=== PATIENT | female | born 1935 | race Two or more races ===

== ENCOUNTER 2016-05-09 22:18 | Inpatient (IN) | payer MEDICARE, BC ==
--- NOTE | 2016-05-09 22:52 | ED ---
General Adult HPI - General Source: patient, RN notes reviewed Mode of arrival: ambulatory Limitations: no limitations <Alex Pemberton - Last Filed: 05/10/16 00:20> <gY Echols - Last Filed: 05/10/16 01:10> - General Chief complaint: Fall Stated complaint: Weakness/Fall Time Seen by Provider: 05/09/16 22:45 - History of Present Illness Initial comments: Patient is 80-year-old female who presents emergency room today by EMS, the chief complaint of a fall that occurred approximately 2-3 hours ago. Patient does admit that she was laying in bed when the phone rang. States tried to get to it she fell out of the bed. States she was unable to get herself up. She states she was down on the ground she believes for a few hours. She states she was finally able to get to the phone to call her son who called EMS. Patient admits that she's been having increased weakness this past week. She does admit to cough and congestion. Patient states it's just generalized weakness. She denies any loss conscious. She does admit that she hit her face does have some pain over her nose. Patient denies any other complaints at this time. Patient denies any recent fever, chills, shortness of breath, chest pain, back pain, abdominal pain, nausea or vomiting, numbness or tingling, dysuria or hematuria, constipation or diarrhea, headaches or visual changes, or any other complaints. (Alex Pemberton) - Related Data Home Medications Medication Instructions Recorded Confirmed Aspirin 81 mg PO DAILY 05/09/16 05/09/16 Hydrochlorothiazide [Hydrodiuril] 25 mg PO DAILY 05/09/16 05/09/16 Lansoprazole 30 mg PO DAILY 05/09/16 05/09/16 Levothyroxine Sodium [Synthroid] 100 mcg PO DAILY 05/09/16 05/09/16 Mesalamine [Lialda] 1.2 gm PO DAILY 05/09/16 05/09/16 Metoprolol Tartrate [Lopressor] 25 mg PO BID 05/09/16 05/09/16 Multivitamins, Thera [Multivitamin] 1 tab PO DAILY 05/09/16 05/09/16 Pravastatin Sodium [Pravachol] 40 mg PO DAILY 05/09/16 05/09/16 Vit C/E/Zn/Coppr/Lutein/Zeaxan 1 cap PO BID 05/09/16 05/09/16 [Preservision Areds 2 Softgel] Zolpidem [Ambien] 10 mg PO HS PRN 05/09/16 05/09/16 amLODIPine [Norvasc] 5 mg PO DAILY 05/09/16 05/09/16 Allergies Allergy/AdvReac Type Severity Reaction Status Date / Time codeine Allergy Unknown Verified 05/09/16 23:16 gabapentin [From Neurontin] Allergy Unknown Verified 05/09/16 23:16 ibuprofen [From Motrin] Allergy Unknown Verified 05/09/16 23:16 Iodinated Contrast Media - Allergy Unknown Verified 05/09/16 23:16 Oral and omeprazole [From Prilosec] Allergy Unknown Verified 05/09/16 23:16 Sulfa (Sulfonamide Allergy Unknown Verified 05/09/16 23:16 Antibiotics) Review of Systems ROS Other: All systems not noted in ROS Statement are negative. <Alex Pemberton - Last Filed: 05/10/16 00:20> ROS Other: All systems not noted in ROS Statement are negative. <Yg Echols - Last Filed: 05/10/16 01:10> ROS Statement: Those systems with pertinent positive or pertinent negative responses have been documented in the HPI. Past Medical History Past Medical History: Hyperlipidemia, Hypertension, Myocardial Infarction (ID) Additional Past Surgical History / Comment(s): Cardiac stent Past Psychological History: No Psychological Hx Reported Smoking Status: Former smoker Past Alcohol Use History: None Reported Past Drug Use History: None Reported <Alex Pemberton - Last Filed: 05/10/16 00:20> General Exam Limitations: no limitations <Alex Pemberton - Last Filed: 05/10/16 00:20> <Yg Echols - Last Filed: 05/10/16 01:10> - General Exam Comments Initial Comments: General: The patient is awake and alert, in no distress, and does not appear acutely ill. Eye: Pupils are equal, round and reactive to light, extra-ocular movements are intact. No nystagmus. There is normal conjunctiva bilaterally. No signs of icterus. Ears, nose, mouth and throat: There are moist mucous membranes and no oral lesions. Mild abrasion over the bridge of the nose. Mild tenderness locally. No tenderness to the superior or inferior orbital bones bilaterally. Neck: The neck is supple, there is no tenderness or JVD. Cardiovascular: There is a regular rate and rhythm. No murmur, rub or gallop is appreciated. Respiratory: Lungs are clear to auscultation, respirations are non-labored, breath sounds are equal. No wheezes, stridor, rales, or rhonchi. Gastrointestinal: Soft, non-distended, non-tender abdomen without masses or organomegaly noted. There is no rebound or guarding present. No CVA tenderness. Bowel sounds are unremarkable. Musculoskeletal: No appearance of cervical, thoracic, lumbar spine. No step- offs forms appreciate. No tenderness on palpation to the cervical and thoracic , lumbar spine. Normal ROM, no tenderness. Strength 5/5. Sensation intact. Pulses equal bilaterally 2+. Neurological: A&O x 3. CN II-XII intact, There are no obvious motor or sensory deficits. Coordination appears grossly intact. Speech is normal. Skin: Skin is warm and dry and no rashes or lesions are noted. Psychiatric: Cooperative, appropriate mood & affect, normal judgment. (Alex Pemberton) Course <Alex Pemberton - Last Filed: 05/10/16 00:20> <Yg Echols - Last Filed: 05/10/16 01:10> Vital Signs 05/09/16 05/10/16 22:43 00:35 Temperature 98.8 F Pulse Rate 104 H 82 Respiratory 20 18 Rate Blood Pressure 131/60 117/69 O2 Sat by Pulse 96 97 Oximetry - Reevaluation(s) Reevaluation #1: 05/10/16 00:11 Patient reexamined at this time is slightly nauseated come back from CT. Patient will be given nausea medication. Labs been reviewed does show elevated troponin at 0.2. Patient's CT of the head and facial bones currently pending. EKG shows no acute ST change. Heparin held at this time until CT results. Case discussed and signed out to attending Dr. Echols at this time. (Alex Pemberton) EKG Findings - EKG Comments: EKG Findings:: EKG performed at 2322: A 12-lead EKG was performed and interpreted by me as showing the following: Rate is 98, and rhythm is normal sinus. There are normal QRS complexes and normal R-wave progression. ST segments have no elevation or depression, and IA segments appear normal. <Alex Pemberton - Last Filed: 05/10/16 00:20> Medical Decision Making - Lab Data Result diagrams: 05/09/16 23:15 05/09/16 23:15 <Alex Pemberton - Last Filed: 05/10/16 00:20> - Lab Data Result diagrams: 05/09/16 23:15 05/09/16 23:15 <Yg Echols - Last Filed: 05/10/16 01:10> - Medical Decision Making Medical decision-making. The patient is 80 years old phone rang she tried to get to the phone fell out of bed. Laid on the floor for approximately one hour. Earlier in the day the patient reports she had really severe low back pain denies any sweats or nausea at that time. She managed to get hold of phone call her son and the EMS picked her up and brought her in. Patient reports she's not been able to eat or drink much for the last several days. Feels extremely weak. Hard to get out of bed. Patient past history includes an ID. Years ago she also reports recently being diagnosed with adrenal carcinoma. She states she has had a CAT scan of the chest does not know that anything has been found there though today's x-ray is suspicious for a mass in the upper part of the right lower lobe.. The patient's EKG shows inferior Q waves. Patient does have a history of an ID. Her labs show CK normal at 63 but the MBs elevated 3.5 troponin elevated 0.206. Chest x-ray as noted above includes masslike density in the right lower lobe. The patient's white count is 13.9 hemoglobin 11 hematocrit of 45. BUN 13 with a creatinine 0.7 with a GFR greater than 60. Potassium 4.0. CT the brain and cervical spine were done and reviewed by stat read. The findings are generalized atrophy and patchy periventricular white matter hypodensity most commonly seen in the chronic small vessel ischemic bases. No hemorrhage. Impression is no acute findings atrophy and presumed chronic small vessel ischemic changes. The patient's CT of the cervical spine was done and reviewed by radiologist at stat read. Final impression is no acute fracture or listhesis. Multilevel degenerative changes. . As reported by stat read. Clinically the patient does not have a headache or neck pain. The patient be admitted to Dr. Mosqueda. She'll be started on heparin. Patient denies any bleeding though she has had a history of ulcerative colitis and occasionally sees a small amount of blood in the mucousy stool. But nothing significant lately. Cardiology consultation will also be requested. Dr. Echols (Yg Echols) - Lab Data Lab Results 05/09/16 05/09/16 05/09/16 Range/Units 23:15 23:15 23:15 WBC 13.7 H (3.8-10.6) k/uL RBC 4.20 (3.80-5.40) m/uL Hgb 11.3 L (11.4-16.0) gm/dL Hct 34.5 (34.0-46.0) % MCV 82.2 D (80.0-100.0) fL MCH 26.8 (25.0-35.0) pg MCHC 32.6 (31.0-37.0) g/dL RDW 13.5 (11.5-15.5) % Plt Count 278 (150-450) k/uL Neutrophils % 92 % Lymphocytes % 4 % Monocytes % 2 % Eosinophils % 1 % Basophils % 0 % Neutrophils # 12.5 H (1.3-7.7) k/uL Lymphocytes # 0.6 L (1.0-4.8) k/uL Monocytes # 0.3 (0-1.0) k/uL Eosinophils # 0.1 (0-0.7) k/uL Basophils # 0.0 (0-0.2) k/uL PT (9.0-12.0) sec INR (<1.1) APTT (22.0-30.0) sec Sodium 135 L (137-145) mmol/L Potassium 4.0 (3.5-5.1) mmol/L Chloride 99 (98-107) mmol/L Carbon Dioxide 22 (22-30) mmol/L Anion Gap 14 mmol/L BUN 13 (7-17) mg/dL Creatinine 0.70 (0.52-1.04) mg/dL Est GFR (MDRD) Af Amer >60 (>60 ml/min/1.73 sqM) Est GFR (MDRD) Non-Af >60 (>60 ml/min/1.73 sqM) Glucose 137 H (74-99) mg/dL Calcium 9.0 (8.4-10.2) mg/dL Magnesium 1.7 (1.6-2.3) mg/dL Total Bilirubin 0.4 (0.2-1.3) mg/dL AST 22 (14-36) U/L ALT 27 (9-52) U/L Alkaline Phosphatase 111 (38-126) U/L Total Creatine Kinase 63 (30-135) U/L CK-MB (CK-2) 3.5 H* (0.0-2.4) ng/mL CK-MB (CK-2) Rel Index 5.6 Troponin I 0.206 H* (0.000-0.034) ng/mL Total Protein 7.6 (6.3-8.2) g/dL Albumin 3.6 (3.5-5.0) g/dL 05/09/16 Range/Units 23:15 WBC (3.8-10.6) k/uL RBC (3.80-5.40) m/uL Hgb (11.4-16.0) gm/dL Hct (34.0-46.0) % MCV (80.0-100.0) fL MCH (25.0-35.0) pg MCHC (31.0-37.0) g/dL RDW (11.5-15.5) % Plt Count (150-450) k/uL Neutrophils % % Lymphocytes % % Monocytes % % Eosinophils % % Basophils % % Neutrophils # (1.3-7.7) k/uL Lymphocytes # (1.0-4.8) k/uL Monocytes # (0-1.0) k/uL Eosinophils # (0-0.7) k/uL Basophils # (0-0.2) k/uL PT 12.1 H (9.0-12.0) sec INR 1.2 (<1.1) APTT 24.5 (22.0-30.0) sec Sodium (137-145) mmol/L Potassium (3.5-5.1) mmol/L Chloride (98-107) mmol/L Carbon Dioxide (22-30) mmol/L Anion Gap mmol/L BUN (7-17) mg/dL Creatinine (0.52-1.04) mg/dL Est GFR (MDRD) Af Amer (>60 ml/min/1.73 sqM) Est GFR (MDRD) Non-Af (>60 ml/min/1.73 sqM) Glucose (74-99) mg/dL Calcium (8.4-10.2) mg/dL Magnesium (1.6-2.3) mg/dL Total Bilirubin (0.2-1.3) mg/dL AST (14-36) U/L ALT (9-52) U/L Alkaline Phosphatase (38-126) U/L Total Creatine Kinase (30-135) U/L CK-MB (CK-2) (0.0-2.4) ng/mL CK-MB (CK-2) Rel Index Troponin I (0.000-0.034) ng/mL Total Protein (6.3-8.2) g/dL Albumin (3.5-5.0) g/dL Disposition <Alex Pemberton - Last Filed: 05/10/16 00:20> <Yg Echols - Last Filed: 05/10/16 01:10> Clinical Impression: Elevated troponin I level, Fall Disposition: ADMITTED IP TO THIS HOSP Condition: Stable
[2016-05-09 23:21] LABS: Basophils % (A) 0 %; CH 26.8; CHCM 32.7; Eosinophils # (A) 0.1 k/uL (0-0.7); Eosinophils % (A) 1 %; HCT 34.5 % (34.0-46.0); HDW 2.64; HGB 11.3 gm/dL (11.4-16.0); Luc % (Auto) 1; Lymphocytes # (A) 0.6 k/uL (1.0-4.8); Lymphocytes % (A) 4 %; MCH 26.8 pg (25.0-35.0); MCHC 32.6 g/dL (31.0-37.0); Mean Platelet Volume 6.6; Monocytes # (A) 0.3 k/uL (0-1.0); Monocytes % (A) 2 %; Neutrophils # (A) 12.5 k/uL (1.3-7.7); Neutrophils % (A) 92 %; RDW 13.5 % (11.5-15.5); WBC 13.7 k/uL (3.8-10.6); WBC (Perox) 12.76
[2016-05-09 23:25] LABS: MCV 82.2 fL (80.0-100.0)
[2016-05-09 23:33] LABS: INR 1.2 (<1.1); Partial Thromboplastin Time 24.5 sec (22.0-30.0); Prothrombin Time 12.1 sec (9.0-12.0)
[2016-05-09 23:34] LABS: ALT 27 U/L (9-52); AST 22 U/L (14-36); Alkaline Phosphatase 111 U/L (38-126); Anion Gap 14 mmol/L; Blood Urea Nitrogen 13 mg/dL (7-17); Carbon Dioxide 22 mmol/L (22-30); Chloride 99 mmol/L (98-107); Glucose 137 mg/dL (74-99); Magnesium 1.7 mg/dL (1.6-2.3); Non-African American GFR(MDRD) >60 (>60 ml/min/1.73 sqM); Sodium 135 mmol/L (137-145); Total Bilirubin 0.4 mg/dL (0.2-1.3); Total Protein 7.6 g/dL (6.3-8.2)
[2016-05-09 23:57] LABS: Creatine Kinase MB 3.5 ng/mL (0.0-2.4); Troponin I 0.206 ng/mL (0.000-0.034)
--- NOTE | 2016-05-10 00:05 | XR ---
EXAMINATION TYPE: XR chest 2V DATE OF EXAM: 05/10/2016 12:00 AM COMPARISON: NONE HISTORY: Chest pain TECHNIQUE: Frontal and lateral views of the chest are obtained. FINDINGS: Heart is normal. There is increased density over the right pulmonary hilum that could rela te to a 3 cm mass posterior to the right pulmonary hilum on the lateral view. The other lung jim a re clear. Costophrenic angles are clear. Thoracic aorta is atheromatous. IMPRESSION: Possible masslike density in the superior segment of the right lower lobe posterior to t he right pulmonary hilum. Follow-up is recommended. If there are no old exams then CT scan is probabl y necessary.
[2016-05-10] MEDS ORDERED: ONDANSETRON 4 MG/2 ML VIAL IVP STA (00:10)
[2016-05-10] MEDS ORDERED: ACETAMINOPHEN TAB 325 MG TAB PO PRN (01:10)
[2016-05-10] MEDS ORDERED: NALOXONE 0.4 MG/ML 1 ML VIAL IV PRN (01:10)
[2016-05-10] MEDS: SODIUM CHLORIDE 0.9% 1,000 ML IV SCH ×2 (01:56→11:48)
[2016-05-10] MEDS: HEPARIN SODIUM,PORCINE/D5W PMX 25,000 UNIT in DEXTROSE/WATER 1 500ML.BAG IV SCH (01:57)
[2016-05-10 02:34] LABS: Glucose,Whole Blood 126 mg/dL (75-99)
[2016-05-10 05:42] LABS: CH 26.2; CHCM 30.7; HCT 34.7 % (34.0-46.0); HGB 10.9 gm/dL (11.4-16.0); Hypochromasia Moderate; MCHC 31.4 g/dL (31.0-37.0); MCV 85.8 fL (80.0-100.0); Mean Platelet Volume 6.6; RBC 4.04 m/uL (3.80-5.40); RDW 13.7 % (11.5-15.5); WBC 12.8 k/uL (3.8-10.6)
[2016-05-10 05:47] LABS: Anion Gap 10 mmol/L; Blood Urea Nitrogen 11 mg/dL (7-17); Calcium 8.8 mg/dL (8.4-10.2); Carbon Dioxide 25 mmol/L (22-30); Chloride 101 mmol/L (98-107); Glucose 104 mg/dL (74-99); Non-African American GFR(MDRD) >60 (>60 ml/min/1.73 sqM); Potassium 3.5 mmol/L (3.5-5.1); Sodium 136 mmol/L (137-145)
[2016-05-10] MEDS ORDERED: Potassium Replacement Protocol 1 EACH MISC MISCELLANE PRN (06:02)
[2016-05-10 06:12] LABS: Appearance,Urine Cloudy (Clear); Bacteria,Urine Moderate /hpf; Bilirubin,Urine Negative (Negative); Glucose,Urine (UA) Negative (Negative); Ketones,Urine Negative (Negative); Leukocyte Esterase,Urine Moderate (Negative); Mucus,Urine Rare /hpf; Nitrite,Urine Negative (Negative); PH, Urine 5.5 (5.0-8.0); Particle Count 110145; Protein,Urine Trace (Negative); RBC,Urine 5 /hpf (0-5); Squamous Epithelial Cell,Urine 1 /hpf (0-4); UA Billing (MACRO vs. MICRO) MICRO; Urobilinogen,Urine <2.0 mg/dL (<2.0); WBC,Urine 75 /hpf (0-5)
[2016-05-10 06:15] LABS: Creatine Kinase MB 9.2 ng/mL (0.0-2.4)
[2016-05-10 06:16] LABS: Troponin I 0.892 ng/mL (0.000-0.034)
[2016-05-10] MEDS: MAGNESIUM SULFATE-D5W PMX 1 GM in DEXTROSE/WATER 1 100ML.BAG IVPB SCH ×2 (07:09→09:43)
[2016-05-10] MEDS: POTASSIUM CHLORIDE ER 20 MEQ TAB.ER PO SCH ×2 (07:10→09:43)
[2016-05-10] MEDS: METOPROLOL TARTRATE 25 MG TAB PO SCH ×2 (09:43→20:55)
[2016-05-10] MEDS: PANTOPRAZOLE 40 MG/10 ML VIAL IV SCH (09:43)
[2016-05-10] MEDS ORDERED: RX INFO: IV CONTRAST WAS GIVEN 1 EACH MISC MISCELLANE PRN (11:08)
[2016-05-10] MEDS: AZITHROMYCIN 500 MG in SODIUM CHLORIDE 0.9% 250 ML IVPB SCH (11:47)
[2016-05-10] MEDS: methylPREDNISolone SOD SUCCI 125 MG/2 ML VIAL IV SCH ×2 (11:48→17:53)
[2016-05-10 11:57] LABS: Creatine Kinase MB 7.1 ng/mL (0.0-2.4); Troponin I 0.676 ng/mL (0.000-0.034)
--- NOTE | 2016-05-10 12:15 | ECHOF ---
Referral Reason:cad MEASUREMENTS -------- HEIGHT: 165.1 cm WEIGHT: 74.4 kg BP: 118/59 RVIDd: 3.0 cm (< 3.3) IVSd: 0.9 cm (0.6 - 1.1) LVIDd: 3.9 cm (3.9 - 5.3) LVPWd: 0.9 cm (0.6 - 1.1) IVSs: 1.5 cm LVIDs: 2.7 cm LVPWs: 1.3 cm LA Diam: 3.5 cm (2.7 - 3.8) LAESV Index (A-L): 22.66 ml/m Ao Diam: 3.2 cm (2.0 - 3.7) AV Cusp: 1.9 cm (1.5 - 2.6) LA Diam: 2.7 cm (2.7 - 3.8) MV EXCURSION: 13.189 mm (> 18.000) MV EF SLOPE: 54 mm/s (70 - 150) EPSS: 0.3 cm MV E Soto: 0.99 m/s MV DecT: 237 ms MV A Soto: 0.91 m/s MV E/A Ratio: 1.09 RAP: 5.00 mmHg RVSP: 39.13 mmHg FINDINGS -------- Sinus rhythm with extra systolic beats. This was a technically good study. Left ventricular wall thickness is normal. Overall left ventricular systolic function is normal with, an EF between 55 - 60 %. The right ventricle is normal in size. Normal LA size by volume 22+/-6 ml/m2. The right atrium is normal in size. Aortic valve is trileaflet and is mildly thickened. The mitral valve leaflets are mildly thickened. Mild mitral annular calcification present. There is trace mitral regurgitation. Mild tricuspid regurgitation present. There is mild pulmonary hypertension. The right ventricular systolic pressure, as measured by Doppler, is 39.13mmHg. Pulmonic valve appears structurally normal. The aortic root size is normal. Normal inferior vena cava with normal inspiratory collapse consistent with estimated right atrial pressure of 5 mmHg. Echo free space may represent effusion or a pericardial fat pad. CONCLUSIONS -------- 1. Sinus rhythm with extra systolic beats. 2. Mild mitral annular calcification present. 3. There is trace mitral regurgitation. 4. Mild tricuspid regurgitation present. 5. There is mild pulmonary hypertension. 6. The right ventricular systolic pressure, as measured by Doppler, is 39.13mmHg. 7. Pulmonic valve appears structurally normal. 8. The aortic root size is normal. 9. Echo free space may represent effusion or a pericardial fat pad. 10. This was a technically good study. 11. Left ventricular wall thickness is normal. 12. Overall left ventricular systolic function is normal with, an EF between 55 - 60 %. 13. The right ventricle is normal in size. 14. Normal LA size by volume 22+/-6 ml/m2. 15. The right atrium is normal in size. 16. Aortic valve is trileaflet and is mildly thickened. 17. The mitral valve leaflets are mildly thickened. SEAMING INSPECTOR: Lico Vitale RDCS
[2016-05-10 12:22] LABS: Glucose,Whole Blood 109 mg/dL (75-99)
--- NOTE | 2016-05-10 13:21 | CONS ---
DATE OF CONSULTATION: Mrs. Ortez is a 80 and year-old female who presented with severe weakness. The patient has been followed in [place] by the cardiology group, has a history of coronary artery disease and stenting in 2005. For the last few weeks he has been complaining of progressive fatigue. Yesterday he fell and was quite weak and could not stand up. She denies any change in her breathing. She denies any clear chest discomfort, although sometimes she gets some tightness in the upper chest. She has chronic dyspnea on exertion. No significant peripheral edema. No PND or orthopnea. She denies any palpitation or syncope. She apparently has been complaining of abdominal discomfort. Underwent extensive work-up in [place] by Dr. Araiza in the gastroenterology department and was diagnosed with possible malignant adrenal mass and was referred to [facility] to undergo surgical intervention but she has not seen the surgeon yet. She denies any recent cardiac abnormalities. She has been seen by her tattoo and body artist about a month ago. Her coronary risk factors are remarkable for smoking up to 10 days ago. She is hyperlipidemic, nondiabetic. She is hypertensive. Her medications include: 1. Aspirin. 2. Hydrochlorothiazide 25 mg daily. 3. Prevacid. 4. Levothyroxine. 5. Lialda. 6. Metoprolol tartrate 25 mg twice a day. 7. Pravastatin at 40 mg daily. 8. Zolpidem. 9. Norvasc 5 mg daily. 10. Preservision. REVIEW OF SYSTEMS: RESPIRATORY SYSTEM: She has no recent wheezing or cough, although she has dyspnea on exertion and chronic tobacco use. GI system: She had the abdominal discomfort. She has some bleeding with her stool according to her, mucousy. system: No dysuria or hematuria. Nervous system: No history of stroke or seizure. PHYSICAL EXAMINATION: A 80-year-old female, alert, in no apparent distress. Blood pressure running in the one teens with the heart rate in the 70s. HEAD: Normocephalic. EYES: Sclerae anicteric. NECK: Good upstroke. No bruit. LUNGS: With decreased air exchange and scattered wheezes bilaterally. HEART: Regular rate rhythm. S1, S2, no S3, with systolic murmur heard at the base. No diastolic murmur. No rub. ABDOMEN: Soft, nontender, positive bowel sounds. No organomegaly. EXTREMITIES: No edema. Intact distal pulses. Lab data revealed a white blood cells 13.7 and 12.8. Hemoglobin of 10.9. Her BUN and creatinine 11 and 0.7. Potassium 3.5. Her troponin 0.206 and 0.892. Her chest x-ray revealed possible masslike density in the superior segment of the right lower lobe. Her EKG shows sinus mechanism, normal axis and intervals, ( ) evidence to suggest myocardial infarction. IMPRESSION: 1. Fall with generalized weakness of unclear etiology. 2. Elevation of troponin with no evidence of chest discomfort. Her symptoms suggest acute coronary syndrome, the findings could represent a type II event. 3. History of an adrenal mass that is malignant. 4. Prior history of coronary artery disease. 5. History of hypertension. 6. History of chronic tobacco use. 7. Hyperlipidemia. 8. Abnormal chest x-ray with lung mass. RECOMMENDATIONS: At this time, I will continue heparin for another 24 hours. I will restart her on the beta israel as well aspirin and the statin. I will obtain echocardiogram with Doppler and will try to obtain the prior cardiac work-up that was done in [place]. We will obtain the input of Dr. Snyder regarding her chest x-ray and depending on this testing, further recommendations will be made. Thank you for this consult. We will follow with you.
--- NOTE | 2016-05-10 14:17 | CT ---
EXAM: CT Maxillofacial Without Intravenous Contrast. CLINICAL HISTORY: Reason: Pain TECHNIQUE: Axial computed tomography images of the face without intravenous contrast. Coronal reformats. CTDI is 30.60 mGy and DLP is 612.00 mGy-cm COMPARISON: No relevant prior studies available. FINDINGS: Bones: No acute displaced facial bone fracture is seen. Subtle lucency through the right and left lateral nasal hughes more likely representing normal sutures rather than nondisplaced fracture or fractures. Extracranial soft tissues: Unremarkable. Sinuses: Minimal scattered ethmoid air cell mucosal thickening. No air-fluid levels. Orbits: Of incidental note is absence of the lens bilaterally. IMPRESSION: No acute displaced fracture is seen, as above, and which could be correlated clinically with physical exam findings and site of symptomatology.
--- NOTE | 2016-05-10 14:18 | CT ---
EXAM: CT Head Without Intravenous Contrast. CLINICAL HISTORY: Reason: Pain TECHNIQUE: Axial computed tomography images of the head/brain without intravenous contrast. CTDI is 57.4 mGy and DLP is 995.50 mGy-cm COMPARISON: No relevant prior studies available. FINDINGS: Brain: There is generalized atrophy with patchy periventricular white matter hypodensity most commonly seen on a chronic small vessel ischemic basis. No hemorrhage. Ventricles: Unremarkable. No ventriculomegaly. Bones: No acute fracture. Sinuses: Minimal scattered mucosal thickening seen within a few bilateral ethmoid air cells. Mastoid air cells: Unremarkable as visualized. No mastoid effusion. IMPRESSION: No acute findings. Atrophy and presumed chronic small vessel ischemic changes. EXAM: CT Cervical Spine Without Intravenous Contrast. CLINICAL HISTORY: Reason: Pain TECHNIQUE: Axial computed tomography images of the cervical spine without intravenous contrast. CTDI is 17.60 mGy and DLP is 372.00 mGy-cm COMPARISON: No relevant prior studies available. FINDINGS: Vertebrae: Unremarkable. No acute fracture. Discs/spinal canal/neural foramina: Multilevel degenerative changes, resulting in a component of central canal and bilateral foraminal stenosis from C3-4 through C6-7. Soft tissues: Unremarkable. Vasculature: Scattered atherosclerotic calcification throughout. Lung apices: Biapical lung pleural parenchymal opacities favoring scarring. IMPRESSION: 1. No acute fracture or listhesis. 2. Multilevel degenerative changes. 3. Clinical clearance of the cervical spine is still recommended.
[2016-05-10] MEDS ORDERED: IPRATROPIUM 0.5 MG/2.5 ML NEBU INHALATION PRN (17:38)
[2016-05-10 17:40] LABS: Glucose,Whole Blood 135 mg/dL (75-99)
[2016-05-10] MEDS ORDERED: FAMOTIDINE 20 MG/2 ML VIAL IV ONE (17:45)
[2016-05-10] MEDS ORDERED: diphenhydrAMINE 50 MG/ML 1 ML VIAL IVP ONE (17:45)
--- NOTE | 2016-05-10 18:30 | P.CNPUL ---
History of Present Illness Consult date: 05/10/16 Reason for consult: abnormal CXR/CT Chief complaint: Abnormal chest x-ray History of present illness: This patient is being seen in the presence of Dr. Snyder in the intensive care unit. 80-year-old female patient who came into the emergency department yesterday after falling and staying on the ground for a total of 3-4 hours. Apparently the patient was feeling weak as she was having some increased cough and chest congestion and some shortness of breath along with generalized weakness. The patient tried to get out of her bed and she fell out and she was unable to get herself back up. She remained on the floor for a few hours and ultimately she got to her son who called EMS and the patient was taken to the hospital. No loss of consciousness. No focal neurological deficits. No nausea vomiting or diarrhea. She is known to have chronic ulcerative colitis and currently her symptoms of ulcerative colitis a currently inactive. She also denied having any chest pain. No headaches. No neck stiffness. No reported fever or chills. The patient tells me that during a recent evaluation with her harness fitter, she was found to have an adrenal lesion/mass and cancer was suspected and she was supposed to have a further workup which never got done. She has a chest x-ray that shows some infrahilar fullness on the right and I think she would deserve a CAT scan of the chest to characterized this abnormalities further. There is some minor nonspecific troponin leak for which the patient will be seeing cardiology. She is hemodynamically stable at this point. No chills. No fever. No signs of septicemia. No other significant events overnight. Review of Systems Further review of system was done and the positive findings are almost above history of present illness Past Medical History Past Medical History: Hyperlipidemia, Hypertension, Myocardial Infarction (AR) Additional Past Medical History / Comment(s): ulcerative colitis, adrenal mass under investigation, CAD previous stent of RCA, HTN, hyperlipidemia, EF 70% , hypothyroidism Last Myocardial Infarction Date:: 2005 History of Any Multi-Drug Resistant Organisms: None Reported Past Surgical History: Adenoidectomy, Bladder Surgery, Cholecystectomy, Hysterectomy, Tonsillectomy Additional Past Surgical History / Comment(s): Cardiac stent Additional Past Anesthesia/Blood Transfusion Reaction / Comment(s): muscle weakness post biopsy Past Psychological History: No Psychological Hx Reported Smoking Status: Former smoker Past Alcohol Use History: None Reported Past Drug Use History: None Reported - Past Family History Mother Family Medical History: Cancer, Myocardial Infarction (AR) Medications and Allergies Home Medications Medication Instructions Recorded Confirmed Type Aspirin 81 mg PO DAILY 05/09/16 05/09/16 History Hydrochlorothiazide [Hydrodiuril] 25 mg PO DAILY 05/09/16 05/09/16 History Lansoprazole 30 mg PO DAILY 05/09/16 05/09/16 History Levothyroxine Sodium [Synthroid] 100 mcg PO DAILY 05/09/16 05/09/16 History Mesalamine [Lialda] 1.2 gm PO DAILY 05/09/16 05/09/16 History Metoprolol Tartrate [Lopressor] 25 mg PO BID 05/09/16 05/09/16 History Multivitamins, Thera [Multivitamin] 1 tab PO DAILY 05/09/16 05/09/16 History Pravastatin Sodium [Pravachol] 40 mg PO DAILY 05/09/16 05/09/16 History Vit C/E/Zn/Coppr/Lutein/Zeaxan 1 cap PO BID 05/09/16 05/09/16 History [Preservision Areds 2 Softgel] Zolpidem [Ambien] 10 mg PO HS PRN 05/09/16 05/09/16 History amLODIPine [Norvasc] 5 mg PO DAILY 05/09/16 05/09/16 History Allergies Allergy/AdvReac Type Severity Reaction Status Date / Time codeine Allergy Unknown Verified 05/09/16 23:16 gabapentin [From Neurontin] Allergy Unknown Verified 05/09/16 23:16 ibuprofen [From Motrin] Allergy Unknown Verified 05/09/16 23:16 Iodinated Contrast Media - Allergy Unknown Verified 05/09/16 23:16 Oral and omeprazole [From Prilosec] Allergy Unknown Verified 05/09/16 23:16 Sulfa (Sulfonamide Allergy Unknown Verified 05/09/16 23:16 Antibiotics) Physical Exam Vitals: Vital Signs Temp Pulse Pulse Resp BP BP Pulse Ox 05/10/16 17:00 85 22 135/61 92 L 05/10/16 16:00 98.9 F 75 22 135/61 93 L 05/10/16 15:00 77 05/10/16 14:00 81 22 05/10/16 13:00 74 18 112/53 05/10/16 12:00 71 73 25 H 112/53 94 L 05/10/16 11:00 62 23 92 L 05/10/16 10:00 69 20 118/59 93 L 05/10/16 09:00 98.1 F 82 22 118/59 92 L 05/10/16 08:00 68 18 104/63 92 L 05/10/16 07:00 90 34 H 104/63 90 L 05/10/16 06:00 73 46 H 95/42 93 L 05/10/16 05:00 87 29 H 95/42 90 L 05/10/16 04:00 98.4 F 69 73 40 H 119/58 95/42 94 L 05/10/16 03:00 73 21 119/58 95 05/10/16 02:39 98.4 F 71 27 H 119/58 95 05/10/16 02:30 89 25 H 88 L 05/10/16 02:01 97.9 F 78 18 108/54 93 L Intake and Output 05/10/16 05/10/16 05/10/16 06:59 14:59 22:59 Intake Total 600 1359.302 158.193 Balance 600 1359.302 158.193 Intake: IV 600 800 Sodium Chloride 0.9% 1, 600 800 000 ml @ 100 mls/hr IV . Q10H [facility] Rx#:[id number] Intake, IV Titration 559.302 158.193 Amount Azithromycin 500 mg In 250 Sodium Chloride 0.9% 250 ml @ 125 mls/hr IVPB DAILY [facility] Rx#:[id number] Heparin Sodium,Porcine/ 159.302 158.193 D5w Pmx 25,000 unit In Dextrose/Water 1 500ml. bag @ 12 UNITS/KG/HR 17. 41 mls/hr IV .Q24H [facility] Rx #:[id number] Magnesium Sulfate-D5w Pmx 100 1 gm In Dextrose/Water 1 100ml.bag @ 100 mls/hr IVPB Q1H [facility] Rx#: [id number] cefTRIAXone 1,000 mg In 50 Sodium Chloride 0.9% 50 ml @ 100 mls/hr IVPB Q24HR [facility] Rx#:[id number] Other: Voiding Method Bedside Commode Bedside Commode # Voids 1 3 Weight 74.5 kg 74.5 kg Patient Weight 05/11/16 06:59 Weight 74.5 kg Head exam was generally normal. There was no scleral icterus or corneal arcus. Mucous membranes were moist.Neck was supple and without jugular venous distension, thyromegaly, or carotid bruits. Carotids were easily palpable bilaterally. There was no adenopathy. Lungs are diminished breath sounds along with some scattered expiratory wheezes heard bilaterally.Cardiac exam revealed the PMI to be normally situated and sized. The rhythm was regular and no extrasystoles were noted during several minutes of auscultation. The first and second heart sounds were normal and physiologic splitting of the second heart sound was noted. There were no murmurs, rubs, clicks, or gallops.Abdominal exam revealed normal bowel sounds. The abdomen was soft, non-tender, and without masses, organomegaly, or appreciable enlargement of the abdominal aorta.Examination of the extremities revealed easily palpable radial, femoral and pedal pulses. There was no cyanosis, clubbing or edema. Results - Laboratory Findings CBC and BMP: 05/10/16 05:28 05/10/16 05:28 PT/INR, D-dimer PT 12.1 sec (9.0-12.0) H 05/09/16 23:15 INR 1.2 (<1.1) 05/09/16 23:15 Abnormal lab findings: Abnormal Labs 05/10/16 05/10/16 05/10/16 02:28 05:28 05:28 WBC 12.8 H Hgb 10.9 L APTT Sodium Glucose POC Glucose (mg/dL) 126 H CK-MB (CK-2) 9.2 H* Troponin I 0.892 H* TSH Urine Appearance Urine Protein Ur Leukocyte Esterase Urine WBC Urine WBC Clumps Urine Bacteria Urine Mucus 05/10/16 05/10/16 05/10/16 05:28 05:28 05:48 WBC Hgb APTT Sodium 136 L Glucose 104 H POC Glucose (mg/dL) CK-MB (CK-2) Troponin I TSH 0.164 L Urine Appearance Cloudy H Urine Protein Trace H Ur Leukocyte Esterase Moderate H Urine WBC 75 H Urine WBC Clumps Rare H Urine Bacteria Moderate H Urine Mucus Rare H 05/10/16 05/10/16 05/10/16 08:42 10:41 12:17 WBC Hgb APTT 31.8 H Sodium Glucose POC Glucose (mg/dL) 109 H CK-MB (CK-2) 7.1 H* Troponin I 0.676 H* TSH Urine Appearance Urine Protein Ur Leukocyte Esterase Urine WBC Urine WBC Clumps Urine Bacteria Urine Mucus 05/10/16 05/10/16 17:01 17:38 WBC Hgb APTT 35.0 H Sodium Glucose POC Glucose (mg/dL) 135 H CK-MB (CK-2) Troponin I TSH Urine Appearance Urine Protein Ur Leukocyte Esterase Urine WBC Urine WBC Clumps Urine Bacteria Urine Mucus - Diagnostic Findings Chest x-ray: image reviewed Assessment and Plan Plan: Assessment 1 generalized weakness/fall in setting of a suspected upper respiratory tract infection, and an abnormal chest x-ray that showing right infrahilar fullness/ lesion. CAT scan of the chest will be needed for further investigation and there is a concern of malignancy specially the patient was recently told to have an adrenal lesion. 2 nonspecific troponin leak, awaiting cardiac consultation 3 questionable adrenal lesion, currently under investigation 4 ulcerative colitis 5 coronary artery disease with previous history of insertion of coronary stents 6 hypertension 7 smoking 8 hyperlipidemia 9 suspected urinary tract infection Plan Continue IV fluids. We'll cover this patient with a combination of Rocephin and Zithromax. This will give the patient adequate respiratory coverage and Rocephin will also cover this patient for any potential urine checked infection. Would proceed with a CAT scan of the chest with contrast. The patient is ALLERGIC to contrast and the patient will be given IV Solu-Medrol and this will be followed up by CAT scan of the chest for further characterization of the right lung abnormalities. The patient is stable. She can be moved to selective unit for further monitoring.
[2016-05-10 20:48] LABS: Glucose,Whole Blood 208 mg/dL (75-99)
[2016-05-10] MEDS: ZOLPIDEM 5 MG TAB PO SCH (20:55)
[2016-05-10] MEDS: INSULIN LISPRO (humaLOG) 300 UNIT/3 ML VIAL SQ SCH (20:55)
[2016-05-11] MEDS: HEPARIN SODIUM,PORCINE/D5W PMX 25,000 UNIT in DEXTROSE/WATER 1 500ML.BAG IV SCH ×2 (00:07→22:52)
[2016-05-11] MEDS: methylPREDNISolone SOD SUCCI 125 MG/2 ML VIAL IV SCH ×5 (00:30→23:02)
[2016-05-11 02:13] LABS: Hemoglobin A1C 5.7 % (4.2-6.1)
[2016-05-11] MEDS: SODIUM CHLORIDE 0.9% 1,000 ML IV SCH (05:38)
[2016-05-11] MEDS ORDERED: IV VANCOMYCIN PER PHARMACY 1 EACH MISC MISCELLANE PRN (06:04)
[2016-05-11 06:28] LABS: Glucose,Whole Blood 156 mg/dL (75-99)
[2016-05-11 06:31] LABS: Basophils % (A) 0 %; CH 26.2; Eosinophils % (A) 0 %; HCT 32.8 % (34.0-46.0); HDW 2.68; HGB 10.2 gm/dL (11.4-16.0); Hypochromasia Slight; Luc # (Auto) 0.04; Luc % (Auto) 0; Lymphocytes # (A) 0.8 k/uL (1.0-4.8); Lymphocytes % (A) 5 %; MCH 26.4 pg (25.0-35.0); MCHC 31.1 g/dL (31.0-37.0); MCV 84.9 fL (80.0-100.0); Mean Platelet Volume 6.4; Monocytes # (A) 0.2 k/uL (0-1.0); Monocytes % (A) 1 %; Neutrophils # (A) 14.7 k/uL (1.3-7.7); Neutrophils % (A) 94 %; RBC 3.86 m/uL (3.80-5.40); RDW 13.6 % (11.5-15.5); WBC 15.7 k/uL (3.8-10.6); WBC (Perox) 16.03
[2016-05-11] MEDS: INSULIN LISPRO (humaLOG) 300 UNIT/3 ML VIAL SQ SCH ×4 (06:50→21:21)
[2016-05-11] MEDS: LEVOTHYROXINE 100 MCG TAB PO SCH (06:50)
[2016-05-11 06:53] LABS: Anion Gap 11 mmol/L; Blood Urea Nitrogen 14 mg/dL (7-17); Calcium 8.4 mg/dL (8.4-10.2); Carbon Dioxide 23 mmol/L (22-30); Chloride 105 mmol/L (98-107); Glucose 152 mg/dL (74-99); Non-African American GFR(MDRD) >60 (>60 ml/min/1.73 sqM); Potassium 4.3 mmol/L (3.5-5.1); Sodium 139 mmol/L (137-145)
--- NOTE | 2016-05-11 07:34 | HP ---
DATE OF ADMISSION: CHIEF COMPLAINT: Generalized weakness, found on the floor, status post fall. HISTORY OF PRESENT ILLNESS: Ms. Ortez is a 80-year-old female with known history of hypertension, hyperlipidemia, history of coronary artery disease, status post stent placement to RCA and recent incidental finding of adrenal mass, currently under workup came to the hospital with generalized weakness. Patient apparently was lying in the bed when the phone rang. She tried to get it and she fell out of the bed. She was unable to get herself up and she was down on the floor where her son found her on the floor and called EMS. Patient apparently has been having generalized weakness for the past one week and patient has been having cough and congestion for the past one week and generalized weakness is getting worse. Otherwise, patient denied any loss of consciousness. No headache or dizziness, lightheadedness. No chest pain. No short of breath. No fever. No chills. No sick contacts at home. Patient was found to have a slightly elevated troponin level and chest x-ray showed right hilar fullness and Pulmonary has been consulted and CT of the chest was ordered for further evaluation. Otherwise, patient currently is chest pain free. Cardiology and Pulmonary are following this patient. Her UA showed cloudy with moderate leukocyte esterase and 75 WBCs with clumps. Patient was started on antibiotics in the form of ceftriaxone. REVIEW OF SYSTEMS: CONSTITUTIONAL: No fever. No chills. Patient does have generalized weakness and malaise. RESPIRATORY: No cough or sputum production. No short of breath. CARDIOVASCULAR: No chest pain or short of breath. No leg swelling. ABDOMEN: No nausea or vomiting, abdominal pain. No diarrhea. GENITOURINARY: No dysuria or hematuria. ENDOCRINE: Negative. PSYCHIATRIC: Negative. SKIN: Negative. MUSCULOSKELETAL: Negative. All other 14-point review of systems negative except as above. PAST MEDICAL HISTORY: Hypertension, hyperlipidemia, history of CT, ulcerative colitis, adrenal mass under investigation, coronary artery disease with previous history of stent to RCA, hypertension, hyperlipidemia, hypothyroidism. PAST SURGICAL HISTORY: Adenoidectomy, bladder surgery, cholecystectomy, hysterectomy, tonsillectomy, cardiac stent placement. No psychosocial history. SOCIAL HISTORY: Patient is a former smoker. Currently denies any smoking. Denied any alcohol. Denied IVDU. FAMILY HISTORY: Mother had cancer and CT. Home medication include: 1. Aspirin. 2. Hydrochlorothiazide. 3. Lansoprazole. 4. Levothyroxine. 5. Mesalamine. 6. Metoprolol. 7. Multivitamins. 8. Pravastatin. 9. PreserVision Areds 2 softgels. 10. Zolpidem. 11. Amlodipine. ALLERGIES: CODEINE, GABAPENTIN, IBUPROFEN, IODINATED CONTRAST, OMEPRAZOLE and SULFA. PHYSICAL EXAMINATION: A 80-year-old female lying in the bed. Awake, alert, oriented x3. She appears to be in no apparent distress. VITALS: Blood pressure is 119/58, pulse is 69, respirations 20 to 25 on admission, pulse ox 96% on room air on admission, currently saturating at 97% on 6 L of nasal cannula. HEENT: Atraumatic, normocephalic. Neck is supple. No JVD. CVS EXAM: S1, S2 heard. No murmurs, no gallop. LUNGS: Patient does have decreased breath sounds bilaterally basally. No wheezing noted. ABDOMEN: Soft, nontender. Bowel sounds are present. Obese. RESEARCH/PROGRAM DIRECTOR: Awake, alert, oriented x3. No focal neurologic deficits. EXTREMITIES: No edema. Pulses palpable bilaterally. No clubbing or cyanosis. PSYCHIATRIC: Cooperative. LABORATORY DATA: WBC 13.7, hemoglobin 11.3, platelets 278. INR 1.2. Sodium 135, potassium 4.0, chloride 99, bicarb is 22, BUN 13, creatinine 0.7. Blood sugar is 137. Troponin 0.206 and 0.892. TSH is 0.164. Free T4 within normal limits at 1.46. Creatine kinase is 63 on admission. Chest x-ray possible mass-like density in the superior segment of the right lower lobe posterior to the right pulmonary hilum. Follow up recommended. CT of the face, no acute displaced fracture is seen. CT of the head and C-spine, no acute findings. Atrophy and presumed chronic small vessel ischemic changes. EKG normal sinus rhythm. IMPRESSION: 1. Generalized weakness and fall, possible infectious etiology with suspected urinary tract infection and chest x-ray showing right hilar fullness. Patient will be continued on antibiotics in the form of ceftriaxone and azithromycin and CT of the chest was ordered for further investigation. Pulmonary has seen the patient. 2. Troponin leak, unlikely acute coronary syndrome. A 2-D echo was ordered. 3. Recent diagnosis of adrenal mass, workup in progress as per the patient. 4. Hypertension. 5. Hyperlipidemia. 6. History of coronary artery disease, status post stent placement to RCA in the past. 7. Previous history of smoking. 8. History of ulcerative colitis, currently asymptomatic. DISCUSSION AND PLAN: Patient will be continued on antibiotics and will continue with gentle hydration. Follow up on CT thorax and I am getting medical records from ( ) Hospital. Otherwise, the patient currently denied any chest pain. Will continue the oxygen therapy and further recommendations based on the clinical course.
[2016-05-11 12:01] LABS: Glucose,Whole Blood 151 mg/dL (75-99)
[2016-05-11] MEDS: VANCOMYCIN 1,500 MG in SODIUM CHLORIDE 0.9% 250 ML IVPB SCH ×2 (12:04→23:02)
[2016-05-11] MEDS: BALSALAZIDE DISODIUM 750 MG CAPSULE PO SCH ×3 (12:05→21:21)
[2016-05-11] MEDS: ASPIRIN 81 MG CHEW PO SCH (12:05)
[2016-05-11] MEDS: PRAVASTATIN SODIUM 40 MG TAB PO SCH (12:06)
[2016-05-11] MEDS: METOPROLOL TARTRATE 25 MG TAB PO SCH ×2 (12:06→21:21)
--- NOTE | 2016-05-11 13:01 | CDI ---
In responding to this query, please exercise your independent professional judgment. The [facility] Coding Staff and Clinical Documentation Specialists appreciate your assistance in clarifying documentation, maintaining compliance with coding guidelines, accurately documenting patients condition and capturing severity of illness. The fact that a question is asked does not imply that any particular answer is desired or expected. Communication forms are a method of clarifying documentation and are not made part of the Legal Health Record. Thank you in advance for your clarification. Last Revision, January 2015 Rohit Sapp [address] [place] [address] Documentation Clarification Form Date: 05/11/2016 12:47:00 PM From: Charisma Laguna RN, CCDS Admit Date: 05/10/2016 1:10:00 AM Patient Name: Gabby Ortez Visit Number: [id number] Dr. Alana Weber History/Risk Factors: HTN, Hyperlipidemia, CAD w stent to RCA Clinical Indicators: 05/11 H&P: "Generalized weakness and fall, possible infectious etiology with suspected urinary tract infection." WBC: 13.7/12.8/15.7 Left Shift: 12.5/14.7 Lactic acid: 0.7 Blood cultures: gram + cocci in groups Vitals signs on admission: Temp 98.8, hr 104, RR 20-40, B/P 131/60, spo2 96% ra down to 88% Treatment: Antibiotics: 1gm Rocephin IVPB x1, IV Vanco 1500 mg IVPB Q 16 hrs, Zithromax 500mg IVPB QD IV: 0.9%NS @ 100 cc/hr In your professional opinion, can you please clarify if these findings signify one of the following conditions, whether the condition is POA, and cause, if known? Sepsis Severe Sepsis Septic Shock Unable to determine Other, please specify * Identify the (suspected) organism * Link or clarify if there is associated (due to/with): - Organ failure - Shock SIRS Criteria: 2 or more of the following may indicate SIRS Temperature < 96.8F(36C) or > 101.0F (38C) Heart Rate > 90 bpm Respiratory Rate > 20 breaths/min or PaCO2 < 32 mmHg White Blood Cell Count > 12,000 or < 4,000 cells/mm3 or > 10% bands Please document in your progress notes and discharge summary in order to capture severity of illness and risk of mortality. Include clinical findings that support your diagnosis. FYI: Press F11 to launch patient chart. Place X here if this finding has no clinical significance, is not applicable or if you are not able to provide any additional documentation. MTDD
[2016-05-11] MEDS: IPRATROPIUM-ALBUTEROL 3 ML NEB INHALATION PRN ×3 (13:12→23:52)
--- NOTE | 2016-05-11 13:23 | CT ---
EXAMINATION TYPE: CT chest w con DATE OF EXAM: 05/10/2016 6:55 PM COMPARISON: NONE HISTORY: Cough and wheezing. CT DLP: 724 mGycm Automated exposure control for dose reduction was used. CONTRAST: 100 cc of Omnipaque 300. FINDINGS: There is a 4.5 cm well-circumscribed mass in the right suprahilar region with a mean Hounsf ield value of 29 Hounsfield units.. There is atelectatic change at the right lung base. There is a 12 mm nodule in the superior segment of the right lower lobe, as seen on image 24. There are underlying changes of emphysema. There is debris within the right lower lobe bronchus. There is no significant axillary, internal mammary, mediastinal or hilar adenopathy. There is no pleu ral or pericardial fluid. The heart is not enlarged. Visualized portions of the upper abdomen are unremarkable. There is mild hypertrophic spondylosis within the spine. IMPRESSION: 1. 4.5 cm circumscribed mass in the right suprahilar region partially occluding the right lower lobe bronchus. 2. 12 mm nodule in the superior segment right lower lobe. 3. Atelectatic change at the right lung base. 4. Mild hypertrophic spondylosis within the spine. RECOMMENDATION: Bronchoscopy.
--- NOTE | 2016-05-11 15:04 | P.PN ---
Subjective Principal diagnosis: Weakness This is a 80-year-old female patient who presented to the hospital initially with symptoms of weakness. Patient has a known history of coronary artery disease with prior stent placement in 2005, hyperlipidemia, hypertension, prior history of smoking, she presented to the hospital with symptoms of progressive fatigue. Patient did have an extensive workup done in [place] and was diagnosed with possible malignant adrenal mass. was noted here to have abnormal troponin values. Chest x-ray revealed a possible masslike density in the superior segment of the right lower lobe. CT of the chest was performed which revealed a 4.5 cm mass in the right suprahilar region. 12 mm nodule in the superior segment of the right lower lobe. Echocardiogram with Doppler study was performed which revealed an ejection fraction of 55-60%. The pressure 106/ 60 with a heart rate in the 60s. White blood cell count 15.7, hemoglobin 10.2, potassium 4.3, BUN 14, creatinine 0.7. Patient feels well today, it was explained to the patient, that the troponin abnormality may be adjusted with acute coronary syndrome knowing what the patient's past medical history is. However we wait for the input from a pulmonology at this time continue maximal medical therapy. Objective - Vital Signs Vital signs: Vital Signs Temp 97.1 F L 05/11/16 12:00 Pulse 66 05/11/16 13:23 Resp 18 05/11/16 12:00 BP 106/52 05/11/16 12:00 Pulse Ox 96 05/11/16 12:00 Intake & Output 05/10/16 05/11/16 05/11/16 18:59 06:59 18:59 Intake Total 6860.749 2389.548 298 Balance 6381.109 1264.548 298 Weight 74.5 kg 75.7 kg Intake: IV 800 1000 Heparin Sodium,Porcine/ 200 D5w Pmx 25,000 unit In Dextrose/Water 1 500ml. bag @ 12 UNITS/KG/HR 17. 41 mls/hr IV .Q24H [facility] Rx #:[id number] Sodium Chloride 0.9% 1, 800 800 000 ml @ 100 mls/hr IV . Q10H [facility]EL Rx#:[id number] Intake, IV Titration 717.495 329.548 Amount Azithromycin 500 mg In 250 Sodium Chloride 0.9% 250 ml @ 125 mls/hr IVPB DAILY [facility]AC[facility]EL Rx#:[id number] Heparin Sodium,Porcine/ 317.495 329.548 D5w Pmx 25,000 unit In Dextrose/Water 1 500ml. bag @ 12 UNITS/KG/HR 17. 41 mls/hr IV .Q24H [facility] Rx #:[id number] Magnesium Sulfate-D5w Pmx 100 1 gm In Dextrose/Water 1 100ml.bag @ 100 mls/hr IVPB Q1H JAC[facility]EL Rx#: [id number] cefTRIAXone 1,000 mg In 50 Sodium Chloride 0.9% 50 ml @ 100 mls/hr IVPB Q24HR [facility]AC[facility]EL Rx#:[id number] Oral 250 298 Other: Voiding Method Bedside Commode Toilet Toilet # Voids 3 2 - Exam PHYSICAL EXAMINATION: HEENT: [Head is atraumatic, normocephalic. Pupils equal, round. Neck is supple. There is no elevated jugular venous pressure.] HEART EXAMINATION: Heart S1 and S2 systolic murmur is heard. CHEST EXAMINATION: Lungs reveal fine expiratory wheezing. ABDOMEN: [ Soft, nontender. Bowel sounds are heard. No organomegaly noted]. EXTREMITIES:[ 2+ peripheral pulses with no evidence of peripheral edema and no calf tenderness noted]. NEUROLOGIC [patient is awake, alert and oriented -3.] . - Labs CBC & Chem 7: 05/11/16 05:54 05/11/16 05:54 Labs: Abnormal Lab Results - Last 24 Hours (Table) 05/10/16 05/10/16 05/10/16 Range/Units 17:01 17:38 20:35 WBC (3.8-10.6) k/uL Hgb (11.4-16.0) gm/dL Hct (34.0-46.0) % Neutrophils # (1.3-7.7) k/uL Lymphocytes # (1.0-4.8) k/uL APTT 35.0 H (22.0-30.0) sec Glucose (74-99) mg/dL POC Glucose (mg/dL) 135 H 208 H (75-99) mg/dL 05/10/16 05/11/16 05/11/16 Range/Units 23:52 05:54 05:54 WBC 15.7 H (3.8-10.6) k/uL Hgb 10.2 L (11.4-16.0) gm/dL Hct 32.8 L (34.0-46.0) % Neutrophils # 14.7 H (1.3-7.7) k/uL Lymphocytes # 0.8 L (1.0-4.8) k/uL APTT 63.7 H (22.0-30.0) sec Glucose 152 H (74-99) mg/dL POC Glucose (mg/dL) (75-99) mg/dL 05/11/16 05/11/16 05/11/16 Range/Units 05:54 06:13 11:50 WBC (3.8-10.6) k/uL Hgb (11.4-16.0) gm/dL Hct (34.0-46.0) % Neutrophils # (1.3-7.7) k/uL Lymphocytes # (1.0-4.8) k/uL APTT 90.3 H (22.0-30.0) sec Glucose (74-99) mg/dL POC Glucose (mg/dL) 156 H 151 H (75-99) mg/dL Microbiology - Last 24 Hours (Table) 05/10/16 10:53 Blood Culture Gram Stain - Preliminary Blood 05/10/16 10:53 Blood Culture - Preliminary Blood 05/10/16 05:48 Urine Culture - Preliminary Urine,Voided Assessment and Plan (1) Adrenal mass Status: Acute (2) CAD (coronary artery disease) Status: Acute (3) HTN (hypertension) Status: Acute (4) Nicotine dependence Status: Acute (5) Hyperlipemia Status: Acute (6) Elevated troponin I level Status: Acute (7) Fall Status: Acute Plan: From cardiology's perspective, we will continue current medical therapy. Await input from pulmonary regarding a lung mass. We'll continue to follow. DNP note has been reviewed, I agree with a documented findings and plan of care. Patient was seen and examined.
[2016-05-11] MEDS: AZITHROMYCIN 500 MG in SODIUM CHLORIDE 0.9% 250 ML IVPB SCH (16:31)
--- NOTE | 2016-05-11 16:35 | P.PN ---
Subjective 80-year-old female patient who came into the emergency department yesterday after falling and staying on the ground for a total of 3-4 hours. Apparently the patient was feeling weak as she was having some increased cough and chest congestion and some shortness of breath along with generalized weakness. The patient tried to get out of her bed and she fell out and she was unable to get herself back up. She remained on the floor for a few hours and ultimately she got to her son who called EMS and the patient was taken to the hospital. No loss of consciousness. No focal neurological deficits. No nausea vomiting or diarrhea. She is known to have chronic ulcerative colitis and currently her symptoms of ulcerative colitis a currently inactive. She also denied having any chest pain. No headaches. No neck stiffness. No reported fever or chills. The patient tells me that during a recent evaluation with her naturopathic doctor, she was found to have an adrenal lesion/mass and cancer was suspected and she was supposed to have a further workup which never got done. She has a chest x-ray that shows some infrahilar fullness on the right and I think she would deserve a CAT scan of the chest to characterized this abnormalities further. There is some minor nonspecific troponin leak for which the patient will be seeing cardiology. She is hemodynamically stable at this point. No chills. No fever. No signs of septicemia. No other significant events overnight. On 05/11/2016 the patient is being seen in follow-up. Noted the patient was initially was evaluated at the intensive care unit and she was transferred to a medical floor. The patient is resting comfortably in bed. She is less short of breath. She still seeing prokinetics and systemic steroids. CAT scan of the chest was completed and there is a mass measuring 4.5 cm in the right suprahilar region partially occluding the right upper lobe bronchus and there is 12 mm nodule in the posterior superior segment of the right lower lobe and atelectasis in the right lung base. The adrenal glands were also prominent. No significant axillary mediastinal or hilar lymphadenopathy. This findings are very suspicious for underlying malignancy. I discussed these findings with the patient and her son and they're interested in proceeding with a bronchoscopy to establish a tissue diagnosis. Objective - Vital Signs Vital signs: Vital Signs Temp 97.1 F L 05/11/16 12:00 Pulse 66 05/11/16 13:23 Resp 18 05/11/16 12:00 BP 106/52 05/11/16 12:00 Pulse Ox 96 05/11/16 12:00 Intake & Output 05/10/16 05/11/16 05/11/16 18:59 06:59 18:59 Intake Total 1842.803 6296.548 298 Balance 4120.256 9211.548 298 Weight 74.5 kg 75.7 kg Intake: IV 800 1000 Heparin Sodium,Porcine/ 200 D5w Pmx 25,000 unit In Dextrose/Water 1 500ml. bag @ 12 UNITS/KG/HR 17. 41 mls/hr IV .Q24H [facility] Rx #:[id number] Sodium Chloride 0.9% 1, 800 800 000 ml @ 100 mls/hr IV . Q10H [facility] Rx#:[id number] Intake, IV Titration 717.495 329.548 Amount Azithromycin 500 mg In 250 Sodium Chloride 0.9% 250 ml @ 125 mls/hr IVPB DAILY [facility] Rx#:[id number] Heparin Sodium,Porcine/ 317.495 329.548 D5w Pmx 25,000 unit In Dextrose/Water 1 500ml. bag @ 12 UNITS/KG/HR 17. 41 mls/hr IV .Q24H [facility] Rx #:[id number] Magnesium Sulfate-D5w Pmx 100 1 gm In Dextrose/Water 1 100ml.bag @ 100 mls/hr IVPB Q1H [facility] Rx#: [id number] cefTRIAXone 1,000 mg In 50 Sodium Chloride 0.9% 50 ml @ 100 mls/hr IVPB Q24HR [facility] Rx#:[id number] Oral 250 298 Other: Voiding Method Bedside Commode Toilet Toilet # Voids 3 2 - Exam Head exam was generally normal. There was no scleral icterus or corneal arcus. Mucous membranes were moist.Neck was supple and without jugular venous distension, thyromegaly, or carotid bruits. Carotids were easily palpable bilaterally. There was no adenopathy. Lungs are diminished breath sounds along with some scattered expiratory wheezes heard bilaterally.Cardiac exam revealed the PMI to be normally situated and sized. The rhythm was regular and no extrasystoles were noted during several minutes of auscultation. The first and second heart sounds were normal and physiologic splitting of the second heart sound was noted. There were no murmurs, rubs, clicks, or gallops.Abdominal exam revealed normal bowel sounds. The abdomen was soft, non-tender, and without masses, organomegaly, or appreciable enlargement of the abdominal aorta.Examination of the extremities revealed easily palpable radial, femoral and pedal pulses. There was no cyanosis, clubbing or edema. - Labs CBC & Chem 7: 05/11/16 05:54 05/11/16 05:54 Labs: Abnormal Lab Results - Last 24 Hours (Table) 05/10/16 05/10/16 05/10/16 Range/Units 17:01 17:38 20:35 WBC (3.8-10.6) k/uL Hgb (11.4-16.0) gm/dL Hct (34.0-46.0) % Neutrophils # (1.3-7.7) k/uL Lymphocytes # (1.0-4.8) k/uL APTT 35.0 H (22.0-30.0) sec Glucose (74-99) mg/dL POC Glucose (mg/dL) 135 H 208 H (75-99) mg/dL 05/10/16 05/11/16 05/11/16 Range/Units 23:52 05:54 05:54 WBC 15.7 H (3.8-10.6) k/uL Hgb 10.2 L (11.4-16.0) gm/dL Hct 32.8 L (34.0-46.0) % Neutrophils # 14.7 H (1.3-7.7) k/uL Lymphocytes # 0.8 L (1.0-4.8) k/uL APTT 63.7 H (22.0-30.0) sec Glucose 152 H (74-99) mg/dL POC Glucose (mg/dL) (75-99) mg/dL 05/11/16 05/11/16 05/11/16 Range/Units 05:54 06:13 11:50 WBC (3.8-10.6) k/uL Hgb (11.4-16.0) gm/dL Hct (34.0-46.0) % Neutrophils # (1.3-7.7) k/uL Lymphocytes # (1.0-4.8) k/uL APTT 90.3 H (22.0-30.0) sec Glucose (74-99) mg/dL POC Glucose (mg/dL) 156 H 151 H (75-99) mg/dL Microbiology - Last 24 Hours (Table) 05/10/16 05:48 Urine Culture - Final Urine,Voided 05/10/16 10:53 Blood Culture Gram Stain - Preliminary Blood 05/10/16 10:53 Blood Culture - Preliminary Blood Assessment and Plan Plan: Assessment 1 right upper lobe mass with some limited mediastinal lymphadenopathy involving the precarinal and subcarinal area.. 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 The patient will need a bronchoscopy to establish a tissue diagnosis. 2 nonspecific troponin leak, awaiting cardiac consultation 3 acute shortness of breath with some bronchospasm and wheezing. rule out underlying tracheal bronchitis. 4 ulcerative colitis 5 coronary artery disease with previous history of insertion of coronary stents 6 hypertension 7 smoking 8 hyperlipidemia 9 suspected urinary tract infection 10 gram-positive cocci in the blood, likely contaminant and awaiting final microbiology. plan continue the bronchodilators. Continue to systemic steroids. discussed the findings with the patient and her son. They are interested in tissue diagnosis with a biopsy and a bronchoscopy. This will be set within next 24-48 hours depending on the patient's clinical progress.
[2016-05-11 17:00] LABS: Glucose,Whole Blood 133 mg/dL (75-99)
[2016-05-11 21:20] LABS: Glucose,Whole Blood 162 mg/dL (75-99)
[2016-05-11] MEDS: ZOLPIDEM 5 MG TAB PO SCH (21:21)
[2016-05-12 06:11] LABS: CHCM 30.8; HCT 31.1 % (34.0-46.0); HDW 2.79; HGB 9.9 gm/dL (11.4-16.0); Hypochromasia Moderate; MCH 27.2 pg (25.0-35.0); Mean Platelet Volume 6.7; RBC 3.66 m/uL (3.80-5.40); RDW 13.8 % (11.5-15.5)
[2016-05-12 06:18] LABS: WBC 30.4 k/uL (3.8-10.6)
[2016-05-12 06:19] LABS: Glucose,Whole Blood 144 mg/dL (75-99)
[2016-05-12 06:28] LABS: Anion Gap 11 mmol/L; Blood Urea Nitrogen 19 mg/dL (7-17); Calcium 8.7 mg/dL (8.4-10.2); Carbon Dioxide 24 mmol/L (22-30); Chloride 106 mmol/L (98-107); Glucose 139 mg/dL (74-99); Magnesium 2.2 mg/dL (1.6-2.3); Non-African American GFR(MDRD) >60 (>60 ml/min/1.73 sqM); Potassium 4.2 mmol/L (3.5-5.1); Sodium 141 mmol/L (137-145)
[2016-05-12] MEDS: methylPREDNISolone SOD SUCCI 125 MG/2 ML VIAL IV SCH ×2 (06:31→11:45)
[2016-05-12] MEDS: INSULIN LISPRO (humaLOG) 300 UNIT/3 ML VIAL SQ SCH ×4 (06:32→21:00)
[2016-05-12] MEDS: BALSALAZIDE DISODIUM 750 MG CAPSULE PO SCH ×3 (08:08→21:07)
[2016-05-12] MEDS: AZITHROMYCIN 500 MG in SODIUM CHLORIDE 0.9% 250 ML IVPB SCH (08:08)
[2016-05-12] MEDS: LEVOTHYROXINE 100 MCG TAB PO SCH (08:08)
[2016-05-12] MEDS: PANTOPRAZOLE 40 MG TABLET PO SCH (08:08)
[2016-05-12] MEDS: IPRATROPIUM-ALBUTEROL 3 ML NEB INHALATION PRN ×4 (08:22→21:37)
--- NOTE | 2016-05-12 09:10 | PN ---
DATE OF SERVICE: 05/11/2016 Mr. Ortez is a 80-year-old female with known history of hypertension, hyperlipidemia, coronary artery disease with stent placement and recent incidental finding of adrenal mass currently being worked up, admitted to the hospital with complaints of generalized weakness. Patient was found to have troponin leak as well. Otherwise, currently being worked up for lung mass and pulmonary is planning for bronchoscopy and biopsy. Currently, patient denied any complaints of chest pain or shortness of breath. No nausea, vomiting, or abdominal pain. No acute overnight issues. CURRENT MEDICATIONS: Reviewed. PHYSICAL EXAMINATION: A 80-year-old male lying in the bed comfortably, awake, alert, oriented x3, appears to be in no apparent distress. VITALS: Blood pressure is 146/62, pulse is 100, respirations 24, temperature afebrile. Pulse ox 92% on 4-L nasal cannula. HEENT: Atraumatic, normocephalic. Neck is supple. No JVD. CVS: S1, S2 heard. No murmurs. LUNGS: Diminished breath sounds basally. End expiratory wheezing positive bilaterally, nonlabored breathing. ABDOMEN: Soft, nontender. Bowel sounds are present. 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 No focal deficit. EXTREMITIES: No edema. Pulses palpable bilaterally. No clubbing or cyanosis. PSYCHIATRIC: Cooperative. LABORATORY DATA: WBC 15.7, hemoglobin 10.2, platelets 265. Sodium 139, potassium 4.3, chloride 105, bicarb is 23, BUN 14, creatinine 0.7, blood sugar is 152. IMPRESSION: 1. Generalized weakness and fall. Suspected etiologies of pneumonia and also urinary tract infection. Currently on antibiotics in the form ceftriaxone and Azithromycin. 2. Right upper lobe mass with mediastinal lymphadenopathy being worked up for possible biopsy. 3. Troponin leak, possible not cardiology related. 4. History of ulcerative colitis. 5. Recent diagnosis of adrenal mass. Work-up in progress as an outpatient. 6. Hypertension. 7. Hyperlipidemia. 8. History of coronary artery disease and stent placement. 9. Previous history of smoking. DISCUSSION AND PLAN: Patient will be continued on current antibiotics and breathing treatments and follow closely. Pulmonary is planning for biopsy of lung and bronchoscopy. Further recommendations based on the clinical course.
[2016-05-12 11:46] LABS: Glucose,Whole Blood 164 mg/dL (75-99)
[2016-05-12] MEDS ORDERED: IV FLUID CONTINUATION 1,000 ML IV ONE (12:48)
[2016-05-12 14:02] VITALS: BMI 28.0
[2016-05-12] MEDS ORDERED: MIDAZOLAM 2 MG/2 ML VIAL ONE (14:14)
[2016-05-12] MEDS ORDERED: LIDOCAINE 1% INJ 10MG/ML (20 ML MDV) ONE (14:14)
[2016-05-12] MEDS ORDERED: fentaNYL (PF) 50 MCG/ML 2 ML AMP ONE (14:14)
[2016-05-12] MEDS ORDERED: PHENYLEPHRINE-0.9% NACL SYG 1 MG/10 ML SYRINGE ONE (14:14)
[2016-05-12] MEDS ORDERED: PROPOFOL 10 MG/ML 20 ML VIAL IV ONE (14:14)
[2016-05-12] MEDS ORDERED: SUCCINYLCHOLINE CHLORIDE 100 MG/5 ML SYR IV ONE (14:14)
--- NOTE | 2016-05-12 14:47 | P.PN ---
Subjective Principal diagnosis: Weakness This is a 80-year-old female patient who presented to the hospital initially with symptoms of weakness. Patient has a known history of coronary artery disease with prior stent placement in 2005, hyperlipidemia, hypertension, prior history of smoking, she presented to the hospital with symptoms of progressive fatigue. Patient did have an extensive workup done in [place] and was diagnosed with possible malignant adrenal mass. Patient was noted here to have abnormal troponin values. Chest x-ray revealed a possible masslike density in the superior segment of the right lower lobe. CT of the chest was performed which revealed a 4.5 cm mass in the right suprahilar region. 12 mm nodule in the superior segment of the right lower lobe highly suspicious for lung CA. Echocardiogram with Doppler study was performed which revealed an ejection fraction of 55-60%. Patient overall is feeling much better today. We will continue with current therapy. Objective - Vital Signs Vital signs: Vital Signs Temp 98.4 F 05/12/16 12:45 Pulse 93 05/12/16 12:45 Resp 16 05/12/16 12:45 BP 139/65 05/12/16 12:45 Pulse Ox 92 L 05/12/16 12:45 Intake & Output 05/11/16 05/12/16 05/12/16 18:59 06:59 18:59 Intake Total 298 1200 100 Output Total 0 Balance 298 1200 100 Weight 76.6 kg 76.6 kg Intake: IV 200 100 0.9 @20 200 Intake, IV Titration 250 Amount Vancomycin 1,500 mg In 250 Sodium Chloride 0.9% 250 ml @ 125 mls/hr IVPB Q16H [facility] Rx#:[id number] Oral 298 750 Output: Emesis 0 Other: Voiding Method Toilet Toilet Toilet # Voids 1 1 - Exam PHYSICAL EXAMINATION: HEENT: [Head is atraumatic, normocephalic. Pupils equal, round. Neck is supple. There is no elevated jugular venous pressure.] HEART EXAMINATION: Heart S1 and S2 systolic murmur is heard. CHEST EXAMINATION: Lungs reveal fine expiratory wheezing. ABDOMEN: [ Soft, nontender. Bowel sounds are heard. No organomegaly noted]. EXTREMITIES:[ 2+ peripheral pulses with no evidence of peripheral edema and no calf tenderness noted]. NEUROLOGIC [patient is awake, alert and oriented -3.] . - Labs CBC & Chem 7: 05/12/16 05:51 05/12/16 05:51 Labs: Abnormal Lab Results - Last 24 Hours (Table) 05/11/16 05/11/16 05/12/16 Range/Units 16:43 21:18 05:51 WBC 30.4 H* (3.8-10.6) k/uL RBC 3.66 L (3.80-5.40) m/uL Hgb 9.9 L (11.4-16.0) gm/dL Hct 31.1 L (34.0-46.0) % BUN (7-17) mg/dL Glucose (74-99) mg/dL POC Glucose (mg/dL) 133 H 162 H (75-99) mg/dL 05/12/16 05/12/16 05/12/16 Range/Units 05:51 06:14 11:44 WBC (3.8-10.6) k/uL RBC (3.80-5.40) m/uL Hgb (11.4-16.0) gm/dL Hct (34.0-46.0) % BUN 19 H (7-17) mg/dL Glucose 139 H (74-99) mg/dL POC Glucose (mg/dL) 144 H 164 H (75-99) mg/dL Microbiology - Last 24 Hours (Table) 05/10/16 10:53 Blood Culture Gram Stain - Preliminary Blood Blood Culture - Preliminary Coagulase Negative Staph 05/10/16 05:48 Urine Culture - Final Urine,Voided Assessment and Plan (1) Adrenal mass Status: Acute (2) CAD (coronary artery disease) Status: Acute (3) HTN (hypertension) Status: Acute (4) Nicotine dependence Status: Acute (5) Hyperlipemia Status: Acute (6) Elevated troponin I level Status: Acute (7) Fall Status: Acute Plan: From cardiology's perspective, we will continue current medical therapy. We will follow the patient with you now on an as-needed basis only, please don't hesitate to call with any questions. DNP note has been reviewed, I agree with a documented findings and plan of care. Patient was seen and examined.
[2016-05-12] MEDS ORDERED: LACTATED RINGERS 1,000 ML IV ONE (14:49)
--- NOTE | 2016-05-12 14:56 | P.PN ---
Subjective 80-year-old female patient who came into the emergency department yesterday after falling and staying on the ground for a total of 3-4 hours. Apparently the patient was feeling weak as she was having some increased cough and chest congestion and some shortness of breath along with generalized weakness. The patient tried to get out of her bed and she fell out and she was unable to get herself back up. She remained on the floor for a few hours and ultimately she got to her son who called EMS and the patient was taken to the hospital. No loss of consciousness. No focal neurological deficits. No nausea vomiting or diarrhea. She is known to have chronic ulcerative colitis and currently her symptoms of ulcerative colitis a currently inactive. She also denied having any chest pain. No headaches. No neck stiffness. No reported fever or chills. The patient tells me that during a recent evaluation with her bilingual sales representative, she was found to have an adrenal lesion/mass and cancer was suspected and she was supposed to have a further workup which never got done. She has a chest x-ray that shows some infrahilar fullness on the right and I think she would deserve a CAT scan of the chest to characterized this abnormalities further. There is some minor nonspecific troponin leak for which the patient will be seeing cardiology. She is hemodynamically stable at this point. No chills. No fever. No signs of septicemia. No other significant events overnight. On 05/11/2016 the patient is being seen in follow-up. Noted the patient was initially was evaluated at the intensive care unit and she was transferred to a medical floor. The patient is resting comfortably in bed. She is less short of breath. She still seeing prokinetics and systemic steroids. CAT scan of the chest was completed and there is a mass measuring 4.5 cm in the right suprahilar region partially occluding the right upper lobe bronchus and there is 12 mm nodule in the posterior superior segment of the right lower lobe and atelectasis in the right lung base. The adrenal glands were also prominent. No significant axillary mediastinal or hilar lymphadenopathy. This findings are very suspicious for underlying malignancy. I discussed these findings with the patient and her son and they're interested in proceeding with a bronchoscopy to establish a tissue diagnosis. On 05/12/2016 the patient is seen in follow-up. The patient is calm and comfortable. She is less focused spastic and wheezy. We are prepared to take this patient to the operating room for a bronchoscopy and hopefully will establish a tissue diagnosis is regarding her lung mass. The patient has no specific complaints otherwise for now. No hemoptysis. No chest pain. No change in mental status. No other complaints otherwise. Objective - Vital Signs Vital signs: Vital Signs Temp 98.4 F 05/12/16 12:45 Pulse 93 05/12/16 12:45 Resp 16 05/12/16 12:45 BP 139/65 05/12/16 12:45 Pulse Ox 92 L 05/12/16 12:45 Intake & Output 05/11/16 05/12/16 05/12/16 18:59 06:59 18:59 Intake Total 298 1200 500 Output Total 0 Balance 298 1200 500 Weight 76.6 kg 76.6 kg Intake: IV 200 500 0.9 @20 200 Intake, IV Titration 250 Amount Vancomycin 1,500 mg In 250 Sodium Chloride 0.9% 250 ml @ 125 mls/hr IVPB Q16H [facility] Rx#:[id number] Oral 298 750 Output: Emesis 0 Other: Voiding Method Toilet Toilet Toilet # Voids 1 1 - Exam Head exam was generally normal. There was no scleral icterus or corneal arcus. Mucous membranes were moist.Neck was supple and without jugular venous distension, thyromegaly, or carotid bruits. Carotids were easily palpable bilaterally. There was no adenopathy. Lungs are diminished breath sounds along with some scattered expiratory wheezes heard bilaterally.Cardiac exam revealed the PMI to be normally situated and sized. The rhythm was regular and no extrasystoles were noted during several minutes of auscultation. The first and second heart sounds were normal and physiologic splitting of the second heart sound was noted. There were no murmurs, rubs, clicks, or gallops.Abdominal exam revealed normal bowel sounds. The abdomen was soft, non-tender, and without masses, organomegaly, or appreciable enlargement of the abdominal aorta.Examination of the extremities revealed easily palpable radial, femoral and pedal pulses. There was no cyanosis, clubbing or edema. - Labs CBC & Chem 7: 05/12/16 05:51 05/12/16 05:51 Labs: Abnormal Lab Results - Last 24 Hours (Table) 05/11/16 05/11/16 05/12/16 Range/Units 16:43 21:18 05:51 WBC 30.4 H* (3.8-10.6) k/uL RBC 3.66 L (3.80-5.40) m/uL Hgb 9.9 L (11.4-16.0) gm/dL Hct 31.1 L (34.0-46.0) % BUN (7-17) mg/dL Glucose (74-99) mg/dL POC Glucose (mg/dL) 133 H 162 H (75-99) mg/dL 05/12/16 05/12/16 05/12/16 Range/Units 05:51 06:14 11:44 WBC (3.8-10.6) k/uL RBC (3.80-5.40) m/uL Hgb (11.4-16.0) gm/dL Hct (34.0-46.0) % BUN 19 H (7-17) mg/dL Glucose 139 H (74-99) mg/dL POC Glucose (mg/dL) 144 H 164 H (75-99) mg/dL Microbiology - Last 24 Hours (Table) 05/10/16 10:53 Blood Culture Gram Stain - Preliminary Blood Blood Culture - Preliminary Coagulase Negative Staph 05/10/16 05:48 Urine Culture - Final Urine,Voided Assessment and Plan Plan: Assessment 1 right upper lobe mass with some limited mediastinal lymphadenopathy involving the precarinal and subcarinal area.. 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 The patient will need a bronchoscopy to establish a tissue diagnosis. On 05/12/2016, the patient is scheduled to undergo a bronchoscopy and operating room. This will be done while the patient's airways quite acute and the patient being oxygenated and ventilated adequately. The patient is agreeable to the procedure and this will be done this afternoon. 2 nonspecific troponin leak, awaiting cardiac consultation 3 acute shortness of breath with some bronchospasm and wheezing. rule out underlying tracheal bronchitis. 4 ulcerative colitis 5 coronary artery disease with previous history of insertion of coronary stents 6 hypertension 7 smoking 8 hyperlipidemia 9 suspected urinary tract infection 10 gram-positive cocci in the blood, likely contaminant and awaiting final microbiology. 11 leukocytosis, rule out a postobstructive pneumonia involving the right lung. plan continue the bronchodilators. We will discontinue the IV Solu-Medrol. The patient a prednisone burst taper. We will take the patient to the operating room for a bronchoscopy and this will hopefully establish a tissue diagnosis. Monitor the white count. Start the patient on IV Zosyn as a broad-spectrum antibiotic coverage, covering for a postobstructive pneumonia.
--- NOTE | 2016-05-12 15:04 | P.PCN ---
Date of Procedure: 05/12/16 Preoperative Diagnosis: Lung mass Postoperative Diagnosis: lung mass Procedure(s) Performed: Bronchoscopy, transbronchial needle aspirate, endobronchial biopsy, endobronchial washings Anesthesia: EMILIEA Surgeon: Rae Snyder Real Estate Instructor #1: Erika Cespedes Estimated Blood Loss (ml): 0 Pathology: other Condition: stable Disposition: floor Indications for Procedure: Lung mass Operative Findings: This procedure was done in the operating room. The patient has a fairly large size the right upper lobe mass with mediastinal lymphadenopathy. The procedure was planned to be done and the operating room based on the patient's multiple medical problems and comorbidities and we thought it would be safer to undergo this procedure while the patient is adequately secured in terms of her airway and adequately oxygenated and ventilated. The patient was placed under general anesthesia. The patient was intubated and attached to mechanical ventilator. The intubation process and the general anesthesia was offered by the anesthesia department. After the patient was adequately anesthetized, a flexible bronchoscope was inserted to the tracheal tube into his advanced into the lower trachea. The tip of the tick tube was seen around 3 cm above the lizz. Airway inspection was performed. The distal trachea was within normal limits. Lizz was sharp in the midline. The right mainstem bronchus was widely patent however following the uptake of the right upper lobe bronchus, the right bronchus intermedius was visualized and it was completely plugged by a large cloudy, creamy mucous plug. Examination of the left side of the lung included the left main stem bronchus. Upper left lower lobe bronchus and all of these airways were patent and within normal limits. At this point, the bronchoscope was moved to the main trachea and transbronchial needle aspirate of the precarinal lymph node was done using a 19- gauge cytology needle. A total of 3 passes were obtained. Following that, the bronchoscope was moved to the bronchus intermedius where the mucous plug was irrigated with saline and it was suctioned out completely. The underlying airway was inspected. The bronchus intermedius was significantly narrowed. 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 The distal bronchus intermedius was also narrowed and it included endobronchial tumor circumferentially. The orifice of the right middle lobe was visualized. At this point, and the bronchial biopsies of the tumor within the bronchus centimeters was done. Multiple biopsies were obtained. Endobronchial washings of the mass was also done where the mass was irrigated with saline, a total of 80 mL, and the fluid was aspirated. During the suctioning process, fragments of tumor was also cut loose and they were taken out and sent for pathologic evaluation. A transbronchial needle aspirate of the endobronchial mass was also done. This concluded the biopsying procedure and following that therapy care was suctioning was done and the tumor was reinspected it was not showing any signs of bleeding. The bronchoscope was removed and the patient was let to anesthesia for extubation.
[2016-05-12] MEDS: PIPERACILLIN-TAZOBACTAM 3.375 GM in DEXTROSE/WATER 1 50ML.BAG IVPB SCH ×2 (16:31→23:25)
[2016-05-12] MEDS: ASPIRIN 81 MG CHEW PO SCH (16:31)
[2016-05-12] MEDS: METOPROLOL TARTRATE 25 MG TAB PO SCH ×2 (16:32→21:06)
[2016-05-12] MEDS: PRAVASTATIN SODIUM 40 MG TAB PO SCH (16:32)
[2016-05-12 16:37] LABS: Glucose,Whole Blood 121 mg/dL (75-99)
--- NOTE | 2016-05-12 16:37 | P.PN ---
Subjective 40-year-old female was admitted to the hospital with generalized weakness. Patient currently has lost over 30 pounds unintentionally in the recent times. Patient apparently does have a history of a pulmonary nodule in 2006. Patient given the Hospital computed tomography scan of the chest was done and was noted to have a lung nodule and possibly postobstructive pneumonia. Patient was noted to have elevated white count and generalized weakness patient was hypoxic on initial admission. Patient is seen today status post lung biopsy done by the regulatory law specialist. Patient was also noted to have bacteremia in 1 bottle of gram-positive cocci. CAT scan initially showed 4.5 cm mass in the right suprahilar region occluding the right upper bronchus. There is some adrenal gland involvement as well. Objective - Vital Signs Vital signs: Vital Signs Temp 97.4 F L 05/12/16 14:59 Pulse 92 05/12/16 16:23 Resp 16 05/12/16 15:44 BP 133/61 05/12/16 15:44 Pulse Ox 96 05/12/16 15:44 Intake & Output 05/11/16 05/12/16 05/12/16 18:59 06:59 18:59 Intake Total 298 1200 520 Output Total 0 Balance 298 1200 520 Weight 76.6 kg 76.6 kg Intake: IV 200 520 0.9 @20 200 Intake, IV Titration 250 Amount Vancomycin 1,500 mg In 250 Sodium Chloride 0.9% 250 ml @ 125 mls/hr IVPB Q[facility]H [facility] Rx#:[id number] Oral 298 750 Output: Emesis 0 Other: Voiding Method Toilet Toilet Toilet # Voids 1 1 - Exam Physical exam Gen. appearance oriented 3 in no distress Neck is supple no JVD Lungs diminished breath sounds,diffuse wheezing Heart S1-S2 heard regular rate and rhythm no murmurs appreciated Abdomen is soft nontender no organomegaly bowel sounds are intact Neurologically cranial nerves II-12 grossly intact no focal motor or sensory deficits noted Skin no abnormalities appreciated - Labs CBC & Chem 7: 05/12/16 05:51 05/12/16 05:51 Labs: Abnormal Lab Results - Last 24 Hours (Table) 05/11/16 05/11/16 05/12/16 Range/Units 16:43 21:18 05:51 WBC 30.4 H* (3.8-10.6) k/uL RBC 3.66 L (3.80-5.40) m/uL Hgb 9.9 L (11.4-16.0) gm/dL Hct 31.1 L (34.0-46.0) % BUN (7-17) mg/dL Glucose (74-99) mg/dL POC Glucose (mg/dL) 133 H 162 H (75-99) mg/dL 05/12/16 05/12/16 05/12/16 Range/Units 05:51 06:14 11:44 WBC (3.8-10.6) k/uL RBC (3.80-5.40) m/uL Hgb (11.4-16.0) gm/dL Hct (34.0-46.0) % BUN 19 H (7-17) mg/dL Glucose 139 H (74-99) mg/dL POC Glucose (mg/dL) 144 H 164 H (75-99) mg/dL Microbiology - Last 24 Hours (Table) 05/10/16 10:53 Blood Culture Gram Stain - Preliminary Blood Blood Culture - Preliminary Coagulase Negative Staph 05/10/16 05:48 Urine Culture - Final Urine,Voided Assessment and Plan Plan: Right upper lobe mass status post biopsy #2. Obstructive pneumonia #3 acute hypoxic respiratory failure #4 history of ulcerative colitis per graph #5 CAD #6 hypertension. #7 ongoing tobacco use #8 Dyslipidemia #9 bacteremia with gram-positive cocci #10 sepsis Plan Continue breathing treatments, steroids. Taper off oxygen as tolerated. Continue IV Zosyn. Await biopsy results. Repeat blood cultures in the a.m.
[2016-05-12] MEDS: PANTOPRAZOLE 40 MG/10 ML VIAL IV SCH (19:56)
[2016-05-12 20:54] LABS: Glucose,Whole Blood 129 mg/dL (75-99)
[2016-05-12] MEDS: methylPREDNISolone SOD SUCCI 40 MG/ML 1 ML VIAL IV SCH (21:06)
[2016-05-12] MEDS: ZOLPIDEM 5 MG TAB PO SCH (22:03)
[2016-05-13] MEDS ORDERED: HEPARIN SODIUM,PORCINE 5,000 UNIT/ML 1 ML VIAL IV ONE (02:22)
[2016-05-13] MEDS ORDERED: DILTIAZEM 125 MG in SODIUM CHLORIDE 0.9% 100 ML IV SCH (02:30)
[2016-05-13] MEDS: HEPARIN SODIUM,PORCINE/D5W PMX 25,000 UNIT in DEXTROSE/WATER 1 500ML.BAG IV SCH (02:38)
[2016-05-13 02:54] LABS: INR 1.1 (<1.1); Prothrombin Time 11.3 sec (9.0-12.0)
[2016-05-13 02:56] LABS: Basophils % (A) 0 %; CH 26.2; CHCM 31.2; Eosinophils % (A) 0 %; HCT 35.5 % (34.0-46.0); HDW 2.73; Hypochromasia Slight; Luc # (Auto) 0.11; Luc % (Auto) 0; Lymphocytes # (A) 0.8 k/uL (1.0-4.8); Lymphocytes % (A) 3 %; MCH 26.1 pg (25.0-35.0); MCHC 30.9 g/dL (31.0-37.0); MCV 84.4 fL (80.0-100.0); Mean Platelet Volume 6.7; Monocytes # (A) 0.6 k/uL (0-1.0); Monocytes % (A) 2 %; Neutrophils # (A) 27.7 k/uL (1.3-7.7); Neutrophils % (A) 95 %; RBC 4.21 m/uL (3.80-5.40); RDW 13.8 % (11.5-15.5); WBC (Perox) 31.44
[2016-05-13 03:04] LABS: WBC 29.2 k/uL (3.8-10.6)
[2016-05-13] MEDS: LEVOTHYROXINE 100 MCG TAB PO SCH (06:07)
[2016-05-13] MEDS: PANTOPRAZOLE 40 MG TABLET PO SCH (06:07)
[2016-05-13] MEDS: METOPROLOL TARTRATE 25 MG TAB PO SCH (06:07)
[2016-05-13] MEDS: INSULIN LISPRO (humaLOG) 300 UNIT/3 ML VIAL SQ SCH ×4 (06:10→21:19)
[2016-05-13 06:12] LABS: Glucose,Whole Blood 124 mg/dL (75-99)
[2016-05-13] MEDS: IPRATROPIUM-ALBUTEROL 3 ML NEB INHALATION PRN ×3 (07:50→20:20)
[2016-05-13] MEDS: PRAVASTATIN SODIUM 40 MG TAB PO SCH (08:44)
[2016-05-13] MEDS: BALSALAZIDE DISODIUM 750 MG CAPSULE PO SCH ×3 (08:44→21:31)
[2016-05-13] MEDS: ASPIRIN 81 MG CHEW PO SCH (08:45)
[2016-05-13] MEDS: methylPREDNISolone SOD SUCCI 40 MG/ML 1 ML VIAL IV SCH ×2 (08:45→21:18)
--- NOTE | 2016-05-13 09:13 | XR ---
EXAMINATION TYPE: XR chest 1V DATE OF EXAM: 05/13/2016 9:07 AM COMPARISON: 05/09/2016 HISTORY: 80-year-old female with pneumonia and lung mass TECHNIQUE: Single frontal view of the chest is obtained. FINDINGS: Heart is normal size. Atherosclerotic calcifications within the aorta. Redemonstrated rounded right h ilar mass. Mild diffuse interstitial prominence. No new area of consolidation. IMPRESSION: Stable exam with chronic changes and right hilar mass. Subtle postobstructive pneumonitis is not excl uded.
[2016-05-13] MEDS: PIPERACILLIN-TAZOBACTAM 3.375 GM in DEXTROSE/WATER 1 50ML.BAG IVPB SCH ×3 (09:30→22:44)
[2016-05-13] MEDS ORDERED: METOPROLOL TARTRATE 25 MG TAB PO ONE (10:15)
[2016-05-13] MEDS: HEPARIN SODIUM,PORCINE 5,000 UNIT/ML 1 ML VIAL IV PRN ×2 (10:57→17:30)
[2016-05-13 11:51] LABS: Glucose,Whole Blood 103 mg/dL (75-99)
--- NOTE | 2016-05-13 13:41 | PN ---
Mrs. Ortez is a 80-year-old female who has a history of CAD, history of adrenal mass and a lung mass, underwent bronchoscopy and biopsy yesterday by Dr. Snyder. During the night had episode of atrial fibrillation, she is back in sinus mechanism. She did not feel the palpitations. She continued to be dyspneic. She has no chest pain. She denies any dizziness. No syncope. She was started on IV Cardizem in addition to that she is on IV heparin, metoprolol tartrate 25 mg twice a day, pravastatin 40 mg daily and aspirin once a day. PHYSICAL EXAMINATION: Blood pressure 134/60 with a heart rate in the 80s. LUNGS: Mild decrease in breath sounds. No wheezes. HEART: Regular rate rhythm. S1, S2, no S3, no rub with systolic murmur. ABDOMEN: Soft, nontender. EXTREMITIES: No significant edema. Lab data revealed hemoglobin of 11, white blood cell of 29.2. INR 1.1. IMPRESSION: 1. Paroxysmal atrial fibrillation. 2. History of coronary artery disease. 3. Lung mass, status post bronchoscopy and biopsy, probably malignancy. 4. Hypertension. 5. Hyperlipidemia. RECOMMENDATIONS: I will continue on the IV heparin for now. I will increase the dose of her beta israel and stop her Cardizem. Follow her rhythm. Will check with Pulmonary if it is okay to start chronic anticoagulation. We will await the results of her bronchoscopy and biopsy.
[2016-05-13] MEDS: BENZONATATE 100 MG CAP PO SCH ×2 (14:43→21:18)
--- NOTE | 2016-05-13 15:24 | P.PN ---
Subjective 80-year-old female patient who came into the emergency department yesterday after falling and staying on the ground for a total of 3-4 hours. Apparently the patient was feeling weak as she was having some increased cough and chest congestion and some shortness of breath along with generalized weakness. The patient tried to get out of her bed and she fell out and she was unable to get herself back up. She remained on the floor for a few hours and ultimately she got to her son who called EMS and the patient was taken to the hospital. No loss of consciousness. No focal neurological deficits. No nausea vomiting or diarrhea. She is known to have chronic ulcerative colitis and currently her symptoms of ulcerative colitis a currently inactive. She also denied having any chest pain. No headaches. No neck stiffness. No reported fever or chills. The patient tells me that during a recent evaluation with her emd special education teacher, she was found to have an adrenal lesion/mass and cancer was suspected and she was supposed to have a further workup which never got done. She has a chest x-ray that shows some infrahilar fullness on the right and I think she would deserve a CAT scan of the chest to characterized this abnormalities further. There is some minor nonspecific troponin leak for which the patient will be seeing cardiology. She is hemodynamically stable at this point. No chills. No fever. No signs of septicemia. No other significant events overnight. On 05/11/2016 the patient is being seen in follow-up. Noted the patient was initially was evaluated at the intensive care unit and she was transferred to a medical floor. The patient is resting comfortably in bed. She is less short of breath. She still seeing prokinetics and systemic steroids. CAT scan of the chest was completed and there is a mass measuring 4.5 cm in the right suprahilar region partially occluding the right upper lobe bronchus and there is 12 mm nodule in the posterior superior segment of the right lower lobe and atelectasis in the right lung base. The adrenal glands were also prominent. No significant axillary mediastinal or hilar lymphadenopathy. This findings are very suspicious for underlying malignancy. I discussed these findings with the patient and her son and they're interested in proceeding with a bronchoscopy to establish a tissue diagnosis. On 05/12/2016 the patient is seen in follow-up. The patient is calm and comfortable. She is less focused spastic and wheezy. We are prepared to take this patient to the operating room for a bronchoscopy and hopefully will establish a tissue diagnosis is regarding her lung mass. The patient has no specific complaints otherwise for now. No hemoptysis. No chest pain. No change in mental status. No other complaints otherwise. On 05/13/2016, the patient underwent a bronchoscopy. Please refer to the bronchoscopy note for further details. 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 Therapeutic airway suctioning was done. The tumor itself was biopsied aggressively and during administration I was able to dislodge large fragments of tumor achieving some patency to the lower lobe and the right middle lobe. The patient is not having any hemoptysis. Her white cell count is remaining elevated and there is a suspicion for a postobstructive pneumonia. The patient is also receiving IV Zosyn for a postobstructive pneumonia. Her Solu-Medrol has been tapered. Her COPD remains active and the patient is still having some limited amount of bronchospasm wheezing. Overnight she had a run of paroxysmal atrial fibrillation and current rhythm is back to sinus. She was placed on IV heparin. There are no plans to put this patient on long-term anticoagulation at least for now. Objective - Vital Signs Vital signs: Vital Signs Temp 97.9 F 05/13/16 11:37 Pulse 88 05/13/16 11:37 Resp 18 05/13/16 11:37 BP 146/70 05/13/16 11:37 Pulse Ox 96 05/13/16 11:37 Intake & Output 05/12/16 05/13/16 05/13/16 18:59 06:59 18:59 Intake Total 289 460 6742.167 Output Total 575 301 Balance 520 111 876.167 Weight 76.6 kg 76.2 kg Intake: IV 520 386 344 0.9 @20 320 160 Diltiazem 125 mg In 30 Sodium Chloride 0.9% 100 ml @ 10 MG/HR 10 mls/hr IV .[id number] [facility] Rx#: [id number] Heparin Sodium,Porcine/ 36 D5w Pmx 25,000 unit In Dextrose/Water 1 500ml. bag @ 12 UNITS/KG/HR 17. 41 mls/hr IV .Q24H [facility] Rx #:[id number] Heparin Sodium,Porcine/ 184 D5w Pmx 25,000 unit In Dextrose/Water 1 500ml. bag @ 12 UNITS/KG/HR 18. 38 mls/hr IV .Q24H [facility] Rx #:[id number] Intake, IV Titration 153.167 Amount Heparin Sodium,Porcine/ 153.167 D5w Pmx 25,000 unit In Dextrose/Water 1 500ml. bag @ 12 UNITS/KG/HR 18. 38 mls/hr IV .Q24H [facility] Rx #:[id number] Oral 300 680 Output: Urine 575 300 Stool 1 Other: Voiding Method Toilet Toilet # Voids 3 1 1 - Exam Head exam was generally normal. There was no scleral icterus or corneal arcus. Mucous membranes were moist.Neck was supple and without jugular venous distension, thyromegaly, or carotid bruits. Carotids were easily palpable bilaterally. There was no adenopathy. Lungs are diminished breath sounds along with some scattered expiratory wheezes heard bilaterally.Cardiac exam revealed the PMI to be normally situated and sized. The rhythm was regular and no extrasystoles were noted during several minutes of auscultation. The first and second heart sounds were normal and physiologic splitting of the second heart sound was noted. There were no murmurs, rubs, clicks, or gallops.Abdominal exam revealed normal bowel sounds. The abdomen was soft, non-tender, and without masses, organomegaly, or appreciable enlargement of the abdominal aorta.Examination of the extremities revealed easily palpable radial, femoral and pedal pulses. There was no cyanosis, clubbing or edema. - Labs CBC & Chem 7: 05/13/16 02:34 05/12/16 05:51 Labs: Abnormal Lab Results - Last 24 Hours (Table) 05/12/16 05/12/16 05/13/16 Range/Units 16:25 20:53 02:34 WBC 29.2 H* (3.8-10.6) k/uL Hgb 11.0 L (11.4-16.0) gm/dL MCHC 30.9 L (31.0-37.0) g/dL Neutrophils # 27.7 H (1.3-7.7) k/uL Lymphocytes # 0.8 L (1.0-4.8) k/uL APTT (22.0-30.0) sec POC Glucose (mg/dL) 121 H 129 H (75-99) mg/dL 05/13/16 05/13/16 05/13/16 Range/Units 06:08 09:30 11:44 WBC (3.8-10.6) k/uL Hgb (11.4-16.0) gm/dL MCHC (31.0-37.0) g/dL Neutrophils # (1.3-7.7) k/uL Lymphocytes # (1.0-4.8) k/uL APTT 31.5 H (22.0-30.0) sec POC Glucose (mg/dL) 124 H 103 H (75-99) mg/dL Microbiology - Last 24 Hours (Table) 05/12/16 05:51 Blood Culture - Preliminary Blood No Growth after 24 hours 05/10/16 10:53 Blood Culture Gram Stain - Final Blood Blood Culture - Final Coagulase Negative Staph Assessment and Plan Plan: Assessment 1 right upper lobe mass with some limited mediastinal lymphadenopathy involving the precarinal and subcarinal area.. 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 The patient will need a bronchoscopy to establish a tissue diagnosis. On 05/12/2016, the patient is scheduled to undergo a bronchoscopy and operating room. This will be done while the patient's airways quite acute and the patient being oxygenated and ventilated adequately. The patient is agreeable to the procedure and this will be done this afternoon. On 05/13/2016, the patient underwent his bronchoscopy and she was found to have a large endobronchial tumor obstructing the bronchus intermedius. Bronchoscopic minute ventilation was done including biopsies and large fragments of tumors was aspirated achieving some degree of patency to the lower lobe and the right middle lobe. The patient is not having any hemoptysis. She potentially have a postobstructive pneumonia in the right lung and she is currently on IV Zosyn. White cell count remains elevated. 2 nonspecific troponin leak, awaiting cardiac consultation 3 acute shortness of breath with some bronchospasm and wheezing. rule out underlying tracheal bronchitis. 4 ulcerative colitis 5 coronary artery disease with previous history of insertion of coronary stents 6 hypertension 7 smoking 8 hyperlipidemia 9 suspected urinary tract infection 10 gram-positive cocci in the blood, likely contaminant , final cultures are showing coagulase-negative staph 11 leukocytosis, rule out a postobstructive pneumonia involving the right lung. 12 Paroxysmal atrial fibrillation, current rhythm is sinus and the patient is on IV heparin. Rate is controlled. No evidence of hemoptysis despite being on IV heparin. plan continue the bronchodilators. Continue the bronchodilators. Continue the steroids continued IV Zosyn. Continue supportive care. Awaiting the final path on the biopsies that were obtained yesterday. Oncology consultation. Monitor the cardiac rhythm and her current rhythm is currently sinus. The patient is on IV heparin and no plans for long-term anticoagulation based on my conversations and discussions with cardiology.
--- NOTE | 2016-05-13 16:45 | P.PN ---
Subjective 40-year-old female was admitted to the hospital with generalized weakness. Patient currently has lost over 30 pounds unintentionally in the recent times. Patient apparently does have a history of a pulmonary nodule in 2006. Patient given the Hospital computed tomography scan of the chest was done and was noted to have a lung nodule and possibly postobstructive pneumonia. Patient was noted to have elevated white count and generalized weakness patient was hypoxic on initial admission. Patient is seen today status post lung biopsy done by the ultrasound manager. Patient was also noted to have bacteremia in 1 bottle of gram-positive cocci. CAT scan initially showed 4.5 cm mass in the right suprahilar region occluding the right upper bronchus. There is some adrenal gland involvement as well. 05/13/16 No new overnight events Currently on 4 l Minimal sputum production COntinues to have cough No fevers, chills reported. Objective - Vital Signs Vital signs: Vital Signs Temp 98 F 05/13/16 15:54 Pulse 79 05/13/16 15:54 Resp 18 05/13/16 15:54 BP 150/63 05/13/16 15:54 Pulse Ox 95 05/13/16 15:54 Intake & Output 05/12/16 05/13/16 05/13/16 18:59 06:59 18:59 Intake Total 642 759 7554.167 Output Total 575 301 Balance 520 111 876.167 Weight 76.6 kg 76.2 kg Intake: IV 520 386 344 0.9 @20 320 160 Diltiazem 125 mg In 30 Sodium Chloride 0.9% 100 ml @ 10 MG/HR 10 mls/hr IV .[id number] [facility] Rx#: [id number] Heparin Sodium,Porcine/ 36 D5w Pmx 25,000 unit In Dextrose/Water 1 500ml. bag @ 12 UNITS/KG/HR 17. 41 mls/hr IV .Q24H [facility] Rx #:[id number] Heparin Sodium,Porcine/ 184 D5w Pmx 25,000 unit In Dextrose/Water 1 500ml. bag @ 12 UNITS/KG/HR 18. 38 mls/hr IV .Q24H [facility] Rx #:[id number] Intake, IV Titration 153.167 Amount Heparin Sodium,Porcine/ 153.167 D5w Pmx 25,000 unit In Dextrose/Water 1 500ml. bag @ 12 UNITS/KG/HR 18. 38 mls/hr IV .Q24H [facility] Rx #:[id number] Oral 300 680 Output: Urine 575 300 Stool 1 Other: Voiding Method Toilet Toilet # Voids 3 1 1 - Exam Physical exam Gen. appearance oriented 3 in no distress Neck is supple no JVD Lungs diminished breath sounds,diffuse wheezing Heart S1-S2 heard regular rate and rhythm no murmurs appreciated Abdomen is soft nontender no organomegaly bowel sounds are intact Neurologically cranial nerves II-12 grossly intact no focal motor or sensory deficits noted Skin no abnormalities appreciated - Labs CBC & Chem 7: 05/13/16 02:34 05/12/16 05:51 Labs: Abnormal Lab Results - Last 24 Hours (Table) 05/12/16 05/13/16 05/13/16 Range/Units 20:53 02:34 06:08 WBC 29.2 H* (3.8-10.6) k/uL Hgb 11.0 L (11.4-16.0) gm/dL MCHC 30.9 L (31.0-37.0) g/dL Neutrophils # 27.7 H (1.3-7.7) k/uL Lymphocytes # 0.8 L (1.0-4.8) k/uL APTT (22.0-30.0) sec POC Glucose (mg/dL) 129 H 124 H (75-99) mg/dL 05/13/16 05/13/16 Range/Units 09:30 11:44 WBC (3.8-10.6) k/uL Hgb (11.4-16.0) gm/dL MCHC (31.0-37.0) g/dL Neutrophils # (1.3-7.7) k/uL Lymphocytes # (1.0-4.8) k/uL APTT 31.5 H (22.0-30.0) sec POC Glucose (mg/dL) 103 H (75-99) mg/dL Microbiology - Last 24 Hours (Table) 05/12/16 05:51 Blood Culture - Preliminary Blood No Growth after 24 hours 05/10/16 10:53 Blood Culture Gram Stain - Final Blood Blood Culture - Final Coagulase Negative Staph Assessment and Plan Plan: Right upper lobe mass status post biopsy #2. Post Obstructive pneumonia #3 acute hypoxic respiratory failure #4 history of ulcerative colitis per graph #5 CAD #6 hypertension. #7 ongoing tobacco use #8 Dyslipidemia #9 bacteremia with gram-positive cocci #10 sepsis Plan Prelim results noted Await final biopsy results Leukemoid reaction Continue abx steroids Breathing tx Gayatri michelle
[2016-05-13 17:06] LABS: Glucose,Whole Blood 109 mg/dL (75-99)
[2016-05-13 21:08] LABS: Glucose,Whole Blood 143 mg/dL (75-99)
[2016-05-13] MEDS: ZOLPIDEM 5 MG TAB PO SCH (21:17)
[2016-05-13] MEDS: METOPROLOL TARTRATE 50 MG TAB PO SCH (21:18)
[2016-05-14] MEDS: HEPARIN SODIUM,PORCINE/D5W PMX 25,000 UNIT in DEXTROSE/WATER 1 500ML.BAG IV SCH (01:12)
[2016-05-14] MEDS: METOPROLOL TARTRATE 50 MG TAB PO SCH ×2 (05:10→21:10)
[2016-05-14 06:04] LABS: Glucose,Whole Blood 144 mg/dL (75-99)
[2016-05-14 06:30] LABS: ALT 41 U/L (9-52); AST 22 U/L (14-36); Alkaline Phosphatase 92 U/L (38-126); Anion Gap 12 mmol/L; Blood Urea Nitrogen 20 mg/dL (7-17); Calcium 8.7 mg/dL (8.4-10.2); Carbon Dioxide 26 mmol/L (22-30); Chloride 101 mmol/L (98-107); Glucose 152 mg/dL (74-99); Non-African American GFR(MDRD) >60 (>60 ml/min/1.73 sqM); Potassium 4.4 mmol/L (3.5-5.1); Sodium 139 mmol/L (137-145); Total Bilirubin 0.5 mg/dL (0.2-1.3); Total Protein 6.7 g/dL (6.3-8.2)
[2016-05-14] MEDS ORDERED: DILTIAZEM 125 MG in SODIUM CHLORIDE 0.9% 100 ML IV SCH (06:45)
[2016-05-14 06:46] LABS: Basophils % (A) 0 %; CH 26.1; CHCM 30.9; Eosinophils # (A) 0.1 k/uL (0-0.7); Eosinophils % (A) 0 %; HCT 36.3 % (34.0-46.0); HDW 2.65; HGB 11.4 gm/dL (11.4-16.0); Hypochromasia Moderate; Luc # (Auto) 0.13; Luc % (Auto) 1; Lymphocytes % (A) 4 %; MCH 26.6 pg (25.0-35.0); MCHC 31.3 g/dL (31.0-37.0); Monocytes # (A) 0.5 k/uL (0-1.0); Monocytes % (A) 2 %; Neutrophils # (A) 21.5 k/uL (1.3-7.7); Neutrophils % (A) 93 %; RBC 4.28 m/uL (3.80-5.40); RDW 13.8 % (11.5-15.5); WBC 23.1 k/uL (3.8-10.6); WBC (Perox) 23.64
[2016-05-14] MEDS: LEVOTHYROXINE 100 MCG TAB PO SCH (06:50)
[2016-05-14] MEDS: PANTOPRAZOLE 40 MG TABLET PO SCH (06:51)
[2016-05-14] MEDS: INSULIN LISPRO (humaLOG) 300 UNIT/3 ML VIAL SQ SCH ×4 (06:51→21:11)
--- NOTE | 2016-05-14 07:37 | XR ---
EXAMINATION TYPE: XR chest 1V portable DATE OF EXAM: 05/14/2016 7:24 AM Comparison: 05/13/2016 Clinical History: 80-year-old female difficulty in breathing, shortness of breath Findings: Heart is normal size. Mild elongation of the thoracic aorta. There is some increasing peripheral left lower lung density and redemonstrated right hilar mass. Impression: Known right hilar mass but with new patchy atelectasis or early pneumonia at the peripheral left base .
[2016-05-14] MEDS: ASPIRIN 81 MG CHEW PO SCH (08:00)
[2016-05-14] MEDS: PRAVASTATIN SODIUM 40 MG TAB PO SCH (08:00)
[2016-05-14] MEDS: BALSALAZIDE DISODIUM 750 MG CAPSULE PO SCH ×3 (08:00→21:10)
[2016-05-14] MEDS: BENZONATATE 100 MG CAP PO SCH ×3 (08:00→22:11)
[2016-05-14] MEDS: methylPREDNISolone SOD SUCCI 40 MG/ML 1 ML VIAL IV SCH ×2 (08:00→21:11)
[2016-05-14] MEDS: PIPERACILLIN-TAZOBACTAM 3.375 GM in DEXTROSE/WATER 1 50ML.BAG IVPB SCH ×3 (08:01→22:36)
[2016-05-14] MEDS: IPRATROPIUM-ALBUTEROL 3 ML NEB INHALATION PRN ×2 (09:36→15:43)
[2016-05-14 11:56] LABS: Glucose,Whole Blood 105 mg/dL (75-99)
[2016-05-14] MEDS ORDERED: DILTIAZEM ORAL 30 MG TAB PO SCH (13:00)
--- NOTE | 2016-05-14 15:20 | PN ---
Mrs. Ortez is a 80-year-old female who was admitted to the hospital with symptoms of progressive fatigue, cough, weakness, was noted to have an ( ) mass, underwent biopsy and results are pending. It is suggestive of malignancy. Last night, she had an episode of paroxysmal atrial fibrillation. She is back in sinus mechanism at this time. She is feeling better overall. She did not feel the palpitation. She denies any chest pain. She denies any dizziness or significant palpitation. Her left ventricular systolic function has been normal. She has continued to be on IV heparin and was started on IV Cardizem yesterday. She continues to be at this time in addition to that on metoprolol 50 mg twice a day, aspirin once a day. PHYSICAL EXAMINATION: Blood pressure 120/50 with the heart rate in the 70s. LUNGS: With improved air exchange. No wheezes. HEART: Regular rate and rhythm. S1, S2, no S3, no rub. ABDOMEN: Soft, nontender. EXTREMITIES: No edema. Lab data revealed a BUN and creatinine 20 and 0.67. Potassium 4.4. IMPRESSION: 1. 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 2. Paroxysmal atrial fibrillation. The patient had another recurrence last night. 3. Hypertension. 4. History of coronary artery disease. RECOMMENDATION: I will stop the IV heparin and the IV Cardizem. Start her on Xarelto as well as Cardizem orally in addition to beta israel. Will await the results of the biopsy and depending on that, further recommendation will be made. I have discussed those findings with the patient and her family.
[2016-05-14] MEDS: DILTIAZEM ORAL 60 MG TAB PO SCH ×2 (15:57→21:10)
[2016-05-14 16:11] LABS: Glucose,Whole Blood 103 mg/dL (75-99)
[2016-05-14] MEDS: RIVAROXABAN 10 MG TAB PO SCH (17:17)
--- NOTE | 2016-05-14 18:06 | P.PN ---
Subjective 80-year-old female patient who came into the emergency department yesterday after falling and staying on the ground for a total of 3-4 hours. Apparently the patient was feeling weak as she was having some increased cough and chest congestion and some shortness of breath along with generalized weakness. The patient tried to get out of her bed and she fell out and she was unable to get herself back up. She remained on the floor for a few hours and ultimately she got to her son who called EMS and the patient was taken to the hospital. No loss of consciousness. No focal neurological deficits. No nausea vomiting or diarrhea. She is known to have chronic ulcerative colitis and currently her symptoms of ulcerative colitis a currently inactive. She also denied having any chest pain. No headaches. No neck stiffness. No reported fever or chills. The patient tells me that during a recent evaluation with her county adviser, she was found to have an adrenal lesion/mass and cancer was suspected and she was supposed to have a further workup which never got done. She has a chest x-ray that shows some infrahilar fullness on the right and I think she would deserve a CAT scan of the chest to characterized this abnormalities further. There is some minor nonspecific troponin leak for which the patient will be seeing cardiology. She is hemodynamically stable at this point. No chills. No fever. No signs of septicemia. No other significant events overnight. On 05/11/2016 the patient is being seen in follow-up. Noted the patient was initially was evaluated at the intensive care unit and she was transferred to a medical floor. The patient is resting comfortably in bed. She is less short of breath. She still seeing prokinetics and systemic steroids. CAT scan of the chest was completed and there is a mass measuring 4.5 cm in the right suprahilar region partially occluding the right upper lobe bronchus and there is 12 mm nodule in the posterior superior segment of the right lower lobe and atelectasis in the right lung base. The adrenal glands were also prominent. No significant axillary mediastinal or hilar lymphadenopathy. This findings are very suspicious for underlying malignancy. I discussed these findings with the patient and her son and they're interested in proceeding with a bronchoscopy to establish a tissue diagnosis. On 05/12/2016 the patient is seen in follow-up. The patient is calm and comfortable. She is less focused spastic and wheezy. We are prepared to take this patient to the operating room for a bronchoscopy and hopefully will establish a tissue diagnosis is regarding her lung mass. The patient has no specific complaints otherwise for now. No hemoptysis. No chest pain. No change in mental status. No other complaints otherwise. On 05/13/2016, the patient underwent a bronchoscopy. Please refer to the bronchoscopy note for further details. 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 Therapeutic airway suctioning was done. The tumor itself was biopsied aggressively and during administration I was able to dislodge large fragments of tumor achieving some patency to the lower lobe and the right middle lobe. The patient is not having any hemoptysis. Her white cell count is remaining elevated and there is a suspicion for a postobstructive pneumonia. The patient is also receiving IV Zosyn for a postobstructive pneumonia. Her Solu-Medrol has been tapered. Her COPD remains active and the patient is still having some limited amount of bronchospasm wheezing. Overnight she had a run of paroxysmal atrial fibrillation and current rhythm is back to sinus. She was placed on IV heparin. There are no plans to put this patient on long-term anticoagulation at least for now. On 05/14/2016 I'm seeing this patient in follow-up. Clinically improved. Still on oxygen at 2 L/m nasal cannula specifically at 2 L per minute nasal cannula and his saturations up to 97%. The patient had a bronchoscopy and the results of the biopsies are still pending for now although there is a very high suspicion that the patient has an underlying lung cancer. Chest x-ray from today shows a right hilar mass. Right lower lobe pulmonary infiltrates have cleared. There is some minimal infiltration of the left lung base. The patient remains on IV Zosyn. The patient is still having paroxysmal atrial fibrillation and she was started on IV heparin and IV Cardizem and she'll be transitioned to oral Cardizem and I also discussed the case with cardiology and I'm fine is switching this patient to oral anticoagulants and stopping the IV heparin. The patient will be seen by oncology once the diagnosis of lung cancer is established. She has no other complaints otherwise for now. Objective - Vital Signs Vital signs: Vital Signs Temp 97.1 F L 05/14/16 07:51 Pulse 74 05/14/16 15:59 Resp 18 05/14/16 15:48 BP 132/63 05/14/16 15:48 Pulse Ox 97 05/14/16 15:48 Intake & Output 05/13/16 05/14/16 05/14/16 18:59 06:59 18:59 Intake Total 8590.156 5507.166 200 Output Total 301 100 Balance 1025.154 906.166 200 Weight 74.3 kg Intake: IV 344 408.32 0.9 @20 160 200 Heparin Sodium,Porcine/ 184 208.32 D5w Pmx 25,000 unit In Dextrose/Water 1 500ml. bag @ 12 UNITS/KG/HR 18. 38 mls/hr IV .Q24H [facility] Rx #:[id number] Intake, IV Titration 302.154 197.846 Amount Heparin Sodium,Porcine/ 302.154 197.846 D5w Pmx 25,000 unit In Dextrose/Water 1 500ml. bag @ 12 UNITS/KG/HR 18. 38 mls/hr IV .Q24H [facility] Rx #:[id number] Oral 680 400 200 Output: Urine 300 100 Stool 1 Other: Voiding Method Toilet # Voids 1 1 2 # Bowel Movements 1 - Exam Head exam was generally normal. There was no scleral icterus or corneal arcus. Mucous membranes were moist.Neck was supple and without jugular venous distension, thyromegaly, or carotid bruits. Carotids were easily palpable bilaterally. There was no adenopathy. Lungs are diminished breath sounds along with some scattered expiratory wheezes heard bilaterally.Cardiac exam revealed the PMI to be normally situated and sized. The rhythm was regular and no extrasystoles were noted during several minutes of auscultation. The first and second heart sounds were normal and physiologic splitting of the second heart sound was noted. There were no murmurs, rubs, clicks, or gallops.Abdominal exam revealed normal bowel sounds. The abdomen was soft, non-tender, and without masses, organomegaly, or appreciable enlargement of the abdominal aorta.Examination of the extremities revealed easily palpable radial, femoral and pedal pulses. There was no cyanosis, clubbing or edema. - Labs CBC & Chem 7: 05/14/16 05:44 05/14/16 05:44 Labs: Abnormal Lab Results - Last 24 Hours (Table) 05/13/16 05/13/16 05/14/16 Range/Units 21:06 23:49 05:44 WBC 23.1 H (3.8-10.6) k/uL Neutrophils # 21.5 H (1.3-7.7) k/uL APTT 71.2 H (22.0-30.0) sec BUN (7-17) mg/dL Glucose (74-99) mg/dL POC Glucose (mg/dL) 143 H (75-99) mg/dL Albumin (3.5-5.0) g/dL 05/14/16 05/14/16 05/14/16 Range/Units 05:44 06:02 11:53 WBC (3.8-10.6) k/uL Neutrophils # (1.3-7.7) k/uL APTT (22.0-30.0) sec BUN 20 H (7-17) mg/dL Glucose 152 H (74-99) mg/dL POC Glucose (mg/dL) 144 H 105 H (75-99) mg/dL Albumin 3.1 L (3.5-5.0) g/dL 05/14/16 Range/Units 16:09 WBC (3.8-10.6) k/uL Neutrophils # (1.3-7.7) k/uL APTT (22.0-30.0) sec BUN (7-17) mg/dL Glucose (74-99) mg/dL POC Glucose (mg/dL) 103 H (75-99) mg/dL Albumin (3.5-5.0) g/dL Microbiology - Last 24 Hours (Table) 05/12/16 05:51 Blood Culture - Preliminary Blood No Growth after 48 hours 05/12/16 17:05 Blood Culture - Preliminary Blood No Growth after 24 hours Assessment and Plan Plan: Assessment 1 right upper lobe mass with some limited mediastinal lymphadenopathy involving the precarinal and subcarinal area.. 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 The patient will need a bronchoscopy to establish a tissue diagnosis. On 05/12/2016, the patient is scheduled to undergo a bronchoscopy and operating room. This will be done while the patient's airways quite acute and the patient being oxygenated and ventilated adequately. The patient is agreeable to the procedure and this will be done this afternoon. On 05/13/2016, the patient underwent his bronchoscopy and she was found to have a large endobronchial tumor obstructing the bronchus intermedius. Bronchoscopic minute ventilation was done including biopsies and large fragments of tumors was aspirated achieving some degree of patency to the lower lobe and the right middle lobe. The patient is not having any hemoptysis. She potentially have a postobstructive pneumonia in the right lung and she is currently on IV Zosyn. White cell count remains elevated. On , the patient is improving. She is on oxygen 2 L per minute nasal cannula. He is on IV Zosyn. Chest x-ray shows improvement of the right lower lobe pulmonary infiltrate. The patient is still awaiting the final pathology results on the lung biopsy. The patient's white cell count is also improving. 2 nonspecific troponin leak, awaiting cardiac consultation 3 acute shortness of breath with some bronchospasm and wheezing, possibly secondary to an underlying component of COPD exacerbation. 4 ulcerative colitis 5 coronary artery disease with previous history of insertion of coronary stents 6 hypertension 7 smoking 8 hyperlipidemia 9 suspected urinary tract infection 10 gram-positive cocci in the blood, likely contaminant , final cultures are showing coagulase-negative staph 11 leukocytosis, rule out a postobstructive pneumonia involving the right lung. , Improving 12 Paroxysmal atrial fibrillation, current rhythm is sinus and the patient is on IV heparin. Rate is controlled. No evidence of hemoptysis despite being on IV heparin. plan Will discontinue the IV heparin switch this patient to oral anticoagulants. The patient will be started on daily Xarelto. Meanwhile, the patient is on metoprolol 50 mg by mouth twice a day for rate control and Cardizem 60 mg by mouth 3 times a day. The patient will be kept on IV Zosyn. Continued IV Solu- Medrol. COPD exacerbation is improved. White cell count is dropping. Awaiting final path on the lung biopsy. Oncology consultation is to follow 1 diagnosis established.
--- NOTE | 2016-05-14 19:06 | P.PN ---
Subjective 40-year-old female was admitted to the hospital with generalized weakness. Patient currently has lost over 30 pounds unintentionally in the recent times. Patient apparently does have a history of a pulmonary nodule in 2006. Patient given the Hospital computed tomography scan of the chest was done and was noted to have a lung nodule and possibly postobstructive pneumonia. Patient was noted to have elevated white count and generalized weakness patient was hypoxic on initial admission. Patient is seen today status post lung biopsy done by the paper goods machine operator. Patient was also noted to have bacteremia in 1 bottle of gram-positive cocci. CAT scan initially showed 4.5 cm mass in the right suprahilar region occluding the right upper bronchus. There is some adrenal gland involvement as well. 05/13/16 No new overnight events Currently on 4 l Minimal sputum production COntinues to have cough No fevers, chills reported. 04/13/16 No new overnight events On 2 l doing well cough is improved minimal sputum production Objective - Vital Signs Vital signs: Vital Signs Temp 97.1 F L 05/14/16 07:51 Pulse 74 05/14/16 15:59 Resp 18 05/14/16 15:48 BP 132/63 05/14/16 15:48 Pulse Ox 97 05/14/16 15:48 Intake & Output 05/14/16 05/14/16 05/15/16 06:59 18:59 06:59 Intake Total 1006.166 200 Output Total 100 Balance 906.166 200 Weight 74.3 kg Intake: IV 408.32 0.9 @20 200 Heparin Sodium,Porcine/ 208.32 D5w Pmx 25,000 unit In Dextrose/Water 1 500ml. bag @ 12 UNITS/KG/HR 18. 38 mls/hr IV .Q24H [facility] Rx #:[id number] Intake, IV Titration 197.846 Amount Heparin Sodium,Porcine/ 197.846 D5w Pmx 25,000 unit In Dextrose/Water 1 500ml. bag @ 12 UNITS/KG/HR 18. 38 mls/hr IV .Q24H [facility] Rx #:[id number] Oral 400 200 Output: Urine 100 Other: Voiding Method Toilet # Voids 1 2 2 # Bowel Movements 1 - Exam Physical exam Gen. appearance oriented 3 in no distress Neck is supple no JVD Lungs diminished breath sounds,diffuse wheezing Heart S1-S2 heard regular rate and rhythm no murmurs appreciated Abdomen is soft nontender no organomegaly bowel sounds are intact Neurologically cranial nerves II-12 grossly intact no focal motor or sensory deficits noted Skin no abnormalities appreciated - Labs CBC & Chem 7: 05/14/16 05:44 05/14/16 05:44 Labs: Abnormal Lab Results - Last 24 Hours (Table) 05/13/16 05/13/16 05/14/16 Range/Units 21:06 23:49 05:44 WBC 23.1 H (3.8-10.6) k/uL Neutrophils # 21.5 H (1.3-7.7) k/uL APTT 71.2 H (22.0-30.0) sec BUN (7-17) mg/dL Glucose (74-99) mg/dL POC Glucose (mg/dL) 143 H (75-99) mg/dL Albumin (3.5-5.0) g/dL 05/14/16 05/14/16 05/14/16 Range/Units 05:44 06:02 11:53 WBC (3.8-10.6) k/uL Neutrophils # (1.3-7.7) k/uL APTT (22.0-30.0) sec BUN 20 H (7-17) mg/dL Glucose 152 H (74-99) mg/dL POC Glucose (mg/dL) 144 H 105 H (75-99) mg/dL Albumin 3.1 L (3.5-5.0) g/dL 05/14/16 Range/Units 16:09 WBC (3.8-10.6) k/uL Neutrophils # (1.3-7.7) k/uL APTT (22.0-30.0) sec BUN (7-17) mg/dL Glucose (74-99) mg/dL POC Glucose (mg/dL) 103 H (75-99) mg/dL Albumin (3.5-5.0) g/dL Microbiology - Last 24 Hours (Table) 05/12/16 05:51 Blood Culture - Preliminary Blood No Growth after 48 hours 05/12/16 17:05 Blood Culture - Preliminary Blood No Growth after 24 hours Assessment and Plan Plan: Right upper lobe mass status post biopsy #2. Post Obstructive pneumonia #3 acute hypoxic respiratory failure #4 history of ulcerative colitis per graph #5 CAD #6 hypertension. #7 ongoing tobacco use #8 Dyslipidemia #9 bacteremia with gram-positive cocci, contaminant. #10 sepsis Plan Prelim results noted Titrate down o2. encourage ambulation. Await final biopsy results Leukemoid reaction Continue abx steroids Breathing tx Gayatri michelle
[2016-05-14 21:00] LABS: Glucose,Whole Blood 147 mg/dL (75-99)
[2016-05-14] MEDS: ZOLPIDEM 5 MG TAB PO SCH (21:10)
[2016-05-15 06:18] LABS: Basophils # (A) 0.1 k/uL (0-0.2); Basophils % (A) 1 %; CH 26.5; CHCM 31.1; Eosinophils % (A) 0 %; HCT 35.9 % (34.0-46.0); HDW 2.72; HGB 11.3 gm/dL (11.4-16.0); Hypochromasia Slight; Luc # (Auto) 0.21; Luc % (Auto) 1; Lymphocytes # (A) 1.2 k/uL (1.0-4.8); Lymphocytes % (A) 5 %; MCH 26.9 pg (25.0-35.0); MCHC 31.4 g/dL (31.0-37.0); MCV 85.7 fL (80.0-100.0); Mean Platelet Volume 7.4; Monocytes # (A) 0.8 k/uL (0-1.0); Monocytes % (A) 3 %; Neutrophils # (A) 22.1 k/uL (1.3-7.7); Neutrophils % (A) 90 %; RBC 4.19 m/uL (3.80-5.40); RDW 14.1 % (11.5-15.5); WBC 24.5 k/uL (3.8-10.6); WBC (Perox) 25.47
[2016-05-15 06:19] LABS: Glucose,Whole Blood 131 mg/dL (75-99)
[2016-05-15 06:30] LABS: Anion Gap 7 mmol/L; Blood Urea Nitrogen 28 mg/dL (7-17); Calcium 8.6 mg/dL (8.4-10.2); Carbon Dioxide 31 mmol/L (22-30); Chloride 100 mmol/L (98-107); Glucose 143 mg/dL (74-99); Non-African American GFR(MDRD) >60 (>60 ml/min/1.73 sqM); Potassium 4.6 mmol/L (3.5-5.1); Sodium 138 mmol/L (137-145)
[2016-05-15] MEDS: PANTOPRAZOLE 40 MG TABLET PO SCH (06:47)
[2016-05-15] MEDS: INSULIN LISPRO (humaLOG) 300 UNIT/3 ML VIAL SQ SCH ×4 (06:48→21:07)
[2016-05-15] MEDS: LEVOTHYROXINE 100 MCG TAB PO SCH (06:48)
--- NOTE | 2016-05-15 08:51 | PN ---
Mrs. Ortez is a 80-year-old female with known history of coronary artery disease, who presented with symptoms of dyspnea and fatigue, was noted to have lung mass, underwent a biopsy with a highly suspicious malignancy. She has been having episode of paroxysmal atrial fibrillation, but she has been in sinus mechanism for the last 24 hours. She is feeling much better. She denies any chest pain. She is lying supine without any dyspnea. No dizziness. No palpitation. No nausea. She continues to be on aspirin 81 mg daily, Cardizem 60 mg 3 times a day, metoprolol tartrate 50 mg twice a day, pravastatin 40 mg daily and Xarelto 20 mg daily. PHYSICAL EXAMINATION: Blood pressure 140/60 with a heart rate in 60s. LUNGS: Clear. HEART: Regular rate and rhythm. S1, S2, no S3, no rub. ABDOMEN: Soft, nontender. EXTREMITIES: No edema. Lab data revealed BUN and creatinine 28 and 0.7. Potassium 4.6. Hemoglobin 11.3, white blood cells 24.5. IMPRESSION: 1. Lung mass a highly suggestive of malignancy with a known adrenal mass. 2. Paroxysmal atrial fibrillation remains in sinus mechanism. 3. History of coronary artery disease. 4. Hyperlipidemia. 5. Hypertension. RECOMMENDATIONS: From the cardiac standpoint, we will continue present therapy. If she has further episode of atrial fibrillation, then she may be a candidate for an antiarrhythmic. Will await the results of the biopsy in the next 24 hours and depending on that, further recommendation will be made.
[2016-05-15] MEDS: BENZONATATE 100 MG CAP PO SCH ×3 (09:17→21:04)
[2016-05-15] MEDS: ASPIRIN 81 MG CHEW PO SCH (09:17)
[2016-05-15] MEDS: DILTIAZEM ORAL 60 MG TAB PO SCH ×3 (09:17→21:04)
[2016-05-15] MEDS: PRAVASTATIN SODIUM 40 MG TAB PO SCH (09:17)
[2016-05-15] MEDS: METOPROLOL TARTRATE 50 MG TAB PO SCH ×2 (09:18→21:04)
[2016-05-15] MEDS: methylPREDNISolone SOD SUCCI 40 MG/ML 1 ML VIAL IV SCH ×2 (09:18→21:06)
[2016-05-15] MEDS: BALSALAZIDE DISODIUM 750 MG CAPSULE PO SCH ×3 (09:18→21:05)
[2016-05-15] MEDS: PIPERACILLIN-TAZOBACTAM 3.375 GM in DEXTROSE/WATER 1 50ML.BAG IVPB SCH ×2 (09:19→15:43)
[2016-05-15 11:41] LABS: Glucose,Whole Blood 83 mg/dL (75-99)
[2016-05-15] MEDS: IPRATROPIUM-ALBUTEROL 3 ML NEB INHALATION PRN (15:55)
--- NOTE | 2016-05-15 16:35 | P.PN ---
Subjective 40-year-old female was admitted to the hospital with generalized weakness. Patient currently has lost over 30 pounds unintentionally in the recent times. Patient apparently does have a history of a pulmonary nodule in 2006. Patient given the Hospital computed tomography scan of the chest was done and was noted to have a lung nodule and possibly postobstructive pneumonia. Patient was noted to have elevated white count and generalized weakness patient was hypoxic on initial admission. 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 Patient was also noted to have bacteremia in 1 bottle of gram-positive cocci. CAT scan initially showed 4.5 cm mass in the right suprahilar region occluding the right upper bronchus. There is some adrenal gland involvement as well. 05/13/16 No new overnight events Currently on 4 l Minimal sputum production COntinues to have cough No fevers, chills reported. 04/13/16 No new overnight events On 2 l doing well cough is improved minimal sputum production 04/14/16 No new ovnernihgt event denies having cough, cp, nausea, Objective - Vital Signs Vital signs: Vital Signs Temp 98.4 F 05/15/16 04:00 Pulse 78 05/15/16 16:12 Resp 18 05/15/16 12:00 BP 110/51 05/15/16 12:00 Pulse Ox 96 05/15/16 12:00 Intake & Output 05/14/16 05/15/16 05/15/16 18:59 06:59 18:59 Intake Total 200 180 474 Output Total 350 Balance 200 -170 474 Weight 74.3 kg Intake: IV 180 0.9 @20 180 Oral 200 474 Output: Urine 350 Other: Voiding Method Toilet # Voids 2 1 1 # Bowel Movements 1 1 - Exam Physical exam Gen. appearance oriented 3 in no distress Neck is supple no JVD Lungs diminished breath sounds,diffuse wheezing Heart S1-S2 heard regular rate and rhythm no murmurs appreciated Abdomen is soft nontender no organomegaly bowel sounds are intact Neurologically cranial nerves II-12 grossly intact no focal motor or sensory deficits noted Skin no abnormalities appreciated - Labs CBC & Chem 7: 05/15/16 05:58 05/15/16 05:58 Labs: Abnormal Lab Results - Last 24 Hours (Table) 05/14/16 05/15/16 05/15/16 Range/Units 20:59 05:58 05:58 WBC 24.5 H (3.8-10.6) k/uL Hgb 11.3 L (11.4-16.0) gm/dL Neutrophils # 22.1 H (1.3-7.7) k/uL Carbon Dioxide 31 H (22-30) mmol/L BUN 28 H (7-17) mg/dL Glucose 143 H (74-99) mg/dL POC Glucose (mg/dL) 147 H (75-99) mg/dL 05/15/16 Range/Units 06:15 WBC (3.8-10.6) k/uL Hgb (11.4-16.0) gm/dL Neutrophils # (1.3-7.7) k/uL Carbon Dioxide (22-30) mmol/L BUN (7-17) mg/dL Glucose (74-99) mg/dL POC Glucose (mg/dL) 131 H (75-99) mg/dL Microbiology - Last 24 Hours (Table) 05/12/16 05:51 Blood Culture - Preliminary Blood No Growth after 72 hours 05/12/16 17:05 Blood Culture - Preliminary Blood No Growth after 48 hours Assessment and Plan Plan: Right upper lobe mass status post biopsy #2. Post Obstructive pneumonia #3 acute hypoxic respiratory failure #4 history of ulcerative colitis per graph #5 CAD #6 hypertension. #7 ongoing tobacco use #8 Dyslipidemia #9 bacteremia with gram-positive cocci, contaminant. #10 sepsis Plan Prelim results noted Titrate down o2. encourage ambulation. Await final biopsy results Leukemoid reaction Continue abx steroids Breathing tx Gayatri michelle
[2016-05-15 16:50] LABS: Glucose,Whole Blood 131 mg/dL (75-99)
[2016-05-15] MEDS: RIVAROXABAN 10 MG TAB PO SCH (17:38)
--- NOTE | 2016-05-15 17:43 | P.PN ---
Subjective 80-year-old female patient who came into the emergency department yesterday after falling and staying on the ground for a total of 3-4 hours. Apparently the patient was feeling weak as she was having some increased cough and chest congestion and some shortness of breath along with generalized weakness. The patient tried to get out of her bed and she fell out and she was unable to get herself back up. She remained on the floor for a few hours and ultimately she got to her son who called EMS and the patient was taken to the hospital. No loss of consciousness. No focal neurological deficits. No nausea vomiting or diarrhea. She is known to have chronic ulcerative colitis and currently her symptoms of ulcerative colitis a currently inactive. She also denied having any chest pain. No headaches. No neck stiffness. No reported fever or chills. The patient tells me that during a recent evaluation with her hat lacer, she was found to have an adrenal lesion/mass and cancer was suspected and she was supposed to have a further workup which never got done. She has a chest x-ray that shows some infrahilar fullness on the right and I think she would deserve a CAT scan of the chest to characterized this abnormalities further. There is some minor nonspecific troponin leak for which the patient will be seeing cardiology. She is hemodynamically stable at this point. No chills. No fever. No signs of septicemia. No other significant events overnight. On 05/11/2016 the patient is being seen in follow-up. Noted the patient was initially was evaluated at the intensive care unit and she was transferred to a medical floor. The patient is resting comfortably in bed. She is less short of breath. She still seeing prokinetics and systemic steroids. CAT scan of the chest was completed and there is a mass measuring 4.5 cm in the right suprahilar region partially occluding the right upper lobe bronchus and there is 12 mm nodule in the posterior superior segment of the right lower lobe and atelectasis in the right lung base. The adrenal glands were also prominent. No significant axillary mediastinal or hilar lymphadenopathy. This findings are very suspicious for underlying malignancy. I discussed these findings with the patient and her son and they're interested in proceeding with a bronchoscopy to establish a tissue diagnosis. On 05/12/2016 the patient is seen in follow-up. The patient is calm and comfortable. She is less focused spastic and wheezy. We are prepared to take this patient to the operating room for a bronchoscopy and hopefully will establish a tissue diagnosis is regarding her lung mass. The patient has no specific complaints otherwise for now. No hemoptysis. No chest pain. No change in mental status. No other complaints otherwise. On 05/13/2016, the patient underwent a bronchoscopy. Please refer to the bronchoscopy note for further details. 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 Therapeutic airway suctioning was done. The tumor itself was biopsied aggressively and during administration I was able to dislodge large fragments of tumor achieving some patency to the lower lobe and the right middle lobe. The patient is not having any hemoptysis. Her white cell count is remaining elevated and there is a suspicion for a postobstructive pneumonia. The patient is also receiving IV Zosyn for a postobstructive pneumonia. Her Solu-Medrol has been tapered. Her COPD remains active and the patient is still having some limited amount of bronchospasm wheezing. Overnight she had a run of paroxysmal atrial fibrillation and current rhythm is back to sinus. She was placed on IV heparin. There are no plans to put this patient on long-term anticoagulation at least for now. On 05/14/2016 I'm seeing this patient in follow-up. Clinically improved. Still on oxygen at 2 L/m nasal cannula specifically at 2 L per minute nasal cannula and his saturations up to 97%. The patient had a bronchoscopy and the results of the biopsies are still pending for now although there is a very high suspicion that the patient has an underlying lung cancer. Chest x-ray from today shows a right hilar mass. Right lower lobe pulmonary infiltrates have cleared. There is some minimal infiltration of the left lung base. The patient remains on IV Zosyn. The patient is still having paroxysmal atrial fibrillation and she was started on IV heparin and IV Cardizem and she'll be transitioned to oral Cardizem and I also discussed the case with cardiology and I'm fine is switching this patient to oral anticoagulants and stopping the IV heparin. The patient will be seen by oncology once the diagnosis of lung cancer is established. She has no other complaints otherwise for now. On 05/15/2016 the patient is being seen in follow-up. Condition is stable. No significant complaints for now. The patient is still on IV Zosyn. The patient has no hemoptysis pH is awaiting the final path from the lung biopsy. No nausea. No vomiting. She is on 2 L of oxygen by nasal cannula oxygen saturations up to 97%. The rhythm is also back to sinus. The white cell count remains elevated. Objective - Vital Signs Vital signs: Vital Signs Temp 98.4 F 05/15/16 04:00 Pulse 78 05/15/16 16:12 Resp 18 05/15/16 12:00 BP 110/51 05/15/16 12:00 Pulse Ox 96 05/15/16 12:00 Intake & Output 05/14/16 05/15/16 05/15/16 18:59 06:59 18:59 Intake Total 200 180 474 Output Total 350 Balance 200 -170 474 Weight 74.3 kg Intake: IV 180 0.9 @20 180 Oral 200 474 Output: Urine 350 Other: Voiding Method Toilet # Voids 2 1 1 # Bowel Movements 1 1 - Exam Head exam was generally normal. There was no scleral icterus or corneal arcus. Mucous membranes were moist.Neck was supple and without jugular venous distension, thyromegaly, or carotid bruits. Carotids were easily palpable bilaterally. There was no adenopathy. Lungs are diminished breath sounds along with some scattered expiratory wheezes heard bilaterally.Cardiac exam revealed the PMI to be normally situated and sized. The rhythm was regular and no extrasystoles were noted during several minutes of auscultation. The first and second heart sounds were normal and physiologic splitting of the second heart sound was noted. There were no murmurs, rubs, clicks, or gallops.Abdominal exam revealed normal bowel sounds. The abdomen was soft, non-tender, and without masses, organomegaly, or appreciable enlargement of the abdominal aorta.Examination of the extremities revealed easily palpable radial, femoral and pedal pulses. There was no cyanosis, clubbing or edema. - Labs CBC & Chem 7: 05/15/16 05:58 05/15/16 05:58 Labs: Abnormal Lab Results - Last 24 Hours (Table) 05/14/16 05/15/16 05/15/16 Range/Units 20:59 05:58 05:58 WBC 24.5 H (3.8-10.6) k/uL Hgb 11.3 L (11.4-16.0) gm/dL Neutrophils # 22.1 H (1.3-7.7) k/uL Carbon Dioxide 31 H (22-30) mmol/L BUN 28 H (7-17) mg/dL Glucose 143 H (74-99) mg/dL POC Glucose (mg/dL) 147 H (75-99) mg/dL 05/15/16 05/15/16 Range/Units 06:15 16:49 WBC (3.8-10.6) k/uL Hgb (11.4-16.0) gm/dL Neutrophils # (1.3-7.7) k/uL Carbon Dioxide (22-30) mmol/L BUN (7-17) mg/dL Glucose (74-99) mg/dL POC Glucose (mg/dL) 131 H 131 H (75-99) mg/dL Microbiology - Last 24 Hours (Table) 05/12/16 05:51 Blood Culture - Preliminary Blood No Growth after 72 hours 05/12/16 17:05 Blood Culture - Preliminary Blood No Growth after 48 hours Assessment and Plan Plan: Assessment 1 right upper lobe mass with some limited mediastinal lymphadenopathy involving the precarinal and subcarinal area.. 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 The patient will need a bronchoscopy to establish a tissue diagnosis. On 05/12/2016, the patient is scheduled to undergo a bronchoscopy and operating room. This will be done while the patient's airways quite acute and the patient being oxygenated and ventilated adequately. The patient is agreeable to the procedure and this will be done this afternoon. On 05/13/2016, the patient underwent his bronchoscopy and she was found to have a large endobronchial tumor obstructing the bronchus intermedius. Bronchoscopic minute ventilation was done including biopsies and large fragments of tumors was aspirated achieving some degree of patency to the lower lobe and the right middle lobe. The patient is not having any hemoptysis. She potentially have a postobstructive pneumonia in the right lung and she is currently on IV Zosyn. White cell count remains elevated. On , the patient is improving. She is on oxygen 2 L per minute nasal cannula. He is on IV Zosyn. Chest x-ray shows improvement of the right lower lobe pulmonary infiltrate. The patient is still awaiting the final pathology results on the lung biopsy. The patient's white cell count is also improving. On 05/15/2016, the patient remained on the same treatment. We should be able to wean down the FiO2 further and possibly put the patient in room air oxygen. Awaiting final pathology report from the lung biopsy. White cell count is still elevated however clinically the patient is improved. No other significant events overnight. The patient was also started on anticoagulants and the patient has not developed any hemoptysis. 2 nonspecific troponin leak, nonspecific 3 acute shortness of breath with some bronchospasm and wheezing, possibly secondary to an underlying component of COPD exacerbation, improved with bronchodilators and systemic steroids 4 ulcerative colitis 5 coronary artery disease with previous history of insertion of coronary stents 6 hypertension 7 smoking 8 hyperlipidemia 9 suspected urinary tract infection, essentially ruled out 10 gram-positive cocci in the blood, likely contaminant , final cultures are showing coagulase-negative staph 11 leukocytosis, rule out a postobstructive pneumonia involving the right lung. , Improving 12 Paroxysmal atrial fibrillation, current rhythm is sinus and the patient is on long-term anticoagulation using Xarelto plan The patient will need a oncology evaluation following the confirmation of the lung cancer. Wean off FiO2. Monitor white cell count. Continue the course of antibiotics. Discharge planning is in progress.
[2016-05-15 20:57] LABS: Glucose,Whole Blood 184 mg/dL (75-99)
[2016-05-15] MEDS: ZOLPIDEM 5 MG TAB PO SCH (21:25)
[2016-05-16] MEDS: PIPERACILLIN-TAZOBACTAM 3.375 GM in DEXTROSE/WATER 1 50ML.BAG IVPB SCH ×4 (01:11→23:50)
[2016-05-16] MEDS: LEVOTHYROXINE 100 MCG TAB PO SCH (06:42)
[2016-05-16 07:33] LABS: Glucose,Whole Blood 132 mg/dL (75-99)
[2016-05-16 09:05] LABS: Basophils # (A) 0.1 k/uL (0-0.2); Basophils % (A) 0 %; CH 26.7; Eosinophils % (A) 0 %; HDW 2.68; Hypochromasia Slight; Luc # (Auto) 0.19; Luc % (Auto) 1; Lymphocytes # (A) 1.7 k/uL (1.0-4.8); Lymphocytes % (A) 7 %; MCH 27.2 pg (25.0-35.0); MCHC 31.5 g/dL (31.0-37.0); MCV 86.3 fL (80.0-100.0); Mean Platelet Volume 7.6; Monocytes # (A) 0.5 k/uL (0-1.0); Monocytes % (A) 2 %; Neutrophils # (A) 22.5 k/uL (1.3-7.7); Neutrophils % (A) 90 %; RDW 14.5 % (11.5-15.5); WBC 24.9 k/uL (3.8-10.6); WBC (Perox) 26.05
[2016-05-16] MEDS ORDERED: RX INFO: IV CONTRAST WAS GIVEN 1 EACH MISC MISCELLANE PRN (09:21)
[2016-05-16 09:25] LABS: ALT 86 U/L (9-52); AST 87 U/L (14-36); Alkaline Phosphatase 83 U/L (38-126); Anion Gap 14 mmol/L; Blood Urea Nitrogen 35 mg/dL (7-17); Carbon Dioxide 28 mmol/L (22-30); Chloride 99 mmol/L (98-107); Glucose 139 mg/dL (74-99); Non-African American GFR(MDRD) >60 (>60 ml/min/1.73 sqM); Potassium 4.3 mmol/L (3.5-5.1); Sodium 141 mmol/L (137-145); Total Bilirubin 0.5 mg/dL (0.2-1.3); Total Protein 6.6 g/dL (6.3-8.2)
[2016-05-16] MEDS: methylPREDNISolone SOD SUCCI 40 MG/ML 1 ML VIAL IV SCH ×2 (09:31→20:51)
[2016-05-16] MEDS: METOPROLOL TARTRATE 50 MG TAB PO SCH ×2 (09:31→20:50)
[2016-05-16] MEDS: PANTOPRAZOLE 40 MG TABLET PO SCH (09:31)
[2016-05-16] MEDS: BALSALAZIDE DISODIUM 750 MG CAPSULE PO SCH ×3 (09:31→21:01)
[2016-05-16] MEDS: ASPIRIN 81 MG CHEW PO SCH (09:31)
[2016-05-16] MEDS: BENZONATATE 100 MG CAP PO SCH ×3 (09:31→21:02)
[2016-05-16] MEDS: PRAVASTATIN SODIUM 40 MG TAB PO SCH (09:31)
[2016-05-16] MEDS: DILTIAZEM ORAL 60 MG TAB PO SCH ×3 (09:31→21:02)
[2016-05-16] MEDS: INSULIN LISPRO (humaLOG) 300 UNIT/3 ML VIAL SQ SCH ×4 (09:32→21:10)
[2016-05-16] MEDS ORDERED: diphenhydrAMINE 50 MG/ML 1 ML VIAL IVP STA (10:43)
[2016-05-16] MEDS ORDERED: FAMOTIDINE 20 MG/2 ML VIAL IV STA (10:43)
[2016-05-16] MEDS ORDERED: methylPREDNISolone SOD SUCCI 125 MG/2 ML VIAL IV STA (10:43)
[2016-05-16 11:29] LABS: Glucose,Whole Blood 158 mg/dL (75-99)
[2016-05-16] MEDS: IPRATROPIUM-ALBUTEROL 3 ML NEB INHALATION PRN ×3 (12:13→19:26)
--- NOTE | 2016-05-16 13:10 | CT ---
EXAMINATION TYPE: CT brain w con DATE OF EXAM: 05/16/2016 12:42 PM COMPARISON: 05/10/2016 INDICATION: Possible mets. Abnormal Chest CT DLP: 1072.3 mGycm, Automated exposure control for dose reduction was used. CONTRAST: [address] of the brain is performed utilizing 3 mm thick sections through the posterior fossa and 3 mm thick sections through the remaining calvarium. Study is not performed within 24 hours of arrival to the hospital. No abnormal hyperdensity is present to suggest an acute intracranial hemorrhage. No mass lesion is evident. No acute infarcts are evident. Periventricular white matter hypodensity is present, likely on the bas is of chronic white matter ischemic changes findings are stable from the comparison Ventricles and sulci are appropriate for the patient age. No abnormal enhancement is evident. Paranasal sinuses and mastoid air cells within the [id number] are clear. IMPRESSIONS: 1. Atrophy with periventricular white matter changes.
--- NOTE | 2016-05-16 16:17 | P.PN ---
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 Apparently the patient was feeling weak as she was having some increased cough and chest congestion and some shortness of breath along with generalized weakness. The patient tried to get out of her bed and she fell out and she was unable to get herself back up. She remained on the floor for a few hours and ultimately she got to her son who called EMS and the patient was taken to the hospital. No loss of consciousness. No focal neurological deficits. No nausea vomiting or diarrhea. She is known to have chronic ulcerative colitis and currently her symptoms of ulcerative colitis a currently inactive. She also denied having any chest pain. No headaches. No neck stiffness. No reported fever or chills. The patient tells me that during a recent evaluation with her security consultant, she was found to have an adrenal lesion/mass and cancer was suspected and she was supposed to have a further workup which never got done. She has a chest x-ray that shows some infrahilar fullness on the right and I think she would deserve a CAT scan of the chest to characterized this abnormalities further. There is some minor nonspecific troponin leak for which the patient will be seeing cardiology. She is hemodynamically stable at this point. No chills. No fever. No signs of septicemia. No other significant events overnight. On 05/11/2016 the patient is being seen in follow-up. Noted the patient was initially was evaluated at the intensive care unit and she was transferred to a medical floor. The patient is resting comfortably in bed. She is less short of breath. She still seeing prokinetics and systemic steroids. CAT scan of the chest was completed and there is a mass measuring 4.5 cm in the right suprahilar region partially occluding the right upper lobe bronchus and there is 12 mm nodule in the posterior superior segment of the right lower lobe and atelectasis in the right lung base. The adrenal glands were also prominent. No significant axillary mediastinal or hilar lymphadenopathy. This findings are very suspicious for underlying malignancy. I discussed these findings with the patient and her son and they're interested in proceeding with a bronchoscopy to establish a tissue diagnosis. On 05/12/2016 the patient is seen in follow-up. The patient is calm and comfortable. She is less focused spastic and wheezy. We are prepared to take this patient to the operating room for a bronchoscopy and hopefully will establish a tissue diagnosis is regarding her lung mass. The patient has no specific complaints otherwise for now. No hemoptysis. No chest pain. No change in mental status. No other complaints otherwise. On 05/13/2016, the patient underwent a bronchoscopy. Please refer to the bronchoscopy note for further details. 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 Therapeutic airway suctioning was done. The tumor itself was biopsied aggressively and during administration I was able to dislodge large fragments of tumor achieving some patency to the lower lobe and the right middle lobe. The patient is not having any hemoptysis. Her white cell count is remaining elevated and there is a suspicion for a postobstructive pneumonia. The patient is also receiving IV Zosyn for a postobstructive pneumonia. Her Solu-Medrol has been tapered. Her COPD remains active and the patient is still having some limited amount of bronchospasm wheezing. Overnight she had a run of paroxysmal atrial fibrillation and current rhythm is back to sinus. She was placed on IV heparin. There are no plans to put this patient on long-term anticoagulation at least for now. On 05/14/2016 I'm seeing this patient in follow-up. Clinically improved. Still on oxygen at 2 L/m nasal cannula specifically at 2 L per minute nasal cannula and his saturations up to 97%. The patient had a bronchoscopy and the results of the biopsies are still pending for now although there is a very high suspicion that the patient has an underlying lung cancer. Chest x-ray from today shows a right hilar mass. Right lower lobe pulmonary infiltrates have cleared. There is some minimal infiltration of the left lung base. The patient remains on IV Zosyn. The patient is still having paroxysmal atrial fibrillation and she was started on IV heparin and IV Cardizem and she'll be transitioned to oral Cardizem and I also discussed the case with cardiology and I'm fine is switching this patient to oral anticoagulants and stopping the IV heparin. The patient will be seen by oncology once the diagnosis of lung cancer is established. She has no other complaints otherwise for now. On 05/15/2016 the patient is being seen in follow-up. Condition is stable. No significant complaints for now. The patient is still on IV Zosyn. The patient has no hemoptysis pH is awaiting the final path from the lung biopsy. No nausea. No vomiting. She is on 2 L of oxygen by nasal cannula oxygen saturations up to 97%. The rhythm is also back to sinus. The white cell count remains elevated. On 05/16/2016, patient is doing relatively well, she is asymptomatic. No cough no wheezing no shortness of breath no chest pain and no hemoptysis. Pathology report from her lung biopsy is still not available and pending. Objective - Vital Signs Vital signs: Vital Signs Temp 97 F L 05/16/16 07:00 Pulse 76 05/16/16 12:21 Resp 16 05/16/16 08:00 BP 149/79 05/16/16 07:00 Pulse Ox 92 L 05/16/16 07:00 Intake & Output 05/15/16 05/16/16 05/16/16 18:59 06:59 18:59 Intake Total 711 1000 Balance 711 1000 Weight 76.5 kg Intake: Oral 711 1000 Other: # Voids 1 2 2 # Bowel Movements 1 0 2 - Exam Physical Exam: Revealed a 80-year-old in no distress HEENT:[Neck is supple.] [No neck masses.] [No thyromegaly.] [No JVD.] Chest: [Initially breath sounds at the bases no crackles or rhonchi or wheezes] Cardiac Exam: [Normal S1 and S2, no S3 gallop, no murmur.] Abdomen: [Soft, nontender, no megaly, no rebound, no guarding, normal bowel sounds.] Extremities: [No clubbing, no edema, no cyanosis.] Neurological Exam: [No focal neurologic deficit.] - Labs CBC & Chem 7: 05/16/16 08:03 05/16/16 08:03 Labs: Abnormal Lab Results - Last 24 Hours (Table) 05/15/16 05/15/16 05/16/16 Range/Units 16:49 20:54 07:12 WBC (3.8-10.6) k/uL Neutrophils # (1.3-7.7) k/uL BUN (7-17) mg/dL Glucose (74-99) mg/dL POC Glucose (mg/dL) 131 H 184 H 132 H (75-99) mg/dL AST (14-36) U/L ALT (9-52) U/L Albumin (3.5-5.0) g/dL 05/16/16 05/16/16 05/16/16 Range/Units 08:03 08:03 11:22 WBC 24.9 H (3.8-10.6) k/uL Neutrophils # 22.5 H (1.3-7.7) k/uL BUN 35 H (7-17) mg/dL Glucose 139 H (74-99) mg/dL POC Glucose (mg/dL) 158 H (75-99) mg/dL AST 87 H (14-36) U/L ALT 86 H (9-52) U/L Albumin 3.1 L (3.5-5.0) g/dL Microbiology - Last 24 Hours (Table) 05/12/16 05:51 Blood Culture - Preliminary Blood No Growth after 96 hours 05/12/16 17:05 Blood Culture - Preliminary Blood No Growth after 72 hours Assessment and Plan Plan: 1 right upper lobe mass with some limited mediastinal lymphadenopathy involving the precarinal and subcarinal area.. 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 The patient will need a bronchoscopy to establish a tissue diagnosis. On 05/12/2016, the patient is scheduled to undergo a bronchoscopy and operating room. This will be done while the patient's airways quite acute and the patient being oxygenated and ventilated adequately. The patient is agreeable to the procedure and this will be done this afternoon. On 05/13/2016, the patient underwent his bronchoscopy and she was found to have a large endobronchial tumor obstructing the bronchus intermedius. Bronchoscopic minute ventilation was done including biopsies and large fragments of tumors was aspirated achieving some degree of patency to the lower lobe and the right middle lobe. The patient is not having any hemoptysis. She potentially have a postobstructive pneumonia in the right lung and she is currently on IV Zosyn. White cell count remains elevated. On , the patient is improving. She is on oxygen 2 L per minute nasal cannula. He is on IV Zosyn. Chest x-ray shows improvement of the right lower lobe pulmonary infiltrate. The patient is still awaiting the final pathology results on the lung biopsy. The patient's white cell count is also improving. On 05/15/2016, the patient remained on the same treatment. We should be able to wean down the FiO2 further and possibly put the patient in room air oxygen. Awaiting final pathology report from the lung biopsy. White cell count is still elevated however clinically the patient is improved. No other significant events overnight. The patient was also started on anticoagulants and the patient has not developed any hemoptysis. On 05/16/2016, were still awaiting the biopsy report on her lung and wind diesel report. We'll discuss this with the patient once that is available. Clinically the patient is doing well, and not much to be added to her treatment at this point. 2 nonspecific troponin leak, nonspecific 3 acute shortness of breath with some bronchospasm and wheezing, possibly secondary to an underlying component of COPD exacerbation, improved with bronchodilators and systemic steroids 4 ulcerative colitis 5 coronary artery disease with previous history of insertion of coronary stents 6 hypertension 7 smoking 8 hyperlipidemia 9 suspected urinary tract infection, essentially ruled out 10 gram-positive cocci in the blood, likely contaminant , final cultures are showing coagulase-negative staph 11 leukocytosis, rule out a postobstructive pneumonia involving the right lung. , Improving 12 Paroxysmal atrial fibrillation, current rhythm is sinus and the patient is on long-term anticoagulation using Xarelto Recommendation: Continue treatment plan, awaiting biopsy report on her lung biopsy. Time with Patient: Less than 30
[2016-05-16 16:57] LABS: Glucose,Whole Blood 283 mg/dL (75-99)
[2016-05-16] MEDS: RIVAROXABAN 10 MG TAB PO SCH (17:09)
[2016-05-16] MEDS: FLECAINIDE 50 MG TAB PO SCH ×2 (17:09→20:56)
--- NOTE | 2016-05-16 17:53 | P.PN ---
Subjective 40-year-old female was admitted to the hospital with generalized weakness. Patient currently has lost over 30 pounds unintentionally in the recent times. Patient apparently does have a history of a pulmonary nodule in 2006. Patient given the Hospital computed tomography scan of the chest was done and was noted to have a lung nodule and possibly postobstructive pneumonia. Patient was noted to have elevated white count and generalized weakness patient was hypoxic on initial admission. Patient is seen today status post lung biopsy done by the shipping technician. Patient was also noted to have bacteremia in 1 bottle of gram-positive cocci. CAT scan initially showed 4.5 cm mass in the right suprahilar region occluding the right upper bronchus. There is some adrenal gland involvement as well. 05/13/16 No new overnight events Currently on 4 l Minimal sputum production COntinues to have cough No fevers, chills reported. 05/14/16 No new overnight events On 2 l doing well cough is improved minimal sputum production 05/15/16 No new ovnernihgt event denies having cough, cp, nausea, 05/16/16 No new overnight events COugh is improved Denies fevers, chills, nausea, vomiting. Objective - Vital Signs Vital signs: Vital Signs Temp 96.9 F L 05/16/16 15:00 Pulse 72 05/16/16 16:21 Resp 18 05/16/16 15:00 BP 135/63 05/16/16 15:00 Pulse Ox 96 05/16/16 15:00 Intake & Output 05/15/16 05/16/16 05/16/16 18:59 06:59 18:59 Intake Total 711 1000 Balance 711 1000 Weight 76.5 kg Intake: Oral 711 1000 Other: # Voids 1 2 2 # Bowel Movements 1 0 2 - Exam Physical exam Gen. appearance oriented 3 in no distress Neck is supple no JVD Lungs diminished breath sounds,diffuse wheezing Heart S1-S2 heard regular rate and rhythm no murmurs appreciated Abdomen is soft nontender no organomegaly bowel sounds are intact Neurologically cranial nerves II-12 grossly intact no focal motor or sensory deficits noted Skin no abnormalities appreciated - Labs CBC & Chem 7: 05/16/16 08:03 05/16/16 08:03 Labs: Abnormal Lab Results - Last 24 Hours (Table) 05/15/16 05/16/16 05/16/16 Range/Units 20:54 07:12 08:03 WBC 24.9 H (3.8-10.6) k/uL Neutrophils # 22.5 H (1.3-7.7) k/uL BUN (7-17) mg/dL Glucose (74-99) mg/dL POC Glucose (mg/dL) 184 H 132 H (75-99) mg/dL AST (14-36) U/L ALT (9-52) U/L Albumin (3.5-5.0) g/dL 05/16/16 05/16/16 05/16/16 Range/Units 08:03 11:22 16:54 WBC (3.8-10.6) k/uL Neutrophils # (1.3-7.7) k/uL BUN 35 H (7-17) mg/dL Glucose 139 H (74-99) mg/dL POC Glucose (mg/dL) 158 H 283 H (75-99) mg/dL AST 87 H (14-36) U/L ALT 86 H (9-52) U/L Albumin 3.1 L (3.5-5.0) g/dL Microbiology - Last 24 Hours (Table) 05/12/16 05:51 Blood Culture - Preliminary Blood No Growth after 96 hours 05/12/16 17:05 Blood Culture - Preliminary Blood No Growth after 72 hours Assessment and Plan Plan: Right upper lobe mass status post biopsy #2. Post Obstructive pneumonia #3 acute hypoxic respiratory failure #4 history of ulcerative colitis per graph #5 CAD #6 hypertension. #7 ongoing tobacco use #8 Dyslipidemia #9 bacteremia with gram-positive cocci, contaminant. #10 sepsis Plan encourage ambulation. Await final biopsy result Continue abx steroids Breathing tx Gayatri michelle Dispo: 24-48 hrs
--- NOTE | 2016-05-16 20:50 | PN ---
This patient was seen for mildly elevated troponin level. Patient has been found to have a lung mass and underwent biopsy. Patient is doing well. Patient had intermittent episodes of the atrial fibrillation with rapid ventricular response. Currently patient remains in normal sinus rhythm. Patient denies any chest pain or shortness of breath. Blood pressure is 149/79 mmHg. First and second heart sounds are normal. Lungs are clinically clear to auscultation and percussion. We will start the patient on flecainide 50 mg b.i.d. to prevent recurrent episodes of the atrial fibrillation. Patient is currently getting Xarelto 20 mg daily and I will discontinue the aspirin.
[2016-05-16 20:55] LABS: Glucose,Whole Blood 228 mg/dL (75-99)
[2016-05-16] MEDS: ZOLPIDEM 5 MG TAB PO SCH (21:01)
--- NOTE | 2016-05-16 21:27 | P.CONS ---
History of Present Illness - Reason for Consult Consult date: 05/16/16 Right lung mass - History of Present Illness The patient is a 80-year-old lady, in fairly good health overall, till about 4-5 days prior to this admission. At that time the patient developed some chest condition and cough. The symptoms progressed, and became associated with shortness of breath and weakness. The patient apparently fell, elderly on the floor for about 3-4 hours as she was too weak to get up. She was brought to the hospital by EMS, and had a chest x-ray done which was suspicious for a right hilar mass. There was also evidence of right lower lobe infiltrate which was felt to be postobstructive. She was seen by the pulmonary medicine service, and had a computed tomography scan of the chest done. This revealed a 4.5 cm suprahilar mass with obstruction of the right lower lobe bronchus. The scan did not describe any enlarged mediastinal adenopathy. A 1.2 cm nodule was also noted in the superior segment of the right lower lobe. She then underwent a bronchoscopy , which showed an obstructive mass involving the right lower lobe bronchus. Biopsies were done, and during the procedure, the bronchus was actually able to be opened up partially, from fragmentation of the mass. Consult was then placed for further evaluation and recommendations. The patient denies any prior history of cancer. She was a smoker up to about 3 weeks ago. Prior to her acute illness, she states that she was fully functional. He does have a history of ulcerative colitis, but according to her this has been inactive, at least for some years. Apparently a scan in the last few months had noted the possibility of an adrenal mass. However the patient had not had any workup for the same yet Review of Systems Constitutional: Reports fatigue, Reports poor appetite, Reports weakness, Reports weight loss Eyes: denies blurred vision, denies pain Ears: deny: decreased hearing, ear discharge, earache, tinnitus Ears, nose, mouth and throat: Denies headache, Denies sore throat Cardiovascular: Reports dyspnea on exertion Respiratory: Reports cough with sputum, Reports dyspnea Gastrointestinal: Reports as per HPI Genitourinary: Denies dysuria, Denies hematuria Menstruation: Reports postmenopausal Musculoskeletal: Denies myalgias Integumentary: Denies pruritus, Denies rash Neurological: Denies numbness, Denies weakness Psychiatric: Denies anxiety, Denies depression Endocrine: Reports fatigue, Reports weight change (About 30 pounds, part of which was deliberate) Hematologic/Lymphatic: Reports as per HPI Past Medical History Past Medical History: Hyperlipidemia, Hypertension, Myocardial Infarction ([place]) Additional Past Medical History / Comment(s): ulcerative colitis, adrenal mass under investigation, CAD previous stent of RCA, HTN, hyperlipidemia, EF 70% , hypothyroidism Last Myocardial Infarction Date:: 2005 History of Any Multi-Drug Resistant Organisms: None Reported Past Surgical History: Adenoidectomy, Bladder Surgery, Cholecystectomy, Hysterectomy, Tonsillectomy Additional Past Surgical History / Comment(s): Cardiac stent Additional Past Anesthesia/Blood Transfusion Reaction / Comm: muscle weakness post biopsy Past Psychological History: No Psychological Hx Reported Smoking Status: Former smoker Past Alcohol Use History: None Reported Past Drug Use History: None Reported - Past Family History Mother Family Medical History: Cancer, Myocardial Infarction ([place]) Medications and Allergies Home Medications Medication Instructions Recorded Confirmed Type Aspirin 81 mg PO DAILY 05/09/16 05/09/16 History Hydrochlorothiazide [Hydrodiuril] 25 mg PO DAILY 05/09/16 05/09/16 History Lansoprazole 30 mg PO DAILY 05/09/16 05/09/16 History Levothyroxine Sodium [Synthroid] 100 mcg PO DAILY 05/09/16 05/09/16 History Mesalamine [Lialda] 1.2 gm PO DAILY 05/09/16 05/09/16 History Metoprolol Tartrate [Lopressor] 25 mg PO BID 05/09/16 05/09/16 History Multivitamins, Thera [Multivitamin] 1 tab PO DAILY 05/09/16 05/09/16 History Pravastatin Sodium [Pravachol] 40 mg PO DAILY 05/09/16 05/09/16 History Vit C/E/Zn/Coppr/Lutein/Zeaxan 1 cap PO BID 05/09/16 05/09/16 History [Preservision Areds 2 Softgel] Zolpidem [Ambien] 10 mg PO HS PRN 05/09/16 05/09/16 History amLODIPine [Norvasc] 5 mg PO DAILY 05/09/16 05/09/16 History Allergies Allergy/AdvReac Type Severity Reaction Status Date / Time codeine Allergy Unknown Verified 05/09/16 23:16 gabapentin [From Neurontin] Allergy Unknown Verified 05/09/16 23:16 ibuprofen [From Motrin] Allergy Unknown Verified 05/09/16 23:16 Iodinated Contrast Media - Allergy Unknown Verified 05/09/16 23:16 Oral and omeprazole [From Prilosec] Allergy Unknown Verified 05/09/16 23:16 Sulfa (Sulfonamide Allergy Unknown Verified 05/09/16 23:16 Antibiotics) Physical Exam Vitals: Vital Signs Temp Pulse Pulse Resp BP BP Pulse Ox 05/16/16 19:28 80 05/16/16 19:14 80 05/16/16 16:21 72 05/16/16 16:15 72 05/16/16 16:00 65 18 05/16/16 15:00 96.9 F L 65 18 135/63 96 05/16/16 12:21 76 05/16/16 12:15 76 05/16/16 08:00 16 05/16/16 07:00 97 F L 55 L 16 149/79 92 L 05/15/16 23:21 98.3 F 65 16 99/42 94 L Intake and Output 05/16/16 05/16/16 05/16/16 06:59 14:59 22:59 Intake Total 1000 Output Total 1 Balance 1000 -1 Intake: Oral 1000 Output: Stool 1 Other: Voiding Method Toilet # Voids 2 2 # Bowel Movements 0 2 Weight 76.5 kg - Constitutional General appearance: no acute distress - EENT Eyes: EOMI, PERRLA ENT: hearing grossly normal, normal oropharynx - Neck Neck: no lymphadenopathy Thyroid: bilateral: normal size - Respiratory Respiratory: right: diminished, rhonchi (Lower lobe) - Cardiovascular Rhythm: regular Heart sounds: normal: S1, S2 - Gastrointestinal General gastrointestinal: normal bowel sounds, soft - Integumentary Integumentary: normal - Neurologic Neurologic: CNII-XII intact - Musculoskeletal Musculoskeletal: generalized weakness, strength equal bilaterally - Psychiatric Psychiatric: A&O x's 3, appropriate affect Results CBC & Chem 7: 05/16/16 08:03 05/16/16 08:03 Labs: Abnormal Lab Results - Last 24 Hours (Table) 05/16/16 05/16/16 05/16/16 Range/Units 07:12 08:03 08:03 WBC 24.9 H (3.8-10.6) k/uL Neutrophils # 22.5 H (1.3-7.7) k/uL BUN 35 H (7-17) mg/dL Glucose 139 H (74-99) mg/dL POC Glucose (mg/dL) 132 H (75-99) mg/dL AST 87 H (14-36) U/L ALT 86 H (9-52) U/L Albumin 3.1 L (3.5-5.0) g/dL 05/16/16 05/16/16 05/16/16 Range/Units 11:22 16:54 20:53 WBC (3.8-10.6) k/uL Neutrophils # (1.3-7.7) k/uL BUN (7-17) mg/dL Glucose (74-99) mg/dL POC Glucose (mg/dL) 158 H 283 H 228 H (75-99) mg/dL AST (14-36) U/L ALT (9-52) U/L Albumin (3.5-5.0) g/dL Microbiology - Last 24 Hours (Table) 05/12/16 17:05 Blood Culture - Preliminary Blood No Growth after 96 hours 05/12/16 05:51 Blood Culture - Preliminary Blood No Growth after 96 hours Chest x-ray: report reviewed CT scan - chest: report reviewed Assessment and Plan (1) Mass of upper lobe of right lung Narrative/Plan: The radiologic picture, as well as appearance of bronchoscopy is obviously most suggestive of malignancy. The patient does have a significant smoking history as noted. Therefore a lung primary appears to be most likely. Her presenting complaints or problems related to postobstructive pneumonitis. The patient is improved with ongoing treatment. Biopsy is still pending at this time. The above clinical impression, and rationale for the same were discussed in detail with her. Given the high suspicion for lung primary, computed tomography scan of the brain will be ordered. Await results of the biopsy. Assuming that a primary lung malignancy is confirmed, the patient will need a PET scan for completion of staging, as CAT scans so far are not definitive for any metastatic disease. This will be done as an outpatient. The patient's performance status was essentially normal, and an ECOG 0-1, up until the acute events leading to this admission, which were likely due to postobstructive pneumonitis. Status: Acute (2) Postobstructive pneumonia Narrative/Plan: The patient is improved with ongoing treatment. As noted, during the procedure, there was some fragmentation of the tumor with subsequent aspiration of the debris leading to partial opening up of the right lower lobe. Defer to the admitting service and pulmonary medicine for ongoing treatment. Status: Acute
[2016-05-17] MEDS: LEVOTHYROXINE 100 MCG TAB PO SCH (06:42)
[2016-05-17 07:36] LABS: Glucose,Whole Blood 123 mg/dL (75-99)
[2016-05-17 07:45] VITALS: BP 147/73; TEMP 97.9
[2016-05-17] MEDS: IPRATROPIUM-ALBUTEROL 3 ML NEB INHALATION PRN ×2 (08:04→11:41)
[2016-05-17 08:17] LABS: CH 26.3; CHCM 30.8; HCT 38.3 % (34.0-46.0); HDW 2.59; HGB 11.7 gm/dL (11.4-16.0); Hypochromasia Moderate; MCH 26.2 pg (25.0-35.0); MCHC 30.5 g/dL (31.0-37.0); MCV 85.8 fL (80.0-100.0); RBC 4.47 m/uL (3.80-5.40); RDW 14.6 % (11.5-15.5); WBC (Perox) 28.71
[2016-05-17 08:37] LABS: WBC 26.6 k/uL (3.8-10.6)
[2016-05-17 08:51] LABS: Add Differential Manual Differential
[2016-05-17 08:54] LABS: Manual Review Performed; Nucleated Red Blood Cells 0 /100 WBC (0-0); Total Cells Counted 200
[2016-05-17] MEDS: FLECAINIDE 50 MG TAB PO SCH (09:16)
[2016-05-17] MEDS: DILTIAZEM ORAL 60 MG TAB PO SCH (09:16)
[2016-05-17] MEDS: METOPROLOL TARTRATE 50 MG TAB PO SCH (09:16)
[2016-05-17] MEDS: PRAVASTATIN SODIUM 40 MG TAB PO SCH (09:16)
[2016-05-17] MEDS: PANTOPRAZOLE 40 MG TABLET PO SCH (09:16)
[2016-05-17] MEDS: BENZONATATE 100 MG CAP PO SCH (09:16)
[2016-05-17] MEDS: PIPERACILLIN-TAZOBACTAM 3.375 GM in DEXTROSE/WATER 1 50ML.BAG IVPB SCH (09:16)
[2016-05-17] MEDS: methylPREDNISolone SOD SUCCI 40 MG/ML 1 ML VIAL IV SCH (09:16)
[2016-05-17] MEDS: BALSALAZIDE DISODIUM 750 MG CAPSULE PO SCH (09:17)
[2016-05-17] MEDS: INSULIN LISPRO (humaLOG) 300 UNIT/3 ML VIAL SQ SCH ×2 (09:17→12:51)
[2016-05-17 10:33] VITALS: RESP 18
[2016-05-17 11:49] VITALS: PULSE 68
[2016-05-17 12:31] LABS: Glucose,Whole Blood 105 mg/dL (75-99)
--- NOTE | 2016-05-17 16:15 | PN ---
This patient is feeling better. Denies any chest pain. Denies any shortness of breath. Patient remains in normal sinus rhythm. She is tolerating flecainide well. Blood pressure is 147/73 mmHg. Heart rate is 68 beats per minute. First and second heart sounds are normal. Lungs are clear to auscultation and percussion. We will continue the patient on current medications.
--- NOTE | 2016-05-17 16:29 | P.PN ---
Subjective 80-year-old female patient who came into the emergency department yesterday after falling and staying on the ground for a total of 3-4 hours. Apparently the patient was feeling weak as she was having some increased cough and chest congestion and some shortness of breath along with generalized weakness. The patient tried to get out of her bed and she fell out and she was unable to get herself back up. She remained on the floor for a few hours and ultimately she got to her son who called EMS and the patient was taken to the hospital. No loss of consciousness. No focal neurological deficits. No nausea vomiting or diarrhea. She is known to have chronic ulcerative colitis and currently her symptoms of ulcerative colitis a currently inactive. She also denied having any chest pain. No headaches. No neck stiffness. No reported fever or chills. The patient tells me that during a recent evaluation with her retinal surgeon, she was found to have an adrenal lesion/mass and cancer was suspected and she was supposed to have a further workup which never got done. She has a chest x-ray that shows some infrahilar fullness on the right and I think she would deserve a CAT scan of the chest to characterized this abnormalities further. There is some minor nonspecific troponin leak for which the patient will be seeing cardiology. She is hemodynamically stable at this point. No chills. No fever. No signs of septicemia. No other significant events overnight. On 05/11/2016 the patient is being seen in follow-up. Noted the patient was initially was evaluated at the intensive care unit and she was transferred to a medical floor. The patient is resting comfortably in bed. She is less short of breath. She still seeing prokinetics and systemic steroids. CAT scan of the chest was completed and there is a mass measuring 4.5 cm in the right suprahilar region partially occluding the right upper lobe bronchus and there is 12 mm nodule in the posterior superior segment of the right lower lobe and atelectasis in the right lung base. The adrenal glands were also prominent. No significant axillary mediastinal or hilar lymphadenopathy. This findings are very suspicious for underlying malignancy. I discussed these findings with the patient and her son and they're interested in proceeding with a bronchoscopy to establish a tissue diagnosis. On 05/12/2016 the patient is seen in follow-up. The patient is calm and comfortable. She is less focused spastic and wheezy. We are prepared to take this patient to the operating room for a bronchoscopy and hopefully will establish a tissue diagnosis is regarding her lung mass. The patient has no specific complaints otherwise for now. No hemoptysis. No chest pain. No change in mental status. No other complaints otherwise. On 05/13/2016, the patient underwent a bronchoscopy. Please refer to the bronchoscopy note for further details. 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 Therapeutic airway suctioning was done. The tumor itself was biopsied aggressively and during administration I was able to dislodge large fragments of tumor achieving some patency to the lower lobe and the right middle lobe. The patient is not having any hemoptysis. Her white cell count is remaining elevated and there is a suspicion for a postobstructive pneumonia. The patient is also receiving IV Zosyn for a postobstructive pneumonia. Her Solu-Medrol has been tapered. Her COPD remains active and the patient is still having some limited amount of bronchospasm wheezing. Overnight she had a run of paroxysmal atrial fibrillation and current rhythm is back to sinus. She was placed on IV heparin. There are no plans to put this patient on long-term anticoagulation at least for now. On 05/14/2016 I'm seeing this patient in follow-up. Clinically improved. Still on oxygen at 2 L/m nasal cannula specifically at 2 L per minute nasal cannula and his saturations up to 97%. The patient had a bronchoscopy and the results of the biopsies are still pending for now although there is a very high suspicion that the patient has an underlying lung cancer. Chest x-ray from today shows a right hilar mass. Right lower lobe pulmonary infiltrates have cleared. There is some minimal infiltration of the left lung base. The patient remains on IV Zosyn. The patient is still having paroxysmal atrial fibrillation and she was started on IV heparin and IV Cardizem and she'll be transitioned to oral Cardizem and I also discussed the case with cardiology and I'm fine is switching this patient to oral anticoagulants and stopping the IV heparin. The patient will be seen by oncology once the diagnosis of lung cancer is established. She has no other complaints otherwise for now. On 05/15/2016 the patient is being seen in follow-up. Condition is stable. No significant complaints for now. The patient is still on IV Zosyn. The patient has no hemoptysis pH is awaiting the final path from the lung biopsy. No nausea. No vomiting. She is on 2 L of oxygen by nasal cannula oxygen saturations up to 97%. The rhythm is also back to sinus. The white cell count remains elevated. On 05/16/2016, patient is doing relatively well, she is asymptomatic. No cough no wheezing no shortness of breath no chest pain and no hemoptysis. Pathology report from her lung biopsy is still not available and pending. The patient is seen again today 05/17/2016 in follow-up on the regular medical floor. She is awake and alert in no acute distress. 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 She has been seen and evaluated by Dr. Lopez from oncology. She currently denies any worsening shortness of breath, cough or congestion. No chills or night sweats. She is maintaining good O2 saturations in the upper 90s on room air. Currently afebrile. Hemodynamically stable. She is anxious to go home. Objective - Vital Signs Vital signs: Vital Signs Temp 97.9 F 05/17/16 07:00 Pulse 68 05/17/16 11:48 Resp 18 05/17/16 08:00 BP 147/73 05/17/16 07:00 Pulse Ox 95 05/17/16 07:00 Intake & Output 05/16/16 05/17/16 05/17/16 18:59 06:59 18:59 Intake Total 1000 210 720 Output Total 1 Balance 999 210 720 Weight 73.5 kg Intake: IV 160 0.9 @20 160 Intake, IV Titration 50 Amount Piperacillin-Tazobactam 3 50 .375 gm In Dextrose/Water 1 50ml.bag @ 12.5 mls/hr IVPB Q8HR COUNTS INCLUDE 234 BEDS AT THE [facility] Rx#: [id number] Oral 1000 720 Output: Stool 1 Other: Voiding Method Toilet Toilet # Voids 2 1 2 # Bowel Movements 2 - Exam GENERAL EXAM: Alert, active, comfortable in no apparent distress. HEAD: Normocephalic. EYES: Normal reaction of pupils, equal size. NOSE: Clear with pink turbinates. THROAT: No erythema or exudates. NECK: No masses, no JVD. CHEST: No chest wall deformity. LUNGS: Equal air entry with few scattered rhonchi. Diminished. CVS: S1 and S2 normal with no audible murmurs, regular rhythm. ABDOMEN: No hepatosplenomegaly, normal bowel sounds, no guarding or rigidity. SPINE: No scoliosis or deformity SKIN: No rashes CENTRAL NERVOUS SYSTEM: No focal deficits, tone is normal in all 4 extremities. Extremities: There is no significant peripheral edema. No clubbing, no cyanosis. Peripheral pulses are intact. - Labs CBC & Chem 7: 05/17/16 07:39 05/16/16 08:03 Labs: Abnormal Lab Results - Last 24 Hours (Table) 05/16/16 05/16/16 05/17/16 Range/Units 16:54 20:53 07:11 WBC (3.8-10.6) k/uL MCHC (31.0-37.0) g/dL Neutrophils # (Manual) (1.3-7.7) k/uL Monocytes # (Manual) (0-1.0) k/uL POC Glucose (mg/dL) 283 H 228 H 123 H (75-99) mg/dL 05/17/16 05/17/16 Range/Units 07:39 11:54 WBC 26.6 H* (3.8-10.6) k/uL MCHC 30.5 L (31.0-37.0) g/dL Neutrophils # (Manual) 23.4 H (1.3-7.7) k/uL Monocytes # (Manual) 1.7 H (0-1.0) k/uL POC Glucose (mg/dL) 105 H (75-99) mg/dL Microbiology - Last 24 Hours (Table) 05/12/16 05:51 Blood Culture - Preliminary Blood No Growth after 120 hours 05/12/16 17:05 Blood Culture - Preliminary Blood No Growth after 96 hours Assessment and Plan Plan: Assessment 1 generalized weakness/fall in setting of a suspected upper respiratory tract infection, and an abnormal chest x-ray that showing right infrahilar fullness/ lesion. Bronchoscopy with biopsy was performed. The patient is positive for squamous cell carcinoma. 2 nonspecific troponin leak, awaiting cardiac consultation 3 questionable adrenal lesion, currently under investigation 4 ulcerative colitis 5 coronary artery disease with previous history of insertion of coronary stents 6 hypertension 7 smoking 8 hyperlipidemia 9 suspected urinary tract infection Plan The patient is improved from the pulmonary standpoint. She will need to follow up with oncology in the outpatient setting regarding her lung cancer diagnosis. She'll also need a PET scan for staging prior to treatment recommendations. She is cleared for discharge from the pulmonary standpoint. She'll complete a course of antibiotics in the form of Augmentin and a steroid taper. She'll follow-up with Dr. Snyder in our office in 1 week's time. She is however encouraged to call sooner with any recurrence of symptoms or other questions or concerns.
--- NOTE | 2016-05-17 22:22 | P.PN ---
Subjective Principal diagnosis: Lung mass The patient overall feels well. Breathing is much improved. Cough is also diminished. Objective - Vital Signs Vital signs: Vital Signs Temp 97.9 F 05/17/16 07:00 Pulse 68 05/17/16 11:48 Resp 18 05/17/16 08:00 BP 147/73 05/17/16 07:00 Pulse Ox 95 05/17/16 07:00 Intake & Output 05/17/16 05/17/16 05/18/16 06:59 18:59 06:59 Intake Total 210 720 Balance 210 720 Weight 73.5 kg Intake: IV 160 0.9 @20 160 Intake, IV Titration 50 Amount Piperacillin-Tazobactam 3 50 .375 gm In Dextrose/Water 1 50ml.bag @ 12.5 mls/hr IVPB Q8HR [facility] Rx#: [id number] Oral 720 Other: Voiding Method Toilet # Voids 1 2 - Constitutional General appearance: Present: no acute distress - EENT Eyes: Present: EOMI, PERRLA ENT: Present: hearing grossly normal, normal oropharynx - Respiratory Respiratory: right: diminished - Cardiovascular Rhythm: regular Heart sounds: normal: S1, S2 - Gastrointestinal General gastrointestinal: Present: normal bowel sounds, soft - Neurologic Neurologic: Present: CNII-XII intact - Musculoskeletal Musculoskeletal: Present: strength equal bilaterally - Psychiatric Psychiatric: Present: A&O x's 3, appropriate affect - Labs CBC & Chem 7: 05/17/16 07:39 05/16/16 08:03 Labs: Abnormal Lab Results - Last 24 Hours (Table) 05/17/16 05/17/16 05/17/16 Range/Units 07:11 07:39 11:54 WBC 26.6 H* (3.8-10.6) k/uL MCHC 30.5 L (31.0-37.0) g/dL Neutrophils # (Manual) 23.4 H (1.3-7.7) k/uL Monocytes # (Manual) 1.7 H (0-1.0) k/uL POC Glucose (mg/dL) 123 H 105 H (75-99) mg/dL Microbiology - Last 24 Hours (Table) 05/12/16 17:05 Blood Culture - Preliminary Blood No Growth after 120 hours 05/12/16 05:51 Blood Culture - Preliminary Blood No Growth after 120 hours Assessment and Plan (1) Mass of upper lobe of right lung Narrative/Plan: The patient's biopsy report is now available. 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 The implications of same were discussed with her. This is a non-small cell cancer, which potentially can be operable if she has no other sites of metastatic disease, and is medically suitable for surgery. Computed tomography scan of the brain was negative. CT of the chest did not show any definite evidence of metastasis. I will perform a PET scan as an outpatient for completion of staging . This will be set up by the office and the patient will be followed up subsequently. Status: Acute (2) Postobstructive pneumonia Narrative/Plan: The patient is improved as noted. Defer to to the admitting service for further management. From our standpoint the patient is okay for discharge. Status: Acute
--- NOTE | 2016-05-18 14:20 | P.DS ---
Providers Date of admission: 05/10/16 01:10 Expected date of discharge: 05/17/16 Attending physician: Ana Nayak Consults: 05/10/16 09:12 Consult Physician Routine Consulting Provider: Rae Snyder Consult Reason/Comments: abnormal CXR Do you want consulting provider notified?: Yes 05/15/16 16:35 Consult Physician Urgent Consulting Provider: Michael Lopez Consult Reason/Comments: lung ca Do you want consulting provider notified?: Yes Dr. Fuentes, Pulmonary Primary care physician: Nadine Gusman [facility] Course: Final Diagnoses: #1 Right upper lobe mass status post biopsy,positive for squamous cell carcinoma. #2. Post Obstructive pneumonia #3 acute hypoxic respiratory failure #4 history of ulcerative colitis per graph #5 CAD #6 hypertension. #7 ongoing tobacco use #8 Dyslipidemia #9 bacteremia with gram-positive cocci, contaminant. #10 sepsis Hospital course: This is a 80-year-old female was admitted to the hospital with generalized weakness, fall. Patient currently has lost over 30 pounds unintentionally in the last year, in a patient with history of a pulmonary nodule in 2006. Chest x-ray reported right hilar mass. Computed tomography scan of the chest reporting lung nodule and possibly postobstructive pneumonia without definite evidence of metastasis.Elevated white count , generalized weakness, hypoxic initially on admission.Underwent diagnostic bronchoscopy, with biopsy now reporting squamous cell carcinoma. Brain CT negative. Maintained on IV Zosyn, nebulized bronchodilators, IV steroids. The patient also presented with paroxysmal atrial fibrillation , status post Cardizem drip, currently on flecainide and anticoagulated on Xarelto. Significant clinical improvement. Cleared for Discharge by oncology, cardiology, pulmonary. Patient is being discharged home in a stable condition with guarded prognosis. Scheduled for PET scan Monday, further follow with oncology next week to discuss options/plan. Patient Condition at Discharge: Stable Plan - Discharge Summary New Discharge Prescriptions: Amoxic-Pot Clav 875-125Mg [Augmentin 875-125] 1 tab PO Q12HR #10 tablet Flecainide [Tambocor] 50 mg PO Q12HR #60 tab Metoprolol Tartrate [Lopressor] 50 mg PO BID #60 tab Rivaroxaban [Xarelto] 20 mg PO AC-SUPPER #60 tab predniSONE 10 mg PO DIRECTED #30 tab Discharge Medication List Lansoprazole 30 mg PO DAILY 05/09/16 [History] Levothyroxine Sodium [Synthroid] 100 mcg PO DAILY 05/09/16 [History] Mesalamine [Lialda] 1.2 gm PO DAILY 05/09/16 [History] Multivitamins, Thera [Multivitamin] 1 tab PO DAILY 05/09/16 [History] Pravastatin Sodium [Pravachol] 40 mg PO DAILY 05/09/16 [History] Vit C/E/Zn/Coppr/Lutein/Zeaxan [Preservision Areds 2 Softgel] 1 cap PO BID 05/09 [History] Amoxic-Pot Clav 875-125Mg [Augmentin 875-125] 1 tab PO Q12HR #10 tablet [Rx] Benzonatate [Tessalon Perles] 100 mg PO TID #21 cap 05/17/16 [Rx] Flecainide [Tambocor] 50 mg PO Q12HR #60 tab 05/17/16 [Rx] Metoprolol Tartrate [Lopressor] 50 mg PO BID #60 tab 05/17/16 [Rx] Rivaroxaban [Xarelto] 20 mg PO AC-SUPPER #60 tab 05/17/16 [Rx] Zolpidem [Ambien] 5 mg PO HS PRN #0 05/17/16 [Rx] predniSONE 10 mg PO DIRECTED #30 tab 05/17/16 [Rx] Follow up Appointment(s)/Referral(s): Fay Fuentes MD [STAFF PHYSICIAN] - 05/25/16 10:00 am Michael Lopez MD [STAFF PHYSICIAN] - 05/25/16 3:00 pm Nadine Gusman DO [Primary Care Provider] - 05/19/16 3:00 pm [facility], [NON-STAFF] - Ambulatory/Diagnostic Orders: Complete Blood Count w/diff [LAB.AMB] Time Frame: 3 Days, Location: Determined By Patient Patient Instructions/Handouts: Atrial Fibrillation (DC), Positron Emission Tomography Scan (DC), Fall Prevention (DC) Activity/Diet/Wound Care/Special Instructions: Follow up outpatient for PET SCAN- Raf office to call patient with time. Follow up after PET scan with Dr Lopez Mon05-25-2016. Arrive at 3 pm, appointment at 3:15. Office behind [facility]. No smoking, cessation information given. Cardiac diet. Await to see if Xerolto is covered, Nael has signed script. Discharge Disposition: HOME WITH HOME HEALTH SERVICES
== END 2016-05-17 15:25 | disposition home health service (06) | DRG 853 ==
LOC: EC 22:18 → 6ICU 05-10 01:10 → 6SEL 05-10 18:17 → 4MS4W 05-15 19:42
PROVIDERS: ADMIT Hospitalist; ATTEND Hospitalist
PROC: 07B74ZX Excision of Thorax Lymphatic, Percutaneous Endoscopic Approach, Diagnostic (ICD-10-PCS; principal; 2016-05-12 08:30)
PROC: 0BB68ZX Excision of Right Lower Lobe Bronchus, Via Natural or Artificial Opening Endoscopic, Diagnostic (ICD-10-PCS; 2016-05-12 08:30)
PROC: 0BJ08ZZ Inspection of Tracheobronchial Tree, Via Natural or Artificial Opening Endoscopic (ICD-10-PCS; 2016-05-12 08:30)
DX: A41.9 Sepsis, unspecified organism (principal); J18.9 Pneumonia, unspecified organism; J96.01 Acute respiratory failure with hypoxia; K51.90 Ulcerative colitis, unspecified, without complications; J44.0 Chronic obstructive pulmonary disease with (acute) lower respiratory infection; I48.0 Paroxysmal atrial fibrillation; J44.1 Chronic obstructive pulmonary disease with (acute) exacerbation; C34.11 Malignant neoplasm of upper lobe, right bronchus or lung; J98.11 Atelectasis; D49.7 Neoplasm of unspecified behavior of endocrine glands and other parts of nervous system; J98.01 Acute bronchospasm; I25.10 Atherosclerotic heart disease of native coronary artery without angina pectoris; F17.200 Nicotine dependence, unspecified, uncomplicated; E78.5 Hyperlipidemia, unspecified; I10 Essential (primary) hypertension; I25.2 Old myocardial infarction; E03.9 Hypothyroidism, unspecified; Z90.49 Acquired absence of other specified parts of digestive tract; Z95.5 Presence of coronary angioplasty implant and graft; Z79.82 Long term (current) use of aspirin; Z79.899 Other long term (current) drug therapy; Z90.710 Acquired absence of both cervix and uterus; Z80.9 Family history of malignant neoplasm, unspecified; W06.XXXA Fall from bed, initial encounter
CPT/HCPCS: 31624; 31625; 31629; 36415; 70450; 70460; 70486; 71010; 71020; 71260; 72125; 80048; 80053; 81001; 82550; 82553; 83036; 83605; 83735; 84439; 84443; 84484; 85025; 85027; 85610; 85730; 87040; 87086; 88108; 88173; 88305; 88341; 88342; 93005; 93306; 94640; 94760; 96375; 99285

== ENCOUNTER → 2016-05-21 | Outpatient (CLI) | payer MEDICARE, BC ==
--- NOTE | 2016-05-22 13:37 | PE ---
EXAMINATION TYPE: PET CT fusion skull to thigh DATE OF EXAM: 05/21/2016 2:21 PM COMPARISON: CT chest 05/10/2016 Prior PET/CT: None HISTORY: Lung mass, cancer TECHNIQUE: Following the intravenous administration of 13.49 mCi of F-18 FDG, whole body images are performed from the skull base to the midthigh. Images are reviewed on the computer in the coronal, a xial, and sagittal planes. Reconstructed rotating images are created on independent workstation and reviewed on the computer. A localization and attenuation correction CT is performed in conjunction with the PET scan. DLP: 355.15 mGycm SCAN: Initial Scan Blood glucose: 85 mg/dL Average Mediastinum SUV: 1.2 Average Liver SUV: 2.4 FINDINGS: NECK: No abnormal uptake THORAX: There is peripheral enhancement of a right hilar posterior mass. Hyperintense rim is SUV valu e of 10.6, compatible with neoplasm. No abnormal mediastinal uptake is evident. ABDOMEN: There is intense uptake within the enlarged right adrenal gland. This has an SUV value of 12 .3 suspicious for metastatic lesion. PELVIS: There is some intense uptake within the proximal sigmoid colon the level of the superior acet abulum. This has an SUV value of 9.6. This is somewhat more focal in typically expected within loops of bowel. Underlying neoplasm should be considered. Additional workup of this area is recommended. OSSEOUS STRUCTURES: No abnormal uptake. LOCALIZATION CT: Degenerative disc changes are present L5-S1. Facet changes are within the lower lumb ar spine. Enlarged right adrenal gland measures 2.6 x 4.6 cm. The lung mass on the current examinatio n measures 6.4 x 4.5 cm which is larger than the comparison. COMPARISON: Lung mass appears enlarged. Cavitary core is less well visualized. Calcified subcarinal l ymph node and pretracheal are not hyperintense on the current PET portion of the study. IMPRESSION: 1. Marked increased uptake within the right infrahilar mass compatible with neoplasm. 2. Marked increased uptake within the enlarged right adrenal glands compatible with metastatic lesion . 3. Marked increased uptake within the proximal sigmoid colon focally within the left hemipelvis. Emmett tional workup is recommended. A metachronous neoplasm should be considered.
== END ==
LOC: RADPETMAIN 11:52
PROVIDERS: ATTEND Internal Medicine Hematology & Oncology
DX: C34.90 Malignant neoplasm of unspecified part of unspecified bronchus or lung (principal)
CPT/HCPCS: 78815; A9552

== ENCOUNTER 2016-06-02 00:06 | Emergency (ER) | payer MEDICARE, BC ==
[2016-06-02 00:13] VITALS: RESP 16; TEMP 98.9
[2016-06-02] MEDS ORDERED: SODIUM CHLORIDE 0.9% 1,000 ML IV STA (01:40)
[2016-06-02] MEDS ORDERED: MORPHINE SULFATE 4 MG/ML SYRINGE IV STA (01:45)
[2016-06-02] MEDS ORDERED: methylPREDNISolone SOD SUCCI 125 MG/2 ML VIAL IV STA (01:45)
[2016-06-02] MEDS ORDERED: diphenhydrAMINE 50 MG/ML 1 ML VIAL IVP STA (01:45)
[2016-06-02] MEDS ORDERED: FAMOTIDINE 20 MG/2 ML VIAL IV STA (01:45)
[2016-06-02] MEDS ORDERED: RX INFO: IV CONTRAST WAS GIVEN 1 EACH MISC MISCELLANE PRN (01:46)
--- NOTE | 2016-06-02 01:48 | ED ---
General Adult HPI - General Chief complaint: Weakness Stated complaint: Weakness Time Seen by Provider: 06/02/16 01:11 Source: patient, family, RN notes reviewed Mode of arrival: EMS Limitations: no limitations - History of Present Illness Initial comments: Patient is a pleasant 80-year-old female presenting to the emergency department complaining of generalized weakness. Symptoms have progressed with the past couple of weeks. 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 Patient is scheduled for adrenal biopsy. Patient's appetite has been normal. No isolated area of weakness. No confusion. Patient is complaining of some mid upper back pain over the past few days. No recent injury. - Related Data Home Medications Medication Instructions Recorded Confirmed Lansoprazole 30 mg PO DAILY 05/09/16 05/09/16 Levothyroxine Sodium [Synthroid] 100 mcg PO DAILY 05/09/16 05/09/16 Mesalamine [Lialda] 1.2 gm PO DAILY 05/09/16 05/09/16 Multivitamins, Thera [Multivitamin] 1 tab PO DAILY 05/09/16 05/09/16 Pravastatin Sodium [Pravachol] 40 mg PO DAILY 05/09/16 05/09/16 Vit C/E/Zn/Coppr/Lutein/Zeaxan 1 cap PO BID 05/09/16 05/09/16 [Preservision Areds 2 Softgel] Previous Rx's Medication Instructions Recorded Amoxic-Pot Clav 875-125Mg 1 tab PO Q12HR #10 tablet 05/17/16 [Augmentin 875-125] Benzonatate [Tessalon Perles] 100 mg PO TID #21 cap 05/17/16 Flecainide [Tambocor] 50 mg PO Q12HR #60 tab 05/17/16 Metoprolol Tartrate [Lopressor] 50 mg PO BID #60 tab 05/17/16 Rivaroxaban [Xarelto] 20 mg PO AC-SUPPER #60 tab 05/17/16 Zolpidem [Ambien] 5 mg PO HS PRN #0 05/17/16 predniSONE 10 mg PO DIRECTED #30 tab 05/17/16 Hydrocodone/Acetaminophen [[place] 1 each PO Q4HR PRN #15 tab 06/02/16 5-325] Allergies Allergy/AdvReac Type Severity Reaction Status Date / Time codeine Allergy Unknown Verified 05/09/16 23:16 gabapentin [From Neurontin] Allergy Unknown Verified 05/09/16 23:16 ibuprofen [From Motrin] Allergy Unknown Verified 05/09/16 23:16 Iodinated Contrast Media - Allergy Unknown Verified 05/09/16 23:16 Oral and omeprazole [From Prilosec] Allergy Unknown Verified 05/09/16 23:16 Sulfa (Sulfonamide Allergy Unknown Verified 05/09/16 23:16 Antibiotics) Review of Systems ROS Statement: Those systems with pertinent positive or pertinent negative responses have been documented in the HPI. ROS Other: All systems not noted in ROS Statement are negative. Constitutional: Denies: fever Eyes: Denies: eye pain ENT: Denies: ear pain Respiratory: Denies: cough Cardiovascular: Denies: chest pain Endocrine: Reports: fatigue Gastrointestinal: Denies: abdominal pain Genitourinary: Denies: dysuria Musculoskeletal: Reports: back pain Skin: Denies: rash Neurological: Reports: weakness (Generalized) Past Medical History Past Medical History: Hyperlipidemia, Hypertension, Myocardial Infarction ([place]) Additional Past Medical History / Comment(s): ulcerative colitis, adrenal mass under investigation, CAD previous stent of RCA, HTN, hyperlipidemia, EF 70% , hypothyroidism Last Myocardial Infarction Date:: 2005 History of Any Multi-Drug Resistant Organisms: None Reported Past Surgical History: Adenoidectomy, Bladder Surgery, Cholecystectomy, Hysterectomy, Tonsillectomy Additional Past Surgical History / Comment(s): Cardiac stent Additional Past Anesthesia/Blood Transfusion Reaction / Comment(s): muscle weakness post biopsy Past Psychological History: No Psychological Hx Reported Smoking Status: Former smoker Past Alcohol Use History: None Reported Past Drug Use History: None Reported - Past Family History Mother Family Medical History: Cancer, Myocardial Infarction ([place]) General Exam Limitations: no limitations General appearance: alert, in no apparent distress Head exam: Present: atraumatic Eye exam: Present: normal appearance, PERRL, EOMI ENT exam: Present: normal oropharynx Neck exam: Present: normal inspection Respiratory exam: Present: normal lung sounds bilaterally. Absent: chest wall tenderness Cardiovascular Exam: Present: regular rate, normal rhythm GI/Abdominal exam: Present: soft. Absent: tenderness Extremities exam: Present: normal inspection Back exam: Present: tenderness (Mild tenderness to the midthoracic region) Neurological exam: Present: alert, CN II-XII intact. Absent: motor sensory deficit Psychiatric exam: Present: normal affect, normal mood Skin exam: Absent: rash Course Vital Signs 06/02/16 06/02/16 06/02/16 00:10 01:45 02:15 Temperature 98.9 F Pulse Rate 67 71 70 Respiratory 16 16 16 Rate Blood Pressure 181/79 150/66 141/79 O2 Sat by Pulse 94 L 94 L 94 L Oximetry 06/02/16 06/02/16 02:45 04:05 Temperature Pulse Rate 58 L 64 Respiratory 16 16 Rate Blood Pressure 99/45 152/68 O2 Sat by Pulse 95 95 Oximetry EKG Findings - EKG Comments: EKG Findings:: Sinus rhythm at 67. PVC present. Uriel intervals. Normal axis. Normal QRS. Normal ST-T. Medical Decision Making - Medical Decision Making Patient reevaluated and improved. Patient is able to ambulate without difficulty. Patient is comfortable with discharge home. Patient is advised close follow-up with her oncologist. - Lab Data Result diagrams: 06/02/16 02:15 06/02/16 02:15 Lab Results 06/02/16 06/02/16 06/02/16 Range/Units 01:48 02:15 02:15 WBC 14.8 H (3.8-10.6) k/uL RBC 4.01 (3.80-5.40) m/uL Hgb 10.5 L (11.4-16.0) gm/dL Hct 34.0 (34.0-46.0) % MCV 84.9 (80.0-100.0) fL MCH 26.3 (25.0-35.0) pg MCHC 31.0 (31.0-37.0) g/dL RDW 16.1 H (11.5-15.5) % Plt Count 208 (150-450) k/uL Neutrophils % 83 % Lymphocytes % 10 % Monocytes % 3 % Eosinophils % 3 % Basophils % 0 % Neutrophils # 12.4 H (1.3-7.7) k/uL Lymphocytes # 1.5 (1.0-4.8) k/uL Monocytes # 0.4 (0-1.0) k/uL Eosinophils # 0.4 (0-0.7) k/uL Basophils # 0.0 (0-0.2) k/uL Hypochromasia Slight Anisocytosis Slight PT (9.0-12.0) sec INR (<1.1) APTT (22.0-30.0) sec Sodium (137-145) mmol/L Potassium (3.5-5.1) mmol/L Chloride (98-107) mmol/L Carbon Dioxide (22-30) mmol/L Anion Gap mmol/L BUN (7-17) mg/dL Creatinine (0.52-1.04) mg/dL Est GFR (MDRD) Af Amer (>60 ml/min/1.73 sqM) Est GFR (MDRD) Non-Af (>60 ml/min/1.73 sqM) Glucose (74-99) mg/dL Calcium (8.4-10.2) mg/dL Phosphorus (2.5-4.5) mg/dL Magnesium (1.6-2.3) mg/dL Total Bilirubin (0.2-1.3) mg/dL AST (14-36) U/L ALT (9-52) U/L Alkaline Phosphatase (38-126) U/L Total Creatine Kinase <20 L (30-135) U/L CK-MB (CK-2) 0.5 (0.0-2.4) ng/mL CK-MB (CK-2) Rel Index 0.0 Troponin I <0.012 (0.000-0.034) ng/mL Total Protein (6.3-8.2) g/dL Albumin (3.5-5.0) g/dL Urine Color Light Yellow Urine Appearance Clear (Clear) Urine pH 6.0 (5.0-8.0) Ur Specific [place] 1.007 (1.001-1.035) Urine Protein Negative (Negative) Urine Glucose (UA) Negative (Negative) Urine Ketones Negative (Negative) Urine Blood Negative (Negative) Urine Nitrite Negative (Negative) Urine Bilirubin Negative (Negative) Urine Urobilinogen <2.0 (<2.0) mg/dL Ur Leukocyte Esterase Negative (Negative) 06/02/16 06/02/16 Range/Units 02:15 02:15 WBC (3.8-10.6) k/uL RBC (3.80-5.40) m/uL Hgb (11.4-16.0) gm/dL Hct (34.0-46.0) % MCV (80.0-100.0) fL MCH (25.0-35.0) pg MCHC (31.0-37.0) g/dL RDW (11.5-15.5) % Plt Count (150-450) k/uL Neutrophils % % Lymphocytes % % Monocytes % % Eosinophils % % Basophils % % Neutrophils # (1.3-7.7) k/uL Lymphocytes # (1.0-4.8) k/uL Monocytes # (0-1.0) k/uL Eosinophils # (0-0.7) k/uL Basophils # (0-0.2) k/uL Hypochromasia Anisocytosis PT 15.8 H (9.0-12.0) sec INR 1.6 (<1.1) APTT 31.1 H (22.0-30.0) sec Sodium 135 L (137-145) mmol/L Potassium 4.2 (3.5-5.1) mmol/L Chloride 102 (98-107) mmol/L Carbon Dioxide 25 (22-30) mmol/L Anion Gap 8 mmol/L BUN 13 (7-17) mg/dL Creatinine 0.70 (0.52-1.04) mg/dL Est GFR (MDRD) Af Amer >60 (>60 ml/min/1.73 sqM) Est GFR (MDRD) Non-Af >60 (>60 ml/min/1.73 sqM) Glucose 126 H (74-99) mg/dL Calcium 9.1 (8.4-10.2) mg/dL Phosphorus 3.7 (2.5-4.5) mg/dL Magnesium 1.6 (1.6-2.3) mg/dL Total Bilirubin 0.5 (0.2-1.3) mg/dL AST 11 L (14-36) U/L ALT 32 (9-52) U/L Alkaline Phosphatase 89 (38-126) U/L Total Creatine Kinase (30-135) U/L CK-MB (CK-2) (0.0-2.4) ng/mL CK-MB (CK-2) Rel Index Troponin I (0.000-0.034) ng/mL Total Protein 5.9 L (6.3-8.2) g/dL Albumin 2.9 L (3.5-5.0) g/dL Urine Color Urine Appearance (Clear) Urine pH (5.0-8.0) Ur Specific [place] (1.001-1.035) Urine Protein (Negative) Urine Glucose (UA) (Negative) Urine Ketones (Negative) Urine Blood (Negative) Urine Nitrite (Negative) Urine Bilirubin (Negative) Urine Urobilinogen (<2.0) mg/dL Ur Leukocyte Esterase (Negative) - Radiology Data Radiology results: report reviewed (Computed tomography scan of the brain shows no acute process), image reviewed (Chest x-ray shows right hilar opacity and right lower lobe opacity. Right middle lobe atelectasis.) Disposition Clinical Impression: Fatigue, Back pain Disposition: HOME SELF-CARE Condition: Stable Instructions: Fatigue (ED), Back Pain (ED) Additional Instructions: Please follow-up with your primary care physician and oncologist in the next couple of days for recheck. Return for weakness, falling, unable to take care of herself, increased pain, worsening symptoms or other concerns. Prescriptions: Hydrocodone/Acetaminophen [[place] 5-325] 1 each PO Q4HR PRN #15 tab PRN Reason: Pain Referrals: Nadine Gusman DO [Primary Care Provider] - 1-2 days Michael Lopez MD [STAFF PHYSICIAN] - 1-2 days
[2016-06-02 02:14] LABS: Appearance,Urine Clear (Clear); Bilirubin,Urine Negative (Negative); Glucose,Urine (UA) Negative (Negative); Ketones,Urine Negative (Negative); Leukocyte Esterase,Urine Negative (Negative); Nitrite,Urine Negative (Negative); Protein,Urine Negative (Negative); Specific Gravity,Urine 1.007 (1.001-1.035); UA Billing (MACRO vs. MICRO) CHEM; Urobilinogen,Urine <2.0 mg/dL (<2.0)
[2016-06-02 02:26] LABS: Anisocytosis Slight; Basophils % (A) 0 %; CH 26.5; CHCM 31.4; Eosinophils # (A) 0.4 k/uL (0-0.7); Eosinophils % (A) 3 %; HDW 2.68; HGB 10.5 gm/dL (11.4-16.0); Hypochromasia Slight; Luc # (Auto) 0.16; Luc % (Auto) 1; Lymphocytes # (A) 1.5 k/uL (1.0-4.8); Lymphocytes % (A) 10 %; MCH 26.3 pg (25.0-35.0); MCV 84.9 fL (80.0-100.0); Monocytes # (A) 0.4 k/uL (0-1.0); Monocytes % (A) 3 %; Neutrophils # (A) 12.4 k/uL (1.3-7.7); Neutrophils % (A) 83 %; RBC 4.01 m/uL (3.80-5.40); RDW 16.1 % (11.5-15.5); WBC 14.8 k/uL (3.8-10.6); WBC (Perox) 15.28
[2016-06-02 02:30] LABS: INR 1.6 (<1.1); Partial Thromboplastin Time 31.1 sec (22.0-30.0); Prothrombin Time 15.8 sec (9.0-12.0)
[2016-06-02 02:32] LABS: ALT 32 U/L (9-52); AST 11 U/L (14-36); Alkaline Phosphatase 89 U/L (38-126); Anion Gap 8 mmol/L; Blood Urea Nitrogen 13 mg/dL (7-17); Calcium 9.1 mg/dL (8.4-10.2); Carbon Dioxide 25 mmol/L (22-30); Chloride 102 mmol/L (98-107); Glucose 126 mg/dL (74-99); Magnesium 1.6 mg/dL (1.6-2.3); Non-African American GFR(MDRD) >60 (>60 ml/min/1.73 sqM); Phosphorous 3.7 mg/dL (2.5-4.5); Potassium 4.2 mmol/L (3.5-5.1); Sodium 135 mmol/L (137-145); Total Bilirubin 0.5 mg/dL (0.2-1.3); Total Protein 5.9 g/dL (6.3-8.2)
[2016-06-02 02:42] LABS: Creatine Kinase <20 U/L (30-135)
[2016-06-02 02:55] LABS: Creatine Kinase MB 0.5 ng/mL (0.0-2.4); Troponin I <0.012 ng/mL (0.000-0.034)
--- NOTE | 2016-06-02 03:23 | CT ---
EXAM: CT Head Without and With Intravenous Contrast. CLINICAL HISTORY: Reason: weakness, small cell lung ca TECHNIQUE: Axial computed tomography images of the head/brain without and with intravenous contrast. CTDI is 60.3, 60.3 mGy and DLP is 2180.8 mGy-cm COMPARISON: CT head dated 05/16/2016 FINDINGS: Brain: No evidence of acute infarct, hemorrhage, mass or edema. Patchy areas of hypoattenuation within the supratentorial white matter likely representing chronic small vessel ischemic disease. Ventricles: Prominent ventricles and sulci consistent with senescent changes. Bones/joints: Unremarkable. No acute fracture. Soft tissues: Unremarkable. Sinuses: Minimal mucosal thickening of the paranasal sinuses. Mastoid air cells: Unremarkable as visualized. No mastoid effusion. Orbits: Bilateral lens implants. IMPRESSION: No acute findings.
--- NOTE | 2016-06-02 04:07 | XR ---
EXAM: XR Chest, 2 Views. CLINICAL HISTORY: Reason: Weakness TECHNIQUE: Frontal and lateral views of the chest. COMPARISON: Chest x-ray dated 05/25/2016 FINDINGS: Lungs: Right hilar opacity, consistent with known neoplasm within the superior aspect of the right lower lobe. Hazy opacity within the right lower lobe, which is grossly unchanged. Right middle lobe atelecasis/collapse, which is new. Pleural space: Unremarkable. No pneumothorax. Heart: Unremarkable. No cardiomegaly. Mediastinum: See above. Bones/joints: Unremarkable. IMPRESSION: 1. Right hilar opacity, consistent with known neoplasm within the superior aspect of the right lower lobe. 2. Hazy opacity within the right lower lobe, which is grossly unchanged. 3. Right middle lobe atectasis which is new.
[2016-06-02] MEDS ORDERED: MORPHINE SULFATE 4 MG/ML SYRINGE IVP STA (04:11)
[2016-06-02 04:35] VITALS: PULSE 64
[2016-06-02 05:05] VITALS: BP 119/51
[2016-06-02 08:29] LABS: Glucose,Whole Blood 115 mg/dL (75-99)
== END 2016-06-02 06:23 | disposition home or self-care (01) ==
LOC: EC 00:06
DX: R53.83 Other fatigue (principal); M54.6 Pain in thoracic spine; E78.5 Hyperlipidemia, unspecified; K51.90 Ulcerative colitis, unspecified, without complications; E03.9 Hypothyroidism, unspecified; C34.11 Malignant neoplasm of upper lobe, right bronchus or lung; Z79.899 Other long term (current) drug therapy; Z88.5 Allergy status to narcotic agent; Z88.8 Allergy status to other drugs, medicaments and biological substances; Z88.6 Allergy status to analgesic agent; Z88.2 Allergy status to sulfonamides; Z87.891 Personal history of nicotine dependence
CPT/HCPCS: 99285 ×2; 96374 ×2; 96375 ×4; 96376 ×2; 96361 ×4; 36415; 93005; 80053; 82550; 82553; 83735; 84100; 84484; 85025; 85610; 85730; 81003; 71020; 70470; J2270; J1200; J2930; Q9967

== ENCOUNTER 2016-06-05 13:01 | Inpatient (IN) | payer MEDICARE, BC ==
[2016-06-05] MEDS ORDERED: ONDANSETRON 4 MG/2 ML VIAL IVP STA (13:10)
[2016-06-05] MEDS ORDERED: SODIUM CHLORIDE 0.9% 1,000 ML IV STA (13:10)
--- NOTE | 2016-06-05 13:15 | ED ---
General Adult HPI - General Stated complaint: back pain Time Seen by Provider: 06/05/16 13:03 Source: patient, EMS, RN notes reviewed Mode of arrival: EMS Limitations: no limitations - History of Present Illness Initial comments: Patient is a pleasant 80-year-old female presenting to the emergency department complaining of general weakness. Symptoms have progressed with the past 3 weeks. Patient has discomfort of her right upper back which has also progressed over the past 3 weeks. Patient is on [place] and Toradol at home with out improvement of symptoms. Patient has fatigue. Patient was recently diagnosed with stage IV lung cancer and is still in process of determining treatment. - Related Data Home Medications Medication Instructions Recorded Confirmed Lansoprazole 30 mg PO DAILY 05/09/16 06/05/16 Levothyroxine Sodium [Synthroid] 100 mcg PO QAM 05/09/16 06/05/16 Mesalamine [Lialda] 1.2 gm PO DAILY 05/09/16 06/05/16 Multivitamins, Thera [Multivitamin 1 tab PO DAILY 05/09/16 06/05/16 (formulary)] Pravastatin Sodium [Pravachol] 40 mg PO DAILY 05/09/16 06/05/16 Vit C/E/Zn/Coppr/Lutein/Zeaxan 1 cap PO BID 05/09/16 06/05/16 [Preservision Areds 2 Softgel] Zolpidem [Ambien] 10 mg PO HS PRN 06/03/16 06/05/16 amLODIPine [Norvasc] 5 mg PO QAM 06/03/16 06/05/16 Rivaroxaban [Xarelto] 20 mg PO AC-SUPPER 06/05/16 06/05/16 Previous Rx's Medication Instructions Recorded Flecainide [Tambocor] 50 mg PO Q12HR #60 tab 05/17/16 Metoprolol Tartrate [Lopressor] 50 mg PO BID #60 tab 05/17/16 Allergies Allergy/AdvReac Type Severity Reaction Status Date / Time ciprofloxacin [From Cipro] Allergy Unknown Verified 06/05/16 13:14 codeine Allergy Nausea & Verified 06/05/16 13:53 Vomiting gabapentin [From Neurontin] Allergy Unknown Verified 06/05/16 13:53 hydrocodone Allergy Rash/Hives Verified 06/05/16 13:53 ibuprofen [From Motrin] Allergy Rash/Hives Verified 06/05/16 13:53 Iodinated Contrast Media - Allergy Rash/Hives Verified 06/05/16 13:53 Oral and omeprazole [From Prilosec] Allergy Rash/Hives Verified 06/05/16 13:53 Sulfa (Sulfonamide Allergy Rash/Hives Verified 06/05/16 13:14 Antibiotics) Review of Systems ROS Statement: Those systems with pertinent positive or pertinent negative responses have been documented in the HPI. ROS Other: All systems not noted in ROS Statement are negative. Constitutional: Denies: fever Eyes: Denies: eye pain ENT: Denies: ear pain Respiratory: Reports: cough Cardiovascular: Denies: chest pain Endocrine: Reports: fatigue Gastrointestinal: Denies: abdominal pain Genitourinary: Denies: dysuria Musculoskeletal: Reports: back pain Skin: Denies: rash Neurological: Reports: weakness (Generalized) Past Medical History Past Medical History: Hyperlipidemia, Hypertension, Myocardial Infarction ([place]) Additional Past Medical History / Comment(s): ulcerative colitis, adrenal mass under investigation, CAD previous stent of RCA, HTN, hyperlipidemia, EF 70% , hypothyroidism Last Myocardial Infarction Date:: 2005 History of Any Multi-Drug Resistant Organisms: None Reported Past Surgical History: Adenoidectomy, Bladder Surgery, Cholecystectomy, Hysterectomy, Tonsillectomy Additional Past Surgical History / Comment(s): Cardiac stent Additional Past Anesthesia/Blood Transfusion Reaction / Comment(s): muscle weakness post biopsy Past Psychological History: No Psychological Hx Reported Smoking Status: Former smoker Past Alcohol Use History: None Reported Past Drug Use History: None Reported - Past Family History Mother Family Medical History: Cancer, Myocardial Infarction ([place]) General Exam Limitations: no limitations General appearance: alert, in no apparent distress Head exam: Present: atraumatic Eye exam: Present: normal appearance, PERRL ENT exam: Present: normal oropharynx Neck exam: Present: normal inspection Respiratory exam: Present: normal lung sounds bilaterally Cardiovascular Exam: Present: tachycardia Expanded Peripheral pulses: 2+: Radial (R), Radial (L), Dorsalis Pedis (R), Dorsalis Pedis (L) GI/Abdominal exam: Present: soft. Absent: tenderness Extremities exam: Present: normal inspection. Absent: pedal edema, calf tenderness Back exam: Absent: tenderness Neurological exam: Present: alert. Absent: motor sensory deficit Psychiatric exam: Present: normal affect, normal mood Skin exam: Absent: rash Course Vital Signs 06/05/16 06/05/16 06/05/16 13:11 13:46 14:12 Temperature 97.9 F Pulse Rate 153 H 156 H 132 H Respiratory 20 20 18 Rate Blood Pressure 158/84 141/76 141/75 O2 Sat by Pulse 92 L 95 98 Oximetry 06/05/16 14:51 Temperature Pulse Rate 122 H Respiratory 20 Rate Blood Pressure 122/73 O2 Sat by Pulse 96 Oximetry EKG Findings - EKG Comments: EKG Findings:: A. fib with RVR, rate 149. QRS 80. QT 308. QTC 485. Normal axis. Inferior T wave inversion. Lateral T wave inversion. Lateral ST depression. Normal QRS. Medical Decision Making - Medical Decision Making Patient reexamined and somewhat improved. Discomfort is not as bad however still present. Patient is receptive to further pain medication. Family does pull me aside and states patient has been very distressed regarding her pain recently. Patient and family are updated on results and plan. Case was discussed in detail with Dr. Guardado, who will admit for Dr. Burch. Case was also discussed with Dr. Aniya chambers, who will consult for Dr. Lopez. Cardiology will be placed on consult. IV heparin will be started. Cardiology consult placed admission orders written. - Lab Data Result diagrams: 06/05/16 13:36 06/05/16 13:36 Lab Results 06/05/16 06/05/16 06/05/16 Range/Units 13:36 13:36 13:36 WBC 16.7 H (3.8-10.6) k/uL RBC 4.33 (3.80-5.40) m/uL Hgb 11.2 L (11.4-16.0) gm/dL Hct 37.0 (34.0-46.0) % MCV 85.3 (80.0-100.0) fL MCH 25.8 (25.0-35.0) pg MCHC 30.3 L (31.0-37.0) g/dL RDW 15.5 (11.5-15.5) % Plt Count 245 (150-450) k/uL Neutrophils % 85 % Lymphocytes % 9 % Monocytes % 3 % Eosinophils % 2 % Basophils % 0 % Neutrophils # 13.9 H (1.3-7.7) k/uL Lymphocytes # 1.4 (1.0-4.8) k/uL Monocytes # 0.5 (0-1.0) k/uL Eosinophils # 0.4 (0-0.7) k/uL Basophils # 0.1 (0-0.2) k/uL Hypochromasia Slight PT 12.1 H (9.0-12.0) sec INR 1.2 (<1.1) APTT 21.2 L (22.0-30.0) sec Sodium 137 (137-145) mmol/L Potassium 4.0 (3.5-5.1) mmol/L Chloride 100 (98-107) mmol/L Carbon Dioxide 27 (22-30) mmol/L Anion Gap 10 mmol/L BUN 10 (7-17) mg/dL Creatinine 0.61 (0.52-1.04) mg/dL Est GFR (MDRD) Af Amer >60 (>60 ml/min/1.73 sqM) Est GFR (MDRD) Non-Af >60 (>60 ml/min/1.73 sqM) Glucose 109 H (74-99) mg/dL Calcium 9.3 (8.4-10.2) mg/dL Phosphorus 3.6 (2.5-4.5) mg/dL Magnesium 1.8 (1.6-2.3) mg/dL Total Bilirubin 0.5 (0.2-1.3) mg/dL AST 11 L (14-36) U/L ALT 29 (9-52) U/L Alkaline Phosphatase 105 (38-126) U/L Total Creatine Kinase (30-135) U/L CK-MB (CK-2) (0.0-2.4) ng/mL CK-MB (CK-2) Rel Index Troponin I (0.000-0.034) ng/mL Total Protein 6.6 (6.3-8.2) g/dL Albumin 3.2 L (3.5-5.0) g/dL TSH 1.060 (0.465-4.680) mIU/L Urine Color Urine Appearance (Clear) Urine pH (5.0-8.0) Ur Specific [place] (1.001-1.035) Urine Protein (Negative) Urine Glucose (UA) (Negative) Urine Ketones (Negative) Urine Blood (Negative) Urine Nitrite (Negative) Urine Bilirubin (Negative) Urine Urobilinogen (<2.0) mg/dL Ur Leukocyte Esterase (Negative) 06/05/16 06/05/16 Range/Units 13:36 14:26 WBC (3.8-10.6) k/uL RBC (3.80-5.40) m/uL Hgb (11.4-16.0) gm/dL Hct (34.0-46.0) % MCV (80.0-100.0) fL MCH (25.0-35.0) pg MCHC (31.0-37.0) g/dL RDW (11.5-15.5) % Plt Count (150-450) k/uL Neutrophils % % Lymphocytes % % Monocytes % % Eosinophils % % Basophils % % Neutrophils # (1.3-7.7) k/uL Lymphocytes # (1.0-4.8) k/uL Monocytes # (0-1.0) k/uL Eosinophils # (0-0.7) k/uL Basophils # (0-0.2) k/uL Hypochromasia PT (9.0-12.0) sec INR (<1.1) APTT (22.0-30.0) sec Sodium (137-145) mmol/L Potassium (3.5-5.1) mmol/L Chloride (98-107) mmol/L Carbon Dioxide (22-30) mmol/L Anion Gap mmol/L BUN (7-17) mg/dL Creatinine (0.52-1.04) mg/dL Est GFR (MDRD) Af Amer (>60 ml/min/1.73 sqM) Est GFR (MDRD) Non-Af (>60 ml/min/1.73 sqM) Glucose (74-99) mg/dL Calcium (8.4-10.2) mg/dL Phosphorus (2.5-4.5) mg/dL Magnesium (1.6-2.3) mg/dL Total Bilirubin (0.2-1.3) mg/dL AST (14-36) U/L ALT (9-52) U/L Alkaline Phosphatase (38-126) U/L Total Creatine Kinase <20 L (30-135) U/L CK-MB (CK-2) 0.4 (0.0-2.4) ng/mL CK-MB (CK-2) Rel Index 0.0 Troponin I <0.012 (0.000-0.034) ng/mL Total Protein (6.3-8.2) g/dL Albumin (3.5-5.0) g/dL TSH (0.465-4.680) mIU/L Urine Color Light Yellow Urine Appearance Clear (Clear) Urine pH 7.5 (5.0-8.0) Ur Specific [place] 1.005 (1.001-1.035) Urine Protein Negative (Negative) Urine Glucose (UA) Negative (Negative) Urine Ketones Trace H (Negative) Urine Blood Negative (Negative) Urine Nitrite Negative (Negative) Urine Bilirubin Negative (Negative) Urine Urobilinogen <2.0 (<2.0) mg/dL Ur Leukocyte Esterase Negative (Negative) - Radiology Data Radiology results: image reviewed (Chest x-ray shows right hilar neoplasm with postobstructive atelectasis versus infiltrate. Redemonstrated.) Critical Care Time Critical Care Time: Yes Total Critical Care Time: 33 Disposition Clinical Impression: Atrial fibrillation with RVR, Lung mass Disposition: ADMITTED IP TO THIS HOSP
[2016-06-05] MEDS ORDERED: DILTIAZEM 5 MG/ML 5 ML VIAL IVP STA (13:17)
[2016-06-05] MEDS ORDERED: DILTIAZEM 125 MG in SODIUM CHLORIDE 0.9% 100 ML IV ONE (13:18)
[2016-06-05] MEDS: MORPHINE SULFATE 4 MG/ML SYRINGE IV STA ×2 (13:19→15:06)
[2016-06-05 13:55] LABS: CH 26.2; CHCM 30.8; HDW 2.82; HGB 11.2 gm/dL (11.4-16.0); MCH 25.8 pg (25.0-35.0); MCHC 30.3 g/dL (31.0-37.0); MCV 85.3 fL (80.0-100.0); Mean Platelet Volume 6.4; RBC 4.33 m/uL (3.80-5.40); RDW 15.5 % (11.5-15.5); WBC 16.7 k/uL (3.8-10.6); WBC (Perox) 18.38
[2016-06-05 14:04] LABS: INR 1.2 (<1.1); Prothrombin Time 12.1 sec (9.0-12.0)
[2016-06-05 14:05] LABS: ALT 29 U/L (9-52); AST 11 U/L (14-36); Alkaline Phosphatase 105 U/L (38-126); Anion Gap 10 mmol/L; Blood Urea Nitrogen 10 mg/dL (7-17); Calcium 9.3 mg/dL (8.4-10.2); Carbon Dioxide 27 mmol/L (22-30); Chloride 100 mmol/L (98-107); Glucose 109 mg/dL (74-99); Magnesium 1.8 mg/dL (1.6-2.3); Non-African American GFR(MDRD) >60 (>60 ml/min/1.73 sqM); Phosphorous 3.6 mg/dL (2.5-4.5); Sodium 137 mmol/L (137-145); Total Bilirubin 0.5 mg/dL (0.2-1.3); Total Protein 6.6 g/dL (6.3-8.2)
[2016-06-05 14:11] LABS: Partial Thromboplastin Time 21.2 sec (22.0-30.0)
[2016-06-05 14:18] LABS: Basophils # (A) 0.1 k/uL (0-0.2); Basophils % (A) 0 %; Eosinophils # (A) 0.4 k/uL (0-0.7); Eosinophils % (A) 2 %; Hypochromasia Slight; Luc # (Auto) 0.18; Luc % (Auto) 1; Lymphocytes # (A) 1.4 k/uL (1.0-4.8); Lymphocytes % (A) 9 %; Monocytes # (A) 0.5 k/uL (0-1.0); Monocytes % (A) 3 %; Neutrophils # (A) 13.9 k/uL (1.3-7.7); Neutrophils % (A) 85 %
[2016-06-05 14:19] LABS: Creatine Kinase <20 U/L (30-135)
[2016-06-05 14:32] LABS: Creatine Kinase MB 0.4 ng/mL (0.0-2.4); Troponin I <0.012 ng/mL (0.000-0.034)
[2016-06-05 14:34] LABS: Appearance,Urine Clear (Clear); Bilirubin,Urine Negative (Negative); Glucose,Urine (UA) Negative (Negative); Ketones,Urine Trace (Negative); Leukocyte Esterase,Urine Negative (Negative); Nitrite,Urine Negative (Negative); PH, Urine 7.5 (5.0-8.0); Protein,Urine Negative (Negative); Specific Gravity,Urine 1.005 (1.001-1.035); UA Billing (MACRO vs. MICRO) CHEM; Urobilinogen,Urine <2.0 mg/dL (<2.0)
--- NOTE | 2016-06-05 14:39 | XR ---
EXAMINATION TYPE: XR chest 2V DATE OF EXAM: 06/05/2016 2:08 PM COMPARISON: Chest x-ray 3 days ago. PET/CT from May 21, 2016 HISTORY: Weakness and back pain. History of lung cancer. TECHNIQUE: Frontal and lateral views of the chest are obtained. FINDINGS: There is persistent right hilar mass or neoplasm. Trying wedge-shaped opacity from this ar ea suggest postobstructive atelectasis or trapped fluid in fissure. More patchy opacity right lung ba se is seen on frontal view less well seen on lateral view No significant change from prior is seen. U nderlying emphysematous change is present. Left lung is clear. The cardiac silhouette size is stable and upper limits of normal. The osseous structures are intact. IMPRESSION: Overall stable findings, right hilar mass or neoplasm with postobstructive atelectasis a nd/or infiltrate in the right lower lung redemonstrated. Left lung remains clear.
[2016-06-05] MEDS ORDERED: HEPARIN SODIUM,PORCINE 5,000 UNIT/ML 1 ML VIAL IV ONE (15:11)
[2016-06-05] MEDS ORDERED: ASPIRIN 81 MG CHEW PO STA (15:11)
[2016-06-05] MEDS ORDERED: NITROGLYCERIN SL TABS 0.4 MG TAB SUBLINGUAL PRN (15:11)
[2016-06-05] MEDS ORDERED: HEPARIN SODIUM,PORCINE 5,000 UNIT/ML 1 ML VIAL IV PRN ×2 (15:11→21:04)
[2016-06-05] MEDS ORDERED: HEPARIN SODIUM,PORCINE/D5W PMX 25,000 UNIT in DEXTROSE/WATER 1 500ML.BAG IV SCH ×2 (15:15→21:15)
[2016-06-05] MEDS ORDERED: MAGNESIUM SULFATE-D5W PMX 1 GM in DEXTROSE/WATER 1 100ML.BAG IVPB ONE (16:31)
[2016-06-05] MEDS ORDERED: ZOLPIDEM 10 MG TAB PO PRN (16:33)
[2016-06-05] MEDS ORDERED: RIVAROXABAN 10 MG TAB PO SCH (17:45)
[2016-06-05] MEDS: FLECAINIDE 50 MG TAB PO SCH (20:17)
[2016-06-05] MEDS: VIT A,C & E-LUTEIN-MINERALS 1 EACH TAB PO SCH (20:17)
[2016-06-05] MEDS: METOPROLOL TARTRATE 50 MG TAB PO SCH (20:17)
[2016-06-05 20:26] LABS: Troponin I 0.552 ng/mL (0.000-0.034)
[2016-06-05] MEDS: MORPHINE SULFATE 4 MG/ML SYRINGE IVP PRN (21:32)
[2016-06-05] MEDS: TEMAZEPAM 15 MG CAP PO PRN (21:32)
[2016-06-06 02:23] LABS: Creatine Kinase MB 6.7 ng/mL (0.0-2.4); Troponin I 1.1 ng/mL (0.000-0.034)
[2016-06-06 03:55] LABS: Basophils % (A) 0 %; CHCM 30.4; Eosinophils # (A) 0.6 k/uL (0-0.7); Eosinophils % (A) 4 %; HCT 30.5 % (34.0-46.0); HDW 2.75; Hypochromasia Marked; Luc # (Auto) 0.14; Luc % (Auto) 1; Lymphocytes # (A) 1.9 k/uL (1.0-4.8); Lymphocytes % (A) 14 %; MCH 26.5 pg (25.0-35.0); MCHC 30.8 g/dL (31.0-37.0); MCV 86.1 fL (80.0-100.0); Mean Platelet Volume 6.8; Monocytes # (A) 0.5 k/uL (0-1.0); Monocytes % (A) 3 %; Neutrophils # (A) 11.2 k/uL (1.3-7.7); Neutrophils % (A) 78 %; RBC 3.54 m/uL (3.80-5.40); RDW 15.6 % (11.5-15.5); WBC 14.4 k/uL (3.8-10.6); WBC (Perox) 15.02
[2016-06-06] MEDS: MORPHINE SULFATE 4 MG/ML SYRINGE IVP PRN ×5 (04:12→23:49)
[2016-06-06 04:34] LABS: HGB 9.4 gm/dL (11.4-16.0)
[2016-06-06 05:10] LABS: Anion Gap 7 mmol/L; Blood Urea Nitrogen 13 mg/dL (7-17); Calcium 8.7 mg/dL (8.4-10.2); Carbon Dioxide 25 mmol/L (22-30); Chloride 104 mmol/L (98-107); Cholesterol 91 mg/dL (<200); Glucose 108 mg/dL (74-99); HDL Cholesterol 37 mg/dL (40-60); Non-African American GFR(MDRD) >60 (>60 ml/min/1.73 sqM); Potassium 4.1 mmol/L (3.5-5.1); Sodium 136 mmol/L (137-145); Triglycerides 72 mg/dL (<150)
[2016-06-06] MEDS: LEVOTHYROXINE 100 MCG TAB PO SCH (05:31)
[2016-06-06] MEDS: FLECAINIDE 50 MG TAB PO SCH ×2 (10:13→20:43)
[2016-06-06] MEDS: PRAVASTATIN SODIUM 40 MG TAB PO SCH (10:28)
[2016-06-06] MEDS: VIT A,C & E-LUTEIN-MINERALS 1 EACH TAB PO SCH ×2 (10:28→20:43)
[2016-06-06] MEDS: PANTOPRAZOLE 40 MG TABLET PO SCH (10:29)
[2016-06-06] MEDS: METOPROLOL TARTRATE 50 MG TAB PO SCH ×2 (10:29→20:43)
[2016-06-06] MEDS: MULTIVITAMINS, THERA 1 EACH TAB PO SCH (10:29)
[2016-06-06] MEDS: BALSALAZIDE DISODIUM 750 MG CAPSULE PO SCH (10:29)
[2016-06-06] MEDS: amLODIPine 5 MG TAB PO SCH (10:29)
--- NOTE | 2016-06-06 10:34 | CONS ---
DATE OF CONSULTATION: 06/06/2016 Gabby is a 80-year-old lady with history of metastatic lung cancer, who is admitted to the hospital with symptoms of generalized weakness and discomfort of the right upper back that has progressed over the last 3 weeks. Patient is currently on [place] and Toradol and has stage IV lung cancer. Her chest discomfort seems musculoskeletal, gets worse with movements and deep breaths. When she first came she was in atrial fibrillation with rapid ventricular rate, subsequently she converted to sinus rhythm. At the time of my evaluation, she is comfortable at rest and is free of symptoms. Patient's troponins were elevated, peak troponin is 1.1, suggestive of non-ST segment elevation HI. EKG following conversion to sinus rhythm appears normal. I do not see any ST-T wave changes. The elevated troponin could be due to her underlying CAD with supply demand mismatch related to atrial fib with RVR. Could be due to non-STEMI. Pulmonary embolism may be a possibility, but the patient was on Xarelto on initial presentation. PAST MEDICAL HISTORY: Significant for paroxysmal atrial fibrillation, metastatic lung cancer, hypertension. Current medications include: 1. Tambocor 50 b.i.d. 2. Amlodipine 5 daily. 3. Ambien. 4. Xarelto. 5. Pravastatin. 6. Lopressor. 7. Synthroid. ALLERGIES: She has multiple drug allergies including Cipro, codeine, Neurontin, hydrocodone, ibuprofen, IV dye and Prilosec. FAMILY HISTORY: Negative for premature coronary artery disease. SOCIAL HISTORY: Significant for smoking. There is no history of EtOH abuse, or drug abuse. REVIEW OF SYSTEMS: HEENT: Unremarkable. CARDIAC: As described above. RESPIRATORY: As described above. GI: Negative. GENITOURINARY: Negative. MUSCULOSKELETAL: Significant so for arthritis. PSYCHOSOCIAL: Negative. ENDOCRINE: Negative. HEMATOLOGICAL: Negative. DERMATOLOGIC: Negative. CONSTITUTIONAL: Significant for fatigue, tiredness. ONCOLOGICAL: Significant for metastatic lung cancer. On exam, afebrile, heart rate is 58 beats per minute, blood pressure 91/55, respirations 18, O2 sat is 95%. There is no jugular venous distention. Carotid upstroke is normal. Chest exam reveals good air entry bilaterally. Heart exam reveals first and second heart sounds. No gallop. Abdomen is soft. Exam of the extremities did not reveal any edema. Peripheral pulses are felt. Labs show a hemoglobin of 9.4, platelet count is 244, potassium 4.1, creatinine is 0.8. Troponins are elevated at 1.1. ASSESSMENT: 1. Paroxysmal atrial fibrillation. 2. Non-ST segment elevation myocardial infarction. 3. History of metastatic lung cancer. PLAN: I am going to obtain a 2-D echocardiogram on her to evaluate her LV function and wall motion. Given the metastatic lung cancer, she is not a candidate for any invasive procedures at this time, given the guarded long-term prognosis. I am going to treat her with aspirin, nitrates, beta blockers and statins. I am going to resume the Xarelto and increase the dose of flecainide.
[2016-06-06] MEDS: ASPIRIN 325 MG TAB PO SCH (11:31)
--- NOTE | 2016-06-06 14:24 | P.CNPUL ---
History of Present Illness Consult date: 06/06/16 Requesting physician: Rohini Ag Chief complaint: Weakness History of present illness: This is a 80-year-old female who was recently diagnosed with advanced stage of lung cancer and we referred her to with her oncologist. Her diagnosis was based on pre-carinal lymph node aspiration and based on biopsies of the bronchus intermedius lesion. 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 And she was eventually discharged home with plans to have follow-up with the oncologist. Patient was readmitted this time with mostly multiple confusional complaints including weakness, fatigue, and apparently she has some chest discomfort upon presentation. She was found to be in atrial fibrillation with RVR, and she subsequently converted to sinus rhythm. At the time of my evaluation, the patient was doing well. Discussed her condition with Dr. chowdary and the recent the bronchoscopy findings. Patient was also seen by the bioinformatics support specialist, and he is concerned about possible acute non-ST elevation myocardial infarction. Presently patient is relatively asymptomatic. Review of Systems 12 point review of systems were obtained, please refer to pertinent positives and negatives as per HPI. Past Medical History Past Medical History: Hyperlipidemia, Hypertension, Myocardial Infarction ([place]) Additional Past Medical History / Comment(s): ulcerative colitis, adrenal mass under investigation, CAD previous stent of RCA, HTN, hyperlipidemia, EF 70% , hypothyroidism Last Myocardial Infarction Date:: 2005 History of Any Multi-Drug Resistant Organisms: None Reported Past Surgical History: Adenoidectomy, Bladder Surgery, Cholecystectomy, Hysterectomy, Tonsillectomy Additional Past Surgical History / Comment(s): Cardiac stent Additional Past Anesthesia/Blood Transfusion Reaction / Comment(s): muscle weakness post biopsy Past Psychological History: No Psychological Hx Reported Smoking Status: Former smoker Past Alcohol Use History: None Reported Past Drug Use History: None Reported - Past Family History Mother Family Medical History: Cancer, Myocardial Infarction ([place]) Medications and Allergies Home Medications Medication Instructions Recorded Confirmed Type Lansoprazole 30 mg PO DAILY 05/09/16 06/05/16 History Levothyroxine Sodium [Synthroid] 100 mcg PO QAM 05/09/16 06/05/16 History Mesalamine [Lialda] 1.2 gm PO DAILY 05/09/16 06/05/16 History Multivitamins, Thera [Multivitamin 1 tab PO DAILY 05/09/16 06/05/16 History (formulary)] Pravastatin Sodium [Pravachol] 40 mg PO DAILY 05/09/16 06/05/16 History Vit C/E/Zn/Coppr/Lutein/Zeaxan 1 cap PO BID 05/09/16 06/05/16 History [Preservision Areds 2 Softgel] Zolpidem [Ambien] 10 mg PO HS PRN 06/03/16 06/05/16 History amLODIPine [Norvasc] 5 mg PO QAM 06/03/16 06/05/16 History Rivaroxaban [Xarelto] 20 mg PO AC-SUPPER 06/05/16 06/05/16 History Allergies Allergy/AdvReac Type Severity Reaction Status Date / Time ciprofloxacin [From Cipro] Allergy Unknown Verified 06/05/16 13:14 codeine Allergy Nausea & Verified 06/05/16 13:53 Vomiting gabapentin [From Neurontin] Allergy Unknown Verified 06/05/16 13:53 hydrocodone Allergy Rash/Hives Verified 06/05/16 13:53 ibuprofen [From Motrin] Allergy Rash/Hives Verified 06/05/16 13:53 Iodinated Contrast Media - Allergy Rash/Hives Verified 06/05/16 13:53 Oral and omeprazole [From Prilosec] Allergy Rash/Hives Verified 06/05/16 13:53 Sulfa (Sulfonamide Allergy Rash/Hives Verified 06/05/16 13:14 Antibiotics) Physical Exam Vitals: Vital Signs Temp Pulse Pulse Resp BP BP Pulse Ox 06/06/16 11:31 97.7 F 55 L 18 100/49 97 06/06/16 10:12 64 124/60 06/06/16 08:26 97.7 F 58 L 18 91/57 95 06/06/16 04:00 98.7 F 57 L 16 109/52 96 06/06/16 00:00 98.3 F 56 L 18 102/47 98 06/05/16 20:00 98.3 F 74 18 124/59 97 06/05/16 16:00 98.0 F 118 H 16 103/51 97 06/05/16 15:46 98.2 F 124 H 20 122/59 95 Intake and Output 06/05/16 06/06/16 06/06/16 22:59 06:59 14:59 Intake Total 20 508.852 395.7 Balance 20 508.852 395.7 Intake: IV 155.7 Heparin Sodium,Porcine/ 155.7 D5w Pmx 25,000 unit In Dextrose/Water 1 500ml. bag @ 12 UNITS/KG/HR 17. 37 mls/hr IV .Q24H [facility] Rx #:[id number] Intake, IV Titration 508.852 Amount Heparin Sodium,Porcine/ 108.852 D5w Pmx 25,000 unit In Dextrose/Water 1 500ml. bag @ 12 UNITS/KG/HR 17. 37 mls/hr IV .Q24H [facility] Rx #:[id number] Sodium Chloride 0.9% 1, 400 000 ml @ 100 mls/hr IV . Q10H STA Rx#:[id number] Oral 20 240 Other: # Voids 2 2 3 Weight 72.4 kg 74 kg Physical Exam: Revealed a 80-year-old female looks chronically ill, in no form of respiratory distress. HEENT:[Neck is supple.] [No neck masses.] [No thyromegaly.] [No JVD.] Chest: Diminished breath sounds at the bases especially at the right base but no rhonchi, no wheezes.] Cardiac Exam: [Normal S1 and S2, no S3 gallop, no murmur.] Abdomen: [Soft, nontender, no megaly, no rebound, no guarding, normal bowel sounds.] Extremities: [No clubbing, no edema, no cyanosis.] Neurological Exam: [No focal neurologic deficit.] Results - Laboratory Findings CBC and BMP: 06/06/16 03:42 06/06/16 03:42 PT/INR, D-dimer PT 12.1 sec (9.0-12.0) H 06/05/16 13:36 INR 1.2 (<1.1) 06/05/16 13:36 Abnormal lab findings: Abnormal Labs 06/05/16 06/06/16 06/06/16 19:25 01:32 03:42 WBC 14.4 H RBC 3.54 L Hgb 9.4 L D Hct 30.5 L MCHC 30.8 L RDW 15.6 H Neutrophils # 11.2 H APTT Sodium Glucose CK-MB (CK-2) 7.0 H* 6.7 H* Troponin I 0.552 H* 1.100 H* HDL Cholesterol 06/06/16 06/06/16 03:42 03:42 WBC RBC Hgb Hct MCHC RDW Neutrophils # APTT 55.2 H Sodium 136 L Glucose 108 H CK-MB (CK-2) Troponin I HDL Cholesterol 37 L - Diagnostic Findings Chest x-ray: image reviewed (Agree with reading as per the radiologist.) Assessment and Plan Plan: Impression: 1 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 2 paroxysmal atrial fibrillation, being addressed by cardiology on the case. 3 acute non-ST segment elevation myocardial infarction 4 suspect some component of underlying COPD 5 history of ulcerative colitis 6 history of coronary artery disease and previous coronary stent insertion 7 history of essential hypertension 8 remote smoking history 9 history of mixed hyperlipidemia. Recommendation: Continue present treatment plan, agree with the treatment as per cardiology on the case, and we'll continue to follow. Time with Patient: Greater than 30
--- NOTE | 2016-06-06 15:18 | P.PN ---
Subjective Date of service 06/06/2016 Progress note being dictated for Dr. Magana. Interval history: This a 80-year-old female admitted with fatigue, chest discomfort, proximal atrial fibrillation with RVR, non-STEMI in a patient with recently diagnosed metastatic lung CA. Echo currently being performed at bedside. Heparin discontinued and Xarelto resumed. Medical management recommended per cardiology secondary to her history of metastatic lung CA. Maintained on aspirin, statins, beta blockers and nitrates with flecainide dose increased. Telemetry currently sinus rhythm. Maintaining O2 sats of 97% on 2 L nasal cannula. Hemoglobin 9.4. Review of systems: HEENT: Denies headache or focal deficits. Denies any dizziness or lightheadedness. Complains of generalized fatigue. Respiratory: Denies any increased shortness of breath. Cardiac: Denies any chest pain, palpitations. GI: Denies any nausea, vomiting, or diarrhea. Denies any abdominal tenderness. : Denies any dysuria. Psychiatry: Denies any anxiety or depression. Active Medications Amlodipine Besylate (Norvasc) 5 mg PO QAM [facility] Last Admin: 06/06/16 10:29 Dose: 5 mg Aspirin (Aspirin) 325 mg PO DAILY [facility] Last Admin: 06/06/16 11:31 Dose: 325 mg Balsalazide (Colazal) 1,500 mg PO DAILY [facility] Last Admin: 06/06/16 10:29 Dose: 1,500 mg Flecainide Acetate (Tambocor) 100 mg PO Q12HR [facility] Ceftriaxone Sodium 1,000 mg/ (Sodium Chloride) 50 mls @ 100 mls/hr IVPB Q24HR [facility] Last Admin: 06/06/16 10:26 Dose: 100 mls/hr Levothyroxine Sodium (Synthroid) 100 mcg PO 0630 [facility] Last Admin: 06/06/16 05:31 Dose: 100 mcg Metoprolol Tartrate (Lopressor) 50 mg PO BID [facility] Last Admin: 06/06/16 10:29 Dose: 50 mg Morphine Sulfate (Morphine Sulfate (Inj)) 4 mg IVP Q4HR PRN PRN Reason: Pain Last Admin: 06/06/16 14:22 Dose: 4 mg Multivitamins (Theragran) 1 each PO DAILY [facility] Last Admin: 06/06/16 10:29 Dose: 1 each Multivitamins/Minerals (Ivite) 1 each PO BID [facility] Last Admin: 06/06/16 10:28 Dose: 1 each Nitroglycerin (Nitrostat) 0.4 mg SUBLINGUAL Q5M PRN PRN Reason: Chest Pain Pantoprazole Sodium (Protonix) 40 mg PO AC-BRKFST [facility] Last Admin: 06/06/16 10:29 Dose: 40 mg Pravastatin Sodium (Pravachol) 40 mg PO DAILY [facility] Last Admin: 06/06/16 10:28 Dose: 40 mg Rivaroxaban (Xarelto) 20 mg PO W/SUPPER [facility] Temazepam (Restoril) 15 mg PO HS PRN PRN Reason: Insomnia Last Admin: 06/05/16 21:32 Dose: 15 mg Objective - Vital Signs Vital signs: Vital Signs Temp 97.7 F 06/06/16 11:31 Pulse 55 L 06/06/16 11:31 Resp 18 06/06/16 11:31 BP 100/49 06/06/16 11:31 Pulse Ox 97 06/06/16 11:31 Intake & Output 06/05/16 06/06/16 06/06/16 18:59 06:59 18:59 Intake Total 20 508.852 495.7 Balance 20 508.852 495.7 Weight 72.4 kg 74 kg Intake: IV 155.7 Heparin Sodium,Porcine/ 155.7 D5w Pmx 25,000 unit In Dextrose/Water 1 500ml. bag @ 12 UNITS/KG/HR 17. 37 mls/hr IV .Q24H [facility] Rx #:[id number] Intake, IV Titration 508.852 Amount Heparin Sodium,Porcine/ 108.852 D5w Pmx 25,000 unit In Dextrose/Water 1 500ml. bag @ 12 UNITS/KG/HR 17. 37 mls/hr IV .Q24H [facility] Rx #:[id number] Sodium Chloride 0.9% 1, 400 000 ml @ 100 mls/hr IV . Q10H [facility] Rx#:[id number] Oral 20 340 Other: # Voids 2 3 - Exam PHYSICAL EXAM: VITAL SIGNS: As above GENERAL: [Sitting up in bed, no acute distress] HEENT: [Pupils equal conjunctiva normal.] NECK: [Supple, no JVD] RESPIRATORY EFFORT:[Normal] LUNGS: [Bilateral Diminished bases, no wheezes crackles or rhonchi] CARDIOVASCULAR[regular S1 and S2, no murmur, rub or gallop, no edema] GI: [Abdomen soft, nontender, positive bowel sounds.] PSYCH: [Alert and oriented -3, mood and affect normal.] NEURO: No focal deficits, moves all 4 extremities, strength and sensation intact - Labs CBC & Chem 7: 06/06/16 03:42 06/06/16 03:42 Labs: Abnormal Lab Results - Last 24 Hours (Table) 06/05/16 06/06/16 06/06/16 Range/Units 19:25 01:32 03:42 WBC 14.4 H (3.8-10.6) k/uL RBC 3.54 L (3.80-5.40) m/uL Hgb 9.4 L D (11.4-16.0) gm/dL Hct 30.5 L (34.0-46.0) % MCHC 30.8 L (31.0-37.0) g/dL RDW 15.6 H (11.5-15.5) % Neutrophils # 11.2 H (1.3-7.7) k/uL APTT (22.0-30.0) sec Sodium (137-145) mmol/L Glucose (74-99) mg/dL CK-MB (CK-2) 7.0 H* 6.7 H* (0.0-2.4) ng/mL Troponin I 0.552 H* 1.100 H* (0.000-0.034) ng/mL HDL Cholesterol (40-60) mg/dL 06/06/16 06/06/16 Range/Units 03:42 03:42 WBC (3.8-10.6) k/uL RBC (3.80-5.40) m/uL Hgb (11.4-16.0) gm/dL Hct (34.0-46.0) % MCHC (31.0-37.0) g/dL RDW (11.5-15.5) % Neutrophils # (1.3-7.7) k/uL APTT 55.2 H (22.0-30.0) sec Sodium 136 L (137-145) mmol/L Glucose 108 H (74-99) mg/dL CK-MB (CK-2) (0.0-2.4) ng/mL Troponin I (0.000-0.034) ng/mL HDL Cholesterol 37 L (40-60) mg/dL Assessment and Plan Plan: #1 acute non-STEMI #2. Proximal atrial fibrillation with RVR, converted to sinus rhythm #3. 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 #4. Recent Post Obstructive pneumonia #5 history of ulcerative colitis #6 CAD with history of stent #7 Essential hypertension. #8 history of nicotine abuse. #9 Dyslipidemia #10 COPD #11 Anemia, Plan: Continue on current medication regime , nitrates, aspirin, beta israel, statin, monitoring and symptomatic treatment. As mentioned above medical management recommended as per cardiology given patient's metastatic lung CA. Echo results pending. Close monitoring of hemoglobin with repeat labs ordered for a.m. Follow closely with both pulmonary and cardiology. Further recommendations to follow. The impression and plan of care has been dictated as directed. : I performed a H&P examination of this patient and discussed the same with the dictator. I agree with the dictator's note. Any additional findings/opinions/ etc. will be noted.
--- NOTE | 2016-06-06 15:20 | HP ---
DATE OF ADMISSION: 06/05/2016 CHIEF COMPLAINT: Back pain. Generalized tired and weakness. 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 Because of multiple symptomatology, the patient came to [facility] and admitted for further evaluation and treatment. The patient has been followed by Dr. Gusman in the outpatient setting. Patient is also seeing Dr. Lopez for oncology purposes. The patient also had a PET scan recently as an outpatient which showed markedly increased uptake in the right infrahilar mass compatible with neoplasm, and as well as enlarged right adrenal gland compared to metastatic lesions and also increased uptake in the proximal sigmoid colon focally within the left hemipelvis also. In the ER, the patient was found to have atrial fibrillation with fast ventricular rate. The patient was admitted for and started on Cardizem drip with some relief. There is no history of any fever, rigors or chills. No history of headache, loss of consciousness or seizures. No history of chest pain per se at this time. Cardiology evaluation underway. PAST MEDICAL HISTORY: 1. History of recently diagnosed squamous cell carcinoma. 2. History of hypertension. 3. Hyperlipidemia. 4. History of myocardial infarction. 5. History of adrenal mass. 6. History of coronary artery disease. 7. History of hypertension. 8. Hyperlipidemia. 9. Ejection fraction 70%. 10. Hypothyroidism. 11. History of adenoidectomy. 12. Bladder surgery. Medications prior to admission include home medications are: 1. Xarelto 20 mg a.c. breakfast a.c. supper. 2. Pravachol 40 mg daily. 3. Multivitamins one p.o. daily. 4. Lopressor 50 mg p.o. b.i.d. 5. Lialda 1.2 grams p.o. daily. 6. Synthroid 100 mcg p.o. in the morning.. 7. Lansoprazole 30 mg p.o. daily. 8. Tambocor 50 mg p.o. b.i.d. 9. Norvasc 5 mg p.o. in the morning.. 10. Ambien 10 mg p.o. q.h.s. p.r.n. 11. Preservision 1 capsule p.o. b.i.d. ALLERGIES: CIPROFLOXACIN, CODEINE, GABAPENTIN, HYDROCODONE, IBUPROFEN, IODINATED CONTRAST, OMEPRAZOLE, SULFA. FAMILY HISTORY: History of cancer, myocardial infarction in the family. SOCIAL HISTORY: Remote history of smoking. No history of alcohol intake. No history of current smoking. REVIEW OF SYSTEMS: ENT: Diminishing hearing. Diminished vision. CARDIOVASCULAR: As mentioned earlier. RESPIRATORY: As mentioned earlier. GI: No nausea or vomiting. : No dysuria. Nervous system: As mentioned earlier. ALLERGY/IMMUNOLOGY: No asthma or hayfever. MUSCULOSKELETAL: As mentioned earlier. HEMATOLOGY/ONCOLOGY: No history of anemia. ENDOCRINE: As mentioned earlier. CONSTITUTIONAL: As mentioned earlier. DERMATOLOGY: Negative. RHEUMATOLOGY: Negative. PSYCHIATRY: As mentioned earlier. PHYSICAL EXAMINATION: The patient is alert and oriented times three. Pulse 118 and irregular. Blood pressure 103/51. Respiratory rate 16. Temperature 98 degrees. Pulse ox 97% on 2 L. HEENT: Conjunctivae pale. Oral mucosa moist. NECK: No jugular venous distention. No carotid bruit. No lymph node enlargement. CARDIOVASCULAR: S1, S2 muffled. No S3, no S4. . RESPIRATORY: Breath sounds diminished at the bases. Bilateral scattered rhonchi and crackles present, markedly diminished on the right side. ABDOMEN: Soft, obese, nontender. No mass palpable. No hepatosplenomegaly. LEGS: Examination of the back some tenderness present in the mid upper back. EXTREMITIES: Minimal edema. Otherwise, pulses felt normal. CENTRAL NERVOUS SYSTEM: Higher function as mentioned earlier. Cranial nerves II through XII grossly intact. Moves all 4 limbs. No focal motor or sensory deficits. LYMPHATICS: No lymph nodes palpable in the neck, axillae or groin. SKIN: No ulcer, rash or bleeding. LABS: At this time show WBC 16.2, hemoglobin 11.2. INR is 1.2. Otherwise, creatinine kinase is less than 20%. ASSESSMENT: 1. Atrial fibrillation with fast ventricular rate, present on admission. 2. Generalized tiredness and weakness for evaluation. 3. Increased WBC. 4. Rule out sepsis. 5. Recently diagnosed right lung squamous cell carcinoma. 6. Right adrenal secondaries in the recent PET scan. 7. Increased uptake in the proximal sigmoid colon focally within the left hemipelvis on the recent PET scan. 8. History nicotine dependence. 9. Hypertension, essential. 10. Hyperlipidemia. 11. History of myocardial infarction. 12. History of ulcerative colitis. 13. History of coronary artery disease and stent in the RCA. 14. History of hyperlipidemia. 15. History of hypothyroidism. 16. History of bladder surgery. 17. History of cholecystectomy. 18. History of cardiac catheterization and stent. 19. Remote history of nicotine dependence. 20. Increased WBC. RECOMMENDATIONS AND DISCUSSION: In this 80-year-old woman who presented with multiple complex medical issues, we will monitor the patient closely. Continue the current medications. Continue symptomatic treatment. We will monitor the patient in telemetry, IV Cardizem has been initiated. The patient also on Tambocor. Cardiology will be consulted, rule out myocardial infarction. Otherwise, Xarelto, the patient is on Xarelto also. Also initiated on empiric antibiotics, obtain the cultures also. Initiate fentanyl patch for the pain. Otherwise, SHE HAS MULTIPLE ALLERGIES. I would also recommend PT, OT evaluation for the possibility of possible rehab. Dr. Lopez will be consulted as well as Dr. Snyder. Overall prognosis is extremely guarded because of multiple complex medical issues, I would recommend to continue to monitor. Prognosis guarded because of multiple complex medical issues as mentioned earlier. Further recommendations to follow. A copy of dictation being forwarded to Dr. Gusman who is the primary physician. All charts were reviewed. BON
[2016-06-06] MEDS: RIVAROXABAN 10 MG TAB PO SCH (16:54)
[2016-06-06] MEDS: TEMAZEPAM 15 MG CAP PO PRN (20:43)
--- NOTE | 2016-06-06 23:40 | P.CONS ---
History of Present Illness - Reason for Consult Consult date: 06/06/16 Lung cancer - History of Present Illness The patient is a 80-year-old lady, initially seen in consult when admitted on 05/10/16. At that time the patient developed some chest condition and cough. The symptoms progressed, and became associated with shortness of breath and weakness. The patient apparently fell, elderly on the floor for about 3-4 hours as she was too weak to get up. She was brought to the hospital by EMS, and had a chest x-ray done which was suspicious for a right hilar mass. There was also evidence of right lower lobe infiltrate which was felt to be postobstructive. She was seen by the pulmonary medicine service, and had a computed tomography scan of the chest done. This revealed a 4.5 cm suprahilar mass with obstruction of the right lower lobe bronchus. The scan did not describe any enlarged mediastinal adenopathy. A 1.2 cm nodule was also noted in the superior segment of the right lower lobe. She then underwent a bronchoscopy , which showed an obstructive mass involving the right lower lobe bronchus. Biopsies were done, and the pt was subsequently discharged. The patient denied any prior history of cancer. She was a smoker up to early 05/06. Prior to her acute illness, she was fully functional. She di have a history of ulcerative colitis, but according to her this has been inactive, at least for some years. Apparently a scan in the last few months had noted the possibility of an adrenal mass. However the patient had not had any workup for the same . The biopsy was positive for squamous cell carcinoma. PET was positive in the mass, but not in the mediastinum. Uptake was also noted in the rt adrenal mass. A rt adrenal biopsy was ordered, but could not be done here. It was thus being scheduled at [facility]. The pt was admitted with increasing weakness and fatigue. She was also c/o mid back pain, that was progressive. On admission, troponin elevation was noted , and she was started on IV heparin. She does have a CAD history and is s/p 2 stents. She, additionally has chronic a fib, and is on Xarelto. RVR was noted on admission, which is improved with treatment Consult was thus placed for further evaluation and recommendations. Review of Systems Constitutional: Reports poor appetite, Reports weakness, Reports weight loss Eyes: denies blurred vision, denies pain Ears: deny: decreased hearing, ear discharge, earache, tinnitus Ears, nose, mouth and throat: Denies headache, Denies sore throat Cardiovascular: Reports dyspnea on exertion, Reports shortness of breath Respiratory: Reports cough with sputum, Reports dyspnea Gastrointestinal: Denies abdominal pain, Denies diarrhea, Denies nausea, Denies vomiting Genitourinary: Reports urinary frequency Menstruation: Reports postmenopausal Musculoskeletal: Reports as per HPI (mid back pain) Integumentary: Denies pruritus, Denies rash Neurological: Reports weakness Psychiatric: Denies anxiety, Denies depression Endocrine: Reports fatigue, Reports weight change Hematologic/Lymphatic: Reports as per HPI Past Medical History Past Medical History: Hyperlipidemia, Hypertension, Myocardial Infarction ([place]) Additional Past Medical History / Comment(s): ulcerative colitis, adrenal mass under investigation, CAD previous stent of RCA, HTN, hyperlipidemia, EF 70% , hypothyroidism Last Myocardial Infarction Date:: 2005 History of Any Multi-Drug Resistant Organisms: None Reported Past Surgical History: Adenoidectomy, Bladder Surgery, Cholecystectomy, Hysterectomy, Tonsillectomy Additional Past Surgical History / Comment(s): Cardiac stent Additional Past Anesthesia/Blood Transfusion Reaction / Comm: muscle weakness post biopsy Past Psychological History: No Psychological Hx Reported Smoking Status: Former smoker Past Alcohol Use History: None Reported Past Drug Use History: None Reported - Past Family History Mother Family Medical History: Cancer, Myocardial Infarction ([place]) Medications and Allergies Home Medications Medication Instructions Recorded Confirmed Type Lansoprazole 30 mg PO DAILY 05/09/16 06/05/16 History Levothyroxine Sodium [Synthroid] 100 mcg PO QAM 05/09/16 06/05/16 History Mesalamine [Lialda] 1.2 gm PO DAILY 05/09/16 06/05/16 History Multivitamins, Thera [Multivitamin 1 tab PO DAILY 05/09/16 06/05/16 History (formulary)] Pravastatin Sodium [Pravachol] 40 mg PO DAILY 05/09/16 06/05/16 History Vit C/E/Zn/Coppr/Lutein/Zeaxan 1 cap PO BID 05/09/16 06/05/16 History [Preservision Areds 2 Softgel] Zolpidem [Ambien] 10 mg PO HS PRN 06/03/16 06/05/16 History amLODIPine [Norvasc] 5 mg PO QAM 06/03/16 06/05/16 History Rivaroxaban [Xarelto] 20 mg PO AC-SUPPER 06/05/16 06/05/16 History Allergies Allergy/AdvReac Type Severity Reaction Status Date / Time ciprofloxacin [From Cipro] Allergy Unknown Verified 06/05/16 13:14 codeine Allergy Nausea & Verified 06/05/16 13:53 Vomiting gabapentin [From Neurontin] Allergy Unknown Verified 06/05/16 13:53 hydrocodone Allergy Rash/Hives Verified 06/05/16 13:53 ibuprofen [From Motrin] Allergy Rash/Hives Verified 06/05/16 13:53 Iodinated Contrast Media - Allergy Rash/Hives Verified 06/05/16 13:53 Oral and omeprazole [From Prilosec] Allergy Rash/Hives Verified 06/05/16 13:53 Sulfa (Sulfonamide Allergy Rash/Hives Verified 06/05/16 13:14 Antibiotics) Physical Exam Vitals: Vital Signs Temp Pulse Resp BP Pulse Ox 06/06/16 16:07 98.4 F 63 18 112/76 97 06/06/16 11:31 97.7 F 55 L 18 100/49 97 06/06/16 10:12 64 124/60 06/06/16 08:26 97.7 F 58 L 18 91/57 95 06/06/16 04:00 98.7 F 57 L 16 109/52 96 06/06/16 00:00 98.3 F 56 L 18 102/47 98 Intake and Output 06/06/16 06/06/16 06/07/16 14:59 22:59 06:59 Intake Total 495.7 Balance 495.7 Intake: IV 155.7 Heparin Sodium,Porcine/ 155.7 D5w Pmx 25,000 unit In Dextrose/Water 1 500ml. bag @ 12 UNITS/KG/HR 17. 37 mls/hr IV .Q24H [facility] Rx #:[id number] Oral 340 Other: # Voids 3 - Constitutional General appearance: no acute distress - EENT Eyes: EOMI, PERRLA ENT: hearing grossly normal, normal oropharynx - Neck Neck: no lymphadenopathy Thyroid: bilateral: normal size - Respiratory Respiratory: right: diminished - Cardiovascular Rhythm: regular Heart sounds: normal: S1, S2 - Gastrointestinal General gastrointestinal: normal bowel sounds, soft - Integumentary Integumentary: normal - Neurologic Neurologic: CNII-XII intact - Musculoskeletal Musculoskeletal: generalized weakness, strength equal bilaterally - Psychiatric Psychiatric: A&O x's 3, appropriate affect Results CBC & Chem 7: 06/06/16 03:42 06/06/16 03:42 Labs: Abnormal Lab Results - Last 24 Hours (Table) 06/06/16 06/06/16 06/06/16 Range/Units 01:32 03:42 03:42 WBC 14.4 H (3.8-10.6) k/uL RBC 3.54 L (3.80-5.40) m/uL Hgb 9.4 L D (11.4-16.0) gm/dL Hct 30.5 L (34.0-46.0) % MCHC 30.8 L (31.0-37.0) g/dL RDW 15.6 H (11.5-15.5) % Neutrophils # 11.2 H (1.3-7.7) k/uL APTT (22.0-30.0) sec Sodium 136 L (137-145) mmol/L Glucose 108 H (74-99) mg/dL CK-MB (CK-2) 6.7 H* (0.0-2.4) ng/mL Troponin I 1.100 H* (0.000-0.034) ng/mL HDL Cholesterol 37 L (40-60) mg/dL 06/06/16 Range/Units 03:42 WBC (3.8-10.6) k/uL RBC (3.80-5.40) m/uL Hgb (11.4-16.0) gm/dL Hct (34.0-46.0) % MCHC (31.0-37.0) g/dL RDW (11.5-15.5) % Neutrophils # (1.3-7.7) k/uL APTT 55.2 H (22.0-30.0) sec Sodium (137-145) mmol/L Glucose (74-99) mg/dL CK-MB (CK-2) (0.0-2.4) ng/mL Troponin I (0.000-0.034) ng/mL HDL Cholesterol (40-60) mg/dL Microbiology - Last 24 Hours (Table) 06/05/16 20:23 Blood Culture - Preliminary Blood No Growth after 24 hours Chest x-ray: report reviewed Assessment and Plan (1) Elevated troponin I level Narrative/Plan: The pt has significant troponon elevation with progressive increase. This is highly s/o a NQMI, especially given known CAD. Her back may haveA PE is possible , but less likely, as she was on Xarelto on admission. - Case d/w Cardiology. Given her new diagnosis of lung ca, she was not felt to be a good candidate for aggressive intervention. She will likely be managed medically. Defer to Cardiology for further management Status: Acute (2) Squamous cell lung cancer Narrative/Plan: On PET scan and CT brain, the rt adrenal mass and lung mass were the only sites of uptake. Thus he appeared to have stage IV disease , but a limited type. An adrenal biopsy was thus ordered to confirm the status of the adrenal mass. With oligometastic disease , some patients may benefit from a more aggressive approach. - case d/w Pulmonary. They clarified that one of the passes during his biopsy was from a precarinal node , which was positive, indicating mediastinal involvement. I will discuss this also with Dr Snyder. THis would indicate inoperable disease, even if the adrenal were negative.In addition , even if the adrenal and mediastinum were negative, she would not be operable due to her ongoing [place]. Depending on how her PS recovers, we will plan further recommendations Status: Acute
[2016-06-07 03:38] LABS: Basophils % (A) 0 %; CH 25.9; CHCM 30.1; Eosinophils # (A) 0.5 k/uL (0-0.7); Eosinophils % (A) 4 %; HCT 28.9 % (34.0-46.0); HDW 2.78; Hypochromasia Marked; Luc # (Auto) 0.15; Luc % (Auto) 1; Lymphocytes # (A) 2.1 k/uL (1.0-4.8); Lymphocytes % (A) 15 %; MCH 27.1 pg (25.0-35.0); MCHC 31.3 g/dL (31.0-37.0); MCV 86.5 fL (80.0-100.0); Mean Platelet Volume 6.5; Monocytes # (A) 0.6 k/uL (0-1.0); Monocytes % (A) 4 %; Neutrophils # (A) 10.6 k/uL (1.3-7.7); Neutrophils % (A) 76 %; RBC 3.34 m/uL (3.80-5.40); RDW 15.6 % (11.5-15.5); WBC (Perox) 15.31
[2016-06-07 03:52] LABS: Anion Gap 4 mmol/L; Blood Urea Nitrogen 16 mg/dL (7-17); Calcium 8.3 mg/dL (8.4-10.2); Carbon Dioxide 26 mmol/L (22-30); Chloride 102 mmol/L (98-107); Glucose 98 mg/dL (74-99); Non-African American GFR(MDRD) >60 (>60 ml/min/1.73 sqM); Potassium 4.4 mmol/L (3.5-5.1); Sodium 132 mmol/L (137-145)
[2016-06-07] MEDS: LEVOTHYROXINE 100 MCG TAB PO SCH (06:35)
[2016-06-07] MEDS: PANTOPRAZOLE 40 MG TABLET PO SCH (06:35)
[2016-06-07] MEDS: MORPHINE SULFATE 4 MG/ML SYRINGE IVP PRN ×3 (09:18→18:37)
[2016-06-07] MEDS: FLECAINIDE 50 MG TAB PO SCH ×2 (09:33→20:53)
[2016-06-07] MEDS: BALSALAZIDE DISODIUM 750 MG CAPSULE PO SCH (09:33)
[2016-06-07] MEDS: amLODIPine 5 MG TAB PO SCH (09:33)
[2016-06-07] MEDS: ASPIRIN 325 MG TAB PO SCH (09:33)
[2016-06-07] MEDS: METOPROLOL TARTRATE 50 MG TAB PO SCH ×2 (09:34→20:53)
[2016-06-07] MEDS: PRAVASTATIN SODIUM 40 MG TAB PO SCH (09:34)
[2016-06-07] MEDS: VIT A,C & E-LUTEIN-MINERALS 1 EACH TAB PO SCH ×2 (09:34→20:53)
[2016-06-07] MEDS: MULTIVITAMINS, THERA 1 EACH TAB PO SCH (09:34)
--- NOTE | 2016-06-07 10:10 | PN ---
DATE OF SERVICE: 06/06/2016 This 80-year-old woman who was admitted with multiple medical problems, including acute non-ST segment myocardial infarction, also had paroxysmal atrial fibrillation. The patient also had right upper lobe mass lesion as well as postobstructive pneumonia. I have seen and evaluated the patient with the nurse practitioner. Continue to monitor. Prognosis guarded. Please refer to the nurse practitioner's notes and impressions documented as scribe for further information. I would also recommend a PT, OT evaluation as well as possible rehab evaluation as well. Once again, the prognosis is guarded. Further recommendations to follow.
--- NOTE | 2016-06-07 10:41 | ECHOF ---
Referral Reason:a fib MEASUREMENTS -------- HEIGHT: 165.1 cm WEIGHT: 73.9 kg BP: 109/52 RVIDd: 3.0 cm (< 3.3) IVSd: 0.8 cm (0.6 - 1.1) LVIDd: 4.7 cm (3.9 - 5.3) LVPWd: 1.0 cm (0.6 - 1.1) IVSs: 1.6 cm LVIDs: 3.0 cm LVPWs: 1.4 cm LA Diam: 3.5 cm (2.7 - 3.8) LAESV Index (A-L): 30.18 ml/m Ao Diam: 3.2 cm (2.0 - 3.7) AV Cusp: 2.0 cm (1.5 - 2.6) LA Diam: 2.8 cm (2.7 - 3.8) MV EXCURSION: 9.371 mm (> 18.000) MV EF SLOPE: 77 mm/s (70 - 150) EPSS: 0.3 cm MV E Soto: 0.95 m/s MV DecT: 229 ms MV A Soto: 0.75 m/s MV E/A Ratio: 1.26 RAP: 5.00 mmHg RVSP: 46.30 mmHg FINDINGS -------- Sinus rhythm. This was a technically adequate study. The left ventricular size is normal. Left ventricular wall thickness is normal. Overall left ventricular systolic function is normal with, an EF between 55 - 60 %. The right ventricle is normal in size. LA is midly dilated 29-33ml/m2. The right atrium is normal in size. Aortic valve is trileaflet and is mildly thickened. There is mild aortic regurgitation. Mild mitral annular calcification present. Mild mitral regurgitation is present. Mild tricuspid regurgitation present. There is mild pulmonary hypertension. The right ventricular systolic pressure, as measured by Doppler, is 46.30mmHg. Trace/mild (physiologic) pulmonic regurgitation. The aortic root size is normal. Normal inferior vena cava with normal inspiratory collapse consistent with estimated right atrial pressure of 5 mmHg. There is no pericardial effusion. CONCLUSIONS -------- 1. Sinus rhythm. 2. Mild tricuspid regurgitation present. 3. There is mild pulmonary hypertension. 4. Trace/mild (physiologic) pulmonic regurgitation. 5. The aortic root size is normal. 6. Normal inferior vena cava with normal inspiratory collapse consistent with estimated right atrial pressure of 5 mmHg. 7. There is no pericardial effusion. 8. This was a technically adequate study. 9. Left ventricular wall thickness is normal. 10. Overall left ventricular systolic function is normal with, an EF between 55 - 60 %. 11. LA is midly dilated 29-33ml/m2. 12. Aortic valve is trileaflet and is mildly thickened. 13. There is mild aortic regurgitation. 14. Mild mitral annular calcification present. 15. Mild mitral regurgitation is present. LIFE AGENT: Lico Vitale RDCS
--- NOTE | 2016-06-07 10:47 | P.PN ---
Subjective Principal diagnosis: Afib w/RVR This is a pleasant 80-year-old lady with a history of metastatic lung cancer who was admitted to the hospital with symptoms of generalized weakness and discomfort the right upper back that has progressed over the last 3 weeks. Upon presentation to the emergency department she was found to be in atrial fibrillation with rapid ventricular response and is subsequently converted to sinus rhythm. Patient's troponins were found to be elevated, peak of 1.1. EKG following conversion shows normal sinus rhythm without ST-T wave changes. Upon examination this morning, patient is lying in bed with complaints of back discomfort for which she is waiting for pain medications. She denies any complaints of chest discomfort, palpitations, shortness of breath or edema. Objective - Vital Signs Vital signs: Vital Signs Temp 99.3 F 06/07/16 07:50 Pulse 70 06/07/16 07:50 Resp 20 06/07/16 07:50 BP 124/41 06/07/16 07:50 Pulse Ox 94 L 06/07/16 07:50 Intake & Output 06/06/16 06/07/16 06/07/16 18:59 06:59 18:59 Intake Total 495.7 400 240 Output Total 100 Balance 495.7 300 240 Weight 74.6 kg Intake: IV 155.7 Heparin Sodium,Porcine/ 155.7 D5w Pmx 25,000 unit In Dextrose/Water 1 500ml. bag @ 12 UNITS/KG/HR 17. 37 mls/hr IV .Q24H [facility] Rx #:[id number] Oral 340 400 240 Output: Urine 100 Other: # Voids 3 1 - Exam PHYSICAL EXAMINATION: HEENT: Head is atraumatic, normocephalic. Pupils equal, round. Neck is supple. There is no elevated jugular venous pressure. HEART EXAMINATION: Heart sounds regular, S1 and S2 normal. No murmur or gallop heard. CHEST EXAMINATION: Lungs are clear to auscultation and precussion. No chest wall tenderness is noted on palpation or with deep breathing. ABDOMEN: Soft, nontender. Bowel sounds are heard. No organomegaly noted. EXTREMITIES: 2+ peripheral pulses with no evidence of peripheral edema and no calf tenderness noted. NEUROLOGIC patient is awake, alert and oriented x3. . - Labs CBC & Chem 7: 06/07/16 03:19 06/07/16 03:19 Labs: Abnormal Lab Results - Last 24 Hours (Table) 06/07/16 06/07/16 06/07/16 Range/Units 03:19 03:19 03:19 WBC 14.0 H (3.8-10.6) k/uL RBC 3.34 L (3.80-5.40) m/uL Hgb 9.0 L (11.4-16.0) gm/dL Hct 28.9 L (34.0-46.0) % RDW 15.6 H (11.5-15.5) % Neutrophils # 10.6 H (1.3-7.7) k/uL APTT 34.7 H (22.0-30.0) sec Sodium 132 L (137-145) mmol/L Calcium 8.3 L (8.4-10.2) mg/dL Microbiology - Last 24 Hours (Table) 06/05/16 20:23 Blood Culture - Preliminary Blood No Growth after 24 hours Assessment and Plan Plan: Assessment and plan #1 paroxysmal atrial fibrillation, currently maintaining sinus rhythm #2 non-ST segment elevation myocardial infarction #3 metastatic lung cancer #4 hypertension From cardiology's perspective, we will continue maximize medical therapy. 2-D echocardiogram has been obtained, results pending. Continue aspirin, flecainide 100 mg by mouth every 12 hours, metoprolol 50 mg by mouth twice a day , Xarelto 20 mg by mouth daily and Norvasc 5 mg by mouth daily. The above dictated assessment and findings were discussed with signing physician. The impression and plan of care have been directed as dictated. Dary Ny, Nurse Practitioner, acting as scribe for signing physician.
--- NOTE | 2016-06-07 12:17 | P.PN ---
Subjective Principal diagnosis: Atrial fibrillation with RVR and recently diagnosed advanced bronchogenic carcinoma This is a 80-year-old female who was recently diagnosed with advanced stage of lung cancer and we referred her to with her oncologist. Her diagnosis was based on pre-carinal lymph node aspiration and based on biopsies of the bronchus intermedius lesion. 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 And she was eventually discharged home with plans to have follow-up with the oncologist. Patient was readmitted this time with mostly multiple confusional complaints including weakness, fatigue, and apparently she has some chest discomfort upon presentation. She was found to be in atrial fibrillation with RVR, and she subsequently converted to sinus rhythm. At the time of my evaluation, the patient was doing well. Discussed her condition with Dr. chowdary and the recent the bronchoscopy findings. Patient was also seen by the special education science teacher, and he is concerned about possible acute non-ST elevation myocardial infarction. Presently patient is relatively asymptomatic. Patient was reevaluated today on 06/07/2016, she seems to be doing a bit better, no cough no wheezing, no shortness of breath, continues to have generalized weakness in spite of her heart rate being better controlled. Objective - Vital Signs Vital signs: Vital Signs Temp 97.6 F 06/07/16 11:34 Pulse 60 06/07/16 11:34 Resp 16 06/07/16 11:34 BP 101/45 06/07/16 11:34 Pulse Ox 95 06/07/16 11:34 Intake & Output 06/06/16 06/07/16 06/07/16 18:59 06:59 18:59 Intake Total 495.7 400 480 Output Total 100 Balance 495.7 300 480 Weight 74.6 kg Intake: IV 155.7 Heparin Sodium,Porcine/ 155.7 D5w Pmx 25,000 unit In Dextrose/Water 1 500ml. bag @ 12 UNITS/KG/HR 17. 37 mls/hr IV .Q24H [facility] Rx #:[id number] Oral 340 400 480 Output: Urine 100 Other: Voiding Method Toilet # Voids 3 1 - Exam Physical Exam: Revealed a 80-year-old female looks chronically ill, in no form of respiratory distress. HEENT:[Neck is supple.] [No neck masses.] [No thyromegaly.] [No JVD.] Chest: Diminished breath sounds at the bases especially at the right base but no rhonchi, no wheezes.] Cardiac Exam: [Normal S1 and S2, no S3 gallop, no murmur.] Abdomen: [Soft, nontender, no megaly, no rebound, no guarding, normal bowel sounds.] Extremities: [No clubbing, no edema, no cyanosis.] Neurological Exam: [No focal neurologic deficit.] - Labs CBC & Chem 7: 06/07/16 03:19 06/07/16 03:19 Labs: Abnormal Lab Results - Last 24 Hours (Table) 06/07/16 06/07/16 06/07/16 Range/Units 03:19 03:19 03:19 WBC 14.0 H (3.8-10.6) k/uL RBC 3.34 L (3.80-5.40) m/uL Hgb 9.0 L (11.4-16.0) gm/dL Hct 28.9 L (34.0-46.0) % RDW 15.6 H (11.5-15.5) % Neutrophils # 10.6 H (1.3-7.7) k/uL APTT 34.7 H (22.0-30.0) sec Sodium 132 L (137-145) mmol/L Calcium 8.3 L (8.4-10.2) mg/dL Microbiology - Last 24 Hours (Table) 06/05/16 20:23 Blood Culture - Preliminary Blood No Growth after 24 hours Assessment and Plan Plan: Impression: 1 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 2 paroxysmal atrial fibrillation, being addressed by cardiology on the case. 3 acute non-ST segment elevation myocardial infarction 4 suspect some component of underlying COPD 5 history of ulcerative colitis 6 history of coronary artery disease and previous coronary stent insertion 7 history of essential hypertension 8 remote smoking history 9 history of mixed hyperlipidemia. Recommendation: Continue present treatment plan, agree with the treatment as per cardiology on the case, we'll sign off for now, and we'll see the patient on when necessary basis. Time with Patient: Less than 30
[2016-06-07] MEDS: RIVAROXABAN 10 MG TAB PO SCH (17:27)
--- NOTE | 2016-06-07 18:08 | P.PN ---
Subjective Date of service 06/07/2016 Progress note being dictated for Dr. Magana. Interval history: This a 80-year-old female admitted with fatigue, chest discomfort, proximal atrial fibrillation with RVR, non-STEMI in a patient with recently diagnosed metastatic lung CA. Echo reporting EF 55-60%. Anticoagulated on Xarelto. Continues on aspirin, statins, beta israel, nitrates and flecainide. Telemetry currently sinus rhythm. Hemoglobin 9.0, sodium 132. Evaluated by oncology, , discussing prior positive biopsy from a precarinal node with pulmonary, suggestive of possible mediastinal involvement, further recommendations to follow. Review of systems: HEENT: Denies headache or focal deficits. Denies any dizziness. Complains of fatigue, Respiratory: Denies any increased shortness of breath. Cardiac: Denies any chest pain, palpitations. GI: Denies any nausea, vomiting, or diarrhea. Denies any abdominal tenderness. : Denies any dysuria. Psychiatry: Denies any anxiety or depression. Active Medications Generic Name Dose Route Start Last Admin Trade Name Popeye PRN Reason Stop Dose Admin Amlodipine Besylate 5 mg 06/06/16 09:00 06/07/16 09:33 Norvasc PO 5 mg QAM [facility] Administration Aspirin 325 mg 06/06/16 09:00 06/07/16 09:33 Aspirin PO 325 mg DAILY [facility] Administration Balsalazide 1,500 mg 06/06/16 09:00 06/07/16 09:33 Colazal PO 1,500 mg DAILY [facility] Administration Docusate Sodium 100 mg 06/07/16 21:00 Colace PO BID [facility] Flecainide Acetate 100 mg 06/06/16 21:00 06/07/16 09:33 Tambocor PO 100 mg Q12HR [facility] Administration Ceftriaxone Sodium 1,000 mg/ 50 mls @ 100 mls/hr 06/05/16 19:45 06/07/16 11: 44 Sodium Chloride IVPB 100 mls/hr Q24HR [facility] Administration Levothyroxine Sodium 100 mcg 06/06/16 06:30 06/07/16 06:35 Synthroid PO 100 mcg 0630 [facility] Administration Metoprolol Tartrate 50 mg 06/05/16 21:00 06/07/16 09:34 Lopressor PO 50 mg BID [facility] Administration Morphine Sulfate 4 mg 06/05/16 15:14 06/07/16 14:05 Morphine Sulfate (Inj) IVP 4 mg Q4HR PRN Administration Pain Multivitamins 1 each 06/06/16 09:00 06/07/16 09:34 Theragran PO 1 each DAILY [facility] Administration Multivitamins/Minerals 1 each 06/05/16 21:00 06/07/16 09:34 Ivite PO 1 each BID [facility] Administration Nitroglycerin 0.4 mg 06/05/16 15:11 Nitrostat SUBLINGUAL Q5M PRN Chest Pain Pantoprazole Sodium 40 mg 06/06/16 08:30 06/07/16 06:35 Protonix PO 40 mg AC-BRKFST [facility] Administration Pravastatin Sodium 40 mg 06/06/16 09:00 06/07/16 09:34 Pravachol PO 40 mg DAILY [facility] Administration Rivaroxaban 20 mg 06/06/16 17:30 06/07/16 17:27 Xarelto PO 20 mg W/SUPPER [facility] Administration Temazepam 15 mg 06/05/16 19:45 06/06/16 20:43 Restoril PO 15 mg HS PRN Administration Insomnia Objective - Vital Signs Vital signs: Vital Signs Temp 97.5 F L 06/07/16 15:28 Pulse 56 L 06/07/16 15:28 Resp 20 06/07/16 15:28 BP 106/44 06/07/16 15:28 Pulse Ox 98 06/07/16 15:28 Intake & Output 06/06/16 06/07/16 06/07/16 18:59 06:59 18:59 Intake Total 495.7 400 480 Output Total 100 Balance 495.7 300 480 Weight 74.6 kg Intake: IV 155.7 Heparin Sodium,Porcine/ 155.7 D5w Pmx 25,000 unit In Dextrose/Water 1 500ml. bag @ 12 UNITS/KG/HR 17. 37 mls/hr IV .Q24H [facility] Rx #:[id number] Oral 340 400 480 Output: Urine 100 Other: Voiding Method Toilet # Voids 3 1 - Exam PHYSICAL EXAM: VITAL SIGNS: As above GENERAL: [Sitting up at side of bed, no acute distress] HEENT: [Pupils equal conjunctiva normal.] NECK: [Supple, no JVD] RESPIRATORY EFFORT:[Normal] LUNGS: [Bilateral Diminished bases, no wheezes crackles or rhonchi] CARDIOVASCULAR[regular S1 and S2, no murmur, rub or gallop, no edema] GI: [Abdomen soft, nontender, positive bowel sounds.] PSYCH: [Alert and oriented -3, mood and affect normal.] NEURO: No focal deficits, moves all 4 extremities, strength and sensation intact - Labs CBC & Chem 7: 06/07/16 03:19 06/07/16 03:19 Labs: Abnormal Lab Results - Last 24 Hours (Table) 06/07/16 06/07/16 06/07/16 Range/Units 03:19 03:19 03:19 WBC 14.0 H (3.8-10.6) k/uL RBC 3.34 L (3.80-5.40) m/uL Hgb 9.0 L (11.4-16.0) gm/dL Hct 28.9 L (34.0-46.0) % RDW 15.6 H (11.5-15.5) % Neutrophils # 10.6 H (1.3-7.7) k/uL APTT 34.7 H (22.0-30.0) sec Sodium 132 L (137-145) mmol/L Calcium 8.3 L (8.4-10.2) mg/dL Microbiology - Last 24 Hours (Table) 06/06/16 20:35 Urine Culture - Preliminary Urine,Voided 06/05/16 20:23 Blood Culture - Preliminary Blood No Growth after 24 hours Assessment and Plan Plan: #1 acute non-STEMI #2. Proximal atrial fibrillation with RVR, converted to sinus rhythm #3. 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 #4. Recent Post Obstructive pneumonia #5 history of ulcerative colitis #6 CAD with history of stent #7 Essential hypertension. #8 history of nicotine abuse. #9 Dyslipidemia #10 COPD #11 Anemia, Plan: Continue on current medication regime , nitrates, aspirin, beta israel, statin, monitoring and symptomatic treatment. As mentioned above medical management recommended as per cardiology given patient's metastatic lung CA. patient and son updated on plan a care at bedside including discharge to [facility] rehab tomorrow. Both are in agreement for subacute rehab.Further recommendations to follow. The impression and plan of care has been dictated as directed. : I performed a H&P examination of this patient and discussed the same with the dictator. I agree with the dictator's note. Any additional findings/opinions/ etc. will be noted.
[2016-06-07] MEDS: DOCUSATE 100 MG CAP PO SCH (20:53)
[2016-06-08] MEDS: MORPHINE SULFATE 4 MG/ML SYRINGE IVP PRN ×5 (00:09→23:36)
--- NOTE | 2016-06-08 05:53 | PN ---
DATE OF SERVICE: 06/07/2016 This 80-year-old woman who was admitted with multiple medical problems including paroxysmal atrial fibrillation, acute myocardial infarction also right upper lobe mass also. The patient is being closely monitored. Seen and evaluated the patient along with the nurse practitioner. Please refer to nurse practitioner notes and impression documented for further information. Prognosis guarded. Further recommendations to follow. The white count is still elevated. Cultures are pending at this time. Troponin I elevated up to 1.10.
[2016-06-08 06:00] LABS: Basophils % (A) 0 %; CH 25.8; CHCM 30.5; Eosinophils # (A) 0.5 k/uL (0-0.7); Eosinophils % (A) 3 %; HCT 28.6 % (34.0-46.0); HDW 2.92; HGB 8.8 gm/dL (11.4-16.0); Hypochromasia Marked; Luc # (Auto) 0.26; Luc % (Auto) 2; Lymphocytes # (A) 2.4 k/uL (1.0-4.8); Lymphocytes % (A) 16 %; MCH 26.3 pg (25.0-35.0); MCHC 30.9 g/dL (31.0-37.0); MCV 85.2 fL (80.0-100.0); Mean Platelet Volume 6.6; Monocytes # (A) 0.5 k/uL (0-1.0); Monocytes % (A) 4 %; Neutrophils # (A) 10.7 k/uL (1.3-7.7); Neutrophils % (A) 75 %; RBC 3.35 m/uL (3.80-5.40); RDW 15.5 % (11.5-15.5); WBC 14.4 k/uL (3.8-10.6); WBC (Perox) 15.11
[2016-06-08 06:15] LABS: Anion Gap 6 mmol/L; Blood Urea Nitrogen 13 mg/dL (7-17); Calcium 8.5 mg/dL (8.4-10.2); Carbon Dioxide 27 mmol/L (22-30); Chloride 102 mmol/L (98-107); Glucose 100 mg/dL (74-99); Non-African American GFR(MDRD) >60 (>60 ml/min/1.73 sqM); Sodium 135 mmol/L (137-145)
[2016-06-08] MEDS: PANTOPRAZOLE 40 MG TABLET PO SCH (06:30)
[2016-06-08] MEDS: LEVOTHYROXINE 100 MCG TAB PO SCH (06:30)
[2016-06-08] MEDS: amLODIPine 5 MG TAB PO SCH (08:12)
[2016-06-08] MEDS: BALSALAZIDE DISODIUM 750 MG CAPSULE PO SCH (08:12)
[2016-06-08] MEDS: DOCUSATE 100 MG CAP PO SCH ×2 (08:12→19:58)
[2016-06-08] MEDS: FLECAINIDE 50 MG TAB PO SCH ×2 (08:13→19:58)
[2016-06-08] MEDS: MULTIVITAMINS, THERA 1 EACH TAB PO SCH (08:13)
[2016-06-08] MEDS: PRAVASTATIN SODIUM 40 MG TAB PO SCH (08:13)
[2016-06-08] MEDS: METOPROLOL TARTRATE 50 MG TAB PO SCH ×2 (08:13→19:58)
[2016-06-08] MEDS: VIT A,C & E-LUTEIN-MINERALS 1 EACH TAB PO SCH ×2 (08:13→19:58)
[2016-06-08] MEDS: ASPIRIN 81 MG CHEW PO SCH (09:59)
--- NOTE | 2016-06-08 10:56 | P.PN ---
Subjective Principal diagnosis: A. fib with RVR This is a pleasant 80-year-old female with known history of metastatic lung CA who was admitted to the hospital with symptoms of progressively worse stenting weakness and right upper back discomfort. Upon presentation here patient was found to be in atrial fibrillation with a rapid ventricular response, subsequently she converted to normal sinus rhythm. Patient did have mild troponin abnormality suggestive of non-Q-wave CA. She continues to be in a normal sinus rhythm this morning. Echocardiogram with Doppler study was performed which revealed an ejection fraction of 55-60%. No evidence of pericardial effusion. Pressure this morning 122/45 with a heart rate in the 60s. She did have a low-grade temperature this morning of 100.0. Hemoglobin 8.8, potassium 4.0, BUN 13, creatinine 0.7. Patient is currently on aspirin, flecainide, metoprolol tartrate, pravastatin, Xarelto, at the time of my examination this morning, patient states she generally feels weak, denies any chest pain or difficulty in breathing. Objective - Vital Signs Vital signs: Vital Signs Temp 98.1 F 06/08/16 07:10 Pulse 60 06/08/16 08:21 Resp 24 06/08/16 08:21 BP 122/45 06/08/16 07:10 Pulse Ox 96 06/08/16 07:10 Intake & Output 06/07/16 06/08/16 06/08/16 18:59 06:59 18:59 Intake Total 480 100 180 Balance 480 100 180 Weight 75.5 kg Intake: Oral 480 100 180 Other: Voiding Method Toilet Toilet Diaper # Voids 1 1 1 - Exam PHYSICAL EXAMINATION: HEENT: [Head is atraumatic, normocephalic. Pupils equal, round. Neck is supple. There is no elevated jugular venous pressure.] HEART EXAMINATION: [Heart S1, S2 normal. No murmur or gallop heard.] CHEST EXAMINATION:[ Lungs are clear to auscultation and precussion. No chest wall tenderness is noted on palpation or with deep breathing.] ABDOMEN: [ Soft, nontender. Bowel sounds are heard. No organomegaly noted]. EXTREMITIES:[ 2+ peripheral pulses with no evidence of peripheral edema and no calf tenderness noted]. NEUROLOGIC [patient is awake, alert and oriented -3.] . - Labs CBC & Chem 7: 06/08/16 05:42 06/08/16 05:42 Labs: Abnormal Lab Results - Last 24 Hours (Table) 06/08/16 06/08/16 Range/Units 05:42 05:42 WBC 14.4 H (3.8-10.6) k/uL RBC 3.35 L (3.80-5.40) m/uL Hgb 8.8 L (11.4-16.0) gm/dL Hct 28.6 L (34.0-46.0) % MCHC 30.9 L (31.0-37.0) g/dL Neutrophils # 10.7 H (1.3-7.7) k/uL Sodium 135 L (137-145) mmol/L Glucose 100 H (74-99) mg/dL Microbiology - Last 24 Hours (Table) 06/05/16 20:23 Blood Culture - Preliminary Blood No Growth after 48 hours 06/06/16 20:35 Urine Culture - Preliminary Urine,Voided Assessment and Plan (1) Weakness Status: Acute (2) NSTEMI (non-ST elevated myocardial infarction) Status: Acute (3) HTN (hypertension) Status: Acute (4) Paroxysmal a-fib Status: Acute (5) Metastatic lung carcinoma Status: Acute (6) Hyperlipemia Status: Acute (7) Mass of upper lobe of right lung Status: Acute (8) Nicotine dependence Status: Acute Plan: From cardiology's perspective, we'll decrease the dose of aspirin 81 mg daily, continue flecainide, metoprolol tartrate, and xarelto. Echocardiogram with Doppler study was performed which revealed normal left ventricular systolic function with no evidence of pericardial effusion. DNP note has been reviewed, I agree with a documented findings and plan of care. Patient was seen and examined.
--- NOTE | 2016-06-08 11:32 | XR ---
EXAMINATION TYPE: XR chest 1V portable DATE OF EXAM: 06/08/2016 11:24 AM CLINICAL HISTORY: Weakness and fever. History of lung cancer. TECHNIQUE: Single AP portable upright view of the chest is obtained. COMPARISON: Chest x-ray from 3 days earlier FINDINGS: There is redemonstration of right infrahilar mass. Patient is more rotated to right on cur rent study making evaluation suboptimal. There is new completely opacified right lung with possible r ight sided volume loss suggesting obstructive atelectasis involving probable middle and lower lobes. Patchy atelectatic change in left lung base is seen. Right upper lobe is clear. Cardiac silhouette si ze is stable and mildly enlarged with ectatic thoracic aorta. Osseous structures are intact. IMPRESSION: Increasing density right lung base with known right infrahilar mass/neoplasm suggests new postobstructive atelectasis involving middle and lower lobes, underlying acute infiltrate cannot be excluded.
[2016-06-08 12:16] LABS: Appearance,Urine Clear (Clear); Bilirubin,Urine Negative (Negative); Glucose,Urine (UA) Negative (Negative); Ketones,Urine Negative (Negative); Leukocyte Esterase,Urine Trace (Negative); Mucus,Urine Rare /hpf; Nitrite,Urine Negative (Negative); PH, Urine 5.5 (5.0-8.0); Particle Count 2068; Protein,Urine Trace (Negative); Specific Gravity,Urine 1.011 (1.001-1.035); Squamous Epithelial Cell,Urine 1 /hpf (0-4); Transitional Epi Cells,Urine <1 /hpf (0-1); UA Billing (MACRO vs. MICRO) MICRO; Urobilinogen,Urine <2.0 mg/dL (<2.0); WBC,Urine 4 /hpf (0-5)
[2016-06-08] MEDS: RIVAROXABAN 10 MG TAB PO SCH (16:04)
[2016-06-08] MEDS: TEMAZEPAM 15 MG CAP PO PRN (21:15)
--- NOTE | 2016-06-09 00:29 | P.PN ---
Subjective Date of service 06/07/2016 Progress note being dictated for Dr. Magana. Interval history: This a 80-year-old female admitted with fatigue, chest discomfort, proximal atrial fibrillation with RVR, non-STEMI in a patient with recently diagnosed metastatic lung CA. Continues on aspirin, Xarelto ,statins , beta israel, nitrates and flecainide. Hemoglobin 8.8, sodium improved,135. T -max 100. Pancultured related to persistent fevers. Chest x-ray reporting increasing density right lung base with known right infrahilar mass/neoplasm suggest new postobstructive atelectasis involving middle and lower lobes, underlying acute infiltrate cannot be excluded. Continues on Rocephin. Review of systems: HEENT: Denies headache or focal deficits. Denies any dizziness. Complains of fatigue, generalized weakness Respiratory: Denies any increased shortness of breath. Cardiac: Denies any chest pain, palpitations. GI: Denies any nausea, vomiting, or diarrhea. Denies any abdominal tenderness. : Denies any dysuria. Psychiatry: Denies any anxiety or depression. Active Medications Amlodipine Besylate (Norvasc) 5 mg PO QAM [facility] Last Admin: 06/08/16 08:12 Dose: 5 mg Aspirin (Aspirin) 81 mg PO DAILY [facility] Last Admin: 06/08/16 09:59 Dose: 81 mg Balsalazide (Colazal) 1,500 mg PO DAILY [facility] Last Admin: 06/08/16 08:12 Dose: 1,500 mg Docusate Sodium (Colace) 100 mg PO BID [facility] Last Admin: 06/08/16 19:58 Dose: 100 mg Flecainide Acetate (Tambocor) 100 mg PO Q12HR [facility] Last Admin: 06/08/16 19:58 Dose: 100 mg Ceftriaxone Sodium 1,000 mg/ (Sodium Chloride) 50 mls @ 100 mls/hr IVPB Q24HR [facility] Last Admin: 06/08/16 07:57 Dose: 100 mls/hr Levothyroxine Sodium (Synthroid) 100 mcg PO 0630 [facility] Last Admin: 06/08/16 06:30 Dose: 100 mcg Metoprolol Tartrate (Lopressor) 50 mg PO BID [facility] Last Admin: 06/08/16 19:58 Dose: 50 mg Morphine Sulfate (Morphine Sulfate (Inj)) 4 mg IVP Q4HR PRN PRN Reason: Pain Last Admin: 06/08/16 23:36 Dose: 4 mg Multivitamins (Theragran) 1 each PO DAILY [facility] Last Admin: 06/08/16 08:13 Dose: 1 each Multivitamins/Minerals (Ivite) 1 each PO BID [facility] Last Admin: 06/08/16 19:58 Dose: 1 each Nitroglycerin (Nitrostat) 0.4 mg SUBLINGUAL Q5M PRN PRN Reason: Chest Pain Pantoprazole Sodium (Protonix) 40 mg PO AC-BRKFST [facility] Last Admin: 06/08/16 06:30 Dose: 40 mg Pravastatin Sodium (Pravachol) 40 mg PO DAILY [facility] Last Admin: 06/08/16 08:13 Dose: 40 mg Rivaroxaban (Xarelto) 20 mg PO W/SUPPER [facility] Last Admin: 06/08/16 16:04 Dose: 20 mg Temazepam (Restoril) 15 mg PO HS PRN PRN Reason: Insomnia Last Admin: 06/08/16 21:15 Dose: 15 mg Objective - Vital Signs Vital signs: Vital Signs Temp 99.0 F 06/08/16 20:11 Pulse 75 06/08/16 20:11 Resp 20 06/08/16 20:11 BP 176/73 06/08/16 20:11 Pulse Ox 91 L 06/08/16 20:11 Intake & Output 06/08/16 06/08/16 06/09/16 06:59 18:59 06:59 Intake Total 100 298 Balance 100 298 Weight 75.5 kg Intake: Oral 100 298 Other: Voiding Method Toilet Diaper # Voids 1 1 - Exam PHYSICAL EXAM: VITAL SIGNS: As above GENERAL: [Sitting up at side of bed, tired appearing] HEENT: [Pupils equal conjunctiva normal.] NECK: [Supple, no JVD] RESPIRATORY EFFORT:[Normal] LUNGS: [Bilateral Diminished bases, no wheezes crackles or rhonchi] CARDIOVASCULAR[regular S1 and S2, no murmur, rub or gallop, no edema] GI: [Abdomen soft, nontender, positive bowel sounds.] PSYCH: [Alert and oriented -3, mood and affect normal.] NEURO: No focal deficits, moves all 4 extremities, strength and sensation intact Microbiology 06/05/16 20:23 Blood Blood Culture - Preliminary No Growth after 72 hours 06/06/16 20:35 Urine,Voided Urine Culture - Final - Labs CBC & Chem 7: 06/08/16 05:42 06/08/16 05:42 Labs: Abnormal Lab Results - Last 24 Hours (Table) 06/08/16 06/08/16 06/08/16 Range/Units 05:42 05:42 10:45 WBC 14.4 H (3.8-10.6) k/uL RBC 3.35 L (3.80-5.40) m/uL Hgb 8.8 L (11.4-16.0) gm/dL Hct 28.6 L (34.0-46.0) % MCHC 30.9 L (31.0-37.0) g/dL Neutrophils # 10.7 H (1.3-7.7) k/uL Sodium 135 L (137-145) mmol/L Glucose 100 H (74-99) mg/dL Urine Protein Trace H (Negative) Ur Leukocyte Esterase Trace H (Negative) Urine Mucus Rare H (None) /hpf Microbiology - Last 24 Hours (Table) 06/05/16 20:23 Blood Culture - Preliminary Blood No Growth after 72 hours 06/06/16 20:35 Urine Culture - Final Urine,Voided Assessment and Plan Plan: #1 acute non-STEMI #2. Proximal atrial fibrillation with RVR, converted to sinus rhythm #3. 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 #4. Recent Post Obstructive pneumonia,Worsening chest x-ray with increasing right lung base density, possible new postobstructive atelectasis involving middle and lower lobes, possible underlying acute infiltrate. #5 history of ulcerative colitis #6 CAD with history of stent #7 Essential hypertension. #8 history of nicotine abuse. #9 Dyslipidemia #10 COPD #11 Anemia, Plan: Continue on current medication regime , nitrates, aspirin, beta israel, statin, monitoring and symptomatic treatment. As mentioned above worsening chest x-ray suggestive of new postobstructive atelectasis, further recommendations pending from pulmonary and oncology. As mentioned above medical management recommended as per cardiology given patient's metastatic lung CA. patient and son updated on plan a care at bedside including subacute rehab at discharge.Further recommendations to follow. Prognosis guarded, given multiple complex medical issues. The impression and plan of care has been dictated as directed. : I performed a H&P examination of this patient and discussed the same with the dictator. I agree with the dictator's note. Any additional findings/opinions/ etc. will be noted.
[2016-06-09] MEDS: MORPHINE SULFATE 4 MG/ML SYRINGE IVP PRN ×4 (04:56→20:39)
[2016-06-09] MEDS: LEVOTHYROXINE 100 MCG TAB PO SCH (06:39)
[2016-06-09] MEDS: PANTOPRAZOLE 40 MG TABLET PO SCH (06:40)
[2016-06-09 06:58] LABS: Basophils % (A) 0 %; CHCM 30.4; Eosinophils # (A) 0.4 k/uL (0-0.7); Eosinophils % (A) 3 %; HCT 27.9 % (34.0-46.0); HDW 2.91; HGB 8.6 gm/dL (11.4-16.0); Hypochromasia Marked; Luc # (Auto) 0.21; Luc % (Auto) 2; Lymphocytes # (A) 1.5 k/uL (1.0-4.8); Lymphocytes % (A) 11 %; MCH 26.5 pg (25.0-35.0); MCHC 30.9 g/dL (31.0-37.0); MCV 85.8 fL (80.0-100.0); Mean Platelet Volume 6.5; Monocytes # (A) 0.6 k/uL (0-1.0); Monocytes % (A) 4 %; Neutrophils # (A) 11.7 k/uL (1.3-7.7); Neutrophils % (A) 81 %; RBC 3.25 m/uL (3.80-5.40); RDW 15.6 % (11.5-15.5); WBC 14.5 k/uL (3.8-10.6); WBC (Perox) 15.72
[2016-06-09 07:18] LABS: Anion Gap 6 mmol/L; Blood Urea Nitrogen 12 mg/dL (7-17); Calcium 8.5 mg/dL (8.4-10.2); Carbon Dioxide 27 mmol/L (22-30); Chloride 102 mmol/L (98-107); Glucose 100 mg/dL (74-99); Non-African American GFR(MDRD) >60 (>60 ml/min/1.73 sqM); Potassium 4.2 mmol/L (3.5-5.1); Sodium 135 mmol/L (137-145)
[2016-06-09] MEDS: FLECAINIDE 50 MG TAB PO SCH ×2 (07:31→21:49)
[2016-06-09] MEDS: MULTIVITAMINS, THERA 1 EACH TAB PO SCH (07:31)
[2016-06-09] MEDS: DOCUSATE 100 MG CAP PO SCH ×2 (07:31→21:47)
[2016-06-09] MEDS: VIT A,C & E-LUTEIN-MINERALS 1 EACH TAB PO SCH ×2 (07:31→21:50)
[2016-06-09] MEDS: BALSALAZIDE DISODIUM 750 MG CAPSULE PO SCH (07:31)
[2016-06-09] MEDS: ASPIRIN 81 MG CHEW PO SCH (07:32)
[2016-06-09] MEDS: PRAVASTATIN SODIUM 40 MG TAB PO SCH (07:32)
[2016-06-09] MEDS: METOPROLOL TARTRATE 50 MG TAB PO SCH ×2 (07:32→21:48)
[2016-06-09] MEDS: amLODIPine 5 MG TAB PO SCH (07:32)
--- NOTE | 2016-06-09 09:17 | PN ---
DATE OF SERVICE: 06/08/2016 This 80-year-old woman who was admitted with acute non-ST elevation myocardial infarction, also paroxysmal atrial fibrillation. Patient also has right upper lobe mass. Seen and evaluated the patient along with the nurse practitioner. Please refer to the nurse practitioner notes and impression documented for further information. PT, OT evaluation. Possible ECF rehab. See orders for details.
[2016-06-09] MEDS: ONDANSETRON 4 MG/2 ML VIAL IVP PRN (12:15)
[2016-06-09] MEDS ORDERED: PANTOPRAZOLE 40 MG/10 ML VIAL IVP SCH (12:30)
[2016-06-09] MEDS ORDERED: LACTULOSE 20 GM/30 ML CUP PO ONE (12:31)
[2016-06-09] MEDS ORDERED: PANTOPRAZOLE 40 MG TABLET PO SCH (17:30)
[2016-06-09] MEDS: RIVAROXABAN 10 MG TAB PO SCH (19:43)
--- NOTE | 2016-06-09 20:30 | P.PN ---
Subjective Principal diagnosis: Right lung cancer. The patient was improving slowly, with no recurrence of chest pain. She still remains short of breath with some improvement. However over the last 24 hours, she feels somewhat weaker and more short of breath. Objective - Vital Signs Vital signs: Vital Signs Temp 97.7 F 06/09/16 17:51 Pulse 56 L 06/09/16 17:51 Resp 16 06/09/16 17:51 BP 127/58 06/09/16 17:51 Pulse Ox 96 06/09/16 17:51 Intake & Output 06/09/16 06/09/16 06/10/16 06:59 18:59 06:59 Intake Total 550 100 Output Total 100 150 Balance 450 100 -150 Weight 75.1 kg Intake: Oral 550 100 Output: Urine 100 150 Other: # Voids 1 1 - Constitutional General appearance: Present: no acute distress - EENT Eyes: Present: EOMI, PERRLA ENT: Present: hearing grossly normal, normal oropharynx - Respiratory Respiratory: right: diminished, rales - Cardiovascular Rhythm: regular Heart sounds: normal: S1, S2 - Gastrointestinal General gastrointestinal: Present: normal bowel sounds, soft - Integumentary Integumentary: Present: normal - Neurologic Neurologic: Present: CNII-XII intact - Musculoskeletal Musculoskeletal: Present: generalized weakness - Psychiatric Psychiatric: Present: A&O x's 3, appropriate affect - Labs CBC & Chem 7: 06/09/16 06:32 06/09/16 06:32 Labs: Abnormal Lab Results - Last 24 Hours (Table) 06/09/16 06/09/16 Range/Units 06:32 06:32 WBC 14.5 H (3.8-10.6) k/uL RBC 3.25 L (3.80-5.40) m/uL Hgb 8.6 L (11.4-16.0) gm/dL Hct 27.9 L (34.0-46.0) % MCHC 30.9 L (31.0-37.0) g/dL RDW 15.6 H (11.5-15.5) % Neutrophils # 11.7 H (1.3-7.7) k/uL Sodium 135 L (137-145) mmol/L Glucose 100 H (74-99) mg/dL Microbiology - Last 24 Hours (Table) 06/08/16 10:38 Blood Culture - Preliminary Blood No Growth after 24 hours 06/08/16 10:44 Blood Culture - Preliminary Blood No Growth after 24 hours 06/05/16 20:23 Blood Culture - Preliminary Blood No Growth after 72 hours Assessment and Plan (1) Elevated troponin I level Narrative/Plan: The patient was felt to have a non-ST elevation AR. She was managed conservatively by cardiology, and has improved, with no recurrence of chest pain. Status: Acute (2) Squamous cell lung cancer Narrative/Plan: The patient's clinical situation in this regard is quite complicated at this time. Based on computed tomography scan as well as PET scan, she appeared to have disease localized to the lung, with uptake in the right adrenal gland is the only possible metastatic site. Her pathology report had noted a pretracheal node positive. However the case was discussed extensively with Dr. Snyder, who confirmed that the note was not biopsied, and that specimen was part of the primary mass. In this situation, the standard of care is to biopsy the renal to see if it is truly involved or not. Even if the adrenal is involved, patient's can still be treated aggressively if they have limited disease elsewhere, either with additional resection or radiation. A biopsy for her was scheduled, but could not be done as noted in my initial consult. This was scheduled at [facility], but at this time logistically that would be quite difficult was scheduled given the patient's weakness. She appears to have recovered from her MRI, but during this hospitalization has become more debilitated. He does not feel that she can manage at home and the plan is to transfer her to an ECF. However in the ECF, the patient will not be able to receive chemotherapy or possibly even radiation. Her chest x- ray today showed increasing infiltrates in the right lower lobe, concerning for recurrence of obstruction. If this progresses, leading to recurrent pneumonia, it is highly unlikely the patient will be able to recover her performance status. Case was discussed extensively with the admitting service, and pulmonary medicine. At this time, it is felt that the patient may benefit reevaluation of the airway and procedures to open up any obstruction. Based on our discussion, addition oncology will be consulted, to consider at least palliative radiation to the primary site. In addition primary medicine and will reevaluate her imaging, and may consider repeat bronchoscopy. Regarding management of her malignancy as a whole, at this time biopsy of the adrenal gland appears to be difficult to arrange. Therefore an option, assuming that the patient is able to improve in terms of performance status, would be to treat her with cytoreductive chemotherapy upfront, and then radiate any residual disease, including the right adrenal. Again that would only be possible if she is able to improve in terms of her performance status. We'll await further input from pulmonary medicine and radiation oncology. Status: Acute
[2016-06-09] MEDS: TEMAZEPAM 15 MG CAP PO PRN (21:51)
[2016-06-09] MEDS: PANTOPRAZOLE 40 MG/10 ML VIAL IVP SCH (21:51)
--- NOTE | 2016-06-09 22:36 | PN ---
DATE OF SERVICE: 06/09/2016 This 81 -year-old woman who was admitted with non-ST elevation myocardial infarction, the patient also had paroxysmal atrial fibrillation as well as right upper lobe pneumonia, possible pneumonia. Seen and evaluated the patient along with nurse practitioner. Please refer to the nurse practitioner notes and impression documented as a scribe for further information. Guarded prognosis. Further recommendations to follow.
[2016-06-10] MEDS: MORPHINE SULFATE 4 MG/ML SYRINGE IVP PRN ×5 (04:31→22:21)
[2016-06-10] MEDS: LEVOTHYROXINE 100 MCG TAB PO SCH (07:23)
[2016-06-10] MEDS: PANTOPRAZOLE 40 MG/10 ML VIAL IVP SCH ×2 (07:40→20:34)
[2016-06-10] MEDS: FLECAINIDE 50 MG TAB PO SCH ×2 (07:41→20:34)
[2016-06-10] MEDS: METOPROLOL TARTRATE 50 MG TAB PO SCH ×2 (07:41→20:34)
[2016-06-10] MEDS: ASPIRIN 81 MG CHEW PO SCH (07:41)
[2016-06-10] MEDS: PRAVASTATIN SODIUM 40 MG TAB PO SCH (07:41)
[2016-06-10] MEDS: DOCUSATE 100 MG CAP PO SCH ×2 (07:41→20:34)
[2016-06-10] MEDS: MULTIVITAMINS, THERA 1 EACH TAB PO SCH (07:41)
[2016-06-10] MEDS: BALSALAZIDE DISODIUM 750 MG CAPSULE PO SCH (07:42)
[2016-06-10] MEDS: VIT A,C & E-LUTEIN-MINERALS 1 EACH TAB PO SCH ×2 (07:42→20:34)
[2016-06-10] MEDS: amLODIPine 5 MG TAB PO SCH (07:42)
[2016-06-10 08:12] LABS: Basophils % (A) 0 %; CH 25.8; CHCM 30.5; Eosinophils # (A) 0.3 k/uL (0-0.7); Eosinophils % (A) 2 %; HCT 29.2 % (34.0-46.0); HDW 2.98; Hypochromasia Marked; Luc % (Auto) 1; Lymphocytes # (A) 1.7 k/uL (1.0-4.8); Lymphocytes % (A) 11 %; MCH 26.3 pg (25.0-35.0); MCV 85.1 fL (80.0-100.0); Mean Platelet Volume 6.5; Monocytes # (A) 0.6 k/uL (0-1.0); Monocytes % (A) 4 %; Neutrophils # (A) 12.1 k/uL (1.3-7.7); Neutrophils % (A) 81 %; RBC 3.43 m/uL (3.80-5.40); RDW 15.4 % (11.5-15.5); WBC 14.9 k/uL (3.8-10.6); WBC (Perox) 15.72
[2016-06-10 08:29] LABS: Anion Gap 7 mmol/L; Blood Urea Nitrogen 12 mg/dL (7-17); Calcium 8.7 mg/dL (8.4-10.2); Carbon Dioxide 31 mmol/L (22-30); Chloride 99 mmol/L (98-107); Glucose 111 mg/dL (74-99); Non-African American GFR(MDRD) >60 (>60 ml/min/1.73 sqM); Potassium 4.1 mmol/L (3.5-5.1); Sodium 137 mmol/L (137-145)
--- NOTE | 2016-06-10 09:15 | P.PN ---
Subjective Date of service 06/09/2016 Progress note being dictated for Dr. Magana. Interval history: This a 80-year-old female admitted with fatigue, chest discomfort, proximal atrial fibrillation with RVR, non-STEMI, possible right upper lobe pneumonia in a patient with recently diagnosed metastatic lung CA. x -ray of 06/08 evaluated by pulmonary with no further interventions recommended at this time. Continues on Rocephin. Afebrile. Continues to feel fatigued, complains of increased shortness of breath with minimal exertion. Objective - Vital Signs Vital signs: Vital Signs Temp 97.7 F 06/09/16 17:51 Pulse 56 L 06/09/16 17:51 Resp 16 06/09/16 17:51 BP 127/58 06/09/16 17:51 Pulse Ox 96 06/09/16 17:51 Intake & Output 06/08/16 06/09/16 06/09/16 18:59 06:59 18:59 Intake Total 298 550 100 Output Total 100 Balance 298 450 100 Weight 75.1 kg Intake: Oral 298 550 100 Output: Urine 100 Other: Voiding Method Toilet Diaper # Voids 1 1 - Exam PHYSICAL EXAM: VITAL SIGNS: As above GENERAL: [Sitting up in bed, tired appearing] HEENT: [Pupils equal conjunctiva normal.] NECK: [Supple, no JVD] RESPIRATORY EFFORT:[Normal] LUNGS: [Bilateral Diminished bases, no wheezes, fine basilar crackles, no rhonchi] CARDIOVASCULAR[regular S1 and S2, no murmur, rub or gallop, no edema] GI: [Abdomen soft, nontender, positive bowel sounds.] PSYCH: [Alert and oriented -3, mood and affect normal.] NEURO: No focal deficits, moves all 4 extremities, strength and sensation intact Microbiology 06/05/16 20:23 Blood Blood Culture - Preliminary No Growth after 96 hours 06/08/16 10:38 Blood Blood Culture - Preliminary No Growth after 24 hours 06/08/16 10:44 Blood Blood Culture - Preliminary No Growth after 24 hours 06/06/16 20:35 Urine,Voided Urine Culture - Final - Labs CBC & Chem 7: 06/10/16 07:54 06/10/16 07:54 Labs: Abnormal Lab Results - Last 24 Hours (Table) 06/09/16 06/09/16 Range/Units 06:32 06:32 WBC 14.5 H (3.8-10.6) k/uL RBC 3.25 L (3.80-5.40) m/uL Hgb 8.6 L (11.4-16.0) gm/dL Hct 27.9 L (34.0-46.0) % MCHC 30.9 L (31.0-37.0) g/dL RDW 15.6 H (11.5-15.5) % Neutrophils # 11.7 H (1.3-7.7) k/uL Sodium 135 L (137-145) mmol/L Glucose 100 H (74-99) mg/dL Microbiology - Last 24 Hours (Table) 06/08/16 10:38 Blood Culture - Preliminary Blood No Growth after 24 hours 06/08/16 10:44 Blood Culture - Preliminary Blood No Growth after 24 hours 06/05/16 20:23 Blood Culture - Preliminary Blood No Growth after 72 hours 06/06/16 20:35 Urine Culture - Final Urine,Voided Assessment and Plan Plan: #1 acute non-STEMI #2. Proximal atrial fibrillation with RVR, converted to sinus rhythm #3. 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 #4. Recent Post Obstructive pneumonia,Worsening chest x-ray with increasing right lung base density, possible new postobstructive atelectasis involving middle and lower lobes, possible underlying acute infiltrate. #5 history of ulcerative colitis #6 CAD with history of stent #7 Essential hypertension. #8 history of nicotine abuse. #9 Dyslipidemia #10 COPD #11 Anemia, Plan: Continue on current medication regime , nitrates, aspirin, beta israel, statin, monitoring and symptomatic treatment. Recommendations pending from radiation oncology. Discharge planning in progress for potentially tomorrow to [facility] rehab pending clearance from oncology. Prognosis guarded given multiple complex medical issues. Further recommendations to follow. The impression and plan of care has been dictated as directed. : I performed a H&P examination of this patient and discussed the same with the dictator. I agree with the dictator's note. Any additional findings/opinions/ etc. will be noted.
[2016-06-10 11:55] VITALS: BMI 27.5
[2016-06-10] MEDS: ONDANSETRON 4 MG/2 ML VIAL IVP PRN (13:03)
--- NOTE | 2016-06-10 14:38 | P.PN ---
Subjective Date of service 06/10/2016 Progress note being dictated for Dr. Magana. Interval history: This a 80-year-old female admitted with fatigue, chest discomfort, proximal atrial fibrillation with RVR, non-STEMI, possible right upper lobe pneumonia in a patient with recently diagnosed metastatic lung CA. maintained on Rocephin, nebulized bronchodilators. Afebrile. Generalized fatigue and weakness. Palliative radiation being discussed. Denies chest pain , or palpitations. Objective - Vital Signs Vital signs: Vital Signs Temp 97 F L 06/10/16 07:00 Pulse 65 06/10/16 08:00 Resp 20 06/10/16 08:00 BP 120/55 06/10/16 07:00 Pulse Ox 93 L 06/10/16 07:00 Intake & Output 06/09/16 06/10/16 06/10/16 18:59 06:59 18:59 Intake Total 100 740 Output Total 150 Balance 100 590 Weight 75.1 kg Intake: Oral 100 740 Output: Urine 150 Other: Voiding Method Toilet Toilet Diaper Diaper # Voids 1 - Exam PHYSICAL EXAM: VITAL SIGNS: As above GENERAL: [Sitting up in bed, fatigued HEENT: [Pupils equal conjunctiva normal.] NECK: [Supple, no JVD] RESPIRATORY EFFORT:[Normal] LUNGS: [Bilateral Diminished bases, scattered rhonchi ,no wheezes, fine basilar crackles, CARDIOVASCULAR[regular S1 and S2, no murmur, rub or gallop, no edema] GI: [Abdomen soft, nontender, positive bowel sounds.] PSYCH: [Alert and oriented -3, mood and affect normal.] NEURO: No focal deficits, moves all 4 extremities, generalized weakness Microbiology 06/05/16 20:23 Blood Blood Culture - Preliminary No Growth after 96 hours 06/08/16 10:38 Blood Blood Culture - Preliminary No Growth after 24 hours 06/08/16 10:44 Blood Blood Culture - Preliminary No Growth after 24 hours 06/06/16 20:35 Urine,Voided Urine Culture - Final - Labs CBC & Chem 7: 06/10/16 07:54 06/10/16 07:54 Labs: Abnormal Lab Results - Last 24 Hours (Table) 06/10/16 06/10/16 Range/Units 07:54 07:54 WBC 14.9 H (3.8-10.6) k/uL RBC 3.43 L (3.80-5.40) m/uL Hgb 9.0 L (11.4-16.0) gm/dL Hct 29.2 L (34.0-46.0) % Neutrophils # 12.1 H (1.3-7.7) k/uL Carbon Dioxide 31 H (22-30) mmol/L Glucose 111 H (74-99) mg/dL Microbiology - Last 24 Hours (Table) 06/08/16 10:38 Blood Culture - Preliminary Blood No Growth after 48 hours 06/08/16 10:44 Blood Culture - Preliminary Blood No Growth after 48 hours 06/05/16 20:23 Blood Culture - Preliminary Blood No Growth after 96 hours Assessment and Plan Plan: #1 acute non-STEMI #2. Proximal atrial fibrillation with RVR, converted to sinus rhythm #3. 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 #4. Recent Post Obstructive pneumonia,Worsening chest x-ray with increasing right lung base density, possible new postobstructive atelectasis involving middle and lower lobes, possible underlying acute infiltrate. #5 history of ulcerative colitis #6 CAD with history of stent #7 Essential hypertension. #8 history of nicotine abuse. #9 Dyslipidemia #10 COPD #11 Anemia, Plan: Continue on current medication regime , nitrates, aspirin, beta israel, statin, monitoring and symptomatic treatment. Radiation oncology consult in place with recommendations pending. Discharge planning on hold pending potential palliative radiation. Prognosis guarded given multiple complex medical issues. Further recommendations to follow. The impression and plan of care has been dictated as directed. : I performed a H&P examination of this patient and discussed the same with the dictator. I agree with the dictator's note. Any additional findings/opinions/ etc. will be noted.
--- NOTE | 2016-06-10 16:25 | P.CONS ---
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 She presents to the hospital complaining of right-sided back pain and shortness of breath. The patient's oncologic history began on May 10, [address] scan of the chest revealing a 4.5 cm suprahilar right lung mass. Additional note was made of a 12 mm nodule within the right lower lobe. The patient underwent bronchoscopy on May 12, 2016. This revealed a mucous plug in the right bronchus intermedius, when this was suctioned, tumor was evident blocking the right lower lobe bronchi. Biopsy of this area revealed squamous cell carcinoma. Patient subsequently underwent a PET CT scan on May 21, 2016. This revealed a right hilar lung mass with an SUV of 10.6, and an enlarged right adrenal mass with an SUV of 12.3. There was also focal uptake in the sigmoid colon with an SUV of 9.6, suspicious for metachronous disease. CT scan of the brain with contrast performed the same day was unremarkable. The patient was subsequently admitted to the hospital on June 05, 2016. She was reporting generalized weakness, right upper back discomfort, was found to be in atrial fibrillation with RVR and had a non-ST elevated myocardial infarction. She was treated with conservative measures. The patient had a chest x-ray done on June 08, 2016, which revealed atelectasis of the right lower lung, which was not previously seen on her chest x-ray from June 05. The patient has been under consideration for chemotherapy, however there is some concern that she will be discharged to an ECF. Review of Systems Constitutional: Reports sweats Ears, nose, mouth and throat: Denies dysphagia Cardiovascular: Reports dyspnea on exertion, Denies chest pain Respiratory: Reports cough, Reports dyspnea Gastrointestinal: Denies abdominal pain Neurological: Denies weakness Psychiatric: Denies confusion Past Medical History Past Medical History: Hyperlipidemia, Hypertension, Myocardial Infarction ([place]) Additional Past Medical History / Comment(s): ulcerative colitis, adrenal mass under investigation, CAD previous stent of RCA, HTN, hyperlipidemia, EF 70% , hypothyroidism Last Myocardial Infarction Date:: 2005 History of Any Multi-Drug Resistant Organisms: None Reported Past Surgical History: Adenoidectomy, Bladder Surgery, Cholecystectomy, Hysterectomy, Tonsillectomy Additional Past Surgical History / Comment(s): Cardiac stent Additional Past Anesthesia/Blood Transfusion Reaction / Comm: muscle weakness post biopsy Past Psychological History: No Psychological Hx Reported Smoking Status: Former smoker Past Alcohol Use History: None Reported Past Drug Use History: None Reported - Past Family History Mother Family Medical History: Cancer, Myocardial Infarction ([place]) Medications and Allergies Home Medications Medication Instructions Recorded Confirmed Type Lansoprazole 30 mg PO DAILY 05/09/16 06/05/16 History Levothyroxine Sodium [Synthroid] 100 mcg PO QAM 05/09/16 06/05/16 History Mesalamine [Lialda] 1.2 gm PO DAILY 05/09/16 06/05/16 History Multivitamins, Thera [Multivitamin 1 tab PO DAILY 05/09/16 06/05/16 History (formulary)] Pravastatin Sodium [Pravachol] 40 mg PO DAILY 05/09/16 06/05/16 History Vit C/E/Zn/Coppr/Lutein/Zeaxan 1 cap PO BID 05/09/16 06/05/16 History [Preservision Areds 2 Softgel] amLODIPine [Norvasc] 5 mg PO QAM 06/03/16 06/05/16 History Rivaroxaban [Xarelto] 20 mg PO AC-SUPPER 06/05/16 06/05/16 History Allergies Allergy/AdvReac Type Severity Reaction Status Date / Time ciprofloxacin [From Cipro] Allergy Unknown Verified 06/05/16 13:14 codeine Allergy Nausea & Verified 06/05/16 13:53 Vomiting gabapentin [From Neurontin] Allergy Unknown Verified 06/05/16 13:53 hydrocodone Allergy Rash/Hives Verified 06/05/16 13:53 ibuprofen [From Motrin] Allergy Rash/Hives Verified 06/05/16 13:53 Iodinated Contrast Media - Allergy Rash/Hives Verified 06/05/16 13:53 Oral and omeprazole [From Prilosec] Allergy Rash/Hives Verified 06/05/16 13:53 Sulfa (Sulfonamide Allergy Rash/Hives Verified 06/05/16 13:14 Antibiotics) Physical Exam Vitals: Vital Signs Temp Pulse Resp BP Pulse Ox 06/10/16 08:00 65 20 06/10/16 07:00 97 F L 65 20 120/55 93 L 06/09/16 23:35 110/49 06/09/16 23:00 96.7 F L 70 16 193/74 95 06/09/16 17:51 97.7 F 56 L 16 127/58 96 Intake and Output 06/10/16 06/10/16 06/10/16 06:59 14:59 22:59 Intake Total 590 Balance 590 Intake: Oral 590 Other: Voiding Method Toilet Diaper # Voids 1 Weight 75.1 kg Patient Weight 06/11/16 06:59 Weight 75.1 kg - Constitutional General appearance: average body habitus, no mild distress - EENT Eyes: PERRLA ENT: hearing grossly normal - Neck Neck: no lymphadenopathy, normal ROM - Respiratory Respiratory: right: diminished (RLL), left: CTA - Cardiovascular Rhythm: regular - Gastrointestinal General gastrointestinal: no distended, no tenderness - Neurologic Neurologic: CNII-XII intact - Musculoskeletal Musculoskeletal: strength equal bilaterally - Psychiatric Psychiatric: appropriate affect Results CBC & Chem 7: 06/10/16 07:54 06/10/16 07:54 Labs: Abnormal Lab Results - Last 24 Hours (Table) 06/10/16 06/10/16 Range/Units 07:54 07:54 WBC 14.9 H (3.8-10.6) k/uL RBC 3.43 L (3.80-5.40) m/uL Hgb 9.0 L (11.4-16.0) gm/dL Hct 29.2 L (34.0-46.0) % Neutrophils # 12.1 H (1.3-7.7) k/uL Carbon Dioxide 31 H (22-30) mmol/L Glucose 111 H (74-99) mg/dL Microbiology - Last 24 Hours (Table) 06/08/16 10:38 Blood Culture - Preliminary Blood No Growth after 48 hours 06/08/16 10:44 Blood Culture - Preliminary Blood No Growth after 48 hours 06/05/16 20:23 Blood Culture - Preliminary Blood No Growth after 96 hours Chest x-ray: report reviewed, image reviewed CT scan - chest: report reviewed, image reviewed Assessment and Plan Plan: The patient presents with a centrally located right lung mass, causing partial lung obstruction. Although not biopsy-proven, the patient has a highly suspicious lesion in the right adrenal gland. Considering her age and comorbidities, initial plan was for the patient to start chemotherapy, and consider consolidation with radiotherapy provided she does not progress distantly. Unfortunately, the patient is now debilitated following her NSTEMI, and has been considering discharge to an ECF. She is currently requiring oxygen , and is at risk of developing postobstructive pneumonia with her right lower lung collapse. Therefore, the prospect of doing a short course of palliative radiotherapy to open the lung has been discussed. I discussed with the patient and her son, that she would first undergo CT simulation for treatment planning. Treatment will be delivered Monday through Monday, 5 days a week for approximately 1-2 weeks. I explained the possible side effects of this treatment include, but are not limited to; fatigue, skin erythema, cough, dyspnea, dysphagia, odynophagia, chest wall discomfort, and the long-term risk of radiation pneumonitis, fibrosis and esophageal stricture. We plan to initiate the patient's radiotherapy this coming week. Time with Patient: Greater than 30
[2016-06-10] MEDS: RIVAROXABAN 10 MG TAB PO SCH (17:29)
[2016-06-10] MEDS: TEMAZEPAM 15 MG CAP PO PRN (20:42)
--- NOTE | 2016-06-10 22:26 | PN ---
DATE OF SERVICE: 06/10/2016 This 81-year-old woman who was admitted with multiple medical problems, including acute non-ST elevation myocardial infarction, suspected to have pneumonia, postobstructive pneumonia. The patient also had right upper lobe mass lesion as well. Currently the patient is complaining of tiredness. Seen and evaluated the patient along with nurse practitioner. Please refer to the nurse practitioner notes and impression documented as a scribe for further information. Past medical history reviewed. REVIEW OF SYSTEMS: CARDIOVASCULAR: No angina or palpitations. RESPIRATORY: As mentioned earlier. GI: As mentioned earlier. GENITOURINARY: No dysuria. CENTRAL NERVOUS SYSTEM: No numbness or weakness. Current MEDICATIONS are: 1. Norvasc 5 mg p.o. in the morning. 2. Aspirin 81 mg. 5. Colace 100 mg b.i.d. 6. Tambocor 100 mg b.i.d. 7. Synthroid 100 mcg p.o. daily. 8. Lopressor 50 mg p.o. b.i.d. 9. Multivitamins one p.o. daily. 10. Nitrostat 0.4 sublingual p.r.n. 11. Zofran. 12. Protonix 40 mg IV b.i.d. 13. Pravachol 40 mg milligrams. 14. Xarelto 10 mg RECOMMENDATIONS AND DISCUSSION: Recommend to continue current management, symptomatic treatment. Detailed discussion with the family and the patient. Also discussed with Dr. Lopez. Plan to discuss the case with radiology. Currently palliative radiation is being planned at this time starting for Monday. A five day course is recommended in a truncated version. Otherwise, social work is planning for rehab. If the rehab facility can transfer the patient to radiation on a daily basis, that will be great. Otherwise, we will continue to monitor. Prognosis extremely guarded because of multiple complex medical issues. Once again discussed with the family understands and agrees. Further recommendations to follow. MTDD
[2016-06-11] MEDS: MORPHINE SULFATE 4 MG/ML SYRINGE IVP PRN ×5 (06:17→20:41)
[2016-06-11] MEDS: LEVOTHYROXINE 100 MCG TAB PO SCH (06:17)
[2016-06-11] MEDS: BALSALAZIDE DISODIUM 750 MG CAPSULE PO SCH (08:06)
[2016-06-11] MEDS: amLODIPine 5 MG TAB PO SCH (08:06)
[2016-06-11] MEDS: ASPIRIN 81 MG CHEW PO SCH (08:06)
[2016-06-11] MEDS: DOCUSATE 100 MG CAP PO SCH ×2 (08:06→20:43)
[2016-06-11] MEDS: METOPROLOL TARTRATE 50 MG TAB PO SCH ×2 (08:07→20:43)
[2016-06-11] MEDS: FLECAINIDE 50 MG TAB PO SCH ×2 (08:07→20:42)
[2016-06-11] MEDS: VIT A,C & E-LUTEIN-MINERALS 1 EACH TAB PO SCH ×2 (08:08→20:43)
[2016-06-11] MEDS: MULTIVITAMINS, THERA 1 EACH TAB PO SCH (08:08)
[2016-06-11] MEDS: PANTOPRAZOLE 40 MG/10 ML VIAL IVP SCH ×2 (08:08→20:43)
[2016-06-11] MEDS: PRAVASTATIN SODIUM 40 MG TAB PO SCH (08:08)
--- NOTE | 2016-06-11 12:13 | P.PN ---
Subjective Pt is overall stable. Generalized weakness and MIRELES persist, unchanged. No recurrence of CP Objective - Vital Signs Vital signs: Vital Signs Temp 97.5 F L 06/11/16 07:00 Pulse 52 L 06/11/16 08:00 Resp 20 06/11/16 08:00 BP 136/63 06/11/16 07:00 Pulse Ox 92 L 06/11/16 07:00 Intake & Output 06/10/16 06/11/16 06/11/16 18:59 06:59 18:59 Output Total 350 50 Balance -350 -50 Weight 75.1 kg 75.1 kg Output: Urine 350 50 Other: Voiding Method Toilet Toilet Toilet Diaper Diaper Diaper # Voids 1 2 1 # Bowel Movements 0 0 - Constitutional General appearance: Present: no acute distress - EENT Eyes: Present: EOMI, PERRLA ENT: Present: hearing grossly normal, normal oropharynx - Respiratory Respiratory: right: diminished - Cardiovascular Rhythm: regular Heart sounds: normal: S1, S2 - Gastrointestinal General gastrointestinal: Present: normal bowel sounds, soft - Integumentary Integumentary: Present: normal - Neurologic Neurologic: Present: CNII-XII intact - Musculoskeletal Musculoskeletal: Present: generalized weakness - Psychiatric Psychiatric: Present: A&O x's 3 - Labs CBC & Chem 7: 06/10/16 07:54 06/10/16 07:54 Labs: Microbiology - Last 24 Hours (Table) 06/05/16 20:23 Blood Culture - Preliminary Blood No Growth after 120 hours 06/08/16 10:38 Blood Culture - Preliminary Blood No Growth after 48 hours 06/08/16 10:44 Blood Culture - Preliminary Blood No Growth after 48 hours Assessment and Plan (1) Elevated troponin I level Status: Acute (2) Squamous cell lung cancer Narrative/Plan: The pt is developing increasing atelectasis in the rt lung, concerning for recurrent obstruction. If so, it is unlikely that she would be able to improve in terms of her PS. With her weakness, scheduling an adrenal biopsy would be quite difficult. Due to her current PS, it is felt she will likely need subacute rehab. However, usually she would not be able to have active treatment in rehab. - The case was extensively d/w pulmonary medicine , Rad Onc , and IM - At this time we will cancel plans for adrenal biopsy - Rad Onc will evlauate the pt to start a short course of RT to the primary site to palliate the airway - IM will keep her inpt , continuing treatment for post obstructive complications - Case was d/w Social work, who will try to find an ECF which will allow a short course of palliative RT - Pulmonary will reevaluate for possible bronch. Per my discussion with Dr Snyder, this could be of benefit especially if the developing obstruction is due to debris/mucus - With the above if her PS improves enough, I will plan to treat with chemo, and then follow up with consolidative RT to the lung and the rt adrenal ( we will assume the adrenal to be positive). Even if the adrenal were negative, she is not a candidate for surgery or concurrent chemoRT This was discussed in detail with the pt and her family and they were in agreement Status: Acute Plan: continue ongoing Rx per IM and other consultants
--- NOTE | 2016-06-11 13:09 | P.PN ---
Subjective Date of service 06/11/2016 Progress note being dictated for Dr. Magana. Interval history: This a 80-year-old female admitted with fatigue, chest discomfort, proximal atrial fibrillation with RVR, non-STEMI, possible right upper lobe pneumonia in a patient with recently diagnosed metastatic lung CA. maintained on Rocephin, nebulized bronchodilators. Generalized weakness, fatigue, Exertional shortness of breath, Right back pain persists. Previous x- ray reported right lung increasing postobstructive atelectasis. Denies chest pain or palpitations. Afebrile. Evaluated by radiation oncology and Palliative radiation being planned. Objective - Vital Signs Vital signs: Vital Signs Temp 97.5 F L 06/11/16 07:00 Pulse 52 L 06/11/16 08:00 Resp 20 06/11/16 08:00 BP 136/63 06/11/16 07:00 Pulse Ox 92 L 06/11/16 07:00 Intake & Output 06/10/16 06/11/16 06/11/16 18:59 06:59 18:59 Intake Total 590 Output Total 350 50 Balance -350 540 Weight 75.1 kg 75.1 kg Intake: Oral 590 Output: Urine 350 50 Other: Voiding Method Toilet Toilet Toilet Diaper Diaper Diaper # Voids 1 2 1 # Bowel Movements 0 0 - Exam PHYSICAL EXAM: VITAL SIGNS: As above GENERAL: [Sitting up in bed, fatigued HEENT: [Pupils equal conjunctiva normal.] NECK: [Supple, no JVD] RESPIRATORY EFFORT:[Normal] LUNGS: [Bilateral Diminished bases, no rhonchi ,no wheezes, fine basilar crackles, CARDIOVASCULAR[regular S1 and S2, no murmur, rub or gallop, no edema] GI: [Abdomen soft, nontender, positive bowel sounds.] PSYCH: [Alert and oriented -3, mood and affect normal.] NEURO: No focal deficits, moves all 4 extremities, generalized weakness Microbiology 06/05/16 20:23 Blood Blood Culture - Preliminary No Growth after 120 hours 06/08/16 10:38 Blood Blood Culture - Preliminary No Growth after 48 hours 06/08/16 10:44 Blood Blood Culture - Preliminary No Growth after 48 hours 06/06/16 20:35 Urine,Voided Urine Culture - Final - Labs CBC & Chem 7: 06/10/16 07:54 06/10/16 07:54 Labs: Microbiology - Last 24 Hours (Table) 06/05/16 20:23 Blood Culture - Preliminary Blood No Growth after 120 hours 06/08/16 10:38 Blood Culture - Preliminary Blood No Growth after 48 hours 06/08/16 10:44 Blood Culture - Preliminary Blood No Growth after 48 hours Assessment and Plan Plan: #1 acute non-STEMI #2. Proximal atrial fibrillation with RVR, converted to sinus rhythm #3. 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 #4. Recent Post Obstructive pneumonia,Worsening chest x-ray with increasing right lung base density, possible new postobstructive atelectasis involving middle and lower lobes, possible underlying acute infiltrate. #5 history of ulcerative colitis #6 CAD with history of stent #7 Essential hypertension. #8 history of nicotine abuse. #9 Dyslipidemia #10 COPD #11 Anemia, Plan: Continue on current medication regime , nitrates, aspirin, beta israel, statin, monitoring and symptomatic treatment. Adrenal biopsy canceled, palliative radiation scheduled. Social work attempting to arrange an ECF that would permit a short course of radiation therapy. Follow closely with pulmonary and oncology. Prognosis guarded given multiple complex medical issues. Further recommendations to follow. The impression and plan of care has been dictated as directed. : I performed a H&P examination of this patient and discussed the same with the dictator. I agree with the dictator's note. Any additional findings/opinions/ etc. will be noted.
[2016-06-11] MEDS: POLYETHYLENE GLYCOL 3350 17 GM POWD.PACK PO SCH (17:42)
[2016-06-11] MEDS: RIVAROXABAN 10 MG TAB PO SCH (17:44)
[2016-06-11] MEDS: traMADol 50 MG TAB PO PRN (17:51)
[2016-06-12] MEDS: traMADol 50 MG TAB PO PRN ×2 (01:03→12:09)
[2016-06-12] MEDS: TEMAZEPAM 15 MG CAP PO PRN ×3 (01:06→22:05)
[2016-06-12] MEDS: MORPHINE SULFATE 4 MG/ML SYRINGE IVP PRN ×5 (03:00→22:40)
[2016-06-12] MEDS: LEVOTHYROXINE 100 MCG TAB PO SCH (06:20)
[2016-06-12] MEDS: POLYETHYLENE GLYCOL 3350 17 GM POWD.PACK PO SCH (08:41)
[2016-06-12] MEDS: PRAVASTATIN SODIUM 40 MG TAB PO SCH (08:42)
[2016-06-12] MEDS: ASPIRIN 81 MG CHEW PO SCH (08:42)
[2016-06-12] MEDS: amLODIPine 5 MG TAB PO SCH (08:42)
[2016-06-12] MEDS: VIT A,C & E-LUTEIN-MINERALS 1 EACH TAB PO SCH ×2 (08:42→21:10)
[2016-06-12] MEDS: MULTIVITAMINS, THERA 1 EACH TAB PO SCH (08:43)
[2016-06-12] MEDS: METOPROLOL TARTRATE 50 MG TAB PO SCH ×2 (08:43→21:10)
[2016-06-12] MEDS: BALSALAZIDE DISODIUM 750 MG CAPSULE PO SCH (08:43)
[2016-06-12] MEDS: FLECAINIDE 50 MG TAB PO SCH ×2 (08:43→21:10)
[2016-06-12] MEDS: DOCUSATE 100 MG CAP PO SCH ×2 (08:43→21:10)
[2016-06-12] MEDS: PANTOPRAZOLE 40 MG/10 ML VIAL IVP SCH ×2 (08:44→21:10)
[2016-06-12] MEDS: ONDANSETRON 4 MG/2 ML VIAL IVP PRN ×2 (08:52→21:32)
--- NOTE | 2016-06-12 11:16 | PN ---
DATE OF SERVICE: 06/11/2016 This is an 81-year-old woman who was admitted with acute onset myocardial infarction. Also had a right upper lobe lung lesion and multiple other medical issues, also. A tentative radiation planning is being scheduled for Monday with simulation. Seen and evaluated the patient with the nurse practitioner. Please refer to nurse practitioner's notes and impressions document as ascribed for further information. Prognosis guarded. Discussed with the family on multiple occasions. Further recommendations to follow.
[2016-06-12] MEDS: RIVAROXABAN 10 MG TAB PO SCH (19:37)
[2016-06-12] MEDS: LACTULOSE 20 GM/30 ML CUP PO SCH ×2 (19:38→20:06)
--- NOTE | 2016-06-12 20:59 | PN ---
DATE OF SERVICE: 06/12/2016 This 81-year-old woman who was admitted with acute non-ST segment elevation myocardial infarction also had multiple medical problems including possible obstructive pneumonia and significant lung cancer, radiation planning installation is being scheduled for tomorrow. No chest pain. No palpitations. No fever. On exam, alert and oriented times three. Pulse 55, blood pressure 133/56, respirations 18, temperature 98.1, pulse ox 94% on 2 L. HEENT: Conjunctivae normal. NECK: No jugular venous distention. CARDIOVASCULAR: S1, S2 muffled. RESPIRATORY: Breath sounds diminished at the bases. A few scattered rhonchi. No crackles. ABDOMEN: Soft, nontender. No mass palpable. LEGS: No edema. No swelling. CENTRAL NERVOUS SYSTEM: No focal deficits. Labs are WBC 14.9, hemoglobin is 9. ASSESSMENT: 1. Acute non-ST segment elevation myocardial infarction, present on admission. 2. Paroxysmal atrial fibrillation with rapid ventricular response, converted to normal sinus rhythm, right upper lobe mass lesion, status post recent biopsy, positive squamous cell carcinoma. 3. Postobstructive pneumonia, present on admission, which is increasing with right lung base density, possibly new atelectasis and possible underlying acute infiltrate. 4. History of ulcerative colitis. 5. Coronary artery disease, history of stent. 6. History of essential hypertension. 7. History of nicotine dependence. 8. Dyslipidemia. 9. Chronic obstructive pulmonary disease. 10. Anemia. 11. FULL CODE. RECOMMENDATIONS AND DISCUSSION: In this 81-year-old woman who presented with multiple complex medical issues, we will monitor the patient closely, continue the current medications, continue symptomatic treatment. Otherwise, at this time, we will continue with bronchodilators. Continue the rest of the medications. Guarded prognosis. Further recommendations to follow.
[2016-06-13] MEDS: traMADol 50 MG TAB PO PRN ×2 (01:15→18:44)
[2016-06-13] MEDS: MORPHINE SULFATE 4 MG/ML SYRINGE IVP PRN ×4 (02:41→19:48)
[2016-06-13] MEDS: LEVOTHYROXINE 100 MCG TAB PO SCH (08:26)
[2016-06-13] MEDS: ONDANSETRON 4 MG/2 ML VIAL IVP PRN ×2 (09:13→18:44)
[2016-06-13] MEDS: ASPIRIN 81 MG CHEW PO SCH (14:05)
[2016-06-13] MEDS: amLODIPine 5 MG TAB PO SCH (14:05)
[2016-06-13] MEDS: DOCUSATE 100 MG CAP PO SCH ×2 (14:06→22:42)
[2016-06-13] MEDS: FLECAINIDE 50 MG TAB PO SCH ×2 (14:06→22:42)
[2016-06-13] MEDS: BALSALAZIDE DISODIUM 750 MG CAPSULE PO SCH (14:06)
[2016-06-13] MEDS: METOPROLOL TARTRATE 50 MG TAB PO SCH ×2 (14:07→22:42)
[2016-06-13] MEDS: PANTOPRAZOLE 40 MG/10 ML VIAL IVP SCH (14:07)
[2016-06-13] MEDS: MULTIVITAMINS, THERA 1 EACH TAB PO SCH (14:07)
[2016-06-13] MEDS: LACTULOSE 20 GM/30 ML CUP PO SCH ×3 (14:07→22:43)
[2016-06-13] MEDS: VIT A,C & E-LUTEIN-MINERALS 1 EACH TAB PO SCH ×2 (14:08→22:43)
[2016-06-13] MEDS: POLYETHYLENE GLYCOL 3350 17 GM POWD.PACK PO SCH (14:08)
[2016-06-13] MEDS: PRAVASTATIN SODIUM 40 MG TAB PO SCH (14:09)
[2016-06-13] MEDS: METOCLOPRAMIDE 5 MG/ML 2 ML VIAL IVP SCH ×2 (14:11→19:50)
--- NOTE | 2016-06-13 16:14 | P.PN ---
Subjective Date of service 06/13/2016 Progress note being dictated for Dr. Magana. Interval history: This a 80-year-old female admitted with fatigue, chest discomfort, proximal atrial fibrillation with RVR, non-STEMI, possible right upper lobe pneumonia in a patient with recently diagnosed metastatic lung CA. Previous x-ray reported right lung increasing postobstructive atelectasis.Persistent right back pain.Evaluated by radiation oncology and scheduled for radiation, first session today . Complains of nausea , Reglan added to med regime in addition to Zofran. Continues on Rocephin, nebulized bronchodilators. Generalized weakness, fatigue, Exertional shortness of breath. Denies chest pain or palpitations. Afebrile. Objective - Vital Signs Vital signs: Vital Signs Temp 98.2 F 06/13/16 07:00 Pulse 58 L 06/13/16 08:00 Resp 16 06/13/16 08:00 BP 120/67 06/12/16 22:17 Pulse Ox 94 L 06/13/16 07:00 Intake & Output 06/12/16 06/13/16 06/13/16 18:59 06:59 18:59 Intake Total 240 Output Total 50 1 Balance -50 239 Intake: Oral 240 Output: Urine 50 Emesis 1 Other: Voiding Method Toilet Toilet Toilet Diaper Diaper Diaper # Voids 1 1 # Bowel Movements 0 - Exam PHYSICAL EXAM: VITAL SIGNS: As above GENERAL: [Sitting up in bed, nauseated HEENT: [Pupils equal conjunctiva normal.] NECK: [Supple, no JVD] RESPIRATORY EFFORT:[Normal] LUNGS: [Bilateral Diminished bases, no rhonchi ,no wheezes, fine basilar crackles, CARDIOVASCULAR[regular S1 and S2, no murmur, rub or gallop, no edema] GI: [Abdomen soft, nontender, positive bowel sounds.] PSYCH: [Alert and oriented -3, mood and affect normal.] NEURO: No focal deficits, moves all 4 extremities, generalized weakness Microbiology 06/08/16 10:38 Blood Blood Culture - Preliminary No Growth after 120 hours 06/08/16 10:44 Blood Blood Culture - Preliminary No Growth after 120 hours 06/05/16 20:23 Blood Blood Culture - Final No Growth after 144 hours 06/06/16 20:35 Urine,Voided Urine Culture - Final - Labs CBC & Chem 7: 06/10/16 07:54 06/10/16 07:54 Labs: Microbiology - Last 24 Hours (Table) 06/08/16 10:38 Blood Culture - Preliminary Blood No Growth after 96 hours 06/08/16 10:44 Blood Culture - Preliminary Blood No Growth after 96 hours Assessment and Plan Plan: #1 acute non-STEMI #2. Proximal atrial fibrillation with RVR, converted to sinus rhythm #3. 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 #4. Recent Post Obstructive pneumonia,Worsening- increasing right lung base density, possible new postobstructive atelectasis and possible underlying acute infiltrate. #5 history of ulcerative colitis #6 CAD with history of stent #7 Essential hypertension. #8 history of nicotine abuse. #9 Dyslipidemia #10 COPD #11 Anemia, Plan: Continue on current medication regime , nitrates, aspirin, beta israel, statin, nebulized bronchodilators, monitoring and symptomatic treatment. Reglan as mentioned above added to med regime around the clock in addition to Zofran per patient's nausea.Awaiting radiation today. Social work attempting to arrange an ECF that would permit a short course of radiation therapy. Prognosis guarded given multiple complex medical issues. Further recommendations to follow. Discharge planning in progress for tomorrow. The impression and plan of care has been dictated as directed. : I performed a H&P examination of this patient and discussed the same with the dictator. I agree with the dictator's note. Any additional findings/opinions/ etc. will be noted.
[2016-06-13] MEDS ORDERED: guaiFENesin-DM 100-10MG/5ML 10 ML CUP PO PRN (18:36)
[2016-06-13] MEDS: TEMAZEPAM 15 MG CAP PO PRN (22:04)
[2016-06-13] MEDS: RIVAROXABAN 10 MG TAB PO SCH (22:42)
[2016-06-14] MEDS: MORPHINE SULFATE 4 MG/ML SYRINGE IVP PRN ×6 (00:02→21:50)
[2016-06-14] MEDS: METOCLOPRAMIDE 5 MG/ML 2 ML VIAL IVP SCH ×5 (00:02→23:50)
[2016-06-14] MEDS: PANTOPRAZOLE 40 MG/10 ML VIAL IVP SCH (00:03)
[2016-06-14] MEDS: ONDANSETRON 4 MG/2 ML VIAL IVP PRN ×3 (03:59→17:08)
[2016-06-14] MEDS: LEVOTHYROXINE 100 MCG TAB PO SCH (06:10)
--- NOTE | 2016-06-14 07:13 | PN ---
DATE OF SERVICE: 06/13/2016 This 81-year-old woman was admitted with acute non-ST elevation myocardial infarction and also had multiple other medical problems including possible obstructive pneumonia and recently diagnosed right lung cancer also. The patient also complaining of vomiting at this time. Seen and evaluated the patient with the nurse practitioner. Please refer to the nurse practitioner's notes and impression document as ascribed for evaluation. Radiation Oncology has also seen the patient for initiated radiation. The prognosis is guarded, which I discussed at length with the family and further recommendations to follow. Possible ECF rehab per vocational case manager and long term care social worker team.
[2016-06-14] MEDS: DOCUSATE 100 MG CAP PO SCH ×2 (09:38→20:18)
[2016-06-14] MEDS: ASPIRIN 81 MG CHEW PO SCH (09:38)
[2016-06-14] MEDS: BALSALAZIDE DISODIUM 750 MG CAPSULE PO SCH (09:38)
[2016-06-14] MEDS: FLECAINIDE 50 MG TAB PO SCH ×2 (09:39→20:22)
[2016-06-14] MEDS: LACTULOSE 20 GM/30 ML CUP PO SCH ×3 (09:39→20:20)
[2016-06-14] MEDS: METOPROLOL TARTRATE 50 MG TAB PO SCH ×2 (09:39→20:20)
[2016-06-14] MEDS: PANTOPRAZOLE 40 MG TABLET PO SCH ×2 (09:40→20:21)
[2016-06-14] MEDS: MULTIVITAMINS, THERA 1 EACH TAB PO SCH (09:40)
[2016-06-14] MEDS: PRAVASTATIN SODIUM 40 MG TAB PO SCH (09:41)
[2016-06-14] MEDS: VIT A,C & E-LUTEIN-MINERALS 1 EACH TAB PO SCH ×2 (09:41→20:20)
[2016-06-14] MEDS: amLODIPine 5 MG TAB PO SCH (11:48)
--- NOTE | 2016-06-14 15:42 | P.PN ---
Subjective Yesterday, on June 13, the patient came down for radiotherapy simulation and received her first of 4 fractions. Of note, the patient did complain of right- sided back pain when lying flat during her radiotherapy. Today, the patient has refused to come down for radiotherapy. She reports that her pain is bothering her, and that she does not feel well. When asked about her breathing , she notes that it is no different from the last several days. Objective - Vital Signs Vital signs: Vital Signs Temp 98.4 F 06/14/16 07:00 Pulse 68 06/14/16 07:00 Resp 16 06/14/16 07:00 BP 117/55 06/14/16 07:00 Pulse Ox 92 L 06/14/16 07:00 Intake & Output 06/13/16 06/14/16 06/14/16 18:59 06:59 18:59 Intake Total 240 Output Total 51 Balance -51 240 Weight 75.1 kg Intake: Oral 240 Output: Urine 50 Emesis 1 Other: Voiding Method Toilet Toilet Diaper Diaper # Voids 2 1 - Constitutional General appearance: Present: average body habitus. Absent: mild distress - EENT Eyes: Present: PERRLA - Neck Neck: Absent: lymphadenopathy - Respiratory Respiratory: right: diminished (RLL diminshed), left: CTA - Cardiovascular Rhythm: regular - Gastrointestinal General gastrointestinal: Present: normal bowel sounds, soft - Neurologic Neurologic: Present: CNII-XII intact - Labs CBC & Chem 7: 06/10/16 07:54 06/10/16 07:54 Labs: Microbiology - Last 24 Hours (Table) 06/08/16 10:38 Blood Culture - Final Blood No Growth after 144 hours 06/08/16 10:44 Blood Culture - Final Blood No Growth after 144 hours Assessment and Plan Plan: I discussed with the patient, that we recommended she undergo 3 further treatments of radiotherapy with the goal of opening the right lung. Unfortunately, the patient is not feeling undergoing radiotherapy today. We will assess the patient tomorrow, and if she is amenable we'll bring her down for therapy. There has been some discussion regarding possible bronchoscopy, to see if that will open the lung. If this were to happen, I recommend the patient still complete her prescribed radiotherapy to help with patency. I did spent some time discussing care with the patient's family members. We did discuss hospice care, as the patient has started to express some interest in not undergoing aggressive therapy. I also spoke with the oncology nurse practitioner, and she will work on her imaging family meeting to discuss next steps and care. Time with Patient: Less than 30
[2016-06-14] MEDS: POLYETHYLENE GLYCOL 3350 17 GM POWD.PACK PO SCH (17:09)
[2016-06-14] MEDS: traMADol 50 MG TAB PO PRN ×2 (17:10→23:54)
--- NOTE | 2016-06-14 17:28 | P.PN ---
Subjective Date of service 06/14/2016 Progress note being dictated for . Interval history: This a 80-year-old female admitted with fatigue, chest discomfort, proximal atrial fibrillation with RVR, non-STEMI, possible right upper lobe pneumonia in a patient with recently diagnosed metastatic lung CA. Previous x-ray reported right lung increasing postobstructive atelectasis.Persistent right back pain.Evaluated by radiation oncology and received first session of radiation, yesterday. Refused radiotherapy today. Nausea improving on Reglan and Zofran . Denies increased shortness of breath. Pulmonary discussing potential bronchoscopy. Continues on Rocephin, nebulized bronchodilators. Generalized weakness, fatigue, Exertional shortness of breath. Denies chest pain or palpitations. Afebrile. Objective - Vital Signs Vital signs: Vital Signs Temp 98.4 F 06/14/16 07:00 Pulse 68 06/14/16 07:00 Resp 16 06/14/16 07:00 BP 117/55 06/14/16 07:00 Pulse Ox 92 L 06/14/16 07:00 Intake & Output 06/13/16 06/14/16 06/14/16 18:59 06:59 18:59 Intake Total 240 Output Total 51 Balance -51 240 Weight 75.1 kg Intake: Oral 240 Output: Urine 50 Emesis 1 Other: Voiding Method Toilet Toilet Diaper Diaper # Voids 2 1 - Exam PHYSICAL EXAM: VITAL SIGNS: As above GENERAL: [Sitting up in bed, nauseated HEENT: [Pupils equal conjunctiva normal.] NECK: [Supple, no JVD] RESPIRATORY EFFORT:[Normal] LUNGS: [Bilateral Diminished CARDIOVASCULAR[regular S1 and S2, no murmur, rub or gallop, no edema] GI: [Abdomen soft, nontender, positive bowel sounds.] PSYCH: [Alert and oriented -3, mood and affect normal.] NEURO: No focal deficits, moves all 4 extremities, generalized weakness Microbiology 06/08/16 10:38 Blood Blood Culture - Preliminary No Growth after 120 hours 06/08/16 10:44 Blood Blood Culture - Preliminary No Growth after 120 hours 06/05/16 20:23 Blood Blood Culture - Final No Growth after 144 hours 06/06/16 20:35 Urine,Voided Urine Culture - Final - Labs CBC & Chem 7: 06/10/16 07:54 06/10/16 07:54 Labs: Microbiology - Last 24 Hours (Table) 06/08/16 10:38 Blood Culture - Final Blood No Growth after 144 hours 06/08/16 10:44 Blood Culture - Final Blood No Growth after 144 hours Assessment and Plan Plan: #1 acute non-STEMI #2. Proximal atrial fibrillation with RVR, converted to sinus rhythm #3. 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 #4. Recent Post Obstructive pneumonia,Worsening- increasing right lung base density, possible new postobstructive atelectasis and possible underlying acute infiltrate. #5 history of ulcerative colitis #6 CAD with history of stent #7 Essential hypertension. #8 history of nicotine abuse. #9 Dyslipidemia #10 COPD #11 Anemia, Plan: Continue on current medication regime , nitrates, aspirin, beta israel, statin, nebulized bronchodilators, Reglan ,Zofran, monitoring and symptomatic treatment. Pulmonary discussing potential bronchoscopy. Radiation therapy will be offered again tomorrow. Hospice option also discussed. Prognosis guarded. Further recommendations to follow. The impression and plan of care has been dictated as directed. : I performed a H&P examination of this patient and discussed the same with the dictator. I agree with the dictator's note. Any additional findings/opinions/ etc. will be noted.
[2016-06-14] MEDS: RIVAROXABAN 10 MG TAB PO SCH (20:19)
[2016-06-14] MEDS: TEMAZEPAM 15 MG CAP PO PRN (21:51)
[2016-06-15] MEDS: LEVOTHYROXINE 100 MCG TAB PO SCH (05:13)
[2016-06-15] MEDS: METOCLOPRAMIDE 5 MG/ML 2 ML VIAL IVP SCH ×3 (05:16→18:02)
[2016-06-15] MEDS: ONDANSETRON 4 MG/2 ML VIAL IVP PRN ×4 (07:42→21:35)
[2016-06-15] MEDS: MORPHINE SULFATE 4 MG/ML SYRINGE IVP PRN ×5 (07:42→21:35)
[2016-06-15] MEDS: ASPIRIN 81 MG CHEW PO SCH (08:16)
[2016-06-15] MEDS: FLECAINIDE 50 MG TAB PO SCH ×2 (08:16→21:36)
[2016-06-15] MEDS: PRAVASTATIN SODIUM 40 MG TAB PO SCH (08:16)
[2016-06-15] MEDS: LACTULOSE 20 GM/30 ML CUP PO SCH ×4 (08:16→21:37)
[2016-06-15] MEDS: METOPROLOL TARTRATE 50 MG TAB PO SCH ×2 (08:16→21:37)
[2016-06-15] MEDS: BALSALAZIDE DISODIUM 750 MG CAPSULE PO SCH (08:16)
[2016-06-15] MEDS: MULTIVITAMINS, THERA 1 EACH TAB PO SCH (08:16)
[2016-06-15] MEDS: POLYETHYLENE GLYCOL 3350 17 GM POWD.PACK PO SCH (08:16)
[2016-06-15] MEDS: PANTOPRAZOLE 40 MG TABLET PO SCH ×2 (08:16→21:37)
[2016-06-15] MEDS: DOCUSATE 100 MG CAP PO SCH ×2 (08:16→21:36)
[2016-06-15] MEDS: VIT A,C & E-LUTEIN-MINERALS 1 EACH TAB PO SCH ×2 (08:17→21:37)
[2016-06-15] MEDS ORDERED: LIDOCAINE 1% INJ 10MG/ML (20 ML MDV) ONE (12:00)
[2016-06-15] MEDS ORDERED: PROPOFOL 10 MG/ML 20 ML VIAL IV ONE (12:00)
[2016-06-15] MEDS ORDERED: IV FLUID CONTINUATION 500 ML IV ONE (12:00)
[2016-06-15] MEDS ORDERED: LIDOCAINE 2% INJ 20 MG/ML INTRATRACH ONE ×2 (12:07→12:17)
--- NOTE | 2016-06-15 13:02 | PCN ---
DATE OF PROCEDURE: PROCEDURE DONE BY: Dr. Ríos and Dr. Cespedes. PREOPERATIVE DIAGNOSIS: Lung cancer and right lung obstruction. POSTOPERATIVE DIAGNOSIS: Lung cancer and right lung obstruction. There was informed consent. There was universal timeout. Claudia Evans CRNA provided IV conscious sedation. The patient's procedure was done in room #1. The procedure was done with general anesthetic and unconscious sedation. After the patient was adequately sedated and being fully monitored, the bronchoscope was inserted through the right nostril. It passed through the right nasopharynx into the oropharynx. We passed it into the hypopharyngeal structures. They appeared normal. This included anterior commissure, true cords, false cords, arytenoids, piriform sinuses, right and left valleculae. Next, after topicalization, the bronchoscope was pushed through the glottic opening into the trachea. Trachea appeared normal. Tracheal roni was sharp. On the left side after topicalization, the left upper lobe proper and its 2 segments, the lingula and its 2 segments, and left lower lobe and its 4 segments were normal. Likewise, on the right side, the right upper lobe and its 3 segments appeared normal. Of note was the fact there was a large obstructing mass. It was noted in the distal bronchus intermedius obstructing the right middle lobe and right lower lobe. I could not get past the mass. The mass looked very angry and vascular appearing. It was probably a combination of mucus, tumor and coagulated blood. Pictures were taken. I tried to take some samples of the mass to see whether or not I could clear the obstruction, but that was not going to be effective. I really could not get past the lesion. Again it was very vascular and bled a little bit. Pictures were taken. The procedure was aborted at this point. The patient will be recovered and we will talk to the family.
--- NOTE | 2016-06-15 16:02 | P.PN ---
Subjective Principal diagnosis: A-fib with RVR, SOB Pt seen today in follow up, she continues to not feel well, she is weak, can't breathe good, is hungry but can't eat due to nausea. She is frustrated. Sister and 2 sons at bedside. Objective - Vital Signs Vital signs: Vital Signs Temp 98 F 06/15/16 10:50 Pulse 68 06/15/16 12:57 Resp 18 06/15/16 12:57 BP 120/56 06/15/16 12:57 Pulse Ox 99 06/15/16 12:57 Intake & Output 06/14/16 06/15/16 06/15/16 18:59 06:59 18:59 Intake Total 100 350 Output Total 51 Balance -51 100 350 Weight 75.1 kg Intake: IV 100 Intake, IV Titration 250 Amount IV Fluid Continuation 500 200 ml As IV .[facility] Rx #:[id number] cefTRIAXone 1,000 mg In 50 Sodium Chloride 0.9% 50 ml @ 100 mls/hr IVPB Q24HR [facility] Rx#:[id number] Oral 100 Output: Urine 50 Emesis 1 Other: Voiding Method Toilet Toilet Diaper Diaper # Voids 2 2 - Constitutional General appearance: Present: average body habitus, cooperative, mild distress - Respiratory Details: labored breathing - Neurologic Neurologic: Present: CNII-XII intact - Musculoskeletal Musculoskeletal: Present: generalized weakness - Psychiatric Psychiatric: Present: A&O x's 3, appropriate affect, intact judgment & insight - Labs CBC & Chem 7: 06/10/16 07:54 06/10/16 07:54 Labs: Microbiology - Last 24 Hours (Table) 06/08/16 10:38 Blood Culture - Final Blood No Growth after 144 hours 06/08/16 10:44 Blood Culture - Final Blood No Growth after 144 hours Assessment and Plan (1) Metastatic lung carcinoma Narrative/Plan: Pt wants ot feel better NOW, and if not then she does not want any more procedures or treatments. She is willing to go through with the bronch because she felt so much better last she had it done. She was very aware that there was no guarantee that procedure will provide the same relief it did last time but she was willing to try. IF she feels better then she may consider doing radiation a few more times, she has difficulty laying for the treatment. Based on how procedures go today pt will decide what she would like to do. It was explained to pt and family that the purpose of the bronch and radiation are palliation of symptoms. All their questions were answered. Status: Acute Plan: Pt stated tolerance to soft foods so soft diet was ordered. Pain meds will be adjusted to pt tolerance. Pain management consulted to see if pt is a candidate for nerve block.
[2016-06-15] MEDS: traMADol 50 MG TAB PO PRN (16:16)
[2016-06-15] MEDS: RIVAROXABAN 10 MG TAB PO SCH (16:17)
--- NOTE | 2016-06-15 18:12 | P.PN ---
Subjective Date of service 06/15/2016 Progress note being dictated for . Interval history: This a 80-year-old female admitted with fatigue, chest discomfort, proximal atrial fibrillation with RVR, non-STEMI, possible right upper lobe pneumonia in a patient with recently diagnosed metastatic lung CA. Previous x-ray reported right lung increasing postobstructive atelectasis.Persistent right back pain.Underwent bronchoscopy today with pulmonary reporting lung cancer, right lung obstruction , please refer to procedure note regarding inability to get past large obstructing mass. Nausea, Generalized weakness, fatigue, Exertional shortness of breath,persists. Continues on Rocephin, nebulized bronchodilators. Denies chest pain or palpitations. Afebrile. Objective - Vital Signs Vital signs: Vital Signs Temp 98.2 F 06/15/16 15:00 Pulse 70 06/15/16 15:00 Resp 16 06/15/16 15:00 BP 119/62 06/15/16 15:00 Pulse Ox 93 L 06/15/16 15:00 Intake & Output 06/14/16 06/15/16 06/15/16 18:59 06:59 18:59 Intake Total 100 350 Output Total 51 Balance -51 100 350 Weight 75.1 kg Intake: IV 100 Intake, IV Titration 250 Amount IV Fluid Continuation 500 200 ml As IV .[facility] Rx #:[id number] cefTRIAXone 1,000 mg In 50 Sodium Chloride 0.9% 50 ml @ 100 mls/hr IVPB Q24HR [facility] Rx#:[id number] Oral 100 Output: Urine 50 Emesis 1 Other: Voiding Method Toilet Toilet Diaper Diaper # Voids 2 2 1 - Exam PHYSICAL EXAM: VITAL SIGNS: As above GENERAL: [Sitting up in bed, nauseated HEENT: [Pupils equal conjunctiva normal.] NECK: [Supple, no JVD] RESPIRATORY EFFORT:increased] LUNGS: [Bilateral Diminished CARDIOVASCULAR[regular S1 and S2, no murmur, rub or gallop, no edema] GI: [Abdomen soft, nontender, positive bowel sounds.] PSYCH: [Alert and oriented -3, mood and affect normal.] NEURO: No focal deficits, moves all 4 extremities, generalized weakness Microbiology 06/08/16 10:38 Blood Blood Culture - Preliminary No Growth after 120 hours 06/08/16 10:44 Blood Blood Culture - Preliminary No Growth after 120 hours 06/05/16 20:23 Blood Blood Culture - Final No Growth after 144 hours 06/06/16 20:35 Urine,Voided Urine Culture - Final - Labs CBC & Chem 7: 06/10/16 07:54 06/10/16 07:54 Assessment and Plan Plan: #1 acute non-STEMI #2. Proximal atrial fibrillation with RVR, converted to sinus rhythm #3. 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 #4. Recent Post Obstructive pneumonia,Worsening- increasing right lung base density, possible new postobstructive atelectasis and possible underlying acute infiltrate, status post bronchoscopy reporting lung cancer, right lung obstruction ,inability to get past large obstructing mass, please refer to procedure note. #5 history of ulcerative colitis #6 CAD with history of stent #7 Essential hypertension. #8 history of nicotine abuse. #9 Dyslipidemia #10 COPD #11 Anemia, Plan: Continue on current medication regime , nitrates, aspirin, beta israel, statin, nebulized bronchodilators, Reglan ,Zofran, monitoring and symptomatic treatment. Possible scheduled for another palliative radiation treatment today. Pain management consulted. Hospice option discussed. Prognosis guarded. Further recommendations to follow. The impression and plan of care has been dictated as directed. : I performed a H&P examination of this patient and discussed the same with the dictator. I agree with the dictator's note. Any additional findings/opinions/ etc. will be noted.
[2016-06-15] MEDS: TEMAZEPAM 15 MG CAP PO PRN (21:45)
[2016-06-16] MEDS: METOCLOPRAMIDE 5 MG/ML 2 ML VIAL IVP SCH ×4 (00:35→17:50)
[2016-06-16] MEDS: LEVOTHYROXINE 100 MCG TAB PO SCH (06:05)
[2016-06-16] MEDS: ASPIRIN 81 MG CHEW PO SCH (09:21)
[2016-06-16] MEDS: BALSALAZIDE DISODIUM 750 MG CAPSULE PO SCH (09:21)
[2016-06-16] MEDS: PANTOPRAZOLE 40 MG TABLET PO SCH ×2 (09:22→21:35)
[2016-06-16] MEDS: DOCUSATE 100 MG CAP PO SCH ×2 (09:22→19:50)
[2016-06-16] MEDS: MULTIVITAMINS, THERA 1 EACH TAB PO SCH (09:22)
[2016-06-16] MEDS: POLYETHYLENE GLYCOL 3350 17 GM POWD.PACK PO SCH (09:22)
[2016-06-16] MEDS: LACTULOSE 20 GM/30 ML CUP PO SCH ×2 (09:22→14:19)
[2016-06-16] MEDS: METOPROLOL TARTRATE 50 MG TAB PO SCH ×2 (09:23→21:35)
[2016-06-16] MEDS: VIT A,C & E-LUTEIN-MINERALS 1 EACH TAB PO SCH ×2 (09:23→19:50)
[2016-06-16] MEDS: FLECAINIDE 50 MG TAB PO SCH ×2 (09:23→21:35)
[2016-06-16] MEDS: PRAVASTATIN SODIUM 40 MG TAB PO SCH (09:24)
[2016-06-16] MEDS: MORPHINE SULFATE 4 MG/ML SYRINGE IVP PRN ×4 (10:20→22:50)
[2016-06-16] MEDS: ONDANSETRON 4 MG/2 ML VIAL IVP PRN ×3 (10:20→19:45)
--- NOTE | 2016-06-16 17:28 | P.PN ---
Subjective Date of service 06/16/2016 Progress note being dictated for . Interval history: This a 80-year-old female admitted with fatigue, chest discomfort, proximal atrial fibrillation with RVR, non-STEMI, possible right upper lobe pneumonia in a patient with recently diagnosed metastatic lung CA. Previous x-ray reported right lung increasing postobstructive atelectasis.Status post bronchoscopy yesterday with pulmonary reporting lung cancer, right lung obstruction.Mild improvement in nausea. Underwent another episode of radiation yesterday, states mild improvement in right back pain. Scheduled for another radiation today. Generalized weakness, fatigue, Exertional shortness of breath,persists. Continues on Rocephin, nebulized bronchodilators. Denies chest pain or palpitations. Afebrile. CODE STATUS discussed with patient who wishes to be a no code, no CPR, no intubation . Objective - Vital Signs Vital signs: Vital Signs Temp 98.0 F 06/16/16 07:00 Pulse 90 06/16/16 07:00 Resp 17 06/16/16 07:00 BP 107/52 06/16/16 07:00 Pulse Ox 92 L 06/16/16 07:00 Intake & Output 06/15/16 06/16/16 06/16/16 18:59 06:59 18:59 Intake Total 350 590 120 Balance 350 590 120 Weight 75.1 kg Intake: IV 100 Intake, IV Titration 250 Amount IV Fluid Continuation 500 200 ml As IV [facility] Rx #:[id number] cefTRIAXone 1,000 mg In 50 Sodium Chloride 0.9% 50 ml @ 100 mls/hr IVPB Q24HR [facility] Rx#:[id number] Oral 590 120 Other: Voiding Method Toilet Toilet Diaper Diaper # Voids 1 1 1 # Bowel Movements 1 - Exam PHYSICAL EXAM: VITAL SIGNS: As above GENERAL: [Sitting up in bed, resting, no acute distress HEENT: [Pupils equal conjunctiva normal.] NECK: [Supple, no JVD] RESPIRATORY EFFORT:increased] LUNGS: [Bilateral Diminished CARDIOVASCULAR[regular S1 and S2, no murmur, rub or gallop, no edema] GI: [Abdomen soft, nontender, positive bowel sounds.] PSYCH: [Alert and oriented -3, mood and affect normal.] NEURO: No focal deficits, moves all 4 extremities, generalized weakness Microbiology 06/08/16 10:38 Blood Blood Culture - Preliminary No Growth after 120 hours 06/08/16 10:44 Blood Blood Culture - Preliminary No Growth after 120 hours 06/05/16 20:23 Blood Blood Culture - Final No Growth after 144 hours 06/06/16 20:35 Urine,Voided Urine Culture - Final - Labs CBC & Chem 7: 06/10/16 07:54 06/10/16 07:54 Assessment and Plan Plan: #1 acute non-STEMI #2. Proximal atrial fibrillation with RVR, converted to sinus rhythm #3. 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 #4. Recent Post Obstructive pneumonia,Worsening- increasing right lung base density, possible new postobstructive atelectasis and possible underlying acute infiltrate, status post bronchoscopy reporting lung cancer, right lung obstruction ,inability to get past large obstructing mass, please refer to procedure note. #5 history of ulcerative colitis #6 CAD with history of stent #7 Essential hypertension. #8 history of nicotine abuse. #9 Dyslipidemia #10 COPD #11 Anemia, #12 No Code, No CPR, No Intubation Plan: Continue on current medication regime , nitrates, aspirin, beta israel, statin, nebulized bronchodilators, Reglan ,Zofran, monitoring and symptomatic treatment. Palliative radiation treatment today, last radiation treatment scheduled for tomorrow. Prognosis guarded. Discharge planning in progress for tomorrow. Further recommendations to follow. The impression and plan of care has been dictated as directed. : I performed a H&P examination of this patient and discussed the same with the dictator. I agree with the dictator's note. Any additional findings/opinions/ etc. will be noted.
[2016-06-16] MEDS: RIVAROXABAN 10 MG TAB PO SCH (17:50)
[2016-06-16] MEDS: TEMAZEPAM 15 MG CAP PO PRN (21:34)
[2016-06-16] MEDS: traMADol 50 MG TAB PO PRN (21:34)
[2016-06-17] MEDS: METOCLOPRAMIDE 5 MG/ML 2 ML VIAL IVP SCH ×3 (05:50→11:15)
[2016-06-17] MEDS: LEVOTHYROXINE 100 MCG TAB PO SCH (05:53)
[2016-06-17 07:52] VITALS: TEMP 97.7
[2016-06-17] MEDS: BALSALAZIDE DISODIUM 750 MG CAPSULE PO SCH (08:17)
[2016-06-17] MEDS: ONDANSETRON 4 MG/2 ML VIAL IVP PRN ×2 (08:17→12:21)
[2016-06-17] MEDS: MULTIVITAMINS, THERA 1 EACH TAB PO SCH ×2 (08:17→08:37)
[2016-06-17] MEDS: VIT A,C & E-LUTEIN-MINERALS 1 EACH TAB PO SCH ×2 (08:17→08:35)
[2016-06-17] MEDS: DOCUSATE 100 MG CAP PO SCH (08:17)
[2016-06-17] MEDS: PANTOPRAZOLE 40 MG TABLET PO SCH (08:17)
[2016-06-17] MEDS: traMADol 50 MG TAB PO PRN ×2 (08:18→16:23)
[2016-06-17] MEDS: FLECAINIDE 50 MG TAB PO SCH (08:18)
[2016-06-17] MEDS: PRAVASTATIN SODIUM 40 MG TAB PO SCH (08:18)
[2016-06-17] MEDS: ASPIRIN 81 MG CHEW PO SCH (08:18)
[2016-06-17] MEDS: METOPROLOL TARTRATE 50 MG TAB PO SCH (08:18)
[2016-06-17] MEDS: POLYETHYLENE GLYCOL 3350 17 GM POWD.PACK PO SCH (08:19)
[2016-06-17] MEDS: MORPHINE SULFATE 4 MG/ML SYRINGE IVP PRN ×2 (11:15→15:13)
--- NOTE | 2016-06-17 11:46 | P.DS ---
Providers Date of admission: 06/05/16 15:11 Expected date of discharge: 06/17/16 Attending physician: Rohini Nayak Consults: 06/09/16 20:30 Consult Physician Routine Consulting Provider: Jay Segura Consult Reason/Comments: Evaluate for palliative radiation to right lung mass Do you want consulting provider notified?: Yes [facility] Dr. Fuentes and Dr. Ríos, pulmonary Dr. Lopez, oncology Primary care physician: Nadine Song at [facility] Hospital Course: Final Diagnoses: #1 acute non-STEMI #2. Proximal atrial fibrillation with RVR, converted to sinus rhythm #3. 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 #4. Recent Post Obstructive pneumonia,Worsening- increasing right lung base density, possible new postobstructive atelectasis and possible underlying acute infiltrate, status post bronchoscopy reporting lung cancer, right lung obstruction ,inability to get past large obstructing mass, please refer to procedure note. #5 history of ulcerative colitis #6 CAD with history of stent #7 Essential hypertension. #8 history of nicotine abuse. #9 Dyslipidemia #10 COPD #11 Anemia, #12 No Code, No CPR, No Intubation Hospital course:This a 80-year-old female admitted with fatigue, chest discomfort, proximal atrial fibrillation with RVR, acute non-STEMI, possible right upper lobe pneumonia in a patient with recently diagnosed metastatic lung CA. evaluated by multiple consults, [facility], pulmonary, and oncology. Previous x-ray reported right lung increasing postobstructive atelectasis.Status post bronchoscopy with pulmonary reporting lung cancer, right lung obstruction.Completed to palliative radiation sessions,states mild improvement in right back pain. Did not receive radiation therapy yesterday as patient's pain worsened while waiting. Scheduled for another radiation today. Generalized weakness, fatigue, Exertional shortness of breath,persists. Maintained on Rocephin, nebulized bronchodilators. Denies chest pain or palpitations. Afebrile. CODE STATUS discussed with patient who wishes to be a no code, no CPR, no intubation. Patient also expressed wishes of not wanting any aggressive therapy. Option of hospice discussed and patient wishes to discuss further with family. Cleared for discharge by cardiology, pulmonary. Patient is being discharged to [facility] rehab in a stable condition with guarded prognosis, pending oncology's clearance. Patient Condition at Discharge: Poor Plan - Discharge Summary New Discharge Prescriptions: Metoclopramide Oral Soln [Reglan Oral Soln] 5 mg PO ACHS #1 ml Ondansetron [Zofran] 4 mg PO Q8HR PRN #1 tab PRN Reason: Nausea Temazepam [Restoril] 15 mg PO HS PRN #10 cap PRN Reason: Insomnia fentaNYL 12MCG/HR PATCH [Duragesic 12MCG/HR] 1 patch TRANSDERM Q72H #3 patch traMADol HCl [Ultram] 50 mg PO QID PRN #20 tab PRN Reason: Breakthrough Pain Discharge Medication List Lansoprazole 30 mg PO DAILY 05/09/16 [History] Levothyroxine Sodium [Synthroid] 100 mcg PO QAM 05/09/16 [History] Mesalamine [Lialda] 1.2 gm PO DAILY 05/09/16 [History] Multivitamins, Thera [Multivitamin (formulary)] 1 tab PO DAILY 05/09/16 [History ] Pravastatin Sodium [Pravachol] 40 mg PO DAILY 05/09/16 [History] Vit C/E/Zn/Coppr/Lutein/Zeaxan [Preservision Areds 2 Softgel] 1 cap PO BID 05/09 [History] Flecainide [Tambocor] 50 mg PO Q12HR #60 tab 05/17/16 [Rx] Metoprolol Tartrate [Lopressor] 50 mg PO BID #60 tab 05/17/16 [Rx] Rivaroxaban [Xarelto] 20 mg PO AC-SUPPER 06/05/16 [History] Aspirin 81 mg PO DAILY chew 06/08/16 [Rx] Docusate [Colace] 100 mg PO BID cap 06/08/16 [Rx] Nitroglycerin Sl Tabs [Nitrostat] 0.4 mg SUBLINGUAL Q5M PRN #0 tab 06/08/16 [Rx] Metoclopramide Oral Soln [Reglan Oral Soln] 5 mg PO ACHS #1 ml 06/17/16 [Rx] Ondansetron [Zofran] 4 mg PO Q8HR PRN #1 tab 06/17/16 [Rx] Polyethylene Glycol 3350 [Miralax] 17 gm PO DAILY powd.pack 06/17/16 [Rx] Temazepam [Restoril] 15 mg PO HS PRN #10 cap 06/17/16 [Rx] fentaNYL 12MCG/HR PATCH [Duragesic 12MCG/HR] 1 patch TRANSDERM Q72H #3 patch [Rx] guaiFENesin-DM 100-10MG/5ML [Robitussin DM] 10 ml PO Q6H PRN #0 cup 06/17/16 [Rx ] traMADol HCl [Ultram] 50 mg PO QID PRN #20 tab 06/17/16 [Rx] Follow up Appointment(s)/Referral(s): Gordon Song MD [REFERRING] - 3 Days (while at [facility] ) Fay Fuentes MD [STAFF PHYSICIAN] - 2 Weeks Nadine Gusman DO [Primary Care Provider] - 1 Week (After from F) Michael Lopez MD [STAFF PHYSICIAN] - 1 Week Activity/Diet/Wound Care/Special Instructions: [facility] confirm cardiology follow-up appointment prior to discharge. Diet: Cardiac Activity: As tolerated CBC, BMP in 3 days Discharge Disposition: TRANSFER TO SNF/ECF
--- NOTE | 2016-06-17 14:56 | P.PN ---
Subjective The patient states that she was doing somewhat better yesterday. However she could not have her radiation, as she was a significant pain while waiting for treatment to start and had to come back to the floor. She remains quite weak but overall does pretty status is stable. Objective - Vital Signs Vital signs: Vital Signs Temp 97.7 F 06/17/16 07:00 Pulse 70 06/17/16 07:00 Resp 16 06/17/16 07:00 BP 143/63 06/17/16 07:00 Pulse Ox 97 06/17/16 07:00 Intake & Output 06/16/16 06/17/16 06/17/16 18:59 06:59 18:59 Intake Total 410 830 360 Balance 410 830 360 Weight 75.1 kg Intake: Intake, IV Titration 50 Amount cefTRIAXone 1,000 mg In 50 Sodium Chloride 0.9% 50 ml @ 100 mls/hr IVPB Q24HR [facility] Rx#:[id number] Oral 360 830 360 Other: Voiding Method Toilet Toilet Diaper Diaper # Voids 1 2 # Bowel Movements 1 1 - Constitutional General appearance: Present: mild distress - EENT Eyes: Present: EOMI, PERRLA ENT: Present: hearing grossly normal, normal oropharynx - Neck Thyroid: bilateral: normal size - Respiratory Respiratory: right: diminished - Cardiovascular Rhythm: regular Heart sounds: normal: S1, S2 - Gastrointestinal General gastrointestinal: Present: normal bowel sounds, soft - Integumentary Integumentary: Present: normal - Neurologic Neurologic: Present: CNII-XII intact - Musculoskeletal Musculoskeletal: Present: generalized weakness, strength equal bilaterally - Labs CBC & Chem 7: 06/10/16 07:54 06/10/16 07:54 Assessment and Plan (1) Elevated troponin I level Status: Acute (2) Squamous cell lung cancer Narrative/Plan: On the case was discussed extensively with the admitted service, and also with the family at the bedside today along with the patient. The patient has started palliative radiation therapy, but ended up missing a couple of treatments because of pain. She feels that her breathing may be slightly easier. As noted previously, bronchoscopic intervention was not possible. To further options were discussed in detail. At this time the plan is for her to go to an ECF. She is scheduled to have additional radiation treatments next week. Family is willing to transport her. The patient is also considering going home with home care, versus hospice At this time, the best case scenario is that the tumor will respond to prior to radiation. In that situation, if her respiratory function improves, she could potentially undergo some rehab with improvement in her performance status to where active treatment can be considered. The chances of that happening are not very high realistically, but of course, possible. Therefore if she decided not to pursue active treatment, and instead of for comfort care, that would be quite reasonable to. If she did decide to continue radiation with rehab, but did not show any improvement , then again transitioned to comfort care would be most reasonable. This was discussed carefully with the family. At this time the patient will decide on further discussion with the family what she wants to do. [facility] I requested the admitting service to have her follow-up with me in about 2 weeks post discharge. Status: Acute
[2016-06-17 15:44] VITALS: BP 132/60; PULSE 74; RESP 17
[2016-06-17] MEDS: RIVAROXABAN 10 MG TAB PO SCH (16:23)
== END 2016-06-17 18:23 | DRG 280 ==
LOC: EC 13:01 → 6SEL 15:11 → 5ONC 06-09 15:55
PROVIDERS: ADMIT Internal Medicine; ATTEND Internal Medicine
PROC: DB021ZZ Beam Radiation of Lung using Photons 1 - 10 MeV (ICD-10-PCS; 2016-06-13)
PROC: 0BB48ZX Excision of Right Upper Lobe Bronchus, Via Natural or Artificial Opening Endoscopic, Diagnostic (ICD-10-PCS; principal; 2016-06-15 12:00)
DX: I21.4 Non-ST elevation (NSTEMI) myocardial infarction (principal); J18.9 Pneumonia, unspecified organism; T17.590A Other foreign object in bronchus causing asphyxiation, initial encounter; C77.1 Secondary and unspecified malignant neoplasm of intrathoracic lymph nodes; C79.71 Secondary malignant neoplasm of right adrenal gland; C34.31 Malignant neoplasm of lower lobe, right bronchus or lung; K51.90 Ulcerative colitis, unspecified, without complications; J44.0 Chronic obstructive pulmonary disease with (acute) lower respiratory infection; J98.11 Atelectasis; Z66 Do not resuscitate; D63.0 Anemia in neoplastic disease; I48.0 Paroxysmal atrial fibrillation; I10 Essential (primary) hypertension; I25.2 Old myocardial infarction; E78.2 Mixed hyperlipidemia; E03.9 Hypothyroidism, unspecified; M62.81 Muscle weakness (generalized); I25.10 Atherosclerotic heart disease of native coronary artery without angina pectoris; F17.200 Nicotine dependence, unspecified, uncomplicated; Z95.5 Presence of coronary angioplasty implant and graft; Z86.711 Personal history of pulmonary embolism; Z90.49 Acquired absence of other specified parts of digestive tract; Z90.710 Acquired absence of both cervix and uterus; Z82.49 Family history of ischemic heart disease and other diseases of the circulatory system; Z79.01 Long term (current) use of anticoagulants; Z79.899 Other long term (current) drug therapy
CPT/HCPCS: 31624; 36415; 70470; 71010; 71020; 77295; 77300; 77332; 77334; 77387; 77412; 80048; 80053; 80061; 81001; 81003; 82550; 82553; 83735; 84100; 84443; 84484; 85025; 85610; 85730; 87040; 87086; 93005; 93306; 96361; 96365; 96366; 96367; 96374; 96375; 96376; 99285

== ENCOUNTER 2016-07-08 14:46 | Inpatient (IN) | payer MEDICARE, BC ==
[2016-07-08] MEDS ORDERED: SODIUM CHLORIDE 0.9% 1,000 ML IV STA (16:32)
[2016-07-08] MEDS ORDERED: MORPHINE SULFATE 4 MG/ML SYRINGE IV STA ×2 (16:32→17:50)
[2016-07-08] MEDS ORDERED: SODIUM CHLORIDE 0.9% 500 ML IV STA (16:33)
[2016-07-08] MEDS ORDERED: ONDANSETRON 4 MG/2 ML VIAL IVP STA (16:33)
--- NOTE | 2016-07-08 16:37 | ED ---
General Adult HPI - General Chief complaint: Weakness Stated complaint: weakness-sent by Time Seen by Provider: 07/08/16 16:26 Source: patient, RN notes reviewed Mode of arrival: wheelchair Limitations: physical limitation - History of Present Illness Initial comments: Patient is a pleasant 81-year-old female presenting to the emergency Department with multiple complaints. Patient has stage IV lung cancer. Patient has been on radiation. Patient complains of discomfort on the right side of the chest. Patient has not ate or drank hardly anything in the past week. Patient does complain of some shortness of breath. Patient requests pain medication. Patient did have atrial fibrillation last time she was in the hospital. custodial did send patient to Dr. Fuentes's office who advised patient to come to the emergency department. - Related Data Home Medications Medication Instructions Recorded Confirmed Lansoprazole 30 mg PO DAILY 05/09/16 07/08/16 Levothyroxine Sodium [Synthroid] 100 mcg PO QAM 05/09/16 07/08/16 Mesalamine [Lialda] 1.2 gm PO DAILY 05/09/16 07/08/16 Multivitamins, Thera [Multivitamin 1 tab PO HS 05/09/16 07/08/16 (formulary)] Pravastatin Sodium [Pravachol] 40 mg PO HS 05/09/16 07/08/16 Vit C/E/Zn/Coppr/Lutein/Zeaxan 2 cap PO HS 05/09/16 07/08/16 [Preservision Areds 2 Softgel] Rivaroxaban [Xarelto] 20 mg PO HS 06/05/16 07/08/16 Aspirin 81 mg PO HS 07/08/16 07/08/16 Bisacodyl [Dulcolax] 10 mg RECTAL DAILY PRN 07/08/16 07/08/16 Ferrous Sulfate [Feosol] 325 mg PO HS 07/08/16 07/08/16 Furosemide [Lasix] 40 mg PO DAILY 07/08/16 07/08/16 Ipratropium-Albuterol Nebulize 3 ml INHALATION RT-Q4H PRN 07/08/16 07/08/16 [Duoneb 0.5 mg-3 mg/3 ml Soln] MORPHINE ORAL SOLN 20mg/mL 10 mg SL Q4-6H PRN 07/08/16 07/08/16 [Roxanol Oral Soln Conc 20MG/ML] Menthol [Biofreeze] 1 applic TOPICAL TID 07/08/16 07/08/16 Metoclopramide [Reglan] 5 mg PO ACHS 07/08/16 07/08/16 Phenergan 25mg/Ml Im Injection 12.5 mg IM Q6H PRN 07/08/16 07/08/16 fentaNYL 25MCG/HR PATCH [Duragesic 1 patch TRANSDERM Q72H 07/08/16 07/08/16 25MCG/HR] guaiFENesin [Children's Mucinex 200 mg PO Q6H PRN 07/08/16 07/08/16 Solution] Previous Rx's Medication Instructions Recorded Flecainide [Tambocor] 50 mg PO Q12HR #60 tab 05/17/16 Metoprolol Tartrate [Lopressor] 50 mg PO BID #60 tab 05/17/16 Docusate [Colace] 100 mg PO BID cap 06/08/16 Nitroglycerin Sl Tabs [Nitrostat] 0.4 mg SUBLINGUAL Q5M PRN #0 tab 06/08/16 Polyethylene Glycol 3350 [Miralax] 17 gm PO DAILY powd.pack 06/17/16 Temazepam [Restoril] 15 mg PO HS PRN #10 cap 06/17/16 traMADol HCl [Ultram] 50 mg PO QID PRN #20 tab 06/17/16 Allergies Allergy/AdvReac Type Severity Reaction Status Date / Time ciprofloxacin [From Cipro] Allergy Unknown Verified 07/08/16 16:26 codeine Allergy Nausea & Verified 07/08/16 16:26 Vomiting gabapentin [From Neurontin] Allergy Unknown Verified 07/08/16 16:26 hydrocodone Allergy Rash/Hives Verified 07/08/16 16:26 ibuprofen [From Motrin] Allergy Rash/Hives Verified 07/08/16 16:26 Iodinated Contrast Media - Allergy Rash/Hives Verified 07/08/16 16:26 Oral and omeprazole [From Prilosec] Allergy Rash/Hives Verified 07/08/16 16:26 Sulfa (Sulfonamide Allergy Rash/Hives Verified 07/08/16 16:26 Antibiotics) Review of Systems ROS Statement: Those systems with pertinent positive or pertinent negative responses have been documented in the HPI. ROS Other: All systems not noted in ROS Statement are negative. Constitutional: Denies: fever Eyes: Denies: eye pain ENT: Denies: ear pain Respiratory: Reports: dyspnea Cardiovascular: Reports: chest pain Endocrine: Reports: fatigue Gastrointestinal: Reports: nausea Genitourinary: Denies: dysuria Musculoskeletal: Denies: back pain Skin: Denies: rash Neurological: Denies: headache Past Medical History Past Medical History: Hyperlipidemia, Hypertension, Myocardial Infarction ([place]) Additional Past Medical History / Comment(s): ulcerative colitis, adrenal mass under investigation, CAD previous stent of RCA, HTN, hyperlipidemia, EF 70% , hypothyroidism Last Myocardial Infarction Date:: 2005 History of Any Multi-Drug Resistant Organisms: None Reported Past Surgical History: Adenoidectomy, Bladder Surgery, Cholecystectomy, Hysterectomy, Tonsillectomy Additional Past Surgical History / Comment(s): Cardiac stent Additional Past Anesthesia/Blood Transfusion Reaction / Comment(s): muscle weakness post biopsy Past Psychological History: No Psychological Hx Reported Smoking Status: Former smoker Past Alcohol Use History: None Reported Past Drug Use History: None Reported - Past Family History Mother Family Medical History: Cancer, Myocardial Infarction ([place]) General Exam Limitations: physical limitation General appearance: alert, in distress (Appears uncomfortable) Head exam: Present: atraumatic Eye exam: Present: normal appearance, PERRL ENT exam: Present: normal oropharynx Neck exam: Present: normal inspection Respiratory exam: Present: normal lung sounds bilaterally, chest wall tenderness (Right lower chest wall) Cardiovascular Exam: Present: tachycardia, irregular rhythm GI/Abdominal exam: Present: soft. Absent: tenderness Extremities exam: Present: normal inspection Neurological exam: Present: alert Psychiatric exam: Present: anxious Skin exam: Absent: rash Course Vital Signs 07/08/16 07/08/16 07/08/16 15:25 16:23 17:21 Temperature 98.2 F 99.1 F Pulse Rate 144 H 171 H 141 H Pulse Rate [ 165 H Senior Policy Advisor ] Respiratory 20 22 18 Rate Blood Pressure 155/71 159/68 141/80 O2 Sat by Pulse 90 L 98 95 Oximetry EKG Findings - EKG Comments: EKG Findings:: A. fib with RVR, rate 170. QRS 82. QT to 74. QTC 460. Normal axis. Normal QRS. Lateral ST depression. Medical Decision Making - Medical Decision Making Patient reevaluated. Patient and family updated. Case discussed with Dr. Weber, who will admit for Dr. Burch. Dr. Lopez has been paged. Patient is already anticoagulated. Patient is on IV Cardizem. - Lab Data Result diagrams: 07/08/16 16:10 07/08/16 16:10 Lab Results 07/08/16 07/08/16 07/08/16 Range/Units 16:10 16:10 16:10 WBC 8.3 (3.8-10.6) k/uL RBC 3.48 L (3.80-5.40) m/uL Hgb 9.0 L (11.4-16.0) gm/dL Hct 29.4 L (34.0-46.0) % MCV 84.5 (80.0-100.0) fL MCH 25.8 (25.0-35.0) pg MCHC 30.5 L (31.0-37.0) g/dL RDW 17.9 H (11.5-15.5) % Plt Count 132 L D (150-450) k/uL Neutrophils % 81 % Lymphocytes % 11 % Monocytes % 6 % Eosinophils % 1 % Basophils % 0 % Neutrophils # 6.7 (1.3-7.7) k/uL Lymphocytes # 0.9 L (1.0-4.8) k/uL Monocytes # 0.5 (0-1.0) k/uL Eosinophils # 0.1 (0-0.7) k/uL Basophils # 0.0 (0-0.2) k/uL Hypochromasia Marked Poikilocytosis Slight Anisocytosis Slight PT (9.0-12.0) sec INR (<1.1) APTT (22.0-30.0) sec Sodium 137 (137-145) mmol/L Potassium 4.1 (3.5-5.1) mmol/L Chloride 98 (98-107) mmol/L Carbon Dioxide 30 (22-30) mmol/L Anion Gap 9 mmol/L BUN 11 (7-17) mg/dL Creatinine 0.57 (0.52-1.04) mg/dL Est GFR (MDRD) Af Amer >60 (>60 ml/min/1.73 sqM) Est GFR (MDRD) Non-Af >60 (>60 ml/min/1.73 sqM) Glucose 114 H (74-99) mg/dL Calcium 9.2 (8.4-10.2) mg/dL Magnesium 1.7 (1.6-2.3) mg/dL Total Bilirubin 0.7 (0.2-1.3) mg/dL AST 51 H (14-36) U/L ALT 25 (9-52) U/L Alkaline Phosphatase 91 (38-126) U/L Total Creatine Kinase 226 H (30-135) U/L NT-Pro-B Natriuret Pep pg/mL Total Protein 7.0 (6.3-8.2) g/dL Albumin 3.0 L (3.5-5.0) g/dL TSH 0.648 (0.465-4.680) mIU/L 07/08/16 07/08/16 Range/Units 16:10 16:10 WBC (3.8-10.6) k/uL RBC (3.80-5.40) m/uL Hgb (11.4-16.0) gm/dL Hct (34.0-46.0) % MCV (80.0-100.0) fL MCH (25.0-35.0) pg MCHC (31.0-37.0) g/dL RDW (11.5-15.5) % Plt Count (150-450) k/uL Neutrophils % % Lymphocytes % % Monocytes % % Eosinophils % % Basophils % % Neutrophils # (1.3-7.7) k/uL Lymphocytes # (1.0-4.8) k/uL Monocytes # (0-1.0) k/uL Eosinophils # (0-0.7) k/uL Basophils # (0-0.2) k/uL Hypochromasia Poikilocytosis Anisocytosis PT 14.9 H (9.0-12.0) sec INR 1.5 (<1.1) APTT 24.1 (22.0-30.0) sec Sodium (137-145) mmol/L Potassium (3.5-5.1) mmol/L Chloride (98-107) mmol/L Carbon Dioxide (22-30) mmol/L Anion Gap mmol/L BUN (7-17) mg/dL Creatinine (0.52-1.04) mg/dL Est GFR (MDRD) Af Amer (>60 ml/min/1.73 sqM) Est GFR (MDRD) Non-Af (>60 ml/min/1.73 sqM) Glucose (74-99) mg/dL Calcium (8.4-10.2) mg/dL Magnesium (1.6-2.3) mg/dL Total Bilirubin (0.2-1.3) mg/dL AST (14-36) U/L ALT (9-52) U/L Alkaline Phosphatase (38-126) U/L Total Creatine Kinase (30-135) U/L NT-Pro-B Natriuret Pep 7310 pg/mL Total Protein (6.3-8.2) g/dL Albumin (3.5-5.0) g/dL TSH (0.465-4.680) mIU/L - Radiology Data Radiology results: image reviewed (Chest x-ray shows increasing opacification right lower lobe) Critical Care Time Critical Care Time: Yes Total Critical Care Time: 33 Disposition Clinical Impression: Atrial fibrillation with RVR Disposition: ADMITTED IP TO THIS [facility] Condition: Serious Time of Disposition: 17:39
[2016-07-08 16:55] LABS: Anisocytosis Slight; Basophils % (A) 0 %; CH 24.7; CHCM 29.4; Eosinophils # (A) 0.1 k/uL (0-0.7); Eosinophils % (A) 1 %; HCT 29.4 % (34.0-46.0); Hypochromasia Marked; Luc # (Auto) 0.12; Luc % (Auto) 2; Lymphocytes # (A) 0.9 k/uL (1.0-4.8); Lymphocytes % (A) 11 %; MCH 25.8 pg (25.0-35.0); MCHC 30.5 g/dL (31.0-37.0); MCV 84.5 fL (80.0-100.0); Mean Platelet Volume 7.8; Monocytes # (A) 0.5 k/uL (0-1.0); Monocytes % (A) 6 %; Neutrophils # (A) 6.7 k/uL (1.3-7.7); Neutrophils % (A) 81 %; Poikilocytosis Slight; RBC 3.48 m/uL (3.80-5.40); RDW 17.9 % (11.5-15.5); WBC 8.3 k/uL (3.8-10.6); WBC (Perox) 8.54
[2016-07-08 16:59] LABS: INR 1.5 (<1.1); Partial Thromboplastin Time 24.1 sec (22.0-30.0); Prothrombin Time 14.9 sec (9.0-12.0)
[2016-07-08] MEDS ORDERED: DILTIAZEM 125 MG in SODIUM CHLORIDE 0.9% 100 ML IV ONE (17:00)
[2016-07-08 17:01] LABS: ALT 25 U/L (9-52); AST 51 U/L (14-36); Alkaline Phosphatase 91 U/L (38-126); Anion Gap 9 mmol/L; Blood Urea Nitrogen 11 mg/dL (7-17); Calcium 9.2 mg/dL (8.4-10.2); Carbon Dioxide 30 mmol/L (22-30); Chloride 98 mmol/L (98-107); Glucose 114 mg/dL (74-99); Magnesium 1.7 mg/dL (1.6-2.3); Non-African American GFR(MDRD) >60 (>60 ml/min/1.73 sqM); Potassium 4.1 mmol/L (3.5-5.1); Sodium 137 mmol/L (137-145); Total Bilirubin 0.7 mg/dL (0.2-1.3)
--- NOTE | 2016-07-08 17:27 | XR ---
EXAMINATION TYPE: XR chest 1V portable DATE OF EXAM: 07/08/2016 5:17 PM COMPARISON: 06/08/2016 HISTORY: Dysrhythmia and weakness TECHNIQUE: Single frontal view of the chest is obtained. FINDINGS: There is no gross heart failure. There is opacification of the lower 50% right hemithorax. This probably relates to combined pleural fluid and atelectasis and consolidation. Right lower lobe pneumonia cannot be excluded. Left lung is fairly clear. Thoracic aorta is atheromatous. IMPRESSION: There is increasing right sided pulmonary opacification compared to last exam consistent with progression of disease.
[2016-07-08] MEDS ORDERED: NITROGLYCERIN SL TABS 0.4 MG TAB SUBLINGUAL PRN (17:39)
[2016-07-08] MEDS ORDERED: NALOXONE 0.4 MG/ML 1 ML VIAL IV PRN (17:41)
[2016-07-08] MEDS ORDERED: MORPHINE SULFATE 4 MG/ML SYRINGE IV PRN (17:41)
[2016-07-08 17:43] LABS: Creatine Kinase MB 27.2 ng/mL (0.0-2.4); Troponin I 0.897 ng/mL (0.000-0.034)
[2016-07-08] MEDS ORDERED: TEMAZEPAM 15 MG CAP PO PRN (17:43)
[2016-07-08] MEDS ORDERED: PROMETHAZINE INJ 25 MG/ML 1 ML VIAL IM PRN (17:43)
[2016-07-08] MEDS ORDERED: MORPHINE ORAL SOLN 20 MG/1 ML ORAL SYRINGE SL PRN (17:43)
[2016-07-08] MEDS ORDERED: traMADol 50 MG TAB PO PRN (17:43)
[2016-07-08] MEDS ORDERED: BISACODYL 10 MG SUPP RECTAL PRN (17:43)
[2016-07-08] MEDS ORDERED: IPRATROPIUM-ALBUTEROL 3 ML NEB INHALATION PRN (17:43)
[2016-07-08] MEDS ORDERED: DILTIAZEM 5 MG/ML 5 ML VIAL IVP STA (17:51)
[2016-07-08] MEDS ORDERED: guaiFENesin SYRUP 100MG/5ML 200 MG/10 ML CUP PO PRN (19:31)
[2016-07-08] MEDS: METOPROLOL TARTRATE 50 MG TAB PO SCH (20:28)
[2016-07-08] MEDS: METOCLOPRAMIDE 5 MG TAB PO SCH (20:28)
[2016-07-08] MEDS ORDERED: HYDROmorphone 1 MG/ML 1 ML SYRINGE IVP PRN (20:34)
[2016-07-08] MEDS ORDERED: MULTIVITAMINS, THERA 1 EACH TAB PO SCH (21:00)
[2016-07-08] MEDS ORDERED: PRAVASTATIN SODIUM 40 MG TAB PO SCH (21:00)
[2016-07-08] MEDS ORDERED: ASPIRIN 81 MG CHEW PO SCH (21:00)
[2016-07-08] MEDS ORDERED: FERROUS SULFATE 325 MG TAB PO SCH (21:00)
[2016-07-08] MEDS ORDERED: RIVAROXABAN 10 MG TAB PO SCH (21:00)
[2016-07-08] MEDS: FLECAINIDE 50 MG TAB PO SCH (22:43)
[2016-07-08 22:57] LABS: Appearance,Urine Cloudy (Clear); Bacteria,Urine Occasional /hpf; Bilirubin,Urine 1+ (Negative); Glucose,Urine (UA) Negative (Negative); Ketones,Urine 1+ (Negative); Leukocyte Esterase,Urine Moderate (Negative); Nitrite,Urine Negative (Negative); PH, Urine 5.5 (5.0-8.0); Particle Count 7675; Protein,Urine Trace (Negative); RBC,Urine 5 /hpf (0-5); Specific Gravity,Urine 1.015 (1.001-1.035); Squamous Epithelial Cell,Urine 5 /hpf (0-4); UA Billing (MACRO vs. MICRO) MICRO; WBC,Urine 93 /hpf (0-5)
[2016-07-09 00:04] LABS: Troponin I 1.54 ng/mL (0.000-0.034)
[2016-07-09] MEDS: MORPHINE SULFATE 4 MG/ML SYRINGE IVP PRN ×5 (00:16→18:12)
[2016-07-09] MEDS: DOCUSATE 100 MG CAP PO SCH ×3 (02:13→09:06)
[2016-07-09] MEDS: ONDANSETRON 4 MG/2 ML VIAL IVP PRN ×3 (02:35→16:50)
[2016-07-09 04:24] LABS: Anisocytosis Slight; Basophils % (A) 0 %; CH 24.6; CHCM 28.5; Eosinophils % (A) 0 %; HCT 28.3 % (34.0-46.0); HDW 3.43; HGB 8.3 gm/dL (11.4-16.0); Hypochromasia Marked; Luc # (Auto) 0.13; Luc % (Auto) 1; Lymphocytes # (A) 0.8 k/uL (1.0-4.8); Lymphocytes % (A) 7 %; MCH 25.3 pg (25.0-35.0); MCHC 29.2 g/dL (31.0-37.0); MCV 86.9 fL (80.0-100.0); Mean Platelet Volume 6.7; Monocytes # (A) 0.5 k/uL (0-1.0); Monocytes % (A) 4 %; Neutrophils # (A) 9.7 k/uL (1.3-7.7); Neutrophils % (A) 87 %; Poikilocytosis Slight; RBC 3.26 m/uL (3.80-5.40); WBC 11.2 k/uL (3.8-10.6); WBC (Perox) 11.72
[2016-07-09 05:04] LABS: Anion Gap 8 mmol/L; Blood Urea Nitrogen 13 mg/dL (7-17); Calcium 8.9 mg/dL (8.4-10.2); Carbon Dioxide 30 mmol/L (22-30); Chloride 100 mmol/L (98-107); Cholesterol 90 mg/dL (<200); Glucose 126 mg/dL (74-99); HDL Cholesterol 29 mg/dL (40-60); Non-African American GFR(MDRD) >60 (>60 ml/min/1.73 sqM); Potassium 4.7 mmol/L (3.5-5.1); Sodium 138 mmol/L (137-145); Triglycerides 88 mg/dL (<150)
[2016-07-09 05:36] LABS: Creatine Kinase MB 38.9 ng/mL (0.0-2.4); Troponin I 3.76 ng/mL (0.000-0.034)
[2016-07-09] MEDS ORDERED: LEVOTHYROXINE 100 MCG TAB PO SCH (06:30)
[2016-07-09] MEDS: METOCLOPRAMIDE 5 MG TAB PO SCH ×3 (06:56→16:50)
[2016-07-09] MEDS ORDERED: PANTOPRAZOLE 40 MG TABLET PO SCH (07:30)
[2016-07-09] MEDS: BALSALAZIDE DISODIUM 750 MG CAPSULE PO SCH ×3 (08:48→15:51)
[2016-07-09] MEDS: FLECAINIDE 50 MG TAB PO SCH (08:49)
[2016-07-09] MEDS: METOPROLOL TARTRATE 50 MG TAB PO SCH ×2 (08:49→11:20)
[2016-07-09] MEDS: FUROSEMIDE 40 MG TAB PO SCH ×2 (08:50→15:51)
--- NOTE | 2016-07-09 08:55 | HP ---
DATE OF ADMISSION: 07/08/2016 CHIEF COMPLAINT: Weakness. HISTORY OF PRESENT ILLNESS: This 81-year-old woman who was admitted with past medical history of multiple medical problems with hypertension, hyperlipidemia, myocardial infarction, adrenal mass, also had recently diagnosed lung cancer. The patient was admitted recently to [facility] with acute non-ST segment elevation myocardial infarction. The patient also has had paroxysmal atrial fibrillation during this admission. 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 The patient also had postobstructive pneumonia. The patient recently had a course of radiation treatment also for rehabilitation. Patient is staying at [facility]. Today the patient was having significant anorexia, vomiting and unable to keep anything down. Because of multiple symptomatology, the patient was taken to Dr. Fuentes's office and subsequently patient was referred to [facility] emergency room and was evaluated. In the emergency room the patient was found to have atrial fibrillation with fast ventricular rate. Also chest x-ray showed evaluation of the right upper lobe area as well. The patient was admitted for further evaluation and treatment. There is no history of fever, no history of headache, loss of consciousness, or seizures. PAST MEDICAL HISTORY: History of recently diagnosed lung cancer and radiation therapy. History of hypertension, hyperlipidemia, history of myocardial infarction, recent atrial fibrillation. The patient is followed by Dr. Gusman in the outpatient setting. Home medications: 1. Ultram 50 mg q.i.d. p.r.n. 2. Guaifenesin 200 mg p.o. daily. 4. Restoril 50 mg at bedtime p.r.n. 5. Xarelto 20 mg at bedtime. 6. Pravachol 40 mg daily. 7. MiraLAX 17 g daily. 8. Phenergan 12.5 mg every 6 hours. 9. Nitrostat 0.4 sublingual p.r.n. 10. Multivitamin 1 p.o. daily. 11. Lopressor 50 mg p.o. b.i.d. 12. Reglan 10 mg with meals. 13. Lialda 1.2 grams daily. 14. Biofreeze one application daily. 15. Morphine oral solution 20 mg every 4 p.r.n. 16. Synthroid 100 mcg p.o. in the morning. 17. Lansoprazole 30 mg p.o. daily. 18. DuoNeb q.i.d. and p.r.n. 19. Lasix 40 mg p.o. daily. 20. Tambocor 50 mg p.o. b.i.d. 21. Iron sulfate 325 mg daily. 22. Colace 100 mg p,o. b.i.d. 23. Dulcolax 10 mg daily p.r.n. 24. Aspirin 81 mg at bedtime. ALLERGIES: CIPROFLOXACIN, CODEINE, GABAPENTIN, HYDROCODONE, IBUPROFEN, OMEPRAZOLE, SULFA. FAMILY HISTORY: History of cancer and myocardial infarction in the family. SOCIAL HISTORY: Previous history of smoking, no current smoking. No history of alcohol intake. REVIEW OF SYSTEMS: ENT: Diminishing hearing, diminished vision. GI: As mentioned. : No hematuria or dysuria. NERVOUS SYSTEM: As mentioned. MUSCULOSKELETAL: As mentioned. HEMATOLOGY/ONCOLOGY: As mentioned. ENDOCRINE: As mentioned. CONSTITUTIONAL: As mentioned. DERMATOLOGY: Negative. PSYCHIATRY: As mentioned. PHYSICAL EXAMINATION: Alert, oriented x3. Pulse 135 and irregular, blood pressure 130/70, respirations 18, temperature 98.7, pulse ox 90% on room air. HEENT: Conjunctivae normal. Oral mucosa moist. NECK: No JVD. No carotid bruits. No lymph node enlargement. CARDIOVASCULAR: S1, S2 tachycardic, irregular. LUNGS: Breath sounds diminished at the bases. Bilateral scattered rhonchi and crackles. ABDOMEN: Soft, obese, nontender. No masses palpable. EXTREMITIES: No edema. NERVOUS SYSTEM: Higher functions as mentioned. Moves all extremities equally. No focal motor or sensory deficits. Mild diffuse weakness. SKIN: No ulcers, no rashes. LABS: WBC 8.3, hemoglobin 9, platelets 132, sodium 137, potassium 4.1. Troponin 0.897. ASSESSMENT: 1. Atrial fibrillation with fast ventricular rate. 2. Possible chronic obstructive pulmonary disease, acute exacerbation, with acute hypoxic respiratory failure. 3. History of recent acute non-ST segment elevation myocardial infarction. 4. Right upper lobe mass lesion, positive for squamous cell carcinoma, status post radiation. 5. Recent postobstructive pneumonia. 6. History of ulcerative colitis. 7. History of coronary artery disease and stent. 8. Essential hypertension. 9. History of nicotine dependence. 10. History of dyslipidemia. 11. Anemia, normocytic multiple malignancy. 12. Thrombocytopenia. 13. Increased random blood sugar. 14. Increased creatinine kinase. 15. Troponin 0.897, indeterminate; rule out acute non- ST segment-elevation myocardial infarction. 16. FULL CODE. RECOMMENDATIONS/DISCUSSION: In this 81-year-old woman who presented with multiple complex medical issues, we will monitor the patient closely. Continue the current medications, continue symptomatic treatment. Otherwise, at this time I would recommend Cardizem drip. Cardiology consultation. Troponin was elevated. A 2-D echo was done recently, showed ejection fraction about 55% to 60% with well-preserved LV function. LA was dilated. Otherwise, continue to monitor. See orders for further details. Also recommend consultation with pulmonary and supplementation such as Boost also may be ordered. Dietary evaluation also will be in place. Once again, the prognosis is guarded. Further recommendations to follow. MTDD
[2016-07-09] MEDS ORDERED: ASPIRIN 325 MG TAB PO SCH (09:00)
[2016-07-09 09:10] VITALS: RESP 18
[2016-07-09 09:30] VITALS: BMI 28.0
--- NOTE | 2016-07-09 13:44 | P.CRDCN ---
History of Present Illness Consult date: 07/09/16 Reason for Consult (text): AF w/RVR Chief complaint: Nausea, vomiting History of present illness: This is a pleasant 81-year-old female with a history of stage IV lung cancer, recent radiation, hyperlipidemia, hypertension, paroxysmal atrial fibrillation, adrenal mass, and OR in the past. Apparently has had very poor oral intake over the last week. She was taken to an appointment at Dr. Davis' s office and was found to be in atrial fibrillation with rapid ventricular response and was sent to the emergency department. She denies complaints of feeling a rapid heart beat. Her major complaint is nausea and vomiting and inability to keep food down. Chest x-ray on admission showed increase right side opacity indicating advancement of disease. Patient did have a recent echocardiogram done last admission that showed an ejection fraction of 55-60%. Laboratory values showed troponins of 0.897, 1.540 and 3.760. Not had any complaints of chest discomfort. Upon examination, patient is resting in bed somewhat restless. Verbalizes not feeling well, nauseous. She also complains of being tired and asking for something to help her sleep. She denies complaints of palpitations, dizziness, lightheadedness or chest pain. She does complain of shortness of breath Past Medical History Past Medical History: Cancer, Hyperlipidemia, Hypertension, Myocardial Infarction (OR), Thyroid Disorder Additional Past Medical History / Comment(s): ulcerative colitis, adrenal mass under investigation, CAD previous stent of RCA, HTN, hyperlipidemia, hypothyroidism,. 07/08/16- patient states no changes to medical history from previous admission. Patient has had radiation four times for lung CA. Last Myocardial Infarction Date:: 2005 History of Any Multi-Drug Resistant Organisms: None Reported Past Surgical History: Adenoidectomy, Bladder Surgery, Cholecystectomy, Heart Catheterization With Stent, Hysterectomy, Tonsillectomy Additional Past Surgical History / Comment(s): Cardiac stent Additional Past Anesthesia/Blood Transfusion Reaction / Comment(s): muscle weakness post biopsy Date of Last Stent Placement:: 2005 Past Psychological History: No Psychological Hx Reported Smoking Status: Former smoker Past Alcohol Use History: None Reported Past Drug Use History: None Reported - Past Family History Mother Family Medical History: Cancer, Myocardial Infarction (OR) Medications and Allergies Home Medications Medication Instructions Recorded Confirmed Type Lansoprazole 30 mg PO DAILY 05/09/16 07/08/16 History Levothyroxine Sodium [Synthroid] 100 mcg PO QAM 05/09/16 07/08/16 History Mesalamine [Lialda] 1.2 gm PO DAILY 05/09/16 07/08/16 History Multivitamins, Thera [Multivitamin 1 tab PO HS 05/09/16 07/08/16 History (formulary)] Pravastatin Sodium [Pravachol] 40 mg PO HS 05/09/16 07/08/16 History Vit C/E/Zn/Coppr/Lutein/Zeaxan 2 cap PO HS 05/09/16 07/08/16 History [Preservision Areds 2 Softgel] Rivaroxaban [Xarelto] 20 mg PO HS 06/05/16 07/08/16 History Aspirin 81 mg PO HS 07/08/16 07/08/16 History Bisacodyl [Dulcolax] 10 mg RECTAL DAILY PRN 07/08/16 07/08/16 History Ferrous Sulfate [Feosol] 325 mg PO HS 07/08/16 07/08/16 History Furosemide [Lasix] 40 mg PO DAILY 07/08/16 07/08/16 History Ipratropium-Albuterol Nebulize 3 ml INHALATION RT-Q4H PRN 07/08/16 07/08/16 History [Duoneb 0.5 mg-3 mg/3 ml Soln] MORPHINE ORAL SOLN 20mg/mL 10 mg SL Q4-6H PRN 07/08/16 07/08/16 History [Roxanol Oral Soln Conc 20MG/ML] Menthol [Biofreeze] 1 applic TOPICAL TID 07/08/16 07/08/16 History Metoclopramide [Reglan] 5 mg PO ACHS 07/08/16 07/08/16 History Phenergan 25mg/Ml Im Injection 12.5 mg IM Q6H PRN 07/08/16 07/08/16 History fentaNYL 25MCG/HR PATCH [Duragesic 1 patch TRANSDERM Q72H 07/08/16 07/08/16 History 25MCG/HR] guaiFENesin [Children's Mucinex 200 mg PO Q6H PRN 07/08/16 07/08/16 History Solution] Allergies Allergy/AdvReac Type Severity Reaction Status Date / Time ciprofloxacin [From Cipro] Allergy Unknown Verified 07/08/16 16:26 codeine Allergy Nausea & Verified 07/08/16 16:26 Vomiting gabapentin [From Neurontin] Allergy Unknown Verified 07/08/16 16:26 hydrocodone Allergy Rash/Hives Verified 07/08/16 16:26 ibuprofen [From Motrin] Allergy Rash/Hives Verified 07/08/16 16:26 Iodinated Contrast Media - Allergy Rash/Hives Verified 07/08/16 16:26 Oral and omeprazole [From Prilosec] Allergy Rash/Hives Verified 07/08/16 16:26 Sulfa (Sulfonamide Allergy Rash/Hives Verified 07/08/16 16:26 Antibiotics) Physical Exam Vitals: Vital Signs Temp Pulse Pulse Pulse Resp BP BP 07/09/16 11:09 97 F L 75 18 07/09/16 08:00 97.2 F L 78 18 142/65 07/09/16 04:00 97.8 F 78 20 117/58 07/09/16 00:10 97.0 F L 72 72 20 117/42 07/08/16 20:00 98.2 F 144 H 144 H 22 129/70 07/08/16 19:16 97.7 F 126 H 24 123/86 07/08/16 18:40 98.7 F 135 H 18 135/78 Pulse Ox 07/09/16 11:09 90 L 07/09/16 08:00 90 L 07/09/16 04:00 92 L 07/09/16 00:10 91 L 07/08/16 20:00 92 L 07/08/16 19:16 90 L 07/08/16 18:40 Intake and Output 07/08/16 07/09/16 07/09/16 22:59 06:59 14:59 Intake Total 6.083 1320 Output Total 450 200 Balance -802.490 8755 Intake: IV 120 Diltiazem 125 mg In 120 Sodium Chloride 0.9% 100 ml @ 10 MG/HR 10 mls/hr IV .[id number] ONE Rx#: [id number] Intake, IV Titration 6.083 1200 Amount Diltiazem 125 mg In 6.083 Sodium Chloride 0.9% 100 ml @ 10 MG/HR 10 mls/hr IV .[id number] ONE Rx#: [id number] Sodium Chloride 0.9% 1, 1200 000 ml @ 100 mls/hr IV . Q10H STA Rx#:[id number] Output: Urine 450 200 Other: Voiding Method Bedpan Bedpan Weight 74.843 kg 76.345 kg 76.345 kg Patient Weight 07/10/16 06:59 Weight 76.345 kg PHYSICAL EXAMINATION: HEENT: Head is atraumatic, normocephalic. Pupils equal, round. Neck is supple. There is no elevated jugular venous pressure. HEART EXAMINATION: Heart sounds regular, S1 and S2 normal. No murmur or gallop heard. CHEST EXAMINATION: Lungs jim diminished air entry throughout with scattered expiratory wheezing. No chest wall tenderness is noted on palpation or with deep breathing. ABDOMEN: Soft, nontender. Bowel sounds are heard. No organomegaly noted. EXTREMITIES: 2+ peripheral pulses with no evidence of peripheral edema and no calf tenderness noted. NEUROLOGIC patient is awake, alert and oriented x3. . Results 07/09/16 03:47 07/09/16 03:47 Cardiac Enzymes 07/08/16 07/09/16 Range/Units 22:17 03:47 CK-MB (CK-2) 34.0 H* 38.9 H* (0.0-2.4) ng/mL Troponin I 1.540 H* 3.760 H* (0.000-0.034) ng/mL Lipids 07/09/16 Range/Units 03:47 Triglycerides 88 (<150) mg/dL Cholesterol 90 (<200) mg/dL HDL Cholesterol 29 L (40-60) mg/dL CBC 07/09/16 Range/Units 03:47 WBC 11.2 H (3.8-10.6) k/uL RBC 3.26 L (3.80-5.40) m/uL Hgb 8.3 L (11.4-16.0) gm/dL Hct 28.3 L (34.0-46.0) % Plt Count 268 D (150-450) k/uL Comprehensive Metabolic Panel 07/09/16 Range/Units 03:47 Sodium 138 (137-145) mmol/L Potassium 4.7 (3.5-5.1) mmol/L Chloride 100 (98-107) mmol/L Carbon Dioxide 30 (22-30) mmol/L BUN 13 (7-17) mg/dL Creatinine 0.80 (0.52-1.04) mg/dL Glucose 126 H (74-99) mg/dL Calcium 8.9 (8.4-10.2) mg/dL Current Medications Generic Name Dose Route Start Last Admin Trade Name Freq PRN Reason Stop Dose Admin Albuterol/Ipratropium 3 ml 07/08/16 17:43 Duoneb 0.5 Mg-3 Mg/3 Ml Soln INHALATION RT-Q4H PRN Congestion Aspirin 81 mg 07/08/16 21:00 07/09/16 02:12 Aspirin PO Not Given HS [facility] Balsalazide 1,500 mg 07/09/16 09:00 07/09/16 09:06 Colazal PO Not Given TID [facility] Bisacodyl 10 mg 07/08/16 17:43 Dulcolax RECTAL DAILY PRN Constipation Docusate Sodium 100 mg 07/08/16 21:00 07/09/16 09:06 Colace PO Not Given BID [facility] Fentanyl 1 patch 07/08/16 19:00 07/09/16 08:47 Duragesic 25mcg/Hr Patch TRANSDERM Not Given Q72H [facility] Flecainide Acetate 50 mg 07/08/16 21:00 07/09/16 08:49 Tambocor PO 50 mg Q12HR [facility] Administration Furosemide 40 mg 07/09/16 09:00 Lasix PO DAILY [facility] Guaifenesin 200 mg 07/08/16 19:31 Robitussin PO Q6H PRN Cough Ceftriaxone Sodium 1,000 mg/ 50 mls @ 100 mls/hr 07/09/16 09:00 07/09/16 08: 49 Sodium Chloride IVPB 100 mls/hr Q24HR [facility] Administration Levothyroxine Sodium 100 mcg 07/09/16 06:30 07/09/16 06:56 Synthroid PO 100 mcg DAILY@0630 [facility] Administration Metoclopramide HCl 5 mg 07/08/16 21:00 07/09/16 06:56 Reglan PO 5 mg ACHS [facility] Administration Metoprolol Tartrate 50 mg 07/08/16 21:00 07/08/16 20:28 Lopressor PO 50 mg BID JACIEL Administration Morphine Sulfate 4 mg 07/08/16 21:59 07/09/16 06:56 Morphine Sulfate (Inj) IVP 4 mg Q4HR PRN Administration Severe Pain Multivitamins 1 each 07/08/16 21:00 07/09/16 02:13 Theragran PO Not Given HS JACIEL Naloxone HCl 0.2 mg 07/08/16 17:41 Narcan IV Q2M PRN Opioid Reversal Nitroglycerin 0.4 mg 07/08/16 17:39 Nitrostat SUBLINGUAL Q5M PRN Chest Pain Ondansetron HCl 4 mg 07/09/16 02:26 07/09/16 02:35 Zofran IVP 4 mg Q6HR PRN Administration Nausea And Vomiting Pravastatin Sodium 40 mg 07/08/16 21:00 07/09/16 02:13 Pravachol PO Not Given HS JACIEL Rivaroxaban 20 mg 07/08/16 21:00 07/08/16 22:43 Xarelto PO 20 mg HS JACIEL Administration Temazepam 15 mg 07/08/16 17:43 Restoril PO HS PRN Insomnia Tramadol HCl 50 mg 07/08/16 17:43 07/08/16 20:26 Ultram PO 50 mg QID PRN Administration Breakthrough Pain Intake and Output 07/08/16 07/09/16 07/09/16 22:59 06:59 14:59 Intake Total 6.083 1320 Output Total 450 200 Balance -[phone] Intake: IV 120 Diltiazem 125 mg In 120 Sodium Chloride 0.9% 100 ml @ 10 MG/HR 10 mls/hr IV .[id number] ONE Rx#: [id number] Intake, IV Titration 6.083 1200 Amount Diltiazem 125 mg In 6.083 Sodium Chloride 0.9% 100 ml @ 10 MG/HR 10 mls/hr IV .[id number] ONE Rx#: [id number] Sodium Chloride 0.9% 1, 1200 000 ml @ 100 mls/hr IV . Q10H STA Rx#:[id number] Output: Urine 450 200 Other: Voiding Method Bedpan Bedpan Weight 74.843 kg 76.345 kg 76.345 kg Patient Weight 07/10/16 06:59 Weight 76.345 kg 07/09/16 03:47 07/09/16 03:47 EKG Interpretations (text) Initially showed atrial fibrillation with rapid ventricular response Assessment and Plan Plan: Assessment and plan #1 atrial fibrillation with rapid ventricular response #2 stage IV lung cancer #3 nausea and vomiting #4 hypertension #5 elevated troponin, consistent with acute coronary syndrome Cardiology's perspective, medications were reviewed. Given patient's multiple comorbid conditions and advanced lung cancer medical management will be recommended at this point. She knew current medications. Further recommendations to follow. SUPER[employer] note has been reviewed, I agree with a documented findings and plan of care. Patient was seen and examined.
[2016-07-09 15:49] VITALS: BP 134/61; PULSE 77; TEMP 96.7
--- NOTE | 2016-07-09 17:52 | DS ---
DATE OF ADMISSION: 07/08/2016 DATE OF DISCHARGE: FINAL DIAGNOSES: 1. Atrial fibrillation with fast ventricular rate, present on admission. 2. Chronic obstructive pulmonary disease, acute exacerbation, with acute hypoxic respiratory failure. 3. History of recent acute non-ST segment myocardial infarction. 4. Right upper lobe mass lesion, squamous cell lung cancer, status post radiation. 5. Recent postobstructive pneumonia. 6. History of ulcerative colitis. 7. History of coronary artery disease and stent. 8. Essential hypertension. 9. History of nicotine dependence. 10. History of dyslipidemia. 11. Anemia, normocytic; secondary to malignancy. 12. Thrombocytopenia. 13. Increased random blood sugar. 14. Increased creatinine kinase. 15. Troponin 0.8, indeterminate rule out acute non-ST segment elevation myocardial infarction. 16. FULL CODE. DISCHARGE DISPOSITION: The patient will transferred to hospice, inpatient hospice facility in stable condition with guarded prognosis. Total time taken: 35 minutes. HISTORY OF PRESENT ILLNESS: This 81-year-old woman with a past medical history of multiple medical problems admitted with COPD, atrial fibrillation, in the setting of a recent squamous cell carcinoma of the right upper lobe and as well as myocardial infarction. The patient was treated symptomatically. However, patient did not improve. Patient has significant pain issues and case was discussed with the family and the family would like to the family and the patient would like to pursue the hospice care at this time. The patient is followed by Dr. Gusman in the outpatient setting. On exam, vital signs are stable. CARDIOVASCULAR: S1, S2. Respiratory: Breath sounds diminished at the bases. A few scattered rhonchi. DISCHARGE ADVICE AND MEDICATIONS: 1. Morphine solution 20 mg q.4 p.r.n. 2. Albuterol Atrovent updrafts q.i.d. and p.r.n. 3. Morphine 20 mg q.4 p.r.n. as mentioned earlier. 4. Duragesic patch 25 mcg q.72h. 5. Restoril 15 mg q.h.s. p.r.n. 6. Bisacodyl 10 mg p.o. daily p.r.n. 7. Colace 100 milligrams p.o. b.i.d. p.r.n. 8. Metoclopramide 5 mg a.c. and q.h.s. 9. Scopolamine patch 1.5 q72 hours. 10. Ultram 50 mg p.o. q.i.d. p.r.n. Once again, the patient will be discharged in a stable condition with guarded prognosis.
--- NOTE | 2016-07-09 19:05 | CONS ---
This is a very pleasant 81-year-old female patient who follows with Dr. Talley as her primary care physician. She has a history of hyperlipidemia, hypertension, myocardial infarction, ulcerative colitis, coronary artery disease with previous stent placement. She is also recently diagnosed with squamous cell carcinoma of the lung. She has since undergone 4 radiation treatments. She has not been well enough to tolerate any chemotherapy treatments thus far. She was residing in an extended-care facility from a previous admission for fatigue and weakness and was discharged most recently on June 17, 2016. She has been having ongoing issues with nausea and vomiting and poor oral intake. She was actually brought from the extended-care facility to Dr. Fuentes's office yesterday and upon exam, she was quite ill and was referred to the emergency room. She is seen today in consultation on the selective care unit. She is still quite nauseated and uncomfortable, restless lying in bed. Her family is at the bedside. She currently denies any worsening shortness of breath. Her chest x-ray did show increased right-sided pulmonary opacification consistent with disease progression. She is maintaining O2 saturations in the low 90s on 6L of high flow nasal cannula. She states she is not going back to the extended-care facility and wishes to go home with hospice. The family is in agreement. Past medical history includes hyperlipidemia, hypertension, coronary artery disease with previous stent placements, atrial fibrillation, hypothyroidism. Past surgical history includes bladder surgery, adenoidectomy, cholecystectomy, hysterectomy, tonsillectomy, bronchoscopy with biopsy. SOCIAL HISTORY: The patient is a former smoker. No excessive alcohol use. No illicit drug use. ALLERGIES INCLUDE CIPROFLOXACIN, CODEINE, GABAPENTIN, HYDROCODONE, IBUPROFEN, IV CONTRAST, OMEPRAZOLE AND SULFONAMIDE ANTIBIOTICS. Home medications are: 1. Ultram 50 mg q.i.d. p.r.n. 2. Mucinex 200 mg every 6 hours p.r.n. 3. Duragesic patch q.72h. 4. Xarelto 20 mg at bedtime. 5. Pravachol 40 mg at bedtime. 6. Lopressor 50 mg b.i.d. 7. Reglan 5 mg a.c. and at bedtime. 8. Lialda 1.2 g daily. 9. Oral morphine solution 20 mg/mL 10 mg sublingual p.r.n. 10. Synthroid 100 mcg daily. 11. Lansoprazole 30 mg daily. 12. DuoNeb inhalations q.i.d. and p.r.n. 13. Lasix 40 mg daily. 14. Tambocor 50 mg q.12 hours. 15. Feosol 325 mg at bedtime. REVIEW OF SYSTEMS: Fourteen-point review of systems was conducted; all negative other than as mentioned in the HPI. On physical exam, the patient is quite uncomfortable, nauseated and weak. Vital signs reveal blood pressure 142/65, heart rate 78, respirations 18, temperature is 97.2. She is 90% O2 saturation on 6L of high-flow nasal cannula. Her head is normocephalic. Sclerae are anicteric. Her neck is supple, trachea midline. Her lungs have scattered rhonchi, more so in the right lung. Her heart is regular. S1, S2. Her abdomen is soft, nontender. Bowel sounds are present. There is 1 to 2+ lower extremity peripheral edema. No clubbing. No cyanosis. Peripheral pulses are intact. INVESTIGATIONS: Chest x-ray reveals increased opacity of the right lung consistent with progression of disease. Lab results reveal WBC 11.2, hemoglobin 8.3, platelet count 268,000. Sodium 138, potassium 4.7, chloride 100, CO2 of 30, BUN 13, creatinine 0.80. Peak troponin 3.760. Urinalysis shows bacteria and moderate leukocytes. Her medications are reviewed. IMPRESSION: 1. Generalized weakness and nausea, vomiting, poor oral intake. 2. Acute coronary syndrome. 3. Atrial fibrillation with a rapid ventricular response. 4. Recent diagnosis of advanced squamous cell carcinoma involving the right bronchus intermedius and pre-carinal lymph nodes with chest x-ray showing progression of disease. 5. Recent acute non-ST segment elevation myocardial infarction. 6. Chronic obstructive pulmonary disease. 7. Ulcerative colitis. 8. Coronary artery disease with previous coronary stent placements. 9. Hypertension. 10. Remote history of smoking. 11. Hyperlipidemia. 12. Suspect urinary tract infection PLAN: The patient was seen and evaluated by Dr. Ríos. He did have a willa discussion with the patient and family at the bedside. She is declining any further treatment. She is not wanting to go back to an extended-care facility. The plan will probably be home with hospice. Cardiology is on the case regarding her myocardial infarction and based on the patient's overall comorbid conditions and advanced lung cancer, obviously no plans for intervention. In the interim, we will continue with current medications, including bronchodilators, diuretics, pain control, anticoagulated with Xarelto, antibiotics in the form of ceftriaxone. Will continue to follow and make further recommendations based on her clinical status. We have requested hospice consultation. I performed a history and physical examination of this patient and discussed the same with the dictator. I agree with the dictator's note. Any additional findings/opinions, etc. will be noted.
== END 2016-07-09 19:12 | disposition hospice, inpatient (51) | DRG 280 ==
LOC: EC 14:46 → 6SEL 17:40
PROVIDERS: ADMIT Internal Medicine; ATTEND Internal Medicine
DX: I48.0 Paroxysmal atrial fibrillation (principal); I21.4 Non-ST elevation (NSTEMI) myocardial infarction; J96.01 Acute respiratory failure with hypoxia; J44.1 Chronic obstructive pulmonary disease with (acute) exacerbation; C34.90 Malignant neoplasm of unspecified part of unspecified bronchus or lung; D69.6 Thrombocytopenia, unspecified; D63.0 Anemia in neoplastic disease; I10 Essential (primary) hypertension; E03.9 Hypothyroidism, unspecified; E78.5 Hyperlipidemia, unspecified; I25.10 Atherosclerotic heart disease of native coronary artery without angina pectoris; I25.2 Old myocardial infarction; E27.9 Disorder of adrenal gland, unspecified; R73.9 Hyperglycemia, unspecified; Z79.82 Long term (current) use of aspirin; Z79.899 Other long term (current) drug therapy; Z87.891 Personal history of nicotine dependence; Z95.5 Presence of coronary angioplasty implant and graft; Z88.5 Allergy status to narcotic agent; Z88.2 Allergy status to sulfonamides; Z88.8 Allergy status to other drugs, medicaments and biological substances; Z88.6 Allergy status to analgesic agent; Z88.1 Allergy status to other antibiotic agents; Z91.041 Radiographic dye allergy status; Z82.49 Family history of ischemic heart disease and other diseases of the circulatory system
CPT/HCPCS: 36415; 71010; 80048; 80053; 80061; 81001; 82550; 82553; 83735; 83880; 84443; 84484; 85025; 85610; 85730; 87040; 93005; 96365; 96366; 96375; 96376; 99291